=== PATIENT | male | born 1935 | race Caucasian/White ===

== ENCOUNTER 2019-06-14 09:41 | Inpatient (IN) | payer OTHER, SELFPAY ==
[2019-06-14] VITALS (19 sets, daily range): BP systolic 105–130; BP diastolic 57–70; PULSE 62–106; RESP 16–21; TEMP 36.6–37.6; O2SAT 93–99; BMI 29.5
--- NOTE | 2019-06-14 09:44 | ED_ITS ---
Entered by Clotilde Lnage, acting as scribe for Cm Izquierdo DO HPI - General Adult General: Chief complaint: General Medical Stated complaint: LOW HEMOGLOBIN Time Seen by Provider: 06/14/19 09:44 History of Present Illness: HPI narrative: 83 yo male presents with low hemoglobin. Pt has a history of anemia, has had 1 transfusion before. Pt was diagnosed with pneumonia last week and has been taking antibiotics. Pt states that he has had a non productive cough. Pt states that he tries to cough stuff up but nothing comes up, he as wheezing. Pt states that he received lasix yesterday and his cough is a little better. Pt state that he was taken off of his blood thinners 1 month ago. Pt states that he had to have a blood transfusion in April. MD complaint: low hemoglobin Associated symptoms: Reports cough and dyspnea; Deny chest pain, malaise, nausea, rash or vomiting Review of Systems Const: Denies: fever, chills, body aches, change in appetite, fatigue or malaise ENMT: Denies: throat pain, ear pain, nasal discharge or nasal congestion Card: Reports: shortness of breath on exertion; Denies: chest pain, edema or shortness of breath when lying down Resp: Reports: shortness of breath and non-productive cough; Denies: productive cough GI: Denies: abdominal pain, nausea, vomiting, vomiting blood, coffee grounds in vomit, diarrhea, constipation, bloating, blood in stool or black tarry stool : Denies: flank pain, painful urination, urinary frequency or urinary urgency Skin/Breast: Denies: rash or itching PFSH ED PFSH: Medical History (Updated 06/14/19 @ 14:36 by Cm Izquierdo DO) Acute respiratory failure Anemia Benign prostatic hyperplasia Chronic kidney disease, stage III (moderate) Congestive heart failure COPD (chronic obstructive pulmonary disease) Diastolic CHF GI bleed Hyperlipidemia Hypertension Monoclonal gammopathy Paroxysmal atrial fibrillation Pneumonia Rosacea TIA (transient ischemic attack) Surgical History H/O knee surgery History of back surgery History of neck surgery Family History (Updated 06/14/19 @ 13:42 by Melvin Kaufman MD) Other CAD (coronary artery disease) Social History Smoking and tobacco status: former smoker Physical Exam Const: COMMON NORMALS: no apparent distress GENERAL APPEARANCE: cooperative and comfortable ORIENTATION/CONSCIOUSNESS: Yes awake, Yes oriented to person, Yes oriented to place and Yes oriented to time HENMT: COMMON NORMALS: normocephalic, head/scalp atraumatic, hearing grossly normal bilaterally, external ears normal, EAC's normal, TM's normal bilaterally, nasal mucous membranes and turbinates normal, moist oral mucous membranes and oropharynx normal HEAD & SCALP: normocephalic and atraumatic NOSE: nasal mucous membranes and turbinates normal EXTERNAL EAR: Yes external ears normal EXTERNAL AUDITORY CANAL: EAC's normal TYMPANIC MEMBRANE: TM's normal bilaterally Eye: COMMON NORMALS: PERRL, EOMs intact bilaterally, conjunctivae normal and no scleral icterus CONJUNCTIVA: Yes conjunctivae normal PUPIL: Yes PERRL Neck/C-Spine: COMMON NORMALS: full ROM, no lymphadenopathy, supple and no JVD Lymph: LYMPHATIC: no lymphadenopathy noted and no lymphedema noted Resp: AUSCULTATION: rhonchi right lower and wheezes throughout Cardio: COMMON NORMALS: no JVD and no murmurs RHYTHM: abnormal rhythm irregularly irregular GI: COMMON NORMALS: soft to palpation and no hepatosplenomegaly AUSCULTATION: Yes normoactive bowel sounds PALPATION: Yes soft, No tender, No guarding and Yes no hepatosplenomegaly : OTHER: pt has a marrero catheter in. Extremity: COMMON NORMALS: normal to inspection, normal capillary refill, no clubbing, cyanosis or edema, no calf tenderness and no pedal edema Neuro: SENSORIUM/ORIENTATION: Yes oriented to person, Yes oriented to place and Yes oriented to time Skin: COMMON NORMALS: no rashes or lesions noted GENERAL SKIN EXAM: no rashes or lesions noted Course ED course: Patient has been 2 courses of outpatient antibiotics doxycycline and Levaquin suspect he needs further more aggressive treatment will start on healthcare associated pneumonia antibiotic regimen. Additionally he will likely need transfusion discussed with Dr. Mora will admit the patient to his services. Vital Signs: Vital signs: Vital Signs Temperature 98.8 F 06/14/19 14:06 Pulse Rate 69 06/14/19 14:06 Respiratory Rate 21 H 06/14/19 14:06 Blood Pressure 106/66 06/14/19 14:06 Pulse Oximetry 97 06/14/19 14:06 [facility] - General Adult Lab Data: Labs: Lab Results 06/14/19 06/14/19 06/14/19 Range/Units 10:02 10:02 10:02 WBC 10.8 H (4.0-10.0) 10^3/ uL RBC 2.41 L (4.1-5.3) 10^6/u L Hgb 7.0 L (11.7-16.6) g/dL Hct 24.2 L (42.0-52.0) % MCV 100.4 H (80-94) fL MCH 29.0 (28.0-34.0) pg MCHC 28.9 L (30.0-36.0) g/dL RDW 18.7 H (12.1-15.1) % Plt Count 159 (130-400) 10^3/c mm MPV 10.0 (7.4-10.4) fL Neut % (Auto) 76.5 % Lymph % (Auto) 13.9 % Jerome % (Auto) 7.6 % Eos % (Auto) 1.0 % Baso % (Auto) 0.1 % Reticulocyte % (Au to) % Neut # (Auto) 8.3 H (1.8-7.7) 10^3/u L Lymph # (Auto) 1.5 (0.8-4.8) 10^3/u L Jerome # (Auto) 0.8 (0.2-0.9) 10^3/u L Eos # (Auto) 0.1 (0.0-0.8) 10^3/u L Baso # (Auto) 0.0 (0.0-0.1) 10^3/u L Nucleated RBC % (a uto) 0 % Nucleated RBCs # 0.0 /100WBC ESR (0-10) mm/hr PT 16.70 H (10.5-13.3) SECO NDS INR 1.31 H (0.8-1.2) APTT 27.3 (23.9-36.7) SECO NDS Sodium 139 (136-145) mmol/L Potassium 3.6 (3.5-5.1) mmol/L Chloride 102 (98-107) mmol/L Carbon Dioxide 29 (22-29) mmol/L Anion Gap 11.6 (5-19) BUN 32 H (8-23) mg/dL Creatinine 1.5 H (0.7-1.2) mg/dL Glucose 113 (65-115) mg/dL Calcium 9.5 (8.5-10.5) mg/dL Iron (59-158) ug/dL TIBC mcg/dl % Saturation (20-50) % Unsat Iron Binding (112-347) ug/dL Ferritin (30-400) ng/mL Total Bilirubin 0.2 (0.15-1.2) mg/dL AST 9 (0-40) U/L ALT 17 (0-41) U/L Alkaline Phosphata se 98 (40-130) IU/L C-Reactive Protein (0.0-4.9) mg/L NT-Pro-B Natriuret Pep 2760 H (0-450) pg/mL Total Protein 6.3 L (6.6-8.7) g/dL Albumin 2.6 L (3.5-5.2) g/dL Globulin 3.7 (1.3-4.6) g/dL Vitamin B12 (232-1245) pg/mL Folate (4.5-32.2) ng/mL Procalcitonin (0-0.5) ng/mL 06/14/19 06/14/19 06/14/19 Range/Units 10:02 10:02 10:02 WBC (4.0-10.0) 10^3/ uL RBC (4.1-5.3) 10^6/u L Hgb (11.7-16.6) g/dL Hct (42.0-52.0) % MCV (80-94) fL MCH (28.0-34.0) pg MCHC (30.0-36.0) g/dL RDW (12.1-15.1) % Plt Count (130-400) 10^3/c mm MPV (7.4-10.4) fL Neut % (Auto) % Lymph % (Auto) % Jerome % (Auto) % Eos % (Auto) % Baso % (Auto) % Reticulocyte % (Au to) 2.5500 % Neut # (Auto) (1.8-7.7) 10^3/u L Lymph # (Auto) (0.8-4.8) 10^3/u L Jerome # (Auto) (0.2-0.9) 10^3/u L Eos # (Auto) (0.0-0.8) 10^3/u L Baso # (Auto) (0.0-0.1) 10^3/u L Nucleated RBC % (a uto) % Nucleated RBCs # /100WBC ESR 101 H (0-10) mm/hr PT (10.5-13.3) SECO NDS INR (0.8-1.2) APTT (23.9-36.7) SECO NDS Sodium (136-145) mmol/L Potassium (3.5-5.1) mmol/L Chloride (98-107) mmol/L Carbon Dioxide (22-29) mmol/L Anion Gap (5-19) BUN (8-23) mg/dL Creatinine (0.7-1.2) mg/dL Glucose (65-115) mg/dL Calcium (8.5-10.5) mg/dL Iron 28 L (59-158) ug/dL TIBC 117 mcg/dl % Saturation 23.9 (20-50) % Unsat Iron Binding 89 L (112-347) ug/dL Ferritin 578 H (30-400) ng/mL Total Bilirubin (0.15-1.2) mg/dL AST (0-40) U/L ALT (0-41) U/L Alkaline Phosphata se (40-130) IU/L C-Reactive Protein 90.2 H (0.0-4.9) mg/L NT-Pro-B Natriuret Pep (0-450) pg/mL Total Protein (6.6-8.7) g/dL Albumin (3.5-5.2) g/dL Globulin (1.3-4.6) g/dL Vitamin B12 > 2000 H (232-1245) pg/mL Folate (4.5-32.2) ng/mL Procalcitonin 0.16 (0-0.5) ng/mL 06/14/19 Range/Units 10:02 WBC (4.0-10.0) 10^3/ uL RBC (4.1-5.3) 10^6/u L Hgb (11.7-16.6) g/dL Hct (42.0-52.0) % MCV (80-94) fL MCH (28.0-34.0) pg MCHC (30.0-36.0) g/dL RDW (12.1-15.1) % Plt Count (130-400) 10^3/c mm MPV (7.4-10.4) fL Neut % (Auto) % Lymph % (Auto) % Jerome % (Auto) % Eos % (Auto) % Baso % (Auto) % Reticulocyte % (Au to) % Neut # (Auto) (1.8-7.7) 10^3/u L Lymph # (Auto) (0.8-4.8) 10^3/u L Jerome # (Auto) (0.2-0.9) 10^3/u L Eos # (Auto) (0.0-0.8) 10^3/u L Baso # (Auto) (0.0-0.1) 10^3/u L Nucleated RBC % (a uto) % Nucleated RBCs # /100WBC ESR (0-10) mm/hr PT (10.5-13.3) SECO NDS INR (0.8-1.2) APTT (23.9-36.7) SECO NDS Sodium (136-145) mmol/L Potassium (3.5-5.1) mmol/L Chloride (98-107) mmol/L Carbon Dioxide (22-29) mmol/L Anion Gap (5-19) BUN (8-23) mg/dL Creatinine (0.7-1.2) mg/dL Glucose (65-115) mg/dL Calcium (8.5-10.5) mg/dL Iron (59-158) ug/dL TIBC mcg/dl % Saturation (20-50) % Unsat Iron Binding (112-347) ug/dL Ferritin (30-400) ng/mL Total Bilirubin (0.15-1.2) mg/dL AST (0-40) U/L ALT (0-41) U/L Alkaline Phosphata se (40-130) IU/L C-Reactive Protein (0.0-4.9) mg/L NT-Pro-B Natriuret Pep (0-450) pg/mL Total Protein (6.6-8.7) g/dL Albumin (3.5-5.2) g/dL Globulin (1.3-4.6) g/dL Vitamin B12 (232-1245) pg/mL Folate 16.0 (4.5-32.2) ng/mL Procalcitonin (0-0.5) ng/mL Discharge Plan Discharge Patient Disposition: Admitted As Inpatient Admit Provider: Melvin Kaufman Clinical Impression: Pneumonia, Paroxysmal atrial fibrillation, Hypertension, GI bleed, Anemia Condition: Stable Interventions: ED Discharge Assessment Last Done: 06/14/19 14:06 Discharge Date/Time: 06/14/19 14:23 Coding Level of Care Code ED Tape Transferrer for Chg Fwd Exam Comprehensive The documentation recorded by the Nazario jaquez Kialy, accurately reflects the service I personally performed and the decisions made by Felecia haider Curtis L, DO Jun 14, 2019 09:41
--- NOTE | 2019-06-14 09:54 | XRR_ITS ---
PROCEDURE INFORMATION: Exam: XR Chest, 1 View Exam date and time: 06/14/2019 10:31 AM Age: 83 years old Clinical indication: Dyspnea/cough TECHNIQUE: Imaging protocol: XR of the chest Views: 1 view. COMPARISON: CR Chest 1 [place] [id number] 03/17/2019 12:07 PM FINDINGS: Lungs: There is bilateral interstitial lung disease, asymmetrically worse in the right lung base. This could be due to interstitial pulmonary edema or pneumonitis. Pleural space: Small pleural effusions. No pneumothorax. Heart/Mediastinum: The cardiac silhouette is enlarged. The mediastinal contours are normal. Bones/joints: Left glenohumeral joint degeneration. XR/XR chest 1V portable [id number] IMPRESSION: Asymmetric interstitial pulmonary edema versus pneumonitis. Small pleural effusions.
[2019-06-14 10:13] LABS: Basophils % 0.1 %; Eosinophils # 0.1 10^3/uL (0.0-0.8); Hematocrit 24.2 % (42.0-52.0); Lymphocytes # 1.5 10^3/uL (0.8-4.8); Lymphocytes % 13.9 %; Mean Corpuscular HGB Conc 28.9 g/dL (30.0-36.0); Mean Corpuscular Volume 100.4 fL (80-94); Monocytes # 0.8 10^3/uL (0.2-0.9); Monocytes % 7.6 %; Neutrophils # 8.3 10^3/uL (1.8-7.7); Neutrophils % 76.5 %; Nucleated Red Blood Cells % 0 %; Platelet Count 159 10^3/cmm (130-400); Red Blood Count 2.41 10^6/uL (4.1-5.3); Red Cell Distribution Width 18.7 % (12.1-15.1); White Blood Count 10.8 10^3/uL (4.0-10.0)
[2019-06-14 10:22] LABS: INR 1.31 (0.8-1.2)
[2019-06-14 10:24] LABS: Partial Thromboplastin Time 27.3 SECONDS (23.9-36.7)
[2019-06-14 10:40] LABS: Alanine Aminotransferase 17 U/L (0-41); Albumin Level 2.6 g/dL (3.5-5.2); Alkaline Phosphatase 98 IU/L (40-130); Anion Gap 11.6 (5-19); Aspartate Amino Transferase 9 U/L (0-40); Blood Urea Nitrogen 32 mg/dL (8-23); Calcium 9.5 mg/dL (8.5-10.5); Carbon Dioxide 29 mmol/L (22-29); Chloride 102 mmol/L (98-107); Creatinine Clr Calc Pharmacy 44.3461; Globulin 3.7 g/dL (1.3-4.6); Glucose 113 mg/dL (65-115); NT Pro B Type Natriuretic Pept 2760 pg/mL (0-450); Potassium 3.6 mmol/L (3.5-5.1); Sodium 139 mmol/L (136-145); Total Bilirubin 0.2 mg/dL (0.15-1.2); Total Protein 6.3 g/dL (6.6-8.7)
[2019-06-14] MEDS: levofloxacin-dextrose 5 % 750 MG/150 ML PREMIX 100 MG IV (13:05)
[2019-06-14 13:06] LABS: C Reactive Protein 90.2 mg/L (0.0-4.9)
--- NOTE | 2019-06-14 13:08 | PC.NURSE ---
PATIENT SLEEPING HOSPITALIST IN ROOM AFTER FOR EVALUATION
--- NOTE | 2019-06-14 13:19 | CT_ITS ---
WS: [id number] CT CHEST ANGIOGRAPHY WITH REFORMATS HISTORY: sob, recent back surgery TECHNIQUE: Contiguous axial images are obtained through the chest during arterial injection of intrav enous contrast. Images are reconstructed to evaluate the pulmonary arteries. MIP imaging also reviewe d. All CT scans at [facility] use at least one of these dose optimization techniques: aut omated exposure control; mA and/or kV adjustment per patient size (includes targeted exams where dose is matched to clinical indication); or iterative reconstruction. CONTRAST: Omnipaque 300; 95 mL IV. DLP: 623.35 mGy.cm COMPARISON: 03/14/2018 Good opacification of the pulmonary arteries. Centrally no filling defects or pulmonary emboli are id entified. Limited opacification of the LEFT lower lobe subsegmental branches due to atelectasis. Norm al pulmonary artery size. Atherosclerosis aorta with no aneurysm or dissection. Mild enlargement of t he heart chambers no pericardial effusion. Moderate coronary artery atherosclerosis. There are jelly us small lymph nodes within the mediastinum and hilar regions. These lymph nodes were present on prio r study but slightly increased in size. Largest of the RIGHT hilum measures 14 mm. Small layering bilateral pleural effusions and atelectasis. There is mild haziness and groundglass at tenuation bilaterally within the lungs. Pleural thickening and fluid along the fissures. Atherosclerosis continues into the suprarenal abdominal aorta. Lumbar fusion hardware is noted. T12 vertebral planar compression fracture. Mild anterior wedging of T11, T10 and T8. CT/CT angio chest PE protcl [id number] IMPRESSION: 1. No pulmonary embolism. 2. Small bilateral pleural effusions with compressive atelectasis and mild CHF . 3. Numerous but minimally enlarged mediastinal and hilar lymph nodes. Probably reactive. 4. Coronary artery calcifications.
--- NOTE | 2019-06-14 13:21 | PM.HP ---
Providers/Chief Complaint Primary Care Provider: Bob Tobar MD Chief Complaint: LOW HEMOGLOBIN History of Present Illness Teddy Cortes is a 83 year old male with a past medical history of chronic diastolic CHF, 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, obesity, NAYANA on CPAP, hypertension, BPH, chronic back pain, with recent history of decompressive laminectomy at L1-2 L3, L3-L4 with history of wound dehiscence at surgical site, CKD stage III-IV, history of IgM monoclonal gammopathy, chronic normocytic anemia, chronic folate and B12 deficiency peripheral vascular disease with known AAA, recent history of staph epidermidis bacteremia status post antibiotic therapy, recent hospitalization for a GI bleed at [facility] who presents to the emergency due to complaints of fatigue, weakness, malaise, shortness of breath, cough and low hemoglobin. According to patient roughly 2 to 3 weeks ago he fell at the [place] [facility], and he was sent to [facility], there he spent a few weeks according to him, he said that that he had fluid on his lungs, and his hemoglobin was low, that he got 2 pints of blood, they are keeping an eye on his hemoglobin, denies history of EGD at that hospitalization, denies history of colonoscopy at that hospitalization, has had a colonoscopy 2 years ago which was unremarkable, stated that they discharged him with a close monitoring of his hemoglobin, the [place] [facility] has been checking his hemoglobin, and his hemoglobin is 7 so he was sent to the emergency room for further evaluation. Patient states that at the [place] [facility] he is felt more weak, fatigued, tired, lightheaded, his dizziness, shortness of breath with exertion. Denies bloody stools. Denies black stools. Denies hematuria. No fevers. No chills. I did speak to the [place] [facility], there were concerns of fluid overload and pneumonia, patient was on doxycycline at one point, Levaquin, he was also given 80 mg of Lasix to help with his fluid overload. Review of Systems Const: Denies: fever, chills, fatigue or malaise Eyes: Denies: change in vision or blurry vision ENMT: Denies: nasal congestion Card: Denies: chest pain or palpitations Resp: Reports: shortness of breath and non-productive cough; Denies: productive cough or wheezing GI: Denies: abdominal pain, nausea, vomiting, vomiting blood, diarrhea, constipation, blood in stool or black tarry stool : Denies: flank pain, difficulty urinating, painful urination or urinary frequency Musc: Denies: neck pain or back pain Skin/Breast: Denies: rash Neuro: Denies: headache, dizziness or vertigo Psych: Denies: anxiety or depression Endo: Denies: excessive urination or excessive thirst Medications/Allergies Home Medications Medication Instructions Recorded Confirmed Last Taken Type Lactobacillus acidophilus 1 cap PO DAILY 06/14/19 06/14/19 06/14/19 09:00 History [Acidophilus] acetaminophen [Tylenol 8 Hour] 650 mg PO Q4H PRN 06/14/19 06/14/19 Unknown History albuterol sulfate 2.5 mg INHALATION QID 06/14/19 06/14/19 06/14/19 08:00 History albuterol sulfate [ProAir HFA] 2 puff INHALATION Q6H 06/14/19 06/14/19 06/14/19 06:00 History ascorbic acid (vitamin C) [Vitamin 250 mg PO DAILY 06/14/19 06/14/19 06/14/19 History C] bisacodyl 10 mg DE DAILY PRN 06/14/19 06/14/19 Unknown History budesonide-formoterol [Symbicort] 2 puff INHALATION BID 06/14/19 06/14/19 06/14/19 09:00 History bumetanide 1 mg PO BID 06/14/19 06/14/19 06/14/19 09:00 History carvedilol 3.125 mg PO BID 06/14/19 06/14/19 06/14/19 08:00 History cyanocobalamin (vitamin B-12) 5,000 mcg SUBLINGUAL DAILY 06/14/19 06/14/19 06/14/19 09:00 History [Vitamin B-12] diltiazem HCl [Cardizem CD] 240 mg PO DAILY 06/14/19 06/14/19 06/14/19 08:00 History docusate sodium [Colace] 100 mg PO BID 06/14/19 06/14/19 06/14/19 09:00 History doxycycline hyclate 100 mg PO DAILY 06/14/19 06/14/19 06/14/19 09:00 History ferrous sulfate 325 mg PO DAILY 06/14/19 06/14/19 06/14/19 09:00 History finasteride 5 mg PO DAILY 06/14/19 06/14/19 06/14/19 09:00 History folic acid 1 mg PO BEDTIME 06/14/19 06/14/19 06/13/19 21:00 History furosemide [Lasix] 80 mg PO DAILY 06/14/19 06/14/19 06/13/19 08:00 History gabapentin 300 mg PO BID 06/14/19 06/14/19 06/14/19 09:00 History guaifenesin [Mucinex] 600 mg PO Q12H 06/14/19 06/14/19 06/14/19 09:00 History hydralazine 50 mg PO TID 06/14/19 06/14/19 06/14/19 09:00 History hydrocodone-acetaminophen [[place]] 1 tab PO Q6H PRN 06/14/19 06/14/19 Unknown History ipratropium bromide [Atrovent HFA] 2 puff INHALATION DAILY PRN 06/14/19 06/14/19 Unknown History levofloxacin [Levaquin] 750 mg PO DAILY 06/14/19 06/14/19 06/13/19 History magnesium hydroxide [Milk of 30 ml PO DAILY PRN 06/14/19 06/14/19 Unknown History Magnesia] multivitamin [Multiple Vitamins] 1 tab PO DAILY 06/14/19 06/14/19 06/14/19 09:00 History senna 17.2 mg PO DAILY 06/14/19 06/14/19 06/14/19 09:00 History sodium phosphates [Enema 118 ml DE DAILY PRN 06/14/19 06/14/19 Unknown History Disposable] tamsulosin 0.4 mg PO BEDTIME 06/14/19 06/14/19 06/13/19 21:00 History tiotropium bromide [Spiriva with 1 cap INHALATION DAILY 06/14/19 06/14/19 06/14/19 09:00 History HandiHaler] Allergies Allergy/AdvReac Type Severity Reaction Status Date / Time No Known Allergies Allergy Verified 06/14/19 09:55 PFSH Acute PFSH: Medical History (Updated 06/14/19 @ 13:41 by Melvin Kaufman MD) Acute respiratory failure Anemia Benign prostatic hyperplasia Chronic kidney disease, stage III (moderate) Congestive heart failure COPD (chronic obstructive pulmonary disease) Diastolic CHF GI bleed Hyperlipidemia Hypertension Monoclonal gammopathy Paroxysmal atrial fibrillation Pneumonia Rosacea TIA (transient ischemic attack) Surgical History H/O knee surgery History of back surgery History of neck surgery Family History (Updated 06/14/19 @ 13:42 by Melvin Kaufman MD) Other CAD (coronary artery disease) Social History Smoking and tobacco status: former smoker Vitals/I&O/Wt Last Vital Signs Temp 98.1 F 06/14/19 09:45 Pulse 90 06/14/19 09:45 Resp 20 H 06/14/19 09:45 BP 114/70 06/14/19 09:45 Pulse Ox 94 06/14/19 09:45 Weight last 48 hrs Weight 93.44 kg Physical Exam Const: COMMON NORMALS: no apparent distress and oriented x3 GENERAL APPEARANCE: cooperative and comfortable HENMT: COMMON NORMALS: normocephalic HEAD & SCALP: normocephalic Eye: COMMON NORMALS: PERRL, EOMs intact bilaterally and no papilledema GENERAL EYE: normal appearance of both eyes PUPIL: Yes PERRL DIRECT OPHTHALMOSCOPY: Yes no papilledema Neck/C-Spine: COMMON NORMALS: full ROM, no lymphadenopathy, no JVD and thyroid normal THYROID: thyroid normal Lymph: LYMPHATIC: no lymphadenopathy noted Resp: COMMON NORMALS: normal respiratory effort, no retractions, no use of accessory muscles and clear to auscultation bilaterally AUSCULTATION: wheezes Cardio: COMMON NORMALS: no JVD, regular rate, regular rhythm, S1 normal heart sound, S2 normal heart sound, no gallops, no clicks and no murmurs RATE: regular rate RHYTHM: regular rhythm HEART SOUNDS: S1 normal and S2 normal GI: COMMON NORMALS: normal to inspection, nondistended, normoactive bowel sounds, soft to palpation, non-tender and no hepatosplenomegaly PALPATION: Yes soft and Yes no hepatosplenomegaly Extremity: COMMON NORMALS: normal to inspection, full ROM and no pedal edema Neuro: COMMON NORMALS: oriented x3, CN's II-XII intact bilaterally, moves all extremities and no focal motor deficits Psych: COMMON NORMALS: mental status grossly normal, thought process normal and cooperative THOUGHT PROCESS: normal thought process Data : 06/14/19 10:02 06/14/19 10:02 A&P Assessment and plan (1) GI bleed: -Upper versus lower GI bleed -Had a colonoscopy 2 years ago which was unremarkable -Had a hospitalization a few weeks ago at [facility], required 2 units of blood, no source found, no history of EGD or colonoscopy at that point Plan: -Monitor hemoglobins -Transfuse 1 unit PRBC -IV Protonix -Telemetry monitoring -Iron studies, Hemoccult -Await records from [facility] Status: Acute Code(s): K92.2 - Gastrointestinal hemorrhage, unspecified (2) Paroxysmal atrial fibrillation: -Patient denies a history of paroxysmal A. fib, but is on Cardizem and Coreg -Not on anticoagulation which I presume is secondary to concerns for bleed -Continue telemetry monitoring Status: Acute Code(s): I48.0 - Paroxysmal atrial fibrillation (3) Acute respiratory failure: -Secondary to CHF and COPD -Has elevated BNP Plan: -We will obtain CT Angio of the chest given recent history of laminectomy to rule out pulmonary embolism -Lasix 40 mg IV 3 times daily -He was given broad-spectrum notes emergency room due to concerns of right lower lobe pneumonia, no significant white count, procalcitonin 0.16, will hold off on antibiotics until further imaging -Hold off steroids, monitor Lasix response -Nebulizer treatments Status: Acute Code(s): J96.00 - Acute respiratory failure, unspecified whether with hypoxia or hypercapnia (4) Monoclonal gammopathy: Status: Acute Code(s): D47.2 - Monoclonal gammopathy (5) Chronic kidney disease, stage III (moderate): Status: Acute Code(s): N18.3 - Chronic kidney disease, stage 3 (moderate) (6) Diastolic CHF: Status: Acute Code(s): I50.30 - Unspecified diastolic (congestive) heart failure (7) Rosacea: Status: Acute Code(s): L71.9 - Rosacea, unspecified (8) Hypertension: Status: Acute Code(s): I10 - Essential (primary) hypertension (9) Hyperlipidemia: Status: Acute Code(s): E78.5 - Hyperlipidemia, unspecified Attestations Medical Necessity Statement*: Requires inpatient mission, greater than 2 minutes, for GI bleed and respiratory failure Coding Level of Care Code Acute [place] [employer] [place] for Chg Fwd Diagnoses GI bleed K92.2 Paroxysmal atrial fibrillation I48.0 Acute respiratory failure J96.00 Monoclonal gammopathy D47.2 Chronic kidney disease, stage III (moderate) N18.3 Diastolic CHF I50.30 Rosacea L71.9 Hypertension I10 Hyperlipidemia E78.5
[2019-06-14 13:24] LABS: Procalcitonin 0.16 ng/mL (0-0.5)
[2019-06-14 13:29] LABS: Erythrocyte Sedimentation Rate 101 mm/hr (0-10)
[2019-06-14 13:34] LABS: Ferritin 578 ng/mL (30-400); Iron 28 ug/dL (59-158); Percent Saturation 23.9 % (20-50); Total Iron Binding Capacity 117 mcg/dl; Unsaturated Iron Binding 89 ug/dL (112-347)
[2019-06-14] MEDS: iodixanol 320 mg/mL 100mL Btl IV (13:34)
[2019-06-14 13:45] LABS: Vitamin B12 > 2000 pg/mL (232-1245)
--- NOTE | 2019-06-14 13:52 | PC.NURSE ---
PATIENT RETURNED FROM CT
[2019-06-14] MEDS: D5-NS 0.45% + KCL 20 mEq 20 MEQ/1,000 ML BAG 100 MEQ IV (15:12)
[2019-06-14] MEDS: FUROsemide 10 mg/mL SDV 4mL 40 MG IVP ×2 (15:13→21:13)
[2019-06-14] MEDS: hyDRALAzine 50 mg Tablet PO ×2 (15:13→21:13)
[2019-06-14] MEDS: pantoprazole 40 mg SDV IVP (15:13)
[2019-06-14] MEDS: ipratropium-albuterol 3 mL Neb INHALATION ×3 (16:47→23:54)
[2019-06-14] MEDS: ferrous sulfate EC 325 mg Tablet PO (17:00)
[2019-06-14] MEDS: sodium chloride 0.9% 100 ML 50 ML (17:01)
[2019-06-14] MEDS: carvedilol 3.125 mg Tablet PO (17:57)
[2019-06-14] MEDS: gabapentin 300 mg Capsule PO (17:57)
[2019-06-14 19:03] LABS: Influenza A by IFA Negative (Negative); Influenza B by IFA Negative (Negative)
[2019-06-14] MEDS: folic acid 1 mg Tablet PO (21:13)
[2019-06-14] MEDS: tamsulosin 0.4 mg Capsule PO (21:13)
[2019-06-14 21:28] LABS: Hematocrit 26.3 % (42.0-52.0); Hemoglobin 7.7 g/dL (11.7-16.6)
--- NOTE | 2019-06-14 22:06 | PC.NURSE ---
patients first bag of blood finished around 8ish, started a new iv to continue the vanc previously on pause. next bag of blood to begin soon. an a bit slower d/t course lung sounds. lung sounds very cranky, not coughing anything up.
[2019-06-15] VITALS (22 sets, daily range): BP systolic 106–146; BP diastolic 46–67; PULSE 74–93; RESP 17–24; TEMP 36.7–37.9; O2SAT 91–98
[2019-06-15] MEDS: pantoprazole 40 mg SDV IVP ×2 (02:39→13:10)
[2019-06-15] MEDS: ipratropium-albuterol 3 mL Neb INHALATION ×6 (03:27→23:26)
[2019-06-15 05:20] LABS: Basophils % 0.2 %; Eosinophils # 0.1 10^3/uL (0.0-0.8); Eosinophils % 1.4 %; Hematocrit 25.4 % (42.0-52.0); Hemoglobin 7.6 g/dL (11.7-16.6); Lymphocytes # 1.5 10^3/uL (0.8-4.8); Lymphocytes % 14.9 %; Mean Corpuscular HGB Conc 29.9 g/dL (30.0-36.0); Mean Corpuscular Hemoglobin 28.6 pg (28.0-34.0); Mean Corpuscular Volume 95.5 fL (80-94); Mean Platelet Volume 10.7 fL (7.4-10.4); Monocytes # 0.8 10^3/uL (0.2-0.9); Monocytes % 8.6 %; Neutrophils # 7.2 10^3/uL (1.8-7.7); Neutrophils % 74.3 %; Nucleated Red Blood Cells % 0 %; Platelet Count 138 10^3/cmm (130-400); Red Blood Count 2.66 10^6/uL (4.1-5.3); Red Cell Distribution Width 19.3 % (12.1-15.1); White Blood Count 9.8 10^3/uL (4.0-10.0)
[2019-06-15 05:39] LABS: Blood Urea Nitrogen 29 mg/dL (8-23); Calcium 9.1 mg/dL (8.5-10.5); Carbon Dioxide 25 mmol/L (22-29); Chloride 102 mmol/L (98-107); Creatinine Clr Calc Pharmacy 44.3461; Glucose 127 mg/dL (65-115); Osmolality Calculated 283 mOsm/kg (285-295); Sodium 137 mmol/L (136-145)
--- NOTE | 2019-06-15 05:50 | PC.NURSE ---
Noted that the patient has approximate 6 inch scar on this lower posterior back going down to his tailbone from a surgical procedure.
[2019-06-15] MEDS: FUROsemide 10 mg/mL SDV 4mL 40 MG IVP (06:53)
[2019-06-15 07:27] LABS: Hematocrit 26.8 % (42.0-52.0); Hemoglobin 8.1 g/dL (11.7-16.6)
[2019-06-15] MEDS: bumetanide 0.25 mg/mL SDV 10 mL 1 MG IV ×3 (08:24→22:59)
[2019-06-15] MEDS: metOLazone 5 MG Tablet PO (08:25)
--- NOTE | 2019-06-15 08:30 | PC.NURSE ---
Chronic marrero placed in february of 2019 per patient
[2019-06-15] MEDS: hyDRALAzine 50 mg Tablet PO ×2 (09:14→20:09)
[2019-06-15] MEDS: carvedilol 3.125 mg Tablet PO ×2 (09:14→18:08)
[2019-06-15] MEDS: ascorbic acid 500 mg Tablet 250 MG PO (09:14)
[2019-06-15] MEDS: finasteride 5 mg Tablet PO (09:14)
[2019-06-15] MEDS: gabapentin 300 mg Capsule PO ×2 (09:14→18:08)
[2019-06-15] MEDS: guaiFENesin 600 mg Tablet PO ×2 (09:14→18:08)
[2019-06-15] MEDS: ferrous sulfate EC 325 mg Tablet PO (09:15)
[2019-06-15] MEDS: dilTIAZem ER (24HR) 240 mg Capsule PO (09:15)
--- NOTE | 2019-06-15 12:35 | PC.CHAP ---
Pastoral Care Encounter/Spiritual Assessment Type of Contact [] Declined master [place] visit [] Patient/Family/Request visit [] Outpatient visit [] Follow-up visit [] Physician referral [] Code/Alert [x] Routine visit [] Staff referral [] Actively dying [] Patient sleeping [] Family support [] [] Out of room [] Palliative care [] [] Receiving care in room [] Pre-surgical visit [] Trauma [] Long length of stay [] ICU visit [] Other: Relational/Emotional Strength [x] Patient feels connected with others/family/visitors/staff [] Distress [] Loneliness/isolation [] Abandonment Spirituality of Patient [x] Person of Bianca [] Attends Mosque of their Bianca [x] Believes in Prayer [] Reads Bible or Gnosticism materials [] There are Spiritual issues to be addressed Desk Pen Set Assembler Interventions [x] Prayer [x] Active listening [x] Non-anxious presence [x] Spiritual/emotional support [] Crisis/trauma care [x] Spiritual counseling [] Bereavement support [] Provided bereavement packet [] Provided Bible/devotional materials [] Provided toy/stuffed animal, coloring book to patient or family member [] Provided Communion [] Anointing/[place] [] Salvation [] Completed spiritual assessment [] Other: Impact on Illness or Injury [] Angry [] Fearful [] Anxious [] Often cries [] Exhaustion [] Unable to work [] Unable to attend islam [] Unable to walk/stand [] Unable to read [] Unable to drive [] Unable to eat/drink [] Unable to sleep [] Unable to be with family [] Patient intubated [x] Other: n/a Summary Time spent with patient 8 minutes
--- NOTE | 2019-06-15 13:33 | P.PN_ITS ---
Subjective Subjective: Interval history: She states that he still short of breath this morning, has a cough, but seems not to bring anything up, has not gotten out of bed, denies bloody stools, denies black stools, denies dizziness, denies chest pain Vitals/I&O/Wt Last Vital Signs Temp 98.1 F 06/15/19 10:50 Pulse 90 06/15/19 11:26 Resp 17 06/15/19 11:22 BP 111/56 06/15/19 10:50 Pulse Ox 98 06/15/19 11:22 06/14/19 06/15/19 06/15/19 22:59 06:59 14:59 Intake Total 830 / 830 1380 / 2210 840 / 840 Output Total 1500 / 1500 1700 / 3200 2200 / 2200 Balance -670 / -670 -320 / -990 -1360 / -1360 Weight last 48 hrs Weight 93.44 kg Physical Exam Const: COMMON NORMALS: no apparent distress and oriented x3 GENERAL APPEARANCE: cooperative and comfortable HENMT: COMMON NORMALS: normocephalic HEAD & SCALP: normocephalic Neck/C-Spine: COMMON NORMALS: no JVD Lymph: LYMPHATIC: no lymphadenopathy noted Resp: COMMON NORMALS: normal respiratory effort, no retractions, no use of accessory muscles and clear to auscultation bilaterally AUSCULTATION: clear to auscultation bilaterally and wheezes Cardio: COMMON NORMALS: no JVD, regular rate, regular rhythm, S1 normal heart sound, S2 normal heart sound, no gallops, no clicks and no murmurs RATE: regular rate RHYTHM: regular rhythm HEART SOUNDS: S1 normal and S2 normal GI: COMMON NORMALS: normal to inspection, nondistended, normoactive bowel sounds, soft to palpation, non-tender and no hepatosplenomegaly PALPATION: Yes soft and Yes no hepatosplenomegaly Extremity: COMMON NORMALS: normal to inspection, full ROM and no pedal edema Neuro: COMMON NORMALS: oriented x3 Urinary Catheter Management^: Shoemaker: Cath Placed During This Visit: yes Urethral Indwelling: Yes Reason for Continuing Indwelling Catheter: Not indwelling catheter Urinary Catheter Date of Insertion: 03/02/19 Data : 06/15/19 07:20 06/15/19 04:40 A&P Assessment and plan (1) GI bleed: -Upper versus lower GI bleed -Had a colonoscopy 2 years ago which was unremarkable -Had a hospitalization a few weeks ago at [facility], required 2 units of blood, no source found, no history of EGD or colonoscopy at that point, at that point patient was on Eliquis for A. fib which was stopped, still awaiting paula rds to confirm -Patient received 2 units PRBC here, hemoglobin 8.1 Plan: -Monitor hemoglobins -IV Protonix -Telemetry monitoring - Hemoccult -Await records from [facility] Status: Acute Code(s): K92.2 - Gastrointestinal hemorrhage, unspecified (2) Paroxysmal atrial fibrillation: -Patient denies a history of paroxysmal A. fib, but is on Cardizem and Coreg -Not on anticoagulation which I presume is secondary to concerns for bleed -Continue telemetry monitoring Status: Acute Code(s): I48.0 - Paroxysmal atrial fibrillation (3) Acute respiratory failure: -Secondary to CHF and COPD -Has elevated BNP Plan: -Start Bumex 1 mg every 8 hours in addition with metolazone, in addition with potassium, monitor kidney function, monitor potassium -He was given broad-spectrum notes emergency room due to concerns of right lower lobe pneumonia, no significant white count, procalcitonin 0.16, CT angios was unremarkable for pneumonia, will hold off on antibiotics until further imaging -Hold off steroids, monitor Lasix response -Nebulizer treatments Status: Acute Code(s): J96.00 - Acute respiratory failure, unspecified whether with hypoxia or hypercapnia (4) Monoclonal gammopathy: Status: Acute Code(s): D47.2 - Monoclonal gammopathy (5) Chronic kidney disease, stage III (moderate): Status: Acute Code(s): N18.3 - Chronic kidney disease, stage 3 (moderate) (6) Diastolic CHF: Status: Acute Code(s): I50.30 - Unspecified diastolic (congestive) heart failure (7) Rosacea: Status: Acute Code(s): L71.9 - Rosacea, unspecified (8) Hypertension: Status: Acute Code(s): I10 - Essential (primary) hypertension (9) Hyperlipidemia: Status: Acute Code(s): E78.5 - Hyperlipidemia, unspecified Attestations Medical Necessity Statement*: Patient requires continued hospitalization for GI bleed, acute respiratory failure Coding Level of Care Code Acute Slip Laster for Chg Fwd Diagnoses GI bleed K92.2 Paroxysmal atrial fibrillation I48.0 Acute respiratory failure J96.00 Monoclonal gammopathy D47.2 Chronic kidney disease, stage III (moderate) N18.3 Diastolic CHF I50.30 Rosacea L71.9 Hypertension I10 Hyperlipidemia E78.5
[2019-06-15 13:39] LABS: Basophils % 0.2 %; Eosinophils # 0.1 10^3/uL (0.0-0.8); Eosinophils % 1.2 %; Hematocrit 27.3 % (42.0-52.0); Hemoglobin 8.2 g/dL (11.7-16.6); Lymphocytes # 1.4 10^3/uL (0.8-4.8); Lymphocytes % 15.9 %; Mean Corpuscular Hemoglobin 28.8 pg (28.0-34.0); Mean Corpuscular Volume 95.8 fL (80-94); Mean Platelet Volume 9.7 fL (7.4-10.4); Monocytes # 0.7 10^3/uL (0.2-0.9); Monocytes % 7.9 %; Neutrophils # 6.4 10^3/uL (1.8-7.7); Nucleated Red Blood Cells % 0 %; Platelet Count 140 10^3/cmm (130-400); Red Blood Count 2.85 10^6/uL (4.1-5.3); Red Cell Distribution Width 19.6 % (12.1-15.1); White Blood Count 8.6 10^3/uL (4.0-10.0)
[2019-06-15 13:56] LABS: Alanine Aminotransferase 13 U/L (0-41); Albumin Level 2.3 g/dL (3.5-5.2); Alkaline Phosphatase 82 IU/L (40-130); Anion Gap 15.1 (5-19); Aspartate Amino Transferase 10 U/L (0-40); Blood Urea Nitrogen 27 mg/dL (8-23); Calcium 9.5 mg/dL (8.5-10.5); Carbon Dioxide 26 mmol/L (22-29); Chloride 101 mmol/L (98-107); Creatinine Clr Calc Pharmacy 44.3461; Globulin 3.8 g/dL (1.3-4.6); Glucose 140 mg/dL (65-115); Potassium 4.1 mmol/L (3.5-5.1); Sodium 138 mmol/L (136-145); Total Bilirubin 0.7 mg/dL (0.15-1.2); Total Protein 6.1 g/dL (6.6-8.7)
[2019-06-15] MEDS: folic acid 1 mg Tablet PO (20:09)
[2019-06-15] MEDS: tamsulosin 0.4 mg Capsule PO (20:09)
[2019-06-15 21:02] LABS: Basophils % 0.4 %; Eosinophils # 0.1 10^3/uL (0.0-0.8); Eosinophils % 1.6 %; Hematocrit 27.6 % (42.0-52.0); Hemoglobin 7.9 g/dL (11.7-16.6); Lymphocytes # 1.6 10^3/uL (0.8-4.8); Lymphocytes % 18.8 %; Mean Corpuscular HGB Conc 28.6 g/dL (30.0-36.0); Mean Corpuscular Hemoglobin 28.8 pg (28.0-34.0); Mean Corpuscular Volume 100.7 fL (80-94); Mean Platelet Volume 10.1 fL (7.4-10.4); Monocytes # 0.8 10^3/uL (0.2-0.9); Monocytes % 9.3 %; Neutrophils # 5.8 10^3/uL (1.8-7.7); Neutrophils % 69.4 %; Nucleated Red Blood Cells % 0 %; Platelet Count 123 10^3/cmm (130-400); Red Blood Count 2.74 10^6/uL (4.1-5.3); Red Cell Distribution Width 19.7 % (12.1-15.1); White Blood Count 8.3 10^3/uL (4.0-10.0)
[2019-06-16] VITALS (15 sets, daily range): BP systolic 110–154; BP diastolic 56–69; PULSE 65–102; RESP 17–24; TEMP 36.4–36.9; O2SAT 84–96
[2019-06-16] MEDS: pantoprazole 40 mg SDV IVP ×2 (02:09→14:54)
[2019-06-16] MEDS: ipratropium-albuterol 3 mL Neb INHALATION ×5 (03:44→20:59)
[2019-06-16] MEDS: bumetanide 0.25 mg/mL SDV 10 mL 1 MG IV ×2 (06:51→15:01)
[2019-06-16] MEDS: hyDRALAzine 50 mg Tablet PO ×3 (08:26→21:55)
[2019-06-16] MEDS: ferrous sulfate EC 325 mg Tablet PO (08:26)
[2019-06-16] MEDS: dilTIAZem ER (24HR) 240 mg Capsule PO (08:26)
[2019-06-16] MEDS: gabapentin 300 mg Capsule PO ×2 (08:26→17:59)
[2019-06-16] MEDS: guaiFENesin 600 mg Tablet PO ×2 (08:27→17:59)
[2019-06-16] MEDS: ascorbic acid 500 mg Tablet 250 MG PO (08:27)
[2019-06-16] MEDS: finasteride 5 mg Tablet PO (08:27)
[2019-06-16] MEDS: metOLazone 5 MG Tablet PO (08:27)
[2019-06-16] MEDS: carvedilol 3.125 mg Tablet PO ×2 (08:28→17:59)
[2019-06-16] MEDS: HYDROcodone-acetaminophen 5-325 mg Tablet 1 TAB PO (11:48)
--- NOTE | 2019-06-16 16:12 | P.PN_ITS ---
Subjective Subjective: Interval history: Patient feels that he has not gotten any better, still has shortness of breath, has this nagging cough, no fevers, no chills was able to get up to the side of the bed, states that he can sit in a chair as it is too low, no lightheadedness, no dizziness, no chest pain, no palpitations, his hemoglobin stable at 7.9, no bloody or black stools Vitals/I&O/Wt Last Vital Signs Temp 98.5 F 06/16/19 15:16 Pulse 69 06/16/19 16:05 Resp 18 06/16/19 16:00 BP 110/61 06/16/19 15:16 Pulse Ox 96 06/16/19 16:00 06/16/19 06/16/19 06/16/19 06:59 14:59 22:59 Intake Total 460 / 1760 240 / 240 Output Total 2700 / 6500 800 / 800 Balance -2240 / -4740 -560 / -560 Physical Exam Const: COMMON NORMALS: no apparent distress and oriented x3 HENMT: COMMON NORMALS: normocephalic HEAD & SCALP: normocephalic Neck/C-Spine: COMMON NORMALS: no JVD Resp: COMMON NORMALS: normal respiratory effort, no retractions and no use of accessory muscles AUSCULTATION: crackles Cardio: COMMON NORMALS: no JVD, regular rate, regular rhythm, S1 normal heart sound and S2 normal heart sound RATE: regular rate RHYTHM: regular rhythm HEART SOUNDS: S1 normal and S2 normal GI: COMMON NORMALS: normal to inspection, nondistended, normoactive bowel sounds, soft to palpation, non-tender, no hepatosplenomegaly, no masses and no bruits PALPATION: Yes soft and Yes no hepatosplenomegaly Extremity: COMMON NORMALS: normal capillary refill, no clubbing, cyanosis or edema, no calf tenderness and no pedal edema Neuro: COMMON NORMALS: oriented x3 Psych: COMMON NORMALS: mental status grossly normal Urinary Catheter Management^: Shoemaker: Cath Placed During This Visit: yes Urethral Indwelling: Yes Reason for Continuing Indwelling Catheter: Chronic Indwelling Urinary Catheter on Admission Urinary Catheter Date of Insertion: 03/02/19 Data : 06/15/19 20:50 06/15/19 13:08 A&P Assessment and plan (1) GI bleed: -Upper versus lower GI bleed -Had a colonoscopy 2 years ago which was unremarkable -Had a hospitalization a few weeks ago at [facility], required 2 units of blood, no source found, no history of EGD or colonoscopy at that point, at that point patient was on Eliquis for A. fib which was stopped, still awaiting records to confirm -Patient received 2 units PRBC here, hemoglobin 7.9 Plan: -Monitor hemoglobins -IV Protonix -Telemetry monitoring - Hemoccult -Await records from [facility] Status: Acute Code(s): K92.2 - Gastrointestinal hemorrhage, unspecified (2) Paroxysmal atrial fibrillation: -Patient denies a history of paroxysmal A. fib, but is on Cardizem and Coreg -Not on anticoagulation which I presume is secondary to concerns for bleed -Continue telemetry monitoring Status: Acute Code(s): I48.0 - Paroxysmal atrial fibrillation (3) Acute respiratory failure: -Secondary to CHF and COPD -Has elevated BNP Plan: -Start Bumex 1 mg every 8 hours in addition with metolazone, in addition with potassium, monitor kidney function, monitor potassium -He was given broad-spectrum notes emergency room due to concerns of right lower lobe pneumonia, no significant white count, procalcitonin 0.16, CT angios was unremarkable for pneumonia, will hold off on antibiotics until further imaging -Hold off steroids, monitor Lasix response will add metolazone -Nebulizer treatments Status: Acute Code(s): J96.00 - Acute respiratory failure, unspecified whether with hypoxia or hypercapnia (4) Monoclonal gammopathy: Status: Acute Code(s): D47.2 - Monoclonal gammopathy (5) Chronic kidney disease, stage III (moderate): Status: Acute Code(s): N18.3 - Chronic kidney disease, stage 3 (moderate) (6) Diastolic CHF: Status: Acute Code(s): I50.30 - Unspecified diastolic (congestive) heart failure (7) Rosacea: Status: Acute Code(s): L71.9 - Rosacea, unspecified (8) Hypertension: Status: Acute Code(s): I10 - Essential (primary) hypertension (9) Hyperlipidemia: Status: Acute Code(s): E78.5 - Hyperlipidemia, unspecified Attestations Medical Necessity Statement*: Patient requires continued hospitalization due to acute respiratory failure Coding Level of Care Code Acute Boat Canvas Maker And Installer for Chg Fwd Diagnoses GI bleed K92.2 Paroxysmal atrial fibrillation I48.0 Acute respiratory failure J96.00 Monoclonal gammopathy D47.2 Chronic kidney disease, stage III (moderate) N18.3 Diastolic CHF I50.30 Rosacea L71.9 Hypertension I10 Hyperlipidemia E78.5
[2019-06-16] MEDS: tamsulosin 0.4 mg Capsule PO (21:55)
[2019-06-16] MEDS: folic acid 1 mg Tablet PO (21:55)
[2019-06-17] VITALS (20 sets, daily range): BP systolic 95–122; BP diastolic 51–70; PULSE 65–101; RESP 16–20; TEMP 36.6–37.2; O2SAT 90–93
[2019-06-17] MEDS: ipratropium-albuterol 3 mL Neb INHALATION ×7 (00:09→23:46)
[2019-06-17] MEDS: pantoprazole 40 mg SDV IVP ×2 (01:58→15:08)
[2019-06-17] MEDS: bumetanide 0.25 mg/mL SDV 10 mL 1 MG IV ×3 (01:58→17:11)
[2019-06-17 05:28] LABS: Basophils % 0.3 %; Eosinophils # 0.2 10^3/uL (0.0-0.8); Eosinophils % 2.2 %; Hematocrit 26.1 % (42.0-52.0); Lymphocytes # 1.2 10^3/uL (0.8-4.8); Lymphocytes % 18.5 %; Mean Corpuscular HGB Conc 30.7 g/dL (30.0-36.0); Mean Corpuscular Volume 94.6 fL (80-94); Mean Platelet Volume 10.1 fL (7.4-10.4); Monocytes # 0.7 10^3/uL (0.2-0.9); Monocytes % 9.7 %; Neutrophils # 4.6 10^3/uL (1.8-7.7); Neutrophils % 68.7 %; Nucleated Red Blood Cells % 0 %; Platelet Count 137 10^3/cmm (130-400); Red Blood Count 2.76 10^6/uL (4.1-5.3); Red Cell Distribution Width 17.8 % (12.1-15.1); White Blood Count 6.7 10^3/uL (4.0-10.0)
[2019-06-17 05:49] LABS: Alanine Aminotransferase 10 U/L (0-41); Albumin Level 2.5 g/dL (3.5-5.2); Alkaline Phosphatase 76 IU/L (40-130); Anion Gap 13.3 (5-19); Aspartate Amino Transferase 11 U/L (0-40); Blood Urea Nitrogen 21 mg/dL (8-23); Calcium 10.1 mg/dL (8.5-10.5); Carbon Dioxide 31 mmol/L (22-29); Chloride 94 mmol/L (98-107); Globulin 3.6 g/dL (1.3-4.6); Glucose 110 mg/dL (65-115); Magnesium 1.7 mg/dL (1.7-2.3); Phosphorus 3.7 mg/dL (2.5-4.5); Potassium 3.3 mmol/L (3.5-5.1); Sodium 135 mmol/L (136-145); Total Bilirubin 0.5 mg/dL (0.15-1.2); Total Protein 6.1 g/dL (6.6-8.7)
[2019-06-17] MEDS: guaiFENesin 600 mg Tablet PO ×2 (08:54→17:52)
[2019-06-17] MEDS: hyDRALAzine 50 mg Tablet PO ×3 (08:54→20:46)
[2019-06-17] MEDS: gabapentin 300 mg Capsule PO ×2 (08:54→17:52)
[2019-06-17] MEDS: carvedilol 3.125 mg Tablet PO ×2 (08:54→17:52)
[2019-06-17] MEDS: metOLazone 5 MG Tablet PO (08:54)
[2019-06-17] MEDS: ferrous sulfate EC 325 mg Tablet PO (08:55)
[2019-06-17] MEDS: dilTIAZem ER (24HR) 240 mg Capsule PO (08:55)
[2019-06-17] MEDS: finasteride 5 mg Tablet PO (08:55)
[2019-06-17] MEDS: ascorbic acid 500 mg Tablet 250 MG PO (08:55)
--- NOTE | 2019-06-17 10:16 | PC.SOCIAL ---
Pg 2 IMM Explained to pt Pg 2 IMM. Pt verbally understands & signed. Provided pt a copy & left on pt's bedside table. Signed, dated, & timed, then place in chart.
--- NOTE | 2019-06-17 13:04 | XRR_ITS ---
PROCEDURE INFORMATION: Exam: XR Chest, 1 View Exam date and time: 06/17/2019 1:05 PM Age: 83 years old Clinical indication: Shortness of breath; Additional info: SOB TECHNIQUE: Imaging protocol: XR of the chest Views: 1 view. COMPARISON: CR XR chest 1V portable [id number] 06/14/2019 10:29 AM FINDINGS: Lungs: Prominent reticular/interstitial markings throughout portions of left lung and right lung base which appear relatively unchanged. While some of this may be chronic, more acute interstitial pneumonitis or edema not excluded. Pleural space: Small left pleural effusion, unchanged. Heart/Mediastinum: Mild cardiomegaly, unchanged. Bones/joints: Unremarkable. XR/XR chest 1V portable [id number] IMPRESSION: Prominent reticular/interstitial markings appear unchanged. While some of this may be chronic, more acute interstitial pulmonary edema or pneumonitis not excluded. Mild cardiomegaly and small left pleural effusion.
--- NOTE | 2019-06-17 19:35 | P.PN_ITS ---
Subjective Subjective: Interval history: Patient states he is doing much better this morning, still feels short of breath, still has a cough, percussion therapy is helping, and Lasix is helping, but he would like to see some more improvement before he goes [facility] to [facility] Vitals/I&O/Wt Last Vital Signs Temp 98.9 F 06/17/19 19:07 Pulse 81 06/17/19 19:07 Resp 20 H 06/17/19 19:07 BP 118/70 06/17/19 19:07 Pulse Ox 92 06/17/19 19:07 06/17/19 06/17/19 06/17/19 06:59 14:59 22:59 Intake Total 1200 / 1200 240 / 1440 Output Total 1700 / 4700 1350 / 1350 1650 / 3000 Balance -1700 / -4460 -150 / -150 -1410 / -1560 Physical Exam Const: COMMON NORMALS: no apparent distress and oriented x3 HENMT: COMMON NORMALS: normocephalic HEAD & SCALP: normocephalic Neck/C-Spine: COMMON NORMALS: no JVD Resp: COMMON NORMALS: normal respiratory effort, no retractions, no use of accessory muscles and clear to auscultation bilaterally AUSCULTATION: clear to auscultation bilaterally Cardio: COMMON NORMALS: no JVD, regular rate, regular rhythm, S1 normal heart sound and S2 normal heart sound RATE: regular rate RHYTHM: regular rhythm HEART SOUNDS: S1 normal and S2 normal GI: COMMON NORMALS: normal to inspection, nondistended, normoactive bowel sounds, soft to palpation, non-tender, no hepatosplenomegaly, no masses and no bruits PALPATION: Yes soft and Yes no hepatosplenomegaly Extremity: COMMON NORMALS: normal capillary refill, no clubbing, cyanosis or edema, no calf tenderness and no pedal edema Neuro: COMMON NORMALS: oriented x3 Psych: COMMON NORMALS: mental status grossly normal Urinary Catheter Management^: Shoemaker: Cath Placed During This Visit: yes Urethral Indwelling: Yes Reason for Continuing Indwelling Catheter: Chronic Indwelling Urinary Catheter on Admission Urinary Catheter Date of Insertion: 03/02/19 Data : 06/17/19 04:35 06/17/19 04:35 A&P Assessment and plan (1) GI bleed: -Upper versus lower GI bleed -Had a colonoscopy 2 years ago which was unremarkable -Had a hospitalization a few weeks ago at [facility], required 2 units of blood, no source found, no history of EGD or colonoscopy at that point, at that point patient was on Eliquis for A. fib which was stopped, still awaiting records to confirm -Patient received 2 units PRBC here, hemoglobin 8.0 Plan: -Monitor hemoglobins -IV Protonix -Telemetry monitoring - Hemoccult -Await records from [facility] Status: Acute Code(s): K92.2 - Gastrointestinal hemorrhage, unspecified (2) Paroxysmal atrial fibrillation: -Patient denies a history of paroxysmal A. fib, but is on Cardizem and Coreg -Not on anticoagulation which I presume is secondary to concerns for bleed -Continue telemetry monitoring Status: Acute Code(s): I48.0 - Paroxysmal atrial fibrillation (3) Acute respiratory failure: -Secondary to CHF and COPD -Has elevated BNP Plan: -Start Bumex 1 mg every 8 hours in addition with metolazone, in addition with potassium, monitor kidney function, monitor potassium -He was given broad-spectrum notes emergency room due to concerns of right lower lobe pneumonia, no significant white count, procalcitonin 0.16, CT angios was unremarkable for pneumonia, will hold off on antibiotics until further imaging -Hold off steroids, monitor Lasix response will add metolazone -Nebulizer treatments -Patient's chest x-ray shows evidence of possible aspiration pneumonitis, will do a barium swallow tomorrow -Continue chest vest therapy Status: Acute Code(s): J96.00 - Acute respiratory failure, unspecified whether with hypoxia or hypercapnia (4) Monoclonal gammopathy: Status: Acute Code(s): D47.2 - Monoclonal gammopathy (5) Chronic kidney disease, stage III (moderate): Status: Acute Code(s): N18.3 - Chronic kidney disease, stage 3 (moderate) (6) Diastolic CHF: Status: Acute Code(s): I50.30 - Unspecified diastolic (congestive) heart failure (7) Rosacea: Status: Acute Code(s): L71.9 - Rosacea, unspecified (8) Hypertension: Status: Acute Code(s): I10 - Essential (primary) hypertension (9) Hyperlipidemia: Status: Acute Code(s): E78.5 - Hyperlipidemia, unspecified Attestations Medical Necessity Statement*: Patient requires continued hospitalization due to acute respiratory failure, GI bleed Coding Level of Care Code Acute Legal Administrative Assistant for Chg Fwd Diagnoses GI bleed K92.2 Paroxysmal atrial fibrillation I48.0 Acute respiratory failure J96.00 Monoclonal gammopathy D47.2 Chronic kidney disease, stage III (moderate) N18.3 Diastolic CHF I50.30 Rosacea L71.9 Hypertension I10 Hyperlipidemia E78.5
[2019-06-17] MEDS: folic acid 1 mg Tablet PO (20:46)
[2019-06-17] MEDS: tamsulosin 0.4 mg Capsule PO (20:46)
[2019-06-18] VITALS (18 sets, daily range): BP systolic 114–138; BP diastolic 70–86; PULSE 68–761; RESP 17–24; TEMP -13.1–36.9; O2SAT 87–97
[2019-06-18] MEDS: pantoprazole 40 mg SDV IVP ×2 (03:22→14:37)
[2019-06-18] MEDS: ipratropium-albuterol 3 mL Neb INHALATION ×6 (04:22→23:50)
[2019-06-18 05:45] LABS: Basophils % 0.3 %; Eosinophils # 0.1 10^3/uL (0.0-0.8); Eosinophils % 1.7 %; Hematocrit 26.9 % (42.0-52.0); Hemoglobin 8.2 g/dL (11.7-16.6); Lymphocytes # 1.4 10^3/uL (0.8-4.8); Lymphocytes % 19.1 %; Mean Corpuscular HGB Conc 30.5 g/dL (30.0-36.0); Mean Corpuscular Hemoglobin 28.7 pg (28.0-34.0); Mean Corpuscular Volume 94.1 fL (80-94); Mean Platelet Volume 10.6 fL (7.4-10.4); Monocytes # 0.7 10^3/uL (0.2-0.9); Monocytes % 9.3 %; Neutrophils # 4.9 10^3/uL (1.8-7.7); Neutrophils % 69.2 %; Nucleated Red Blood Cells % 0 %; Platelet Count 129 10^3/cmm (130-400); Red Blood Count 2.86 10^6/uL (4.1-5.3); Red Cell Distribution Width 16.9 % (12.1-15.1); White Blood Count 7.1 10^3/uL (4.0-10.0)
[2019-06-18] MEDS: bumetanide 0.25 mg/mL SDV 10 mL 1 MG IV ×2 (06:00→18:32)
[2019-06-18 06:16] LABS: Alanine Aminotransferase 9 U/L (0-41); Albumin Level 2.6 g/dL (3.5-5.2); Alkaline Phosphatase 81 IU/L (40-130); Anion Gap 13.4 (5-19); Aspartate Amino Transferase 9 U/L (0-40); Blood Urea Nitrogen 24 mg/dL (8-23); Calcium 10.3 mg/dL (8.5-10.5); Carbon Dioxide 34 mmol/L (22-29); Chloride 92 mmol/L (98-107); Globulin 3.3 g/dL (1.3-4.6); Glucose 108 mg/dL (65-115); Magnesium 1.8 mg/dL (1.7-2.3); Phosphorus 3.4 mg/dL (2.5-4.5); Potassium 3.4 mmol/L (3.5-5.1); Sodium 136 mmol/L (136-145); Total Bilirubin 0.3 mg/dL (0.15-1.2); Total Protein 5.9 g/dL (6.6-8.7)
[2019-06-18] MEDS: ascorbic acid 500 mg Tablet 250 MG PO (08:27)
[2019-06-18] MEDS: guaiFENesin 600 mg Tablet PO ×2 (08:27→17:59)
[2019-06-18] MEDS: metOLazone 5 MG Tablet PO (08:27)
[2019-06-18] MEDS: finasteride 5 mg Tablet PO (08:27)
[2019-06-18] MEDS: gabapentin 300 mg Capsule PO ×2 (08:28→17:59)
[2019-06-18] MEDS: carvedilol 3.125 mg Tablet PO ×2 (08:28→17:59)
[2019-06-18] MEDS: dilTIAZem ER (24HR) 240 mg Capsule PO (08:28)
[2019-06-18] MEDS: hyDRALAzine 50 mg Tablet PO ×3 (08:28→20:44)
--- NOTE | 2019-06-18 10:35 | P.PN_ITS ---
Subjective Subjective: Interval history: Patient states that he continues to have a cough, upper respiratory congestion, is doing better, no bloody or black stools, patient has diuresed almost 20 L since admission, will repeat chest x-ray today, patient has a modified swallow study to evaluate for aspiration pneumonitis Vitals/I&O/Wt Last Vital Signs Temp 8.4 F L 06/18/19 07:25 Pulse 88 06/18/19 09:09 Resp 20 H 06/18/19 09:09 BP 114/70 06/18/19 07:25 Pulse Ox 91 06/18/19 09:09 06/17/19 06/18/19 06/18/19 22:59 06:59 14:59 Intake Total 360 / 1560 120 / 1680 360 / 360 Output Total 1650 / 3000 850 / 3850 1600 / 1600 Balance -1290 / -1440 -730 / -2170 -1240 / -1240 Physical Exam Const: COMMON NORMALS: no apparent distress and oriented x3 HENMT: COMMON NORMALS: normocephalic HEAD & SCALP: normocephalic Neck/C-Spine: COMMON NORMALS: no JVD Resp: COMMON NORMALS: normal respiratory effort, no retractions, no use of accessory muscles and clear to auscultation bilaterally AUSCULTATION: clear to auscultation bilaterally Cardio: COMMON NORMALS: no JVD, regular rate, regular rhythm, S1 normal heart sound and S2 normal heart sound RATE: regular rate RHYTHM: regular rhythm HEART SOUNDS: S1 normal and S2 normal GI: COMMON NORMALS: normal to inspection, nondistended, normoactive bowel sounds, soft to palpation, non-tender, no hepatosplenomegaly, no masses and no bruits PALPATION: Yes soft and Yes no hepatosplenomegaly Extremity: COMMON NORMALS: normal capillary refill, no clubbing, cyanosis or edema, no calf tenderness and no pedal edema Neuro: COMMON NORMALS: oriented x3 Psych: COMMON NORMALS: mental status grossly normal Urinary Catheter Management^: Shoemaker: Cath Placed During This Visit: yes Urethral Indwelling: Yes Reason for Continuing Indwelling Catheter: Chronic Indwelling Urinary Catheter on Admission Urinary Catheter Date of Insertion: 03/02/19 Data : 06/18/19 04:49 06/18/19 04:49 A&P Assessment and plan (1) GI bleed: -Upper versus lower GI bleed -Had a colonoscopy 2 years ago which was unremarkable -Had a hospitalization a few weeks ago at [facility], required 2 units of blood, no source found, no history of EGD or colonoscopy at that point, at that point patient was on Eliquis for A. fib which was stopped -Patient received 2 units PRBC here, hemoglobin 8.0 Plan: -Monitor hemoglobins, last hemoglobin 8.2 -IV Protonix -Telemetry monitoring - Hemoccult -Await records from [facility] Status: Acute Code(s): K92.2 - Gastrointestinal hemorrhage, unspecified (2) Paroxysmal atrial fibrillation: -Patient denies a history of paroxysmal A. fib, but is on Cardizem and Coreg -Not on anticoagulation which I presume is secondary to concerns for bleed -Continue telemetry monitoring Status: Acute Code(s): I48.0 - Paroxysmal atrial fibrillation (3) Acute respiratory failure: -Secondary to CHF and COPD -Has elevated BNP Plan: -Start Bumex 1 mg every 8 hours in addition with metolazone, in addition with potassium, monitor kidney function, monitor potassium -He was given broad-spectrum notes emergency room due to concerns of right lower lobe pneumonia, no significant white count, procalcitonin 0.16, CT angios was unremarkable for pneumonia, will hold off on antibiotics until further imaging -Hold off steroids, monitor Lasix response will add metolazone -Nebulizer treatments -Patient's chest x-ray shows evidence of possible aspiration pneumonitis, will do a barium swallow today -Continue chest vest therapy Status: Acute Code(s): J96.00 - Acute respiratory failure, unspecified whether with hypoxia or hypercapnia (4) Monoclonal gammopathy: Status: Acute Code(s): D47.2 - Monoclonal gammopathy (5) Chronic kidney disease, stage III (moderate): Creatinine today is 1.7 Status: Acute Code(s): N18.3 - Chronic kidney disease, stage 3 (moderate) (6) Diastolic CHF: Status: Acute Code(s): I50.30 - Unspecified diastolic (congestive) heart failure (7) Rosacea: Status: Acute Code(s): L71.9 - Rosacea, unspecified (8) Hypertension: Status: Acute Code(s): I10 - Essential (primary) hypertension (9) Hyperlipidemia: Status: Acute Code(s): E78.5 - Hyperlipidemia, unspecified Attestations Medical Necessity Statement*: Patient requires continued hospitalization due to GI bleed, acute respiratory failure Coding Level of Care Code Acute Superintendent Service for Chg Fwd Diagnoses GI bleed K92.2 Paroxysmal atrial fibrillation I48.0 Acute respiratory failure J96.00 Monoclonal gammopathy D47.2 Chronic kidney disease, stage III (moderate) N18.3 Diastolic CHF I50.30 Rosacea L71.9 Hypertension I10 Hyperlipidemia E78.5
[2019-06-18] MEDS: tamsulosin 0.4 mg Capsule PO (20:44)
[2019-06-18] MEDS: folic acid 1 mg Tablet PO (20:44)
[2019-06-19] VITALS (15 sets, daily range): BP systolic 112–123; BP diastolic 61–71; PULSE 68–96; RESP 16–20; TEMP 36.7–37.1; O2SAT 85–94
[2019-06-19] MEDS: pantoprazole 40 mg SDV IVP (03:48)
[2019-06-19] MEDS: ipratropium-albuterol 3 mL Neb INHALATION ×4 (03:49→15:35)
[2019-06-19] MEDS: bumetanide 0.25 mg/mL SDV 10 mL 1 MG IV (06:17)
[2019-06-19 06:29] LABS: Basophils % 0.3 %; Eosinophils # 0.2 10^3/uL (0.0-0.8); Eosinophils % 2.1 %; Hematocrit 27.4 % (42.0-52.0); Hemoglobin 8.4 g/dL (11.7-16.6); Lymphocytes # 1.2 10^3/uL (0.8-4.8); Lymphocytes % 16.2 %; Mean Corpuscular HGB Conc 30.7 g/dL (30.0-36.0); Mean Corpuscular Hemoglobin 28.8 pg (28.0-34.0); Mean Corpuscular Volume 93.8 fL (80-94); Mean Platelet Volume 10.1 fL (7.4-10.4); Monocytes # 0.7 10^3/uL (0.2-0.9); Monocytes % 9.2 %; Neutrophils # 5.5 10^3/uL (1.8-7.7); Neutrophils % 71.7 %; Nucleated Red Blood Cells % 0 %; Platelet Count 137 10^3/cmm (130-400); Red Blood Count 2.92 10^6/uL (4.1-5.3); Red Cell Distribution Width 16.9 % (12.1-15.1); White Blood Count 7.6 10^3/uL (4.0-10.0)
[2019-06-19 06:42] LABS: Alanine Aminotransferase 8 U/L (0-41); Albumin Level 2.6 g/dL (3.5-5.2); Alkaline Phosphatase 85 IU/L (40-130); Anion Gap 13.4 (5-19); Aspartate Amino Transferase 9 U/L (0-40); Blood Urea Nitrogen 25 mg/dL (8-23); Calcium 10.3 mg/dL (8.5-10.5); Carbon Dioxide 35 mmol/L (22-29); Chloride 91 mmol/L (98-107); Globulin 3.9 g/dL (1.3-4.6); Glucose 121 mg/dL (65-115); Magnesium 1.9 mg/dL (1.7-2.3); Phosphorus 4.4 mg/dL (2.5-4.5); Potassium 3.4 mmol/L (3.5-5.1); Sodium 136 mmol/L (136-145); Total Bilirubin 0.3 mg/dL (0.15-1.2); Total Protein 6.5 g/dL (6.6-8.7)
[2019-06-19] MEDS: guaiFENesin 600 mg Tablet PO (09:57)
[2019-06-19] MEDS: finasteride 5 mg Tablet PO (09:57)
[2019-06-19] MEDS: carvedilol 3.125 mg Tablet PO (09:57)
[2019-06-19] MEDS: ascorbic acid 500 mg Tablet 250 MG PO (09:57)
[2019-06-19] MEDS: ferrous sulfate EC 325 mg Tablet PO (09:58)
[2019-06-19] MEDS: dilTIAZem ER (24HR) 240 mg Capsule PO (09:58)
[2019-06-19] MEDS: hyDRALAzine 50 mg Tablet PO (09:58)
[2019-06-19] MEDS: gabapentin 300 mg Capsule PO (09:58)
[2019-06-19] MEDS: metOLazone 5 MG Tablet PO (10:41)
--- NOTE | 2019-06-19 11:56 | PC.SOCIAL ---
IMM Update Pg 2 of IMM given and explained to patient who verbalized understanding. Signed, dated, and timed, and placed in chart. Copy provided to patient.
--- NOTE | 2019-06-19 16:03 | PM.DCS ---
Discharge Providers Date of Admission: 06/14/19 12:36 Date of Discharge: June 19, 2019 Attending Provider at Admission: Melvin Kaufman MD Attending Provider at Discharge: Melvin Kaufman MD Primary Care Provider: Bob Tobar MD Diagnoses at Discharge Discharge Diagnosis (1) GI bleed: Status: Acute (2) Paroxysmal atrial fibrillation: Status: Acute (3) Acute respiratory failure: Status: Acute (4) Monoclonal gammopathy: Status: Acute (5) Chronic kidney disease, stage III (moderate): Status: Acute (6) Diastolic CHF: Status: Acute (7) Rosacea: Status: Acute (8) Hypertension: Status: Acute (9) Hyperlipidemia: Status: Acute Reason for Visit Reason for Visit: Reason For Visit: LOW HEMOGLOBIN Hospital Course Discharge Summary: This is a 83-year-old male with a past medical history of paroxysmal atrial fibrillation not on anticoagulation due to concerns of GI bleed, diastolic CHF, 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 Patient was sent to [facility] from the detention due to concerns for low hemoglobin, hemoglobin was 7, apparently patient was admitted at [facility] a few weeks ago, required 2 units of blood, no source of bleeding was found, according to patient no EGD or colonoscopy was completed point, however [facility] was advised to monitor his hemoglobin, his hemoglobin was found to be at 7, thus he was sent to the [facility] for evaluation. Patient denied any bloody or black stools, he was hemodynamically stable, he required 2 units of PRBC, he received Protonix for GI bleed, throughout his admission his hemoglobin remained stable, patient was discharged on Protonix 40 twice daily, patient was discharged with an outpatient follow-up with Dr. Steve for an EGD and colonoscopy, and detention was instructed to keep a close eye on his hemoglobin. I have extensively reviewed the records from [facility], from what I can gather patient was put on Eliquis for atrial fibrillation, but at some point it was stopped due to concerns for GI bleed, but I cannot find records specifying this, nor does patient remember what exact timeframe this had happened. Patient was advised to follow-up with cardiology in a few weeks. Atrial fibrillation, on Cardizem and Coreg. Patient is not on anticoagulation due to concerns of GI bleed. Patient is to follow-up with Dr. Steve for consideration of EGD and colonoscopy. Till then any anticoagulation will be held, as patient is required about 4 units of blood in the last month. After discussion of the risks and benefits of anticoagulation, risk of bleeding, worsening GI bleed and benefit of decreasing the risk of stroke risk, patient advised the risks and benefits, patient voiced understanding, all questions answered and agreed to hold anticoagulation and accepted the risks. In addition patient has shortness of breath on presentation likely second to diastolic CHF exacerbation, patient required extensive diuresis during this admission requiring Bumex and metolazone, he had roughly 14 L removed during this admission, his shortness of breath significantly improved. Patient was discharged on Bumex and metolazone, with outpatient structures to monitor creatinine closely. In addition patient has had a Shoemaker in place for the past 2 weeks, secondary to enlarged prostate, patient is supposed to follow-up with urologist in a few weeks in [place], patient was advised to keep up with his appointment. In addition patient had a chronic cough during his admission, cough was difficult to control, swallow study was unremarkable for silent aspiration, patient will require outpatient follow-up with Dr. Batista for a nasal endoscopy. Physical Exam Const: COMMON NORMALS: no apparent distress and oriented x3 HENMT: COMMON NORMALS: normocephalic HEAD & SCALP: normocephalic Neck/C-Spine: COMMON NORMALS: no JVD Resp: COMMON NORMALS: normal respiratory effort, no retractions, no use of accessory muscles and clear to auscultation bilaterally AUSCULTATION: clear to auscultation bilaterally Cardio: COMMON NORMALS: no JVD, regular rate, regular rhythm, S1 normal heart sound and S2 normal heart sound RATE: regular rate RHYTHM: regular rhythm HEART SOUNDS: S1 normal and S2 normal GI: COMMON NORMALS: normal to inspection, nondistended, normoactive bowel sounds, soft to palpation, non-tender, no hepatosplenomegaly, no masses and no bruits PALPATION: Yes soft and Yes no hepatosplenomegaly Extremity: COMMON NORMALS: normal capillary refill, no clubbing, cyanosis or edema, no calf tenderness and no pedal edema Neuro: COMMON NORMALS: oriented x3 Psych: COMMON NORMALS: mental status grossly normal Urinary Catheter Management^: Shoemaker: Cath Placed During This Visit: yes Urethral Indwelling: Yes Reason for Continuing Indwelling Catheter: Chronic Indwelling Urinary Catheter on Admission Urinary Catheter Date of Insertion: 03/02/19 Discharge Data Data Completed and Pending: Completed Studies During Hospitalization Category Date Time Status CT angio chest PE protcl [id number] Urge nt Cat Scan 06/14/19 13:19 Completed FL barium swallow modifd [id number] Rout ine Exams 06/19/19 16:37 Completed XR chest 1V pato ble [id number] Routine Exams 06/17/19 13:04 Completed XR chest 1V pato ble [id number] Stat Exams 06/14/19 09:54 Completed Pending at discharge Category Date Time Status Complete Blood Co unt w/Auto AM LABS Lab 06/20/19 04:00 Ordered Complete Blood Co unt w/Auto AM LABS Lab 06/21/19 04:00 Ordered Comprehensive Met abolic Panel AM LA BS Lab 06/20/19 04:00 Ordered Comprehensive Met abolic Panel AM LA BS Lab 06/21/19 04:00 Ordered Immunochemical Fe juanito OCB Stat Lab 06/14/19 14:37 Uncollected Magnesium AM LABS Lab 06/20/19 04:00 Ordered Magnesium AM LABS Lab 06/21/19 04:00 Ordered Phosphorus AM LAB S Lab 06/20/19 04:00 Ordered Phosphorus AM LAB S Lab 06/21/19 04:00 Ordered Labs from last 24 hours 06/19/19 06/19/19 06:11 06:11 WBC 7.6 RBC 2.92 L Hgb 8.4 L Hct 27.4 L MCV 93.8 MCH 28.8 MCHC 30.7 RDW 16.9 H Plt Count 137 MPV 10.1 Neut % (Auto) 71.7 Lymph % (Auto) 16.2 [place] % (Auto) 9.2 Eos % (Auto) 2.1 Baso % (Auto) 0.3 Neut # (Auto) 5.5 Lymph # (Auto) 1.2 [place] # (Auto) 0.7 Eos # (Auto) 0.2 Baso # (Auto) 0.0 Nucleated RBC % (a uto) 0 Nucleated RBCs # 0.0 Sodium 136 Potassium 3.4 L Chloride 91 L Carbon Dioxide 35 H Anion Gap 13.4 BUN 25 H Creatinine 1.7 H Glucose 121 H Calcium 10.3 Phosphorus 4.4 Magnesium 1.9 Total Bilirubin 0.3 AST 9 ALT 8 Alkaline Phosphata se 85 Total Protein 6.5 L Albumin 2.6 L Globulin 3.9 Vitals: Last Vital Signs Temp 98.3 F 06/19/19 13:40 Pulse 91 06/19/19 15:47 Resp 20 H 06/19/19 15:38 BP 115/61 06/19/19 13:40 Pulse Ox 90 06/19/19 15:38 Discharge Plan Discharge Patient Disposition: Xfer SNF Condition: Stable Prescriptions: New metolazone 5 mg Tablet 5 mg PO QAM 30 Days Qty: 30 RF: 0 Mucinex 600 mg Tablet Extended Release 12hr 600 mg PO BID 30 Days Qty: 60 RF: 0 potassium chloride 10 mEq Tablet Extended Release 40 meq PO BID 30 Days Qty: 240 RF: 0 pantoprazole 40 mg Tablet,Delayed Release (Dr/Ec) 40 mg PO BID 30 Days Qty: 60 RF: 0 Continued Multiple Vitamins Tablet 1 tab PO DAILY RF: 0 senna 8.6 mg Tablet 17.2 mg PO DAILY RF: 0 albuterol sulfate 2.5 mg /3 mL (0.083 %) Solution For Nebulization 2.5 mg INHALATION QID RF: 0 [place] 5-325 mg Tablet 1 tab PO Q6H PRN (Reason: Pain) RF: 0 Cardizem CD 240 mg Capsule,Extended Release 24hr 240 mg PO DAILY RF: 0 carvedilol 3.125 mg Tablet 3.125 mg PO BID RF: 0 Tylenol 8 Hour 650 mg Tablet Extended Release 650 mg PO Q4H PRN (Reason: Pain) RF: 0 Milk of Magnesia 400 mg/5 mL Suspension 30 ml PO DAILY PRN (Reason: Constipation) RF: 0 tamsulosin 0.4 mg Capsule 0.4 mg PO BEDTIME RF: 0 Vitamin C 250 mg Tablet 250 mg PO DAILY RF: 0 bisacodyl 10 mg Suppository 10 mg CA DAILY PRN (Reason: Constipation) RF: 0 ferrous sulfate 325 mg (65 mg iron) Tablet 325 mg PO DAILY RF: 0 Enema Disposable 19-7 gram/118 mL Enema 118 ml CA DAILY PRN (Reason: Constipation) RF: 0 Colace 100 mg Capsule 100 mg PO BID RF: 0 gabapentin 300 mg Capsule 300 mg PO BID RF: 0 bumetanide 1 mg Tablet 1 mg PO BID RF: 0 folic acid 1 mg Tablet 1 mg PO BEDTIME RF: 0 hydralazine 50 mg Tablet 50 mg PO TID RF: 0 Acidophilus Capsule 1 cap PO DAILY RF: 0 ProAir HFA 90 mcg/actuation Hfa Aerosol Inhaler 2 puff INHALATION Q6H RF: 0 finasteride 5 mg Tablet 5 mg PO DAILY RF: 0 Spiriva with HandiHaler 18 mcg Capsule, W/Inhalation Device 1 cap INHALATION DAILY RF: 0 Atrovent HFA 17 mcg/actuation Hfa Aerosol Inhaler 2 puff INHALATION DAILY PRN (Reason: unknown) RF: 0 Symbicort 160-4.5 mcg/actuation Hfa Aerosol Inhaler 2 puff INHALATION BID RF: 0 Vitamin B-12 5,000 mcg Tablet, Sublingual 5,000 mcg SUBLINGUAL DAILY RF: 0 Mucinex 600 mg Tablet Extended Release 12hr 600 mg PO Q12H RF: 0 Discontinued doxycycline hyclate 100 mg Capsule 100 mg PO DAILY RF: 0 furosemide [Lasix] 80 mg Tablet 80 mg PO DAILY RF: 0 levofloxacin [Levaquin] 750 mg Tablet 750 mg PO DAILY RF: 0 Discharge Orders: Discharge Order (Routine); Ordered 06/19/19 Ordered By: Melvin Kaufman Other Ambulatory Orders: Complete Blood Count w/Auto (Routine) Timeframe: 1 Week Location: Determined by Patient Ordered By: Melvin Kaufman Complete Blood Count w/Auto (EVERY OTHER DAY) Timeframe: 20190620 Location: Determined by Patient Ordered By: Melvin Hudsonmood Complete Blood Count w/Auto (EVERY OTHER DAY) Timeframe: 20190622 Location: Determined by Patient Ordered By: Melvinray HudsonMandeep Complete Blood Count w/Auto (EVERY OTHER DAY) Timeframe: 20190624 Location: Determined by Patient Ordered By: Melvin Hudsonmood Complete Blood Count w/Auto (EVERY OTHER DAY) Timeframe: 20190626 Location: Determined by Patient Ordered By: Melvin Mandeep Complete Blood Count w/Auto (EVERY OTHER DAY) Timeframe: 20190628 Location: Determined by Patient Ordered By: Melvinray HudsonMandeep Complete Blood Count w/Auto (EVERY OTHER DAY) Timeframe: 20190630 Location: Determined by Patient Ordered By: Melvin Hudsonmood Complete Blood Count w/Auto (EVERY OTHER DAY) Timeframe: 20190702 Location: Determined by Patient Ordered By: Melvin Kaufman Complete Blood Count w/Auto (EVERY OTHER DAY) Timeframe: 20190704 Location: Determined by Patient Ordered By: Melvin Hudsonmood Complete Blood Count w/Auto (EVERY OTHER DAY) Timeframe: 20190706 Location: Determined by Patient Ordered By: Melvin Hudsonmood Complete Blood Count w/Auto (EVERY OTHER DAY) Timeframe: 20190708 Location: Determined by Patient Ordered By: Melvin Kaufman Comprehensive Metabolic Panel (Routine) Timeframe: 1 Week Facility: [facility] - Location: Lab - Main Lab Ordered By: Melvin Kaufman Referrals: Harshad Batista MD [Physician] - 2 months (chronic cough, need nasal endoscopy) Marvin Steve MD [Physician] - 07/04/19 1:45 pm Bob Tobar MD [Primary Care Provider] - 1 week (DR [facility]BAR OFFICE WILL CALL WITH APPOINTMENT ) Suzette Figueroa MD [Physician] - 7-10 days (atrial fibrillation) Discharge Diet: Advance as tolerated Discharge Activity: Resume usual activity Patient Instructions: Anemia, Metolazone (By mouth), Potassium Chloride (By mouth), Guaifenesin (By mouth), Pantoprazole (By mouth), GI Bleeding, Heart Failure (DC), Pneumonia (DC), CHF Stoplight, Rosacea Activity Restrictions/Additional Instructions: -For atrial fibrillation, no anticoagulation due to concerns for GI bleed, follow-up with Dr. Steve from surgery for decision on EGD and colonoscopy -For anemia, monitor hemoglobin closely every other day for the next week -Keep an eye on creatinine, as is on diuretics for CHF Discharge Attestations Time Spent in Discharge Care*: less than 30 min Quality Metrics Clinical Quality Measures During this hospital stay, did patient experience: None Coding Level of Care Code Acute Volleyball Coach for Chg Fwd Diagnoses GI bleed K92.2 Paroxysmal atrial fibrillation I48.0 Acute respiratory failure J96.00 Monoclonal gammopathy D47.2 Chronic kidney disease, stage III (moderate) N18.3 Diastolic CHF I50.30 Rosacea L71.9 Hypertension I10 Hyperlipidemia E78.5
--- NOTE | 2019-06-19 16:37 | FL_ITS ---
WS: [id number] FL barium swallow modifd 62820 REASON FOR EXAM: Oral dysphagia FLUOROSCOPY TIME: 4.2 minutes FINDINGS: Fluoroscopy was performed for speech pathology please see their workup for details. Mild pr emature spilling is identified but no aspiration. FL/FL barium swallow modifd 06092 IMPRESSION: Mild premature spillage but no aspiration.
== END 2019-06-19 16:30 | disposition skilled nursing facility (03) | DRG 377 ==
LOC: ER 10:48 → MEDSURG 13:25
PROVIDERS: Admitting Provider Family Medicine; Emergency Provider Family Medicine; Family Provider Family Medicine; PCP Family Medicine; Visit Provider Family Medicine
DX: K92.2 Gastrointestinal hemorrhage, unspecified (principal); J96.00 Acute respiratory failure, unspecified whether with hypoxia or hypercapnia; I50.31 Acute diastolic (congestive) heart failure; I13.0 Hypertensive heart and chronic kidney disease with heart failure and stage 1 through stage 4 chronic kidney disease, or unspecified chronic kidney disease; I48.0 Paroxysmal atrial fibrillation; D47.2 Monoclonal gammopathy; N18.3 Chronic kidney disease, stage 3 (moderate); L71.9 Rosacea, unspecified; E78.5 Hyperlipidemia, unspecified; D63.1 Anemia in chronic kidney disease; E66.9 Obesity, unspecified; J44.9 Chronic obstructive pulmonary disease, unspecified; Z87.891 Personal history of nicotine dependence; Z68.29 Body mass index [BMI] 29.0-29.9, adult; Z99.81 Dependence on supplemental oxygen
CPT/HCPCS: 12345; 36415; 36430; 71045; 71275; 74230; 80048; 80053; 82607; 82728; 82746; 83540; 83550; 83735; 83880; 84100; 84145; 85014; 85018; 85025; 85045; 85610; 85651; 85730; 86140; 86850; 86900; 86920; 87804; 92611; 94640; 94664; 94669; 96375; 97110; 97161; 97167; 97530; 97535; 99281; C9113; J1940; J1956; J3370; J3490; J7050; P9016; Q9967

== ENCOUNTER 2019-06-20 15:37 | Inpatient (IN) | payer OTHER, MEDICARE, SELFPAY ==
[2019-06-20] VITALS (13 sets, daily range): BP systolic 102–132; BP diastolic 55–84; PULSE 68–102; RESP 14–28; O2SAT 93–100; BMI 29.5
--- NOTE | 2019-06-20 15:48 | ED_ITS ---
Entered by Tamra Collins, acting as scribe for Lori Perry DO HPI - SOB/Dyspnea General: Chief Complaint: Shortness of Breath/Dyspnea Stated Complaint: DIFF BREATHING/PNEUMONIA Time Seen by Provider: 06/20/19 15:47 Source: patient Mode of arrival: EMS Limitations: altered mental status History of Present Illness: HPI Narrative: 83 yo Male presents to ED with complaint of shortness of breath. Pt just went home to the care home yesterday from the hospital. Per care home, patient has had chest congestion and on 5 liters of oxygen, the patient wasn't saturating over 90%. MD elicited complaint: shortness of breath and cough Pertinent past history: COPD and congestive heart failure Onset (ago): hour(s) Context: recent illness Timing: progressively worsening Exacerbating factors: exertion, movement and coughing Relieving factors: oxygen Known history of: COPD and congestive heart failure Associated symptoms: Reports chest congestion and cough; Deny abdominal pain, chest pain, fever(s), nausea or vomiting Review of Systems General: Reports: 10 or more systems reviewed and unremarkable except in HPI and below Const: Denies: fever, chills or fatigue ENMT: Denies: throat pain Card: Denies: chest pain or swelling of feet/ankles Resp: Reports: shortness of breath, productive cough, wheezing and chest congestion GI: Denies: abdominal pain, nausea, vomiting, diarrhea, constipation or blood in stool Musc: Denies: back pain or extremity swelling Skin/Breast: Denies: rash Neuro: Denies: headache, numbness in extremities or weakness in extremities [facility] ED PFSH: Medical History Acute respiratory failure Anemia Benign prostatic hyperplasia Chronic kidney disease, stage III (moderate) Congestive heart failure COPD (chronic obstructive pulmonary disease) Diastolic CHF GI bleed Hyperlipidemia Hypertension Monoclonal gammopathy Paroxysmal atrial fibrillation Pneumonia Rosacea TIA (transient ischemic attack) Surgical History H/O knee surgery History of back surgery History of neck surgery Family History Other CAD (coronary artery disease) Social History Smoking and tobacco status: former smoker Physical Exam Const: COMMON NORMALS: no apparent distress and oriented x3 GENERAL APPEARANCE: cooperative; not in distress HENMT: COMMON NORMALS: normocephalic; oral mucous membranes not moist HEAD & SCALP: normal to inspection and normocephalic MOUTH: oral and palatal mucosa normal, lip normal and moist mucous membranes abnormal Details: parched THROAT: posterior oropharynx normal and tonsils normal Neck/C-Spine: COMMON NORMALS: full ROM, no lymphadenopathy, supple and no meningeal signs GENERAL: Yes normal visual inspection and Yes trachea midline Chest: COMMONS NORMALS: inspection of chest normal Resp: COMMON NORMALS: negative for clear to auscultation bilaterally EFFORT & INSPECTION: Yes respiratory distress (moderate) and Yes prolonged expiratory phase AUSCULTATION: not clear to auscultation bilaterally, crackles and wh eezes Cardio: COMMON NORMALS: regular rate, regular rhythm, S1 normal heart sound, S2 normal heart sound and no murmurs RATE: regular rate RHYTHM: regular rhythm HEART SOUNDS: S1 normal and S2 normal PERIPHERAL PULSES: radial pulses present and dorsalis pedis pulses present GI: COMMON NORMALS: normal to inspection, nondistended, normoactive bowel sounds, soft to palpation and non-tender INSPECTION: Yes normal to inspection AUSCULTATION: Yes normoactive bowel sounds PALPATION: Yes soft, No tender, No guarding and No rigid RECTAL EXAM: Yes deferred : COMMON NORMALS: Yes no CVA tenderness BLADDER/KIDNEY EXAM: Yes no CVA tenderness Back/Pelvis: COMMON NORMALS: no CVA tenderness Extremity: COMMON NORMALS: normal to inspection, full ROM, normal capillary refill, no calf tenderness and no pedal edema Neuro: COMMON NORMALS: oriented x3, CN's II-XII intact bilaterally, moves all extremities and no focal motor deficits MENINGEAL SIGNS: Yes no meningeal signs Skin: COMMON NORMALS: no rashes or lesions noted GENERAL SKIN EXAM: no rashes or lesions noted Course Consultations: Consultation #1: Dr. Kaufman, Hospitalist Time: 17:15 Vital Signs: Vital signs: Vital Signs Pulse Rate 68 06/20/19 16:34 Respiratory Rate 20 H 06/20/19 16:33 Blood Pressure 102/64 06/20/19 15:41 Pulse Oximetry 94 06/20/19 16:33 MDM - SOB/Dyspnea MDM Narrative: Medical decision making narrative: Pt was just discharged from the hospital yesterday. He had 14 Liters diuresed while he was admitted, however he is still in resp failure, with severe altered mental status. Son states when he got to [place] yesterday he was talking and eating and not short of breath. Today he has been lethargic and short of breath. His BUN and Cr are worsening from 25/1.7 yesterday to 37/2.0 today. I will start him on abx here in er and let Dr Kaufman decide if he wants to continue them upon admission Lab Data: Attestation: I reviewed the patient's lab results. Labs: Lab Results 06/20/19 06/20/19 06/20/19 Range/Units 15:52 15:52 16:15 WBC 8.3 (4.0-10.0) 10^3/ uL RBC 2.98 L (4.1-5.3) 10^6/u L Hgb 8.6 L (11.7-16.6) g/dL Hct 27.8 L (42.0-52.0) % MCV 93.3 (80-94) fL MCH 28.9 (28.0-34.0) pg MCHC 30.9 (30.0-36.0) g/dL RDW 16.5 H (12.1-15.1) % Plt Count 142 (130-400) 10^3/c mm MPV 10.4 (7.4-10.4) fL Neut % (Auto) 74.5 % Lymph % (Auto) 14.7 % [place] % (Auto) 8.4 % Eos % (Auto) 1.6 % Baso % (Auto) 0.1 % Neut # (Auto) 6.2 (1.8-7.7) 10^3/u L Lymph # (Auto) 1.2 (0.8-4.8) 10^3/u L [place] # (Auto) 0.7 (0.2-0.9) 10^3/u L Eos # (Auto) 0.1 (0.0-0.8) 10^3/u L Baso # (Auto) 0.0 (0.0-0.1) 10^3/u L Nucleated RBC % (a uto) 0 % Nucleated RBCs # 0.0 /100WBC Specimen Type Sample Site ABG pH (7.35-7.45) ABG pCO2 (35-45) mmHg ABG pO2 (80.0-100.0) mmH g ABG HCO3 (22-26) mmol/L ABG Base Excess (-2.0-2.0) mmol/ L Williams Test Hematocrit (42-52) % Hgb O2 Saturation (95-100) % Carboxyhemoglobin (0.4-20.1) %THgb Methemoglobin (0.4-1.5) % Total Hemoglobin (14-18) g/dL O2 Delivery Device O2 Liters/Min % Turbine Subassembler ID Sodium 135 L (136-145) mmol/L Potassium 3.2 L (3.5-5.1) mmol/L Chloride 88 L (98-107) mmol/L Carbon Dioxide 35 H (22-29) mmol/L Anion Gap 15.2 (5-19) BUN 37 H (8-23) mg/dL Creatinine 2.0 H (0.7-1.2) mg/dL Glucose 108 (65-115) mg/dL Calcium 10.4 (8.5-10.5) mg/dL Total Bilirubin 0.3 (0.15-1.2) mg/dL AST 11 (0-40) U/L ALT 8 (0-41) U/L Alkaline Phosphata se 92 (40-130) IU/L NT-Pro-B Natriuret Pep 3424 H (0-450) pg/mL Total Protein 6.5 L (6.6-8.7) g/dL Albumin 2.8 L (3.5-5.2) g/dL Globulin 3.7 (1.3-4.6) g/dL Influenza Type A A g Negative (Negative) POC Influenza B Ag Negative (Negative) 06/20/19 Range/Units 16:20 WBC (4.0-10.0) 10^3/ uL RBC (4.1-5.3) 10^6/u L Hgb (11.7-16.6) g/dL Hct (42.0-52.0) % MCV (80-94) fL MCH (28.0-34.0) pg MCHC (30.0-36.0) g/dL RDW (12.1-15.1) % Plt Count (130-400) 10^3/c mm MPV (7.4-10.4) fL Neut % (Auto) % Lymph % (Auto) % [place] % (Auto) % Eos % (Auto) % Baso % (Auto) % Neut # (Auto) (1.8-7.7) 10^3/u L Lymph # (Auto) (0.8-4.8) 10^3/u L [place] # (Auto) (0.2-0.9) 10^3/u L Eos # (Auto) (0.0-0.8) 10^3/u L Baso # (Auto) (0.0-0.1) 10^3/u L Nucleated RBC % (a uto) % Nucleated RBCs # /100WBC Specimen Type Arterial Sample Site Radial, right ABG pH 7.41 (7.35-7.45) ABG pCO2 59.2 H (35-45) mmHg ABG pO2 61.5 L (80.0-100.0) mmH g ABG HCO3 37.8 H (22-26) mmol/L ABG Base Excess 11.7 H (-2.0-2.0) mmol/ L Williams Test Pos Hematocrit 26.6 L (42-52) % Hgb O2 Saturation 89.7 L (95-100) % Carboxyhemoglobin 1.8 (0.4-20.1) %THgb Methemoglobin 0.5 (0.4-1.5) % Total Hemoglobin 8.7 L (14-18) g/dL O2 Delivery Device Oxy mask O2 Liters/Min 5.0 % Turbine Subassembler ID broma Sodium (136-145) mmol/L Potassium (3.5-5.1) mmol/L Chloride (98-107) mmol/L Carbon Dioxide (22-29) mmol/L Anion Gap (5-19) BUN (8-23) mg/dL Creatinine (0.7-1.2) mg/dL Glucose (65-115) mg/dL Calcium (8.5-10.5) mg/dL Total Bilirubin (0.15-1.2) mg/dL AST (0-40) U/L ALT (0-41) U/L Alkaline Phosphata se (40-130) IU/L NT-Pro-B Natriuret Pep (0-450) pg/mL Total Protein (6.6-8.7) g/dL Albumin (3.5-5.2) g/dL Globulin (1.3-4.6) g/dL Influenza Type A A g (Negative) POC Influenza B Ag (Negative) Imaging Data^: CXR: Attestation: I personally reviewed and interpreted this imaging study as follows: My impression: chf and increased rml/rll infiltrate EKG Data^: EKG 1: Attestation: I personally reviewed and interpreted this EKG as follows: EKG interpretation time: 16:10 Interpretation: atrial flutter with inferior q waves, nonspecific st changes, rate 76 Discharge Plan Discharge Patient Disposition: Admitted As Inpatient Clinical Impression: Acute kidney injury, Hypoxic Congestive heart failure Qualifiers: Heart failure type: combined systolic and diastolic Heart failure chronicity: acute on chronic Qualified Code(s): I50.43 - Acute on chronic combined systolic (congestive) and diastolic (congestive) heart failure Pneumonia Qualifiers: Aspiration pneumonia type: unspecified Laterality: right Lung location: lower lobe of lung Change in mental status Qualifiers: Altered mental status type: somnolence Qualified Code(s): R40.0 - Somnolence Condition: Stable Referrals: Bob Tobar MD [Primary Care Provider] - Coding Level of Care Code ED Medical Record Administrator for Chg Fwd Exam Comprehensive The documentation recorded by the Dennis jaquez Carmen, accurately reflects the service I personally performed and the decisions made by , Lori Perry DO Jun 20, 2019 15:37
--- NOTE | 2019-06-20 15:54 | ECG_ITS ---
Measurements Intervals [place] Rate: 84 P: SD: 0 QRS: 56 QRSD: 123 T: 1 QT: 414 QTc: 492 ATRIAL FIBRILLATION RIGHT BUNDLE BRANCH BLOCK [120+ ms QRS DURATION, UPRIGHT V1, 40+ ms S IN I/a I/aVL/V4/V5/V6] SEPTAL MYOCARDIAL INFARCTION [40+ ms Q WAVE IN V1/V2], PROBABLY OLD Compared to ECG 03/11/2019 04:32:02 Right bundle-branch block now present Myocardial infarct finding now present Sinus rhythm no longer present Left anterior fascicular block no longer present T-wave abnormality no longer present Electronically Signed On 06-20-2019 19:56:43 TOP SPOTTER by Suzette Figueroa M.D. [email or web address]
--- NOTE | 2019-06-20 15:54 | XR_ITS ---
WS: [id number] XR chest 1V portable [id number] REASON FOR EXAM: pneumoniua FINDINGS: This study was compared to June 17, 2019. There is improvement in the diffuse interstit ial reticular pattern in the right lung base suggesting resolution of pneumonia overriding fibrosis. The remaining lung garcia showed evidence of reticular patterns. Particularly the left side. There is cardiomegaly noted. The hilum and apices appear to be normal. XR/XR chest 1V portable [id number] IMPRESSION: Resolving pneumonia right lower lung Reticular pattern consistent with fibrosis. And interstitial disease. Cardiomegaly. Arteriosclerotic changes are present.
[2019-06-20] MEDS: sodium chloride 0.9% 500 ML 999 ML IV (16:08)
[2019-06-20 16:12] LABS: Basophils % 0.1 %; Eosinophils # 0.1 10^3/uL (0.0-0.8); Eosinophils % 1.6 %; Hematocrit 27.8 % (42.0-52.0); Hemoglobin 8.6 g/dL (11.7-16.6); Lymphocytes # 1.2 10^3/uL (0.8-4.8); Lymphocytes % 14.7 %; Mean Corpuscular HGB Conc 30.9 g/dL (30.0-36.0); Mean Corpuscular Hemoglobin 28.9 pg (28.0-34.0); Mean Corpuscular Volume 93.3 fL (80-94); Mean Platelet Volume 10.4 fL (7.4-10.4); Monocytes # 0.7 10^3/uL (0.2-0.9); Monocytes % 8.4 %; Neutrophils # 6.2 10^3/uL (1.8-7.7); Neutrophils % 74.5 %; Nucleated Red Blood Cells % 0 %; Platelet Count 142 10^3/cmm (130-400); Red Blood Count 2.98 10^6/uL (4.1-5.3); Red Cell Distribution Width 16.5 % (12.1-15.1); White Blood Count 8.3 10^3/uL (4.0-10.0)
[2019-06-20 16:26] LABS: Alanine Aminotransferase 8 U/L (0-41); Albumin Level 2.8 g/dL (3.5-5.2); Alkaline Phosphatase 92 IU/L (40-130); Anion Gap 15.2 (5-19); Aspartate Amino Transferase 11 U/L (0-40); Blood Urea Nitrogen 37 mg/dL (8-23); Calcium 10.4 mg/dL (8.5-10.5); Carbon Dioxide 35 mmol/L (22-29); Chloride 88 mmol/L (98-107); Globulin 3.7 g/dL (1.3-4.6); Glucose 108 mg/dL (65-115); NT Pro B Type Natriuretic Pept 3424 pg/mL (0-450); Potassium 3.2 mmol/L (3.5-5.1); Sodium 135 mmol/L (136-145); Total Bilirubin 0.3 mg/dL (0.15-1.2); Total Protein 6.5 g/dL (6.6-8.7)
[2019-06-20] MEDS: ipratropium 0.5 mg/2.5 mL Neb INHALATION (16:29)
[2019-06-20 16:36] LABS: ABG PCO2 59.2 mmHg (35-45); ABG PH Result 7.41 (7.35-7.45); Arterial Blood Gas Hematocrit 26.6 % (42-52); Base Excess ABG 11.7 mmol/L (-2.0-2.0); Blood Gas Allen Test Pos; Blood Gas Sample Site Radial, right; Blood Gas Sample Type Arterial; Carboxyhemoglobin 1.8 %THgb (0.4-20.1); HCO3 ABG 37.8 mmol/L (22-26); HGB O2 Sat 89.7 % (95-100); Methemoglobin 0.5 % (0.4-1.5); Oxygen Device OXY MASK; PO2 ABG 61.5 mmHg (80.0-100.0); Total Hemoglobin 8.7 g/dL (14-18)
[2019-06-20 16:52] LABS: Influenza A by IFA Negative (Negative); Influenza B by IFA Negative (Negative)
[2019-06-20] MEDS: FUROsemide 10 mg/mL SDV 10mL 80 MG IVP (17:23)
--- NOTE | 2019-06-20 18:09 | PM.HP ---
Providers/Chief Complaint Primary Care Provider: Bob Tobar MD Chief Complaint: DIFF BREATHING/PNEUMONIA History of Present Illness Teddy Cortes is a 83 year old male with a past medical history of chronic diastolic CHF, 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, obesity, NAYANA on CPAP, hypertension, BPH, chronic back pain, with recent history of decompressive laminectomy at L1-2 L3, L3-L4 with history of wound dehiscence at surgical site, CKD stage III-IV, history of IgM monoclonal gammopathy, chronic normocytic anemia, chronic folate and B12 deficiency peripheral vascular disease with known AAA, recent history of staph epidermidis bacteremia status post antibiotic therapy, recent hospitalization for a GI bleed at [facility] who presents to the emergency due to complaints of fatigue, weakness, malaise, shortness of breath, cough and low hemoglobin. Patient was just recently discharged from [facility] for a CHF exacerbation, he was diuresed roughly 14 L, clinically improved, but had a chronic upper cough and sinus congestion the etiology of it remains unclear as his barium swallow remains unremarkable, but I suspect he has some degree of aspiration pneumonitis. Patient also has a chronic Shoemaker catheter for chronic urinary retention in place Patient also had a upper GI bleed, medically managed with Protonix, his hemoglobin was stable at about 8-8.6, he was set up to see Dr. Steve as outpatient, he is recently on Eliquis for atrial fibrillation which was stopped, he required total 4 units of blood in the last month, all anticoagulation has been held I spoke to the fdc today patient was sent over to [facility] from the fdc due to complaints of weakness, fatigue, inability to get out of bed, shortness of breath, cough, congestion and sleepiness. Patient according to brother at bedside was ambulating well yesterday, speaking appropriately yesterday, breathing appropriately, had no significant complaints. But this morning patient woke up having shortness of breath, somnolence, congestion, cough, not feeling well, not able to get out of bed, requiring up to 5 L high flow. No fevers, no chills, no lightheadedness, dizziness, no falls. According to fdc before he came into the hospital he was able to ambulate on his home freely, this is not the case as he requires Carey lift yesterday at this morning. In addition I spoke to patient's brother at bedside who states that this is that the patient has had a slow decline for the last 3 years, and especially in the last 3 months as patient has essentially been in hospitalized care for the last 3 months with his multiple back surgery and complications, he is been in [place] [facility]. Currently patient is somnolent, sleeping, actively snoring, he awakens with a sternal rub, states that he does not know why he is back here, he followed commands such as squeezing my fingers, wiggling his toes, biting down, alert to person, place, not time. His ABG shows hypoxic respiratory failure likely secondary to CHF and COPD exacerbation. His chest x-ray does not show any acute pneumonia, no significant leukocytosis, no fevers. His BNP is up supporting heart failure. But patient has chronic cough, congestion and crackles in bilateral lung garcia. Given patient's episodes of somnolence, a CAT scan was obtained to rule out a intracranial bleed versus stroke, CT scan results are pending. Medications/Allergies Home Medications Medication Instructions Recorded Confirmed Last Taken Type cyanocobalamin (vitamin B-12) 500 mcg PO DAILY 06/20/19 06/20/19 06/20/19 History [Vitamin B-12] oseltamivir [Tamiflu] 30 mg PO DAILY 06/20/19 06/20/19 06/20/19 09:00 History Allergies Allergy/AdvReac Type Severity Reaction Status Date / Time No Known Allergies Allergy Verified 06/14/19 09:55 Additional Medication Information Additional Medication Information: Unable to obtain as patient is somnolent, most of the medical history was obtained from [facility]: Medical History Acute respiratory failure Anemia Benign prostatic hyperplasia Chronic kidney disease, stage III (moderate) Congestive heart failure COPD (chronic obstructive pulmonary disease) Diastolic CHF GI bleed Hyperlipidemia Hypertension Monoclonal gammopathy Paroxysmal atrial fibrillation Pneumonia Rosacea TIA (transient ischemic attack) Surgical History H/O knee surgery History of back surgery History of neck surgery Family History Other CAD (coronary artery disease) Social History Smoking and tobacco status: former smoker Vitals/I&O/Wt Last Vital Signs Pulse 68 06/20/19 16:34 Resp 20 H 06/20/19 16:33 BP 102/64 06/20/19 15:41 Pulse Ox 94 06/20/19 16:33 Weight last 48 hrs Weight 93.44 kg Physical Exam Const: COMMON NORMALS: no apparent distress and alert NUTRITIONAL APPEARANCE: obese ORIENTATION/CONSCIOUSNESS: Yes awake, Yes oriented to person and Yes lethargic HENMT: COMMON NORMALS: normocephalic Eye: COMMON NORMALS: PERRL Neck/C-Spine: COMMON NORMALS: no lymphadenopathy Lymph: LYMPHATIC: no lymphadenopathy noted Chest: COMMONS NORMALS: inspection of chest normal Resp: COMMON NORMALS: normal respiratory effort, no retractions and no use of accessory muscles EFFORT & INSPECTION: No tachypneic, No respiratory distress, No pursed lip breathing and Yes actively coughing AUSCULTATION: wheezes Cardio: COMMON NORMALS: no JVD, regular rate, regular rhythm, S1 normal heart sound, S2 normal heart sound and no murmurs GI: COMMON NORMALS: normal to inspection, nondistended, normoactive bowel sounds and soft to palpation INSPECTION: Yes central obesity : COMMON NORMALS: Yes no CVA tenderness Back/Pelvis: COMMON NORMALS: no CVA tenderness Extremity: COMMON NORMALS: normal capillary refill, no clubbing, cyanosis or edema and no pedal edema Neuro: SENSORIUM/ORIENTATION: Yes alert, Yes oriented to person, No oriented to place and No oriented to time OTHER: Was able to follow command such as squeezing my fingers, wiggling his toes, smiling, biting down, does not follow other neurologic exam, very somnolent, sleeping, snoring Data : 06/20/19 15:52 06/20/19 15:52 Micro: Microbiology 06/20/19 16:08 Blood Culture - Preliminary Blood SPECIMEN COLLECTED 06/20/19 15:52 Blood Culture - Preliminary Blood SPECIMEN COLLECTED A&P Assessment and plan (1) Somnolence: -Light likely secondary to hypoxemia -Responded to sternal rub, PERRLA, followed instructions of such as squeezing my fingers bilaterally, wiggling his toes, biting down, opening up his eyes, but falls asleep -I spoke to fdc, no indications of a stroke, no strokelike symptoms, no facial droop, no paralysis, no slurring of his speech, no focal neurologic deficits, no seizure-like episodes -CT head pending Status: Acute Code(s): R40.0 - Somnolence (2) Acute and chronic respiratory failure with hypoxia: -secondary to DCHF, COPD, and aspiration pneumonitis Plan: -Admit to general medical floors - BiPAP 18/10 and 40% FiO2 - Bumex 1 mg every 12 hours, with metolazone, creatinine is 2, but likely cardiorenal - Solu-Medrol 40 every 6 hours for COPD, and aspiration pneumonitis Status: Acute Code(s): J96.21 - Acute and chronic respiratory failure with hypoxia (3) GI bleed: -Hemoglobin 8.6 -Hemodynamically stable Plan: -Monitor hemoglobin -Continue Protonix 40 twice daily, has an appoint with Dr. Steve as outpatient Status: Acute Code(s): K92.2 - Gastrointestinal hemorrhage, unspecified (4) Chronic kidney disease, stage III (moderate): Status: Acute Code(s): N18.3 - Chronic kidney disease, stage 3 (moderate) (5) Diastolic CHF: Status: Acute Code(s): I50.30 - Unspecified diastolic (congestive) heart failure (6) Paroxysmal atrial fibrillation: Continue metoprolol, Cardizem, not on anticoagulation due to GI bleed Status: Acute Code(s): I48.0 - Paroxysmal atrial fibrillation (7) Hypertension: Status: Acute Code(s): I10 - Essential (primary) hypertension (8) Hyperlipidemia: Status: Acute Code(s): E78.5 - Hyperlipidemia, unspecified Attestations Medical Necessity Statement*: Current hospitalization due to acute respiratory failure, inpatient, greater than 2 midnights Coding Level of Care Code 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
[2019-06-20 18:42] LABS: ABG PCO2 62.2 mmHg (35-45); ABG PH Result 7.39 (7.35-7.45); Arterial Blood Gas Hematocrit 27.2 % (42-52); Base Excess ABG 11.4 mmol/L (-2.0-2.0); Blood Gas Allen Test Pos; Blood Gas Sample Site Radial, left; Blood Gas Sample Type Arterial; HCO3 ABG 37.9 mmol/L (22-26); PO2 ABG 59.1 mmHg (80.0-100.0)
[2019-06-20] MEDS: piperacillin-tazobactam 3.375 GM in sodium chloride 0.9% (plus) 50 ML IV (19:08)
--- NOTE | 2019-06-20 19:37 | CTR_ITS ---
PROCEDURE INFORMATION: Exam: CT Head Without Contrast Exam date and time: 06/20/2019 7:54 PM Age: 83 years old Clinical indication: Altered mental status/memory loss; Additional info: Acute mental status change TECHNIQUE: Imaging protocol: Computed tomography of the head without contrast. Total DLP: 1985.7 mGy-cm Radiation optimization: All CT scans at this facility use at least one of these dose optimization techniques: automated exposure control; mA and/or kV adjustment per patient size (includes targeted exams where dose is matched to clinical indication); or iterative reconstruction. COMPARISON: CT head wo con* [id number] 06/13/2014 5:06 PM FINDINGS: Brain: No visible evidence of active or acute intracranial pathologic process. Moderate small vessel ischemic disease with senile periventricular leukomalacia. Ventricles: Unremarkable for age. No ventriculomegaly. Bones/joints: Unremarkable. No acute fracture. Sinuses: Mild mucosal thickening right maxillary sinus. Mastoid air cells: Visualized mastoid air cells are well aerated. Soft tissues: Unremarkable. Vasculature: Arterial sclerosis. CT/CT head wo con* [id number] IMPRESSION: 1. No visible evidence of active or acute intracranial pathologic process. 2. Age-related findings. 3. Aspects score 10 Radiation Dose CTDIVOL = (mGy): DLP = 1985.7 (mGy-cm)
[2019-06-20] MEDS: vancomycin 1,000 MG in sodium chloride 0.9% 250 ML 250 MG IV (20:03)
[2019-06-20 20:06] LABS: Lactic Sepsis W/Reflex 0.6 mmol/L (0.5-2.2)
[2019-06-20 20:15] LABS: Thyroid Stimulating Hormone 1.22 uIU/mL (0.27-4.20)
[2019-06-20] MEDS: bumetanide 0.25 mg/mL SDV 10 mL 1 MG IV (21:49)
[2019-06-20] MEDS: potassium chloride premix 40 MEQ/100 ML PREMIX 25 MEQ IV (21:49)
[2019-06-20] MEDS: morphine 4 mg/mL SDV 1 mL IVP (22:17)
[2019-06-20] MEDS: levofloxacin-dextrose 5 % 750 MG/150 ML PREMIX 150 MG IV (22:20)
--- NOTE | 2019-06-20 22:23 | PC.NURSE ---
Pt received from ED. Pt had not been given levoquin in ED, but IV tubing and medicine was sent with pt. Pt only had 1 IV so another was laced in order to run levoquin. levoquin started past time due at 2019.
[2019-06-21] VITALS (32 sets, daily range): BP systolic 102–136; BP diastolic 61–98; PULSE 68–84; RESP 14–27; TEMP 36.4–36.8; O2SAT 84–99
[2019-06-21] MEDS: ipratropium-albuterol 3 mL Neb INHALATION ×4 (03:05→21:07)
[2019-06-21 05:10] LABS: Alveolar-Arterial Oxygen Gradi 382.9 mmHg (5-10); Arterial Blood Gas Hematocrit 29.8 % (42-52); Blood Gas Allen Test Pos; Blood Gas Sample Site Radial, right; Blood Gas Sample Type Arterial; Carboxyhemoglobin 0.8 %THgb (0.4-20.1); HGB O2 Sat 91.4 % (95-100); Methemoglobin 0.8 % (0.4-1.5); Oxygen Device BIPAP; Total Hemoglobin 9.7 g/dL (14-18)
[2019-06-21 05:14] LABS: Hematocrit 28.2 % (42.0-52.0); Hemoglobin 8.7 g/dL (11.7-16.6); Lymphocytes # 0.5 10^3/uL (0.8-4.8); Lymphocytes % 9.8 %; Mean Corpuscular HGB Conc 30.9 g/dL (30.0-36.0); Mean Corpuscular Hemoglobin 28.8 pg (28.0-34.0); Mean Corpuscular Volume 93.4 fL (80-94); Mean Platelet Volume 10.9 fL (7.4-10.4); Monocytes # 0.1 10^3/uL (0.2-0.9); Monocytes % 1.5 %; Neutrophils # 4.1 10^3/uL (1.8-7.7); Neutrophils % 88.3 %; Nucleated Red Blood Cells % 0 %; Platelet Count 135 10^3/cmm (130-400); Red Blood Count 3.02 10^6/uL (4.1-5.3); Red Cell Distribution Width 16.3 % (12.1-15.1); White Blood Count 4.6 10^3/uL (4.0-10.0)
[2019-06-21 05:35] LABS: ABG PCO2 63.1 mmHg (35-45); Base Excess ABG 12.4 mmol/L (-2.0-2.0); Blood Gas Allen Test pos; HCO3 ABG 39.1 mmol/L (22-26); PO2 ABG 66.3 mmHg (80.0-100.0)
[2019-06-21 05:35] LABS: Alanine Aminotransferase 8 U/L (0-41); Alkaline Phosphatase 85 IU/L (40-130); Anion Gap 15.3 (5-19); Aspartate Amino Transferase 9 U/L (0-40); Blood Urea Nitrogen 35 mg/dL (8-23); Calcium 10.1 mg/dL (8.5-10.5); Carbon Dioxide 36 mmol/L (22-29); Chloride 90 mmol/L (98-107); Globulin 3.3 g/dL (1.3-4.6); Glucose 158 mg/dL (65-115); Phosphorus 5.9 mg/dL (2.5-4.5); Potassium 3.3 mmol/L (3.5-5.1); Sodium 138 mmol/L (136-145); Total Bilirubin 0.3 mg/dL (0.15-1.2); Total Protein 6.3 g/dL (6.6-8.7)
[2019-06-21 05:36] LABS: Oxygen Device bipap
--- NOTE | 2019-06-21 06:12 | PC.NURSE ---
Upon arrival to unit, pt was not able to be aroused. Pt was breathing on his own with bi-pap assistance, but would not open his eyes or follow commands to squeeze my hands. within the first hour of arrival, pt began yelling of pain and moving his arms around. Once morphine was given, pt became sedated again. Most of the night, pt would follow commands to squeeze my hands, but he was unable to open his eyes. At about 0500, pt would only squeeze with his left hand. By 0600, pt was alert and talking. Pt appears to be fully conscious and oriented.
--- NOTE | 2019-06-21 07:00 | USCV_ITS ---
Teddy Cortes Age: 83 Gender: M : 1935 Exam Date: 06/21/2019 06:22 Ordering Phys: Melvin Kaufman MD Technologist: Rory Jeff [place] [facility] [place] SOB BP: 130 / 68 HR: 81 Rhythm: Sinus Technical Quality: Poor MEASUREMENTS (Male / Female) Normal Values 2D ECHO LV Diastolic Diameter PLAX 2.8 cm 4.2 - 5.9 / 3.9 - 5.3 cm LV Systolic Diameter PLAX 2.2 cm IVS Diastolic Thickness 1.0 cm 0.6 - 1.0 / 0.6 - 0.9 cm IVS Systolic Thickness 1.5 cm LVPW Diastolic Thickness 1.4 cm 0.6 - 1.0 / 0.6 - 0.9 cm LVPW Systolic Thickness 1.2 cm LVOT Diameter 2.1 cm LV Ejection Fraction 2D Teich 42.0 % LV Ejection Fraction MOD 2C 62.3 % LV Ejection Fraction 2C AL 63.4 % LA Diameter 4.2 cm LA Width 4.8 cm LA Height 5.6 cm RA Width 3.5 cm RA Height 5.7 cm Aorta at Sinotubular Diameter 3.5 cm M-MODE LV Diastolic Diameter MM 6.3 cm 4.2 - 5.9 / 3.9 - 5.3 cm LV Systolic Diameter MM 4.0 cm LV Ejection Fraction MM Teich 65.8 % IVS Diastolic Thickness MM 0.7 cm 0.6 - 1.0 / 0.6 - 0.9 cm IVS Systolic Thickness MM 1.9 cm LVPW Diastolic Thickness MM 1.5 cm 0.6 - 1.0 / 0.6 - 0.9 cm LVPW Systolic Thickness MM 1.8 cm RV Diastolic Diameter MM 1.6 cm Aortic Annulus Diameter 4.0 cm LA Ao Ratio MM 1.0 MV E Point Septal Separation 0.9 cm FINDINGS Left Ventricle The ventricle is poorly seen. It is probably normal in size and function. No obvious regional wall motion disturbances. Estimated ejection fraction 60%. Grade 1 diastolic dysfunction. Right Ventricle Normal right ventricular size and systolic function. Right Atrium The right atrium is normal in size. Left Atrium Mildly increased left atrial size. Mitral Valve Structurally normal mitral valve. Mitral valve not well visualized. Trace mitral valve regurgitation. Aortic Valve Aortic valve not well visualized. Structurally normal trileaflet aortic valve. Trace aortic valve regurgitation. Tricuspid Valve Tricuspid valve not well visualized. Pulmonic Valve Pulmonic valve not well visualized. Pericardium Normal pericardium without effusion. Aorta Normal ascending aorta dimension. CONCLUSIONS The ventricle is poorly seen. It is probably normal in size and function. No obvious regional wall motion disturbances. Estimated ejection fraction 60%. Grade 1 diastolic dysfunction. Mildly increased left atrial size. Structurally normal mitral valve. Mitral valve not well visualized. Trace mitral valve regurgitation. Aortic valve not well visualized. Structurally normal trileaflet aortic valve. Trace aortic valve regurgitation. The study is unchanged from the previous echocardiogram done only [address] Ramos Newman MD (Electronically Signed) Final Date: 21 June 2019 09:25 S
[2019-06-21] MEDS: guaiFENesin 600 mg Tablet PO ×2 (08:46→17:57)
[2019-06-21] MEDS: bumetanide 0.25 mg/mL SDV 10 mL 1 MG IV ×2 (08:46→20:26)
[2019-06-21] MEDS: gabapentin 300 mg Capsule PO ×2 (08:46→17:57)
[2019-06-21] MEDS: lactobacillus 1 Tablet 1 TAB PO (08:46)
[2019-06-21] MEDS: finasteride 5 mg Tablet PO (08:47)
[2019-06-21] MEDS: dilTIAZem ER (24HR) 240 mg Capsule PO (08:47)
[2019-06-21] MEDS: docusate sodium 100 mg Capsule PO ×2 (08:47→17:57)
[2019-06-21] MEDS: carvedilol 3.125 mg Tablet PO ×2 (08:47→17:57)
[2019-06-21] MEDS: multivitamin therapeutic Tablet 1 TAB PO (08:47)
[2019-06-21] MEDS: ferrous sulfate EC 325 mg Tablet PO (08:47)
[2019-06-21] MEDS: pantoprazole DR 40 mg Tablet PO ×2 (08:48→17:57)
[2019-06-21] MEDS: ascorbic acid 500 mg Tablet 250 MG PO (08:48)
[2019-06-21 10:33] LABS: Oxygen Device BIPAP
--- NOTE | 2019-06-21 11:52 | PM.PN ---
Subjective Subjective: Interval history: This morning patient is quite upset about not getting any better, upset about coming back to the hospital, upset that he did not have adequate treatment the first time he was here in the hospital, upset about being sent home too soon Patient states that when he got to the custodial from the hospital, was able to ambulate, was not short of breath. However overnight had episodes of shortness of breath, felt weak, fatigued, tired and was unable to get out of bed. Patient is very frustrated for the last 3 months he has had a slow decline since his back surgery, has felt weak fatigued tired, he is concerned about us not figure out where he is bleeding from, he is upset about how weak he is, he wants us to strengthen him up, and is upset about how he still short of breath Vitals/I&O/Wt Last Vital Signs Temp 97.5 F L 06/21/19 05:03 Pulse 78 06/21/19 10:00 Resp 21 H 06/21/19 10:00 BP 117/67 06/21/19 10:00 Pulse Ox 96 06/21/19 10:00 06/20/19 06/21/19 06/21/19 22:59 06:59 14:59 Intake Total 550 / 550 500 / 1050 240 / 240 Output Total 1100 / 1100 900 / 2000 Balance -550 / -550 -400 / -950 240 / 240 Weight last 48 hrs Weight 93.44 kg Physical Exam Const: COMMON NORMALS: no apparent distress and oriented x3 HENMT: COMMON NORMALS: normocephalic HEAD & SCALP: normocephalic Neck/C-Spine: COMMON NORMALS: no JVD Resp: COMMON NORMALS: normal respiratory effort, no retractions, no use of accessory muscles and clear to auscultation bilaterally AUSCULTATION: clear to auscultation bilaterally Cardio: COMMON NORMALS: no JVD, regular rate, regular rhythm, S1 normal heart sound and S2 normal heart sound RATE: regular rate RHYTHM: regular rhythm HEART SOUNDS: S1 normal and S2 normal GI: COMMON NORMALS: normal to inspection, nondistended, normoactive bowel sounds, soft to palpation, non-tender, no hepatosplenomegaly, no masses and no bruits PALPATION: Yes soft and Yes no hepatosplenomegaly Extremity: COMMON NORMALS: normal capillary refill, no clubbing, cyanosis or edema, no calf tenderness and no pedal edema Neuro: COMMON NORMALS: oriented x3 Psych: COMMON NORMALS: mental status grossly normal Data : 06/21/19 04:25 06/21/19 04:25 Micro: Microbiology 06/20/19 16:08 Blood Culture - Preliminary Blood SPECIMEN COLLECTED 06/20/19 15:52 Blood Culture - Preliminary Blood SPECIMEN COLLECTED A&P Assessment and plan (1) Muscular deconditioning: -Patient has had multiple admissions in the last few months, has spent the last 3 months in hospitalized care since his back surgery, complications of his back surgery, anemia, GI bleed, pneumonia -I feel that patient has never fully recovered from this hospitalizations, his overall symptomatology is likely secondary to severe physical deconditioning -The treatment for this will not be acute, it will be chronic, require extensive physical therapy, extensive encouragement to have patient get out of bed and ambulate -Nursing staff and physical therapy department were instructed to get patient up out of bed at least 3 times daily, ambulate patient, and physical therapy interventions as inpatient as I try to diurese him even more Status: Acute Code(s): R29.898 - Other symptoms and signs involving the musculoskeletal system (2) Somnolence: -Light likely secondary to hypoxemia and hypercarbia -Responded to sternal rub, PERRLA, followed instructions of such as squeezing my fingers bilaterally, wiggling his toes, biting down, opening up his eyes, but falls asleep -I spoke to custodial, no indications of a stroke, no strokelike symptoms, no facial droop, no paralysis, no slurring of his speech, no focal neurologic deficits, no seizure-like episodes -This morning patient is arousable, answers all questions appropriately, neurologically intact, no focal neurologic deficits -CT head negative for intracranial bleed Status: Acute Code(s): R40.0 - Somnolence (3) Acute and chronic respiratory failure with hypoxia: -secondary to DCHF, COPD, and aspiration pneumonitis Plan: -Admit to general medical floors - BiPAP 18/10 and 40% FiO2 - Bumex 1 mg every 12 hours, with metolazone, creatinine is 2, but likely cardiorenal - Solu-Medrol 40 every 6 hours for COPD, and aspiration pneumonitis Status: Acute Code(s): J96.21 - Acute and chronic respiratory failure with hypoxia (4) GI bleed: -Hemoglobin 8.6 -Hemodynamically stable Plan: -Monitor hemoglobin -Continue Protonix 40 twice daily, has an appoint with Dr. Steve as outpatient Status: Acute Code(s): K92.2 - Gastrointestinal hemorrhage, unspecified (5) Chronic kidney disease, stage III (moderate): Status: Acute Code(s): N18.3 - Chronic kidney disease, stage 3 (moderate) (6) Diastolic CHF: Status: Acute Code(s): I50.30 - Unspecified diastolic (congestive) heart failure (7) Paroxysmal atrial fibrillation: Continue metoprolol, Cardizem, not on anticoagulation due to GI bleed Status: Acute Code(s): I48.0 - Paroxysmal atrial fibrillation (8) Hypertension: Status: Acute Code(s): I10 - Essential (primary) hypertension (9) Hyperlipidemia: Status: Acute Code(s): E78.5 - Hyperlipidemia, unspecified Attestations Medical Necessity Statement*: Requires hospitalization due to severe muscular continued deconditioning, acute respiratory failure Coding Level of Care Code 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
--- NOTE | 2019-06-21 16:50 | PC.NURSE ---
Transfer to floor Patient transferred to [facility]. Report called to EDE Fulton. Patient oriented to room and call light within reach.
--- NOTE | 2019-06-21 18:09 | PC.NURSE ---
Report critical pos for 1/4 bottles gram pos cocci and clusters.
[2019-06-21] MEDS: HYDROcodone-acetaminophen 5-325 mg Tablet 1 TAB PO (19:24)
[2019-06-21] MEDS: tamsulosin 0.4 mg Capsule PO (20:33)
[2019-06-21] MEDS: hyDRALAzine 50 mg Tablet PO (20:33)
[2019-06-21] MEDS: folic acid 1 mg Tablet PO (20:33)
[2019-06-21] MEDS: budesonide 0.5 mg/2 mL Neb INHALATION (21:07)
[2019-06-22] VITALS (22 sets, daily range): BP systolic 110–132; BP diastolic 55–72; PULSE 69–90; RESP 15–23; TEMP 36.3–36.9; O2SAT 86–94
[2019-06-22] MEDS: ipratropium-albuterol 3 mL Neb INHALATION ×6 (00:47→20:11)
[2019-06-22 05:13] LABS: Basophils % 0.1 %; Hematocrit 26.4 % (42.0-52.0); Hemoglobin 8.2 g/dL (11.7-16.6); Lymphocytes # 0.6 10^3/uL (0.8-4.8); Lymphocytes % 5.2 %; Mean Corpuscular HGB Conc 31.1 g/dL (30.0-36.0); Mean Corpuscular Hemoglobin 28.7 pg (28.0-34.0); Mean Corpuscular Volume 92.3 fL (80-94); Mean Platelet Volume 11.2 fL (7.4-10.4); Monocytes # 0.4 10^3/uL (0.2-0.9); Neutrophils # 11.1 10^3/uL (1.8-7.7); Neutrophils % 91.1 %; Nucleated Red Blood Cells % 0 %; Platelet Count 145 10^3/cmm (130-400); Red Blood Count 2.86 10^6/uL (4.1-5.3); Red Cell Distribution Width 16.1 % (12.1-15.1); White Blood Count 12.2 10^3/uL (4.0-10.0)
[2019-06-22] MEDS: metOLazone 5 MG Tablet PO (05:26)
[2019-06-22 05:31] LABS: C Reactive Protein 59.7 mg/L (0.0-4.9)
[2019-06-22 05:39] LABS: Alanine Aminotransferase 8 U/L (0-41); Albumin Level 2.7 g/dL (3.5-5.2); Alkaline Phosphatase 83 IU/L (40-130); Anion Gap 16.4 (5-19); Aspartate Amino Transferase 10 U/L (0-40); Blood Urea Nitrogen 49 mg/dL (8-23); Calcium 9.7 mg/dL (8.5-10.5); Carbon Dioxide 33 mmol/L (22-29); Chloride 87 mmol/L (98-107); Globulin 3.4 g/dL (1.3-4.6); Glucose 204 mg/dL (65-115); Magnesium 2.2 mg/dL (1.7-2.3); Phosphorus 4.5 mg/dL (2.5-4.5); Potassium 3.4 mmol/L (3.5-5.1); Sodium 133 mmol/L (136-145); Total Bilirubin 0.2 mg/dL (0.15-1.2); Total Protein 6.1 g/dL (6.6-8.7)
[2019-06-22 05:49] LABS: Procalcitonin 0.17 ng/mL (0-0.5)
[2019-06-22] MEDS: budesonide 0.5 mg/2 mL Neb INHALATION ×2 (07:48→20:11)
[2019-06-22] MEDS: bumetanide 0.25 mg/mL SDV 10 mL 1 MG IV (07:56)
[2019-06-22] MEDS: lactobacillus 1 Tablet 1 TAB PO (08:01)
[2019-06-22] MEDS: cyanocobalamin 1,000 mcg Tablet 500 MCG PO (08:01)
[2019-06-22] MEDS: multivitamin therapeutic Tablet 1 TAB PO (08:02)
[2019-06-22] MEDS: sennosides 8.6 mg Tablet 17.2 MG PO (08:02)
[2019-06-22] MEDS: gabapentin 300 mg Capsule PO ×2 (08:02→17:43)
[2019-06-22] MEDS: finasteride 5 mg Tablet PO (08:02)
[2019-06-22] MEDS: dilTIAZem ER (24HR) 240 mg Capsule PO (08:02)
[2019-06-22] MEDS: pantoprazole DR 40 mg Tablet PO ×2 (08:02→17:43)
[2019-06-22] MEDS: guaiFENesin 600 mg Tablet PO ×2 (08:02→17:42)
[2019-06-22] MEDS: ferrous sulfate EC 325 mg Tablet PO (08:03)
[2019-06-22] MEDS: ascorbic acid 500 mg Tablet 250 MG PO (08:03)
[2019-06-22] MEDS: hyDRALAzine 50 mg Tablet PO ×3 (08:03→21:45)
[2019-06-22] MEDS: carvedilol 3.125 mg Tablet PO ×2 (08:03→17:43)
[2019-06-22] MEDS: docusate sodium 100 mg Capsule PO ×2 (08:03→17:42)
--- NOTE | 2019-06-22 12:21 | PC.CHAP ---
Pastoral Care Encounter/Spiritual Assessment Type of Contact [] Declined blasting cap assembler visit [] Patient/Family/Request visit [] Outpatient visit [] Follow-up visit [] Physician referral [] Code/Alert [x] Routine visit [] Staff referral [] Actively dying [] Patient sleeping [] Family support [] [] Out of room [] Palliative care [] [] Receiving care in room [] Pre-surgical visit [] Trauma [] Long length of stay [] ICU visit [] Other: Relational/Emotional Strength [x] Patient feels connected with others/family/visitors/staff [] Distress [] Loneliness/isolation [] Abandonment Spirituality of Patient [x] Person of Bianca [] Attends Restorationist of their Bianca [x] Believes in Prayer [] Reads Bible or Zoroastrian materials [] There are Spiritual issues to be addressed Manager Pe Interventions [x] Prayer [x] Active listening [x] Non-anxious presence [x] Spiritual/emotional support [] Crisis/trauma care [x] Spiritual counseling [] Bereavement support [] Provided bereavement packet [] Provided Bible/devotional materials [] Provided toy/stuffed animal, coloring book to patient or family member [] Provided Communion [] Anointing/[place] [] Salvation [] Completed spiritual assessment [] Other: Impact on Illness or Injury [] Angry [] Fearful [] Anxious [] Often cries [] Exhaustion [] Unable to work [] Unable to attend mosque [] Unable to walk/stand [] Unable to read [] Unable to drive [] Unable to eat/drink [] Unable to sleep [] Unable to be with family [] Patient intubated [x] Other:n/a Summary Time spent with patient 3 minutes
--- NOTE | 2019-06-22 17:11 | P.PN_ITS ---
Subjective Subjective: Interval history: Patient states that he is doing well this morning, still on high flow, no fevers, no chills, no nausea, vomiting, was able to get out of bed into a chair, has no significant complaints Vitals/I&O/Wt Last Vital Signs Temp 97.4 F L 06/22/19 16:00 Pulse 74 06/22/19 16:00 Resp 16 06/22/19 16:00 BP 123/70 06/22/19 16:00 Pulse Ox 93 06/22/19 16:00 06/22/19 06/22/19 06/22/19 06:59 14:59 22:59 Intake Total 500 / 1280 960 / 960 Output Total 700 / 1700 1400 / 1400 Balance -200 / -420 -440 / -440 Physical Exam Const: COMMON NORMALS: no apparent distress and oriented x3 HENMT: COMMON NORMALS: normocephalic HEAD & SCALP: normocephalic Neck/C-Spine: COMMON NORMALS: no JVD Resp: COMMON NORMALS: normal respiratory effort, no retractions, no use of accessory muscles and clear to auscultation bilaterally AUSCULTATION: clear to auscultation bilaterally Cardio: COMMON NORMALS: no JVD, regular rate, regular rhythm, S1 normal heart sound and S2 normal heart sound RATE: regular rate RHYTHM: regular rhythm HEART SOUNDS: S1 normal and S2 normal GI: COMMON NORMALS: normal to inspection, nondistended, normoactive bowel sounds, soft to palpation, non-tender, no hepatosplenomegaly, no masses and no bruits PALPATION: Yes soft and Yes no hepatosplenomegaly Extremity: COMMON NORMALS: normal capillary refill, no clubbing, cyanosis or edema, no calf tenderness and no pedal edema Neuro: COMMON NORMALS: oriented x3 Psych: COMMON NORMALS: mental status grossly normal Data : 06/22/19 04:48 06/22/19 04:48 Micro: Microbiology 06/20/19 15:52 Blood Culture - Preliminary Blood Gram positive cocci 06/20/19 16:08 Blood Culture - Preliminary Blood NEGATIVE TO DATE A&P Assessment and plan (1) Muscular deconditioning: -Patient has had multiple admissions in the last few months, has spent the last 3 months in hospitalized care since his back surgery, complications of his back surgery, anemia, GI bleed, pneumonia -I feel that patient has never fully recovered from this hospitalizations, his overall symptomatology is likely secondary to severe physical deconditioning -The treatment for this will not be acute, it will be chronic, require extensive physical therapy, extensive encouragement to have patient get out of bed and ambulate -Nursing staff and physical therapy department were instructed to get patient up out of bed at least 3 times daily, ambulate patient, and physical therapy interventions as inpatient as I try to diurese him even more Status: Acute Code(s): R29.898 - Other symptoms and signs involving the musculoskeletal system (2) Somnolence: -Light likely secondary to hypoxemia and hypercarbia -Responded to sternal rub, PERRLA, followed instructions of such as squeezing my fingers bilaterally, wiggling his toes, biting down, opening up his eyes, but falls asleep -I spoke to senior living, no indications of a stroke, no strokelike symptoms, no facial droop, no paralysis, no slurring of his speech, no focal neurologic deficits, no seizure-like episodes -This morning patient is arousable, answers all questions appropriately, neurologically intact, no focal neurologic deficits -CT head negative for intracranial bleed -No repeat somnolent episodes Status: Acute Code(s): R40.0 - Somnolence (3) Acute and chronic respiratory failure with hypoxia: -secondary to DCHF, COPD, and aspiration pneumonitis Plan: -Admit to general medical floors - BiPAP 18/10 and 40% FiO2, high flow during the day -Held diuresis as patient's creatinine is up to 2.2 ( Bumex 1 mg every 12 hours, with metolazone) -Switch to oral prednisone -2 blood cultures from the same set have been positive for gram-positive cocci, possible contamination, vancomycin has been started yesterday, no significant ESR, CRP elevations, no fevers, echocardiogram had no significant evidence of vegetation, continue to follow blood cultures for identification Status: Acute Code(s): J96.21 - Acute and chronic respiratory failure with hypoxia (4) GI bleed: -Hemoglobin 8.6 -Hemodynamically stable Plan: -Monitor hemoglobin -Continue Protonix 40 twice daily, has an appoint with Dr. Steve as outpatient Status: Acute Code(s): K92.2 - Gastrointestinal hemorrhage, unspecified (5) Chronic kidney disease, stage III (moderate): Status: Acute Code(s): N18.3 - Chronic kidney disease, stage 3 (moderate) (6) Diastolic CHF: Status: Acute Code(s): I50.30 - Unspecified diastolic (congestive) heart failure (7) Paroxysmal atrial fibrillation: Continue metoprolol, Cardizem, not on anticoagulation due to GI bleed Status: Acute Code(s): I48.0 - Paroxysmal atrial fibrillation (8) Hypertension: Status: Acute Code(s): I10 - Essential (primary) hypertension (9) Hyperlipidemia: Status: Acute Code(s): E78.5 - Hyperlipidemia, unspecified Attestations Medical Necessity Statement*: She requires hospitalization due to acute respiratory failure, GI bleed Coding Level of Care Code Acute Photo Finisher for g Fwd Diagnoses Muscular deconditioning R29.898 Somnolence R40.0 Acute and chronic respiratory failure with hypoxia J96.21 GI bleed K92.2 Chronic kidney disease, stage III (moderate) N18.3 Diastolic CHF I50.30 Paroxysmal atrial fibrillation I48.0 Hypertension I10 Hyperlipidemia E78.5
[2019-06-22] MEDS: tamsulosin 0.4 mg Capsule PO (21:45)
[2019-06-22] MEDS: folic acid 1 mg Tablet PO (21:45)
[2019-06-22] MEDS: HYDROcodone-acetaminophen 5-325 mg Tablet 1 TAB PO (21:48)
[2019-06-23] VITALS (12 sets, daily range): BP systolic 100–130; BP diastolic 60–70; PULSE 70–90; RESP 16–19; TEMP 36.4–36.6; O2SAT 93–96
[2019-06-23] MEDS: ipratropium-albuterol 3 mL Neb INHALATION ×5 (00:11→20:50)
[2019-06-23 06:13] LABS: Basophils % 0.1 %; Hematocrit 28.9 % (42.0-52.0); Hemoglobin 8.8 g/dL (11.7-16.6); Lymphocytes # 0.9 10^3/uL (0.8-4.8); Lymphocytes % 7.3 %; Mean Corpuscular HGB Conc 30.4 g/dL (30.0-36.0); Mean Corpuscular Hemoglobin 28.6 pg (28.0-34.0); Mean Corpuscular Volume 93.8 fL (80-94); Mean Platelet Volume 11.1 fL (7.4-10.4); Monocytes # 0.6 10^3/uL (0.2-0.9); Monocytes % 4.9 %; Neutrophils # 10.9 10^3/uL (1.8-7.7); Neutrophils % 86.7 %; Nucleated Red Blood Cells % 0 %; Platelet Count 152 10^3/cmm (130-400); Red Blood Count 3.08 10^6/uL (4.1-5.3); Red Cell Distribution Width 16.7 % (12.1-15.1); White Blood Count 12.5 10^3/uL (4.0-10.0)
[2019-06-23 06:35] LABS: Alanine Aminotransferase 9 U/L (0-41); Albumin Level 2.7 g/dL (3.5-5.2); Alkaline Phosphatase 83 IU/L (40-130); Anion Gap 13.7 (5-19); Aspartate Amino Transferase 10 U/L (0-40); Blood Urea Nitrogen 51 mg/dL (8-23); Calcium 10.2 mg/dL (8.5-10.5); Carbon Dioxide 35 mmol/L (22-29); Chloride 90 mmol/L (98-107); Globulin 4.1 g/dL (1.3-4.6); Glucose 157 mg/dL (65-115); Magnesium 2.3 mg/dL (1.7-2.3); Phosphorus 3.2 mg/dL (2.5-4.5); Potassium 3.7 mmol/L (3.5-5.1); Sodium 135 mmol/L (136-145); Total Bilirubin 0.2 mg/dL (0.15-1.2); Total Protein 6.8 g/dL (6.6-8.7)
[2019-06-23 06:38] LABS: Procalcitonin 0.13 ng/mL (0-0.5)
[2019-06-23] MEDS: budesonide 0.5 mg/2 mL Neb INHALATION ×2 (09:05→20:50)
[2019-06-23] MEDS: dilTIAZem ER (24HR) 240 mg Capsule PO (09:11)
[2019-06-23] MEDS: ferrous sulfate EC 325 mg Tablet PO (09:16)
[2019-06-23] MEDS: finasteride 5 mg Tablet PO (09:17)
[2019-06-23] MEDS: carvedilol 3.125 mg Tablet PO ×2 (09:17→18:21)
[2019-06-23] MEDS: lactobacillus 1 Tablet 1 TAB PO (09:17)
[2019-06-23] MEDS: sennosides 8.6 mg Tablet 17.2 MG PO (09:18)
[2019-06-23] MEDS: pantoprazole DR 40 mg Tablet PO ×2 (09:18→18:20)
[2019-06-23] MEDS: guaiFENesin 600 mg Tablet PO ×2 (09:18→18:21)
[2019-06-23] MEDS: ascorbic acid 500 mg Tablet 250 MG PO (09:19)
[2019-06-23] MEDS: multivitamin therapeutic Tablet 1 TAB PO (09:19)
[2019-06-23] MEDS: hyDRALAzine 50 mg Tablet PO ×3 (09:19→21:19)
[2019-06-23] MEDS: docusate sodium 100 mg Capsule PO ×2 (09:19→18:21)
[2019-06-23] MEDS: cyanocobalamin 1,000 mcg Tablet 500 MCG PO (09:20)
[2019-06-23] MEDS: gabapentin 300 mg Capsule PO ×2 (09:20→18:21)
--- NOTE | 2019-06-23 12:43 | PC.SOCIAL ---
Pg 2 IMM Explained to pt Pg 2 IMM. Provided pt a signed copy & left on pt's bedside table. No questions voiced. Signed, dated, & timed then placed in chart.
--- NOTE | 2019-06-23 18:29 | PC.NURSE ---
PT HAD A LARGE BM THAT WAS FORMED AND HAD BRIGHT RED BLOOD IN THE BSC. DR BROOKLYN DUMONT.
--- NOTE | 2019-06-23 18:37 | P.PN_ITS ---
Subjective Subjective: Interval history: This morning patient is sitting up in a chair, no fevers, no chills, no nausea, no vomiting, lightheadedness, no dizziness, still is on 6 L nasal cannula, tolerated BiPAP well overnight Had roughly 4 PM, patient had one episode of bloody bowel movement, no lightheadedness, no dizziness, will recheck hemoglobins Vitals/I&O/Wt Last Vital Signs Temp 97.8 F 06/23/19 16:00 Pulse 74 06/23/19 16:00 Resp 18 06/23/19 16:00 BP 120/66 06/23/19 16:00 Pulse Ox 95 06/23/19 16:00 06/23/19 06/23/19 06/23/19 06:59 14:59 22:59 Intake Total 1320 / 1320 200 / 1520 Output Total 550 / 2800 850 / 850 Balance -550 / -1190 1320 / 1320 -650 / 670 Physical Exam Const: COMMON NORMALS: no apparent distress and oriented x3 HENMT: COMMON NORMALS: normocephalic HEAD & SCALP: normocephalic Neck/C-Spine: COMMON NORMALS: no JVD Resp: COMMON NORMALS: normal respiratory effort, no retractions, no use of accessory muscles and clear to auscultation bilaterally AUSCULTATION: clear to auscultation bilaterally Cardio: COMMON NORMALS: no JVD, regular rate, regular rhythm, S1 normal heart sound and S2 normal heart sound RATE: regular rate RHYTHM: regular rhythm HEART SOUNDS: S1 normal and S2 normal GI: COMMON NORMALS: normal to inspection, nondistended, normoactive bowel sounds, soft to palpation, non-tender, no hepatosplenomegaly, no masses and no bruits PALPATION: Yes soft and Yes no hepatosplenomegaly Extremity: COMMON NORMALS: normal capillary refill, no clubbing, cyanosis or edema, no calf tenderness and no pedal edema Neuro: COMMON NORMALS: oriented x3 Psych: COMMON NORMALS: mental status grossly normal Data : 06/23/19 05:50 06/23/19 05:50 Micro: Microbiology 06/20/19 15:52 Blood Culture - Preliminary Blood Coagulase negativ staphylococc 06/22/19 21:47 Gram Stain - Final Sputum - Expectorated Sputum A&P Assessment and plan (1) Muscular deconditioning: -Patient has had multiple admissions in the last few months, has spent the last 3 months in hospitalized care since his back surgery, complications of his back surgery, anemia, GI bleed, pneumonia -I feel that patient has never fully recovered from this hospitalizations, his overall symptomatology is likely secondary to severe physical deconditioning -The treatment for this will not be acute, it will be chronic, require extensive physical therapy, extensive encouragement to have patient get out of bed and ambulate -Nursing staff and physical therapy department were instructed to get patient up out of bed at least 3 times daily, ambulate patient, and physical therapy interventions as inpatient as I try to diurese him even more Status: Acute Code(s): R29.898 - Other symptoms and signs involving the musculoskeletal system (2) Somnolence: -Light likely secondary to hypoxemia and hypercarbia -Responded to sternal rub, PERRLA, followed instructions of such as squeezing my fingers bilaterally, wiggling his toes, biting down, opening up his eyes, but falls asleep -I spoke to [facility], no indications of a stroke, no strokelike symptoms, no facial droop, no paralysis, no slurring of his speech, no focal neurologic deficits, no seizure-like episodes -This morning patient is arousable, answers all questions appropriately, neurologically intact, no focal neurologic deficits -CT head negative for intracranial bleed -No repeat somnolent episodes Status: Acute Code(s): R40.0 - Somnolence (3) Acute and chronic respiratory failure with hypoxia: -secondary to DCHF, COPD, and aspiration pneumonitis Plan: -Admit to general medical floors - BiPAP 18/10 and 40% FiO2, high flow during the day -Held diuresis as patient's creatinine is up to 2.2 ( Bumex 1 mg every 12 hours, with metolazone) -Switch to oral prednisone -2 blood cultures from the same set have been positive for gram-positive cocci, possible contamination, vancomycin has been started yesterday, no significant ESR, CRP elevations, no fevers, echocardiogram had no significant evidence of vegetation, continue to follow blood cultures for identification Status: Acute Code(s): J96.21 - Acute and chronic respiratory failure with hypoxia (4) GI bleed: -Hemoglobin 8.8 -Hemodynamically stable -One episode of bloody bowel movement today Plan: -Monitor hemoglobin -Continue Protonix 40 twice daily, has an appoint with Dr. Steve as outpatient Status: Acute Code(s): K92.2 - Gastrointestinal hemorrhage, unspecified (5) Chronic kidney disease, stage III (moderate): Status: Acute Code(s): N18.3 - Chronic kidney disease, stage 3 (moderate) (6) Diastolic CHF: Status: Acute Code(s): I50.30 - Unspecified diastolic (congestive) heart failure (7) Paroxysmal atrial fibrillation: Continue metoprolol, Cardizem, not on anticoagulation due to GI bleed Status: Acute Code(s): I48.0 - Paroxysmal atrial fibrillation (8) Hypertension: Status: Acute Code(s): I10 - Essential (primary) hypertension (9) Hyperlipidemia: Status: Acute Code(s): E78.5 - Hyperlipidemia, unspecified Attestations Medical Necessity Statement*: Patient requires hospitalization due to acute respiratory failure, GI bleed Coding Level of Care Code Acute Curer Acid Drum for [facility] Fwd Diagnoses Muscular deconditioning R29.898 Somnolence R40.0 Acute and chronic respiratory failure with hypoxia J96.21 GI bleed K92.2 Chronic kidney disease, stage III (moderate) N18.3 Diastolic CHF I50.30 Paroxysmal atrial fibrillation I48.0 Hypertension I10 Hyperlipidemia E78.5
[2019-06-23 19:31] LABS: Hematocrit 30.1 % (42.0-52.0); Hemoglobin 9.1 g/dL (11.7-16.6)
[2019-06-23] MEDS: bumetanide 0.25 mg/mL SDV 10 mL 1 MG IV (19:34)
[2019-06-23 19:51] LABS: Vancomycin Trough 20.3 ug/mL (10-15)
[2019-06-23] MEDS: tamsulosin 0.4 mg Capsule PO (21:19)
[2019-06-23] MEDS: folic acid 1 mg Tablet PO (21:19)
--- NOTE | 2019-06-23 21:54 | PC.NURSE ---
Porfirio in Pharmacy contacted about Vanc trough of 20.3. Pharmacy orders to continue current vanc orders, do not hold at this time.
[2019-06-24] VITALS (18 sets, daily range): BP systolic 116–147; BP diastolic 65–84; PULSE 74–107; RESP 12–24; TEMP 36.4–36.8; O2SAT 90–99
[2019-06-24 01:29] LABS: Hematocrit 28.9 % (42.0-52.0); Hemoglobin 8.7 g/dL (11.7-16.6)
[2019-06-24] MEDS: ipratropium-albuterol 3 mL Neb INHALATION ×6 (04:42→23:31)
[2019-06-24 06:50] LABS: Basophils % 0.1 %; Eosinophils # 0.1 10^3/uL (0.0-0.8); Eosinophils % 0.7 %; Hematocrit 28.7 % (42.0-52.0); Hemoglobin 8.6 g/dL (11.7-16.6); Lymphocytes # 1.5 10^3/uL (0.8-4.8); Lymphocytes % 17.5 %; Mean Corpuscular Hemoglobin 28.7 pg (28.0-34.0); Mean Corpuscular Volume 95.7 fL (80-94); Mean Platelet Volume 11.3 fL (7.4-10.4); Monocytes # 0.8 10^3/uL (0.2-0.9); Monocytes % 9.3 %; Neutrophils # 6.1 10^3/uL (1.8-7.7); Neutrophils % 71.5 %; Nucleated Red Blood Cells % 0 %; Platelet Count 152 10^3/cmm (130-400); Red Cell Distribution Width 16.7 % (12.1-15.1); White Blood Count 8.6 10^3/uL (4.0-10.0)
[2019-06-24 07:07] LABS: Alanine Aminotransferase 10 U/L (0-41); Albumin Level 2.7 g/dL (3.5-5.2); Alkaline Phosphatase 84 IU/L (40-130); Anion Gap 12.9 (5-19); Aspartate Amino Transferase 10 U/L (0-40); Blood Urea Nitrogen 54 mg/dL (8-23); Calcium 10.4 mg/dL (8.5-10.5); Carbon Dioxide 35 mmol/L (22-29); Chloride 93 mmol/L (98-107); Globulin 3.6 g/dL (1.3-4.6); Glucose 94 mg/dL (65-115); Magnesium 2.2 mg/dL (1.7-2.3); Phosphorus 2.2 mg/dL (2.5-4.5); Potassium 3.9 mmol/L (3.5-5.1); Sodium 137 mmol/L (136-145); Total Bilirubin 0.2 mg/dL (0.15-1.2); Total Protein 6.3 g/dL (6.6-8.7)
[2019-06-24 07:18] LABS: Procalcitonin 0.13 ng/mL (0-0.5)
[2019-06-24] MEDS: budesonide 0.5 mg/2 mL Neb INHALATION (08:00)
[2019-06-24] MEDS: finasteride 5 mg Tablet PO (08:28)
[2019-06-24] MEDS: dilTIAZem ER (24HR) 240 mg Capsule PO (08:28)
[2019-06-24] MEDS: multivitamin therapeutic Tablet 1 TAB PO (08:29)
[2019-06-24] MEDS: lactobacillus 1 Tablet 1 TAB PO (08:29)
[2019-06-24] MEDS: sennosides 8.6 mg Tablet 17.2 MG PO (08:29)
[2019-06-24] MEDS: cyanocobalamin 1,000 mcg Tablet 500 MCG PO (08:29)
[2019-06-24] MEDS: metOLazone 5 MG Tablet PO (08:29)
[2019-06-24] MEDS: guaiFENesin 600 mg Tablet PO ×2 (08:30→18:11)
[2019-06-24] MEDS: ascorbic acid 500 mg Tablet 250 MG PO (08:30)
[2019-06-24] MEDS: pantoprazole DR 40 mg Tablet PO ×2 (08:30→18:11)
[2019-06-24] MEDS: docusate sodium 100 mg Capsule PO ×2 (08:30→18:11)
[2019-06-24] MEDS: gabapentin 300 mg Capsule PO ×2 (08:30→18:12)
[2019-06-24] MEDS: hyDRALAzine 50 mg Tablet PO ×3 (08:31→21:19)
[2019-06-24] MEDS: carvedilol 3.125 mg Tablet PO ×2 (08:31→18:11)
[2019-06-24] MEDS: bumetanide 0.25 mg/mL SDV 10 mL 1 MG IV ×2 (09:55→21:19)
--- NOTE | 2019-06-24 11:23 | PC.RESP ---
Pt reports tremors in upper and lower extremities post treatment{Dubessiebs Q4}.
[2019-06-24 12:08] LABS: Hematocrit 30.2 % (42.0-52.0)
--- NOTE | 2019-06-24 16:21 | PM.PN ---
Subjective Subjective: Interval history: Patient has no complaints this morning, no fevers, no chills, no nausea, vomiting, was able to get up out of bed today with the help of physical therapy, is ambulating well,, states that BiPAP helps well overnight Vitals/I&O/Wt Last Vital Signs Temp 97.6 F 06/24/19 11:28 Pulse 97 06/24/19 15:54 Resp 18 06/24/19 15:54 BP 116/65 06/24/19 11:28 Pulse Ox 92 06/24/19 15:54 06/24/19 06/24/19 06/24/19 06:59 14:59 22:59 Intake Total / 2019 1313 / 1313 Output Total 590 / 1790 1999 Balance -340 / 230 -687 / -687 Physical Exam Const: COMMON NORMALS: no apparent distress and oriented x3 HENMT: COMMON NORMALS: normocephalic HEAD & SCALP: normocephalic Neck/C-Spine: COMMON NORMALS: no JVD Resp: COMMON NORMALS: normal respiratory effort, no retractions, no use of accessory muscles and clear to auscultation bilaterally AUSCULTATION: clear to auscultation bilaterally Cardio: COMMON NORMALS: no JVD, regular rate, regular rhythm, S1 normal heart sound and S2 normal heart sound RATE: regular rate RHYTHM: regular rhythm HEART SOUNDS: S1 normal and S2 normal GI: COMMON NORMALS: normal to inspection, nondistended, normoactive bowel sounds, soft to palpation, non-tender, no hepatosplenomegaly, no masses and no bruits PALPATION: Yes soft and Yes no hepatosplenomegaly Extremity: COMMON NORMALS: normal capillary refill, no clubbing, cyanosis or edema, no calf tenderness and no pedal edema Neuro: COMMON NORMALS: oriented x3 Psych: COMMON NORMALS: mental status grossly normal Data : 06/24/19 11:33 06/24/19 05:45 Micro: Microbiology 06/22/19 21:47 Gram Stain - Final Sputum - Expectorated Sputum Sputum Culture - Preliminary 06/24/19 06:18 Blood Culture - Preliminary Blood SPECIMEN COLLECTED 06/24/19 06:07 Blood Culture - Preliminary Blood SPECIMEN COLLECTED 06/20/19 15:52 Blood Culture - Preliminary Blood Coagulase negativ staphylococc A&P Assessment and plan (1) Muscular deconditioning: -Patient has had multiple admissions in the last few months, has spent the last 3 months in hospitalized care since his back surgery, complications of his back surgery, anemia, GI bleed, pneumonia -I feel that patient has never fully recovered from this hospitalizations, his overall symptomatology is likely secondary to severe physical deconditioning -The treatment for this will not be acute, it will be chronic, require extensive physical therapy, extensive encouragement to have patient get out of bed and ambulate -Nursing staff and physical therapy department were instructed to get patient up out of bed at least 3 times daily, ambulate patient, and physical therapy interventions as inpatient as I try to diurese him even more Status: Acute Code(s): R29.898 - Other symptoms and signs involving the musculoskeletal system (2) Somnolence: -Light likely secondary to hypoxemia and hypercarbia -Responded to sternal rub, PERRLA, followed instructions of such as squeezing my fingers bilaterally, wiggling his toes, biting down, opening up his eyes, but falls asleep -I spoke to shelter, no indications of a stroke, no strokelike symptoms, no facial droop, no paralysis, no slurring of his speech, no focal neurologic deficits, no seizure-like episodes -This morning patient is arousable, answers all questions appropriately, neurologically intact, no focal neurologic deficits -CT head negative for intracranial bleed -No repeat somnolent episodes Status: Acute Code(s): R40.0 - Somnolence (3) Acute and chronic respiratory failure with hypoxia: -secondary to DCHF, COPD, and aspiration pneumonitis Plan: -Admit to general medical floors - BiPAP 18/10 and 40% FiO2, high flow during, patient has significantly clinically improved with BiPAP, has tolerated well as inpatient, I believe patient will benefit with BiPAP at his shelter -Held diuresis as patient's creatinine is 1.8 Bumex 1 mg every 12 hours, with metolazone -Switch to oral prednisone Status: Acute Code(s): J96.21 - Acute and chronic respiratory failure with hypoxia (4) GI bleed: -Hemoglobin 8.8 -Hemodynamically stable -One episode of bloody bowel movement today Plan: -Monitor hemoglobin -Continue Protonix 40 twice daily, has an appoint with Dr. Steve as outpatient Status: Acute Code(s): K92.2 - Gastrointestinal hemorrhage, unspecified (5) Chronic kidney disease, stage III (moderate): Status: Acute Code(s): N18.3 - Chronic kidney disease, stage 3 (moderate) (6) Diastolic CHF: Status: Acute Code(s): I50.30 - Unspecified diastolic (congestive) heart failure (7) Paroxysmal atrial fibrillation: Continue metoprolol, Cardizem, not on anticoagulation due to GI bleed Status: Acute Code(s): I48.0 - Paroxysmal atrial fibrillation (8) Hypertension: Status: Acute Code(s): I10 - Essential (primary) hypertension (9) Hyperlipidemia: Status: Acute Code(s): E78.5 - Hyperlipidemia, unspecified (10) Bacteremia: -2 blood cultures from the same set have been positive for gram-positive cocci, possible contamination, show coagulase-negative staphylococci, on vancomycin, no significant ESR, CRP elevations, no fevers, echocardiogram had no significant evidence of vegetation, repeat blood cultures unremarkable, continue to follow blood cultures for identification which I am told by microbiology will be available tomorrow -Plan is to continue vancomycin, once identification is back tomorrow, and will decide to pursue infectious source. Patient has a history of spinal fusion, with metal in his back, will need imaging of the back if infectious sources likely and real. If this is not deemed an infectious source, then he will require a transesophageal echocardiogram. -Of note patient did have a laminectomy L1-L4, with history of wound dehiscence at the surgical site, had staph epidermidis bacteremia, was on chronic IV antibiotics, was transferred to [facility] where he had surgery, required multiple revision surgeries, healed well, and has been doing well with follow-ups, is off antibiotics -Thus if patient has recurrent staph epidermidis bacteremia and it is believed to be clinically significant, will need repeat imaging to rule out osteomyelitis and/or epidural abscess, or transesophageal echocardiogram to rule out endocarditis Status: Acute Code(s): R78.81 - Bacteremia Attestations Medical Necessity Statement*: Patient requires hospitalization due to acute respiratory failure, gram-positive bacteremia Coding Level of Care Code Acute Emergency Room Nurse for [facility] Fwd Diagnoses Muscular deconditioning R29.898 Somnolence R40.0 Acute and chronic respiratory failure with hypoxia J96.21 GI bleed K92.2 Chronic kidney disease, stage III (moderate) N18.3 Diastolic CHF I50.30 Paroxysmal atrial fibrillation I48.0 Hypertension I10 Hyperlipidemia E78.5 Bacteremia R78.81
[2019-06-24 19:58] LABS: Vancomycin Trough 24.8 ug/mL (10-15)
--- NOTE | 2019-06-24 20:31 | PC.PHAR ---
Vancomycin trough level is 24.8. We will hold this dose and resume in 24 hours at a reduced dose of 1gm IVPB every 24 hours. A trough level is to be obtained before the fourth 1gm dose to determine if further adjustment is needed.
[2019-06-24] MEDS: folic acid 1 mg Tablet PO (21:19)
[2019-06-24] MEDS: tamsulosin 0.4 mg Capsule PO (21:19)
[2019-06-25] VITALS (20 sets, daily range): BP systolic 107–146; BP diastolic 62–79; PULSE 78–106; RESP 12–23; TEMP 36.6–37.7; O2SAT 90–96
[2019-06-25] MEDS: ipratropium-albuterol 3 mL Neb INHALATION ×2 (04:13→08:54)
[2019-06-25 05:50] LABS: Basophils % 0.2 %; Eosinophils # 0.3 10^3/uL (0.0-0.8); Eosinophils % 2.9 %; Hematocrit 28.3 % (42.0-52.0); Hemoglobin 8.5 g/dL (11.7-16.6); Lymphocytes # 1.5 10^3/uL (0.8-4.8); Mean Corpuscular Hemoglobin 28.4 pg (28.0-34.0); Mean Corpuscular Volume 94.6 fL (80-94); Mean Platelet Volume 11.2 fL (7.4-10.4); Monocytes # 0.8 10^3/uL (0.2-0.9); Monocytes % 8.7 %; Neutrophils # 6.1 10^3/uL (1.8-7.7); Neutrophils % 68.9 %; Nucleated Red Blood Cells % 0 %; Platelet Count 160 10^3/cmm (130-400); Red Blood Count 2.99 10^6/uL (4.1-5.3); Red Cell Distribution Width 16.8 % (12.1-15.1); White Blood Count 8.8 10^3/uL (4.0-10.0)
[2019-06-25 06:17] LABS: Alanine Aminotransferase 10 U/L (0-41); Albumin Level 2.7 g/dL (3.5-5.2); Alkaline Phosphatase 78 IU/L (40-130); Anion Gap 12.7 (5-19); Aspartate Amino Transferase 10 U/L (0-40); Blood Urea Nitrogen 54 mg/dL (8-23); Calcium 10.2 mg/dL (8.5-10.5); Carbon Dioxide 36 mmol/L (22-29); Chloride 92 mmol/L (98-107); Globulin 3.2 g/dL (1.3-4.6); Glucose 110 mg/dL (65-115); Magnesium 2.1 mg/dL (1.7-2.3); Phosphorus 2.3 mg/dL (2.5-4.5); Potassium 3.7 mmol/L (3.5-5.1); Sodium 137 mmol/L (136-145); Total Bilirubin 0.3 mg/dL (0.15-1.2); Total Protein 5.9 g/dL (6.6-8.7)
[2019-06-25] MEDS: budesonide 0.5 mg/2 mL Neb INHALATION ×2 (08:54→21:14)
[2019-06-25] MEDS: bumetanide 0.25 mg/mL SDV 10 mL 1 MG IV ×2 (09:11→20:07)
[2019-06-25] MEDS: cyanocobalamin 1,000 mcg Tablet 500 MCG PO (09:21)
[2019-06-25] MEDS: metOLazone 5 MG Tablet PO (09:21)
[2019-06-25] MEDS: lactobacillus 1 Tablet 1 TAB PO (09:21)
[2019-06-25] MEDS: sennosides 8.6 mg Tablet 17.2 MG PO (09:21)
[2019-06-25] MEDS: guaiFENesin 600 mg Tablet PO ×2 (09:21→18:45)
[2019-06-25] MEDS: gabapentin 300 mg Capsule PO ×2 (09:22→18:45)
[2019-06-25] MEDS: finasteride 5 mg Tablet PO (09:22)
[2019-06-25] MEDS: ascorbic acid 500 mg Tablet 250 MG PO (09:22)
[2019-06-25] MEDS: pantoprazole DR 40 mg Tablet PO ×2 (09:22→18:45)
[2019-06-25] MEDS: docusate sodium 100 mg Capsule PO ×2 (09:22→18:45)
[2019-06-25] MEDS: carvedilol 3.125 mg Tablet PO ×2 (09:22→18:45)
[2019-06-25] MEDS: dilTIAZem ER (24HR) 240 mg Capsule PO (09:22)
[2019-06-25] MEDS: ferrous sulfate EC 325 mg Tablet PO (09:23)
[2019-06-25] MEDS: hyDRALAzine 50 mg Tablet PO ×3 (09:23→20:10)
[2019-06-25] MEDS: multivitamin therapeutic Tablet 1 TAB PO (09:23)
--- NOTE | 2019-06-25 10:53 | DCPLANNER ---
Pg 2 of IM updated and reviewed with pt. No questions, copy provided.
--- NOTE | 2019-06-25 17:12 | P.PN_ITS ---
Subjective Subjective: Interval history: Teddy reports he is doing a little bit better each day. Reports the BiPAP helps quite a bit. Still has some shortness of breath. Medications: Reviewed: Yes Vitals/I&O/Wt Last Vital Signs Temp 98.3 F 06/25/19 16:00 Pulse 95 06/25/19 16:00 Resp 20 H 06/25/19 16:00 BP 120/66 06/25/19 16:00 Pulse Ox 91 06/25/19 15:41 06/25/19 06/25/19 06/25/19 06:59 14:59 22:59 Intake Total 480 / 480 Output Total 1000 / 1000 Balance -520 / -520 Physical Exam Narrative: EXAM NARRATIVE: General exam is no apparent distress Cardiovascular regular rate and rhythm without murmur Lungs a few wheezes and coarse breath sounds on the right Abdomen is soft, positive bowel sounds Extremities no cyanosis or clubbing Data : 06/25/19 05:21 06/25/19 05:21 Micro: Microbiology 06/20/19 16:08 Blood Culture - Final Blood NO GROWTH AFTER 5 DAYS 06/20/19 15:52 Blood Culture - Final Blood Staphylococcus epidermidis 06/22/19 21:47 Gram Stain - Final Sputum - Expectorated Sputum Sputum Culture - Final 06/24/19 06:07 Blood Culture - Preliminary Blood NEGATIVE TO DATE 06/24/19 06:18 Blood Culture - Preliminary Blood NEGATIVE TO DATE A&P Assessment and plan (1) Muscular deconditioning: Continue physical therapy Status: Acute Code(s): R29.898 - Other symptoms and signs involving the musculoskeletal system (2) Somnolence: No recurrence. Concerned this may be related to hypercarbia. BiPAP recommended while sleeping. Status: Acute Code(s): R40.0 - Somnolence (3) Acute and chronic respiratory failure with hypoxia: Multifactorial. Secondary to CHF, COPD, aspiration. Currently benefiting with BiPAP while sleeping Currently being diuresed with Bumex. Status: Acute Code(s): J96.21 - Acute and chronic respiratory failure with hypoxia (4) GI bleed: Evaluation by general surgery as an outpatient for possible endoscopy. Hemoglobin 8.5. Status: Acute Code(s): K92.2 - Gastrointestinal hemorrhage, unspecified (5) Chronic kidney disease, stage III (moderate): Creatinine stable at 1.7. Status: Acute Code(s): N18.3 - Chronic kidney disease, stage 3 (moderate) (6) Diastolic CHF: Diuresing with Bumex, Zaroxolyn Status: Acute Code(s): I50.30 - Unspecified diastolic (congestive) heart failure (7) Paroxysmal atrial fibrillation: On carvedilol, Cardizem Status: Acute Code(s): I48.0 - Paroxysmal atrial fibrillation (8) Hypertension: Controlled Status: Acute Code(s): I10 - Essential (primary) hypertension (9) Hyperlipidemia: Status: Acute Code(s): E78.5 - Hyperlipidemia, unspecified (10) Bacteremia: Positive blood culture. This appears to be contaminant with staph epidermidis. He had no fever. Transthoracic echocardiogram was negative. Repeat cultures were negative. Procalcitonin level was negative. Vancomycin will be discontinued. Close monitoring. Status: Acute Code(s): R78.81 - Bacteremia Attestations Medical Necessity Statement*: Needs continued close monitoring after de- escalation of antibiotics as well as further diuresis. Coding Level of Care Code Acute Reproduction Technician for [facility] Fwd Diagnoses Muscular deconditioning R29.898 Somnolence R40.0 Acute and chronic respiratory failure with hypoxia J96.21 GI bleed K92.2 Chronic kidney disease, stage III (moderate) N18.3 Diastolic CHF I50.30 Paroxysmal atrial fibrillation I48.0 Hypertension I10 Hyperlipidemia E78.5 Bacteremia R78.81
[2019-06-25] MEDS: doxycycline 100 mg Tablet PO (18:45)
[2019-06-25] MEDS: folic acid 1 mg Tablet PO (20:10)
[2019-06-25] MEDS: tamsulosin 0.4 mg Capsule PO (20:10)
[2019-06-25] MEDS: levalbuterol 0.63 mg/3 mL Neb INHALATION (21:14)
[2019-06-26] VITALS (11 sets, daily range): BP systolic 104–116; BP diastolic 63–66; PULSE 88–120; RESP 14–20; TEMP 36.9–37.9; O2SAT 90–95
[2019-06-26] MEDS: levalbuterol 0.63 mg/3 mL Neb INHALATION ×2 (02:25→08:34)
[2019-06-26 06:12] LABS: Basophils % 0.3 %; Eosinophils # 0.6 10^3/uL (0.0-0.8); Eosinophils % 5.3 %; Hematocrit 29.4 % (42.0-52.0); Hemoglobin 8.9 g/dL (11.7-16.6); Lymphocytes # 1.9 10^3/uL (0.8-4.8); Lymphocytes % 17.8 %; Mean Corpuscular HGB Conc 30.3 g/dL (30.0-36.0); Mean Corpuscular Hemoglobin 29.9 pg (28.0-34.0); Mean Corpuscular Volume 98.7 fL (80-94); Monocytes # 0.9 10^3/uL (0.2-0.9); Monocytes % 7.8 %; Neutrophils # 6.9 10^3/uL (1.8-7.7); Neutrophils % 62.8 %; Nucleated Red Blood Cells % 0 %; Platelet Count 163 10^3/cmm (130-400); Red Blood Count 2.98 10^6/uL (4.1-5.3); Red Cell Distribution Width 16.9 % (12.1-15.1); White Blood Count 10.9 10^3/uL (4.0-10.0)
[2019-06-26 06:35] LABS: Alanine Aminotransferase 10 U/L (0-41); Albumin Level 2.5 g/dL (3.5-5.2); Alkaline Phosphatase 90 IU/L (40-130); Anion Gap 13.5 (5-19); Aspartate Amino Transferase 11 U/L (0-40); Blood Urea Nitrogen 47 mg/dL (8-23); Carbon Dioxide 35 mmol/L (22-29); Chloride 94 mmol/L (98-107); Globulin 3.7 g/dL (1.3-4.6); Glucose 128 mg/dL (65-115); Osmolality Calculated 288 mOsm/kg (285-295); Potassium 3.5 mmol/L (3.5-5.1); Sodium 139 mmol/L (136-145); Total Bilirubin 0.2 mg/dL (0.15-1.2); Total Protein 6.2 g/dL (6.6-8.7)
[2019-06-26 06:53] LABS: Slide Review Slide Review Perform
[2019-06-26 06:56] LABS: Absolute Eosinophils 0.5 10^3/cmm (0.0-0.7); Absolute Segmented Neutrophil 6.5 10/cmm (1.6-7.1); Band Neutrophils Absolute 0.7 10^3/cmm (0.0-1.2); Eosinophils 5 %; Lymphocytes 15 %; Monocytes Absolute 0.9 10^3/cmm (0.1-0.6); Platelet Estimate Normal (Normal); Segmented Neutrophils 60 %; Total Cells Counted 100 (0-100)
[2019-06-26] MEDS: bumetanide 0.25 mg/mL SDV 10 mL 1 MG IV (09:55)
[2019-06-26] MEDS: metOLazone 5 MG Tablet PO (10:00)
[2019-06-26] MEDS: docusate sodium 100 mg Capsule PO (10:02)
[2019-06-26] MEDS: dilTIAZem ER (24HR) 240 mg Capsule PO (10:03)
[2019-06-26] MEDS: carvedilol 3.125 mg Tablet PO (10:03)
[2019-06-26] MEDS: pantoprazole DR 40 mg Tablet PO (10:04)
[2019-06-26] MEDS: gabapentin 300 mg Capsule PO (10:04)
[2019-06-26] MEDS: hyDRALAzine 50 mg Tablet PO ×2 (10:04→14:35)
[2019-06-26] MEDS: lactobacillus 1 Tablet 1 TAB PO (10:05)
[2019-06-26] MEDS: ascorbic acid 500 mg Tablet 250 MG PO (10:05)
[2019-06-26] MEDS: finasteride 5 mg Tablet PO (10:05)
[2019-06-26] MEDS: multivitamin therapeutic Tablet 1 TAB PO (10:06)
[2019-06-26] MEDS: guaiFENesin 600 mg Tablet PO (10:07)
[2019-06-26] MEDS: ferrous sulfate EC 325 mg Tablet PO (10:07)
[2019-06-26] MEDS: doxycycline 100 mg Tablet PO (10:07)
[2019-06-26] MEDS: sennosides 8.6 mg Tablet 17.2 MG PO (10:07)
[2019-06-26] MEDS: cyanocobalamin 1,000 mcg Tablet 500 MCG PO (10:08)
--- NOTE | 2019-06-26 11:13 | PC.CHAP ---
Pastoral Care Encounter/Spiritual Assessment Type of Contact [] Declined machine maintenance technician visit [] Patient/Family/Request visit [] Outpatient visit [x] Follow-up visit [] Physician referral [] Code/Alert [] Routine visit [] Staff referral [] Actively dying [] Patient sleeping [] Family support [] [] Out of room [] Palliative care [] [x] Receiving care in room [] Pre-surgical visit [] Trauma [x] Long length of stay [] ICU visit [x] Other: Pt receiving Dr & staff care in room Relational/Emotional Strength [] Patient feels connected with others/family/visitors/staff [] Distress [] Loneliness/isolation [] Abandonment Spirituality of Patient [] Person of Bianca [] Attends Church of their Bianca [] Believes in Prayer [] Reads Bible or Adventist materials [] There are Spiritual issues to be addressed Housing Inspector Interventions [] Prayer [] Active listening [] Non-anxious presence [] Spiritual/emotional support [] Crisis/trauma care [] Spiritual counseling [] Bereavement support [] Provided bereavement packet [] Provided Bible/devotional materials [] Provided toy/stuffed animal, coloring book to patient or family member [] Provided Communion [] Anointing/[place] [] Salvation [] Completed spiritual assessment [] Other: Impact on Illness or Injury [] Angry [] Fearful [] Anxious [] Often cries [] Exhaustion [] Unable to work [] Unable to attend islam [] Unable to walk/stand [] Unable to read [] Unable to drive [] Unable to eat/drink [] Unable to sleep [] Unable to be with family [] Patient intubated [] Other: Summary Additional follow-up needed as medical staff & Dr with patient & would be for period of time. Housing Inspector Zita Lyons Time spent with patient 2 minutes
--- NOTE | 2019-06-26 12:14 | P.DS_ITS ---
Discharge Providers Date of Admission: 06/20/19 18:43 Date of Discharge: June 26, 2019 Attending Provider at Admission: Melvin Kaufman MD Attending Provider at Discharge: Omi Silva MD Primary Care Provider: Bob Tobar MD Diagnoses at Discharge Discharge Diagnosis (1) Muscular deconditioning: Status: Acute Problem details: Needs skilled care (2) Somnolence: Status: Acute Problem details: Resolved (3) Acute and chronic respiratory failure with hypoxia: Status: Acute Problem details: Improved but will benefit from BiPAP. This is been arranged. Concern of acute bronchitis as well and will take doxycycline for 9 days (4) GI bleed: Status: Acute Problem details: Follow-up with general surgery regarding endoscopy (5) Chronic kidney disease, stage III (moderate): Status: Acute Problem details: Stable (6) Diastolic CHF: Status: Acute Problem details: Continue current diuretics (7) Paroxysmal atrial fibrillation: Status: Acute Problem details: Controlled (8) Hypertension: Status: Acute (9) Hyperlipidemia: Status: Acute (10) Bacteremia: Status: Acute Problem details: Probable contaminant with only 2/4 bottles growing staph epidermidis. For any significant sustained fever consider redrawing blood cultures. Repeat blood cultures here have all been negative supporting the likelihood that this is contamination. Reason for Visit Reason for Visit: Reason For Visit: DIFF BREATHING/PNEUMONIA Hospital Course Hospital Course: Michael is an 83-year-old deconditioned white male who presented to the hospital with shortness of breath and lethargy. He was placed on BiPAP, Solu-Medrol, and there was some concern for aspiration. Chest x-ray demonstrated resolving pneumonia. While in the hospital his procalcitonin level was negative. He did not have any fever. He received some IV steroids, and supportive care such as strengthening. During his hospital stay he had gradual improvement, but was still markedly weak. When I assumed his care, he was coughing up some yellowish sputum and doxycycline was initiated. Blood cultures from admission ultimately grew 2/4 bottles with staph epidermidis thought to be contaminant. Repeat cultures showed no growth. By the end of his hospital stay he was still significantly weak, but stable from a respiratory standpoint. It was thought he could transition back to skilled care for continued rehabilitation. This was arranged. Hemoglobin on discharge was 8.9, creatinine 1.8. Discharge Data Data Completed and Pending: Completed Studies During Hospitalization Category Date Time Status CT head wo con* 7 0450 Stat Cat Scan 06/20/19 19:37 Completed XR chest 1V pato ble [id number] Stat Exams 06/20/19 15:54 Completed CV echo limited 9 3308 Routine Ultrasound 06/21/19 07:00 Completed Pending at discharge Category Date Time Status Blood Culture AM LABS Lab 06/24/19 06:18 Results Labs from last 24 hours 06/26/19 06/26/19 05:34 03:53 WBC 10.9 H RBC 2.98 L Hgb 8.9 L Hct 29.4 L MCV 98.7 H MCH 29.9 MCHC 30.3 RDW 16.9 H Plt Count 163 MPV 11.0 H Neut % (Auto) 62.8 Lymph % (Auto) 17.8 Lake % (Auto) 7.8 Eos % (Auto) 5.3 Baso % (Auto) 0.3 Neut # (Auto) 6.9 Lymph # (Auto) 1.9 Lake # (Auto) 0.9 Eos # (Auto) 0.6 Baso # (Auto) 0.0 Nucleated RBC % (a uto) 0 Total Counted 100 Segmented Neutroph ils 60 Band Neutrophils 6.0 Lymphocytes (Manua l) 15 Monocytes (Manual) 8.0 Absolute Monocytes 0.9 H Eosinophils (Manua l) 5 Absolute Eosinophi ls 0.5 Metamyelocytes 1.0 Myelocytes 5.0 Nucleated RBCs # 0.0 Platelet Estimate Normal Sodium 139 Potassium 3.5 Chloride 94 L Carbon Dioxide 35 H Anion Gap 13.5 BUN 47 H Creatinine 1.8 H Glucose 128 H Calculated Osmolal ity 288 Calcium 10.0 Total Bilirubin 0.2 AST 11 ALT 10 Alkaline Phosphata se 90 Total Protein 6.2 L Albumin 2.5 L Globulin 3.7 Vitals: Last Vital Signs Temp 98.9 F 06/26/19 11:21 Pulse 96 06/26/19 11:21 Resp 18 06/26/19 11:21 BP 116/64 06/26/19 11:21 Pulse Ox 93 06/26/19 11:21 Discharge Plan Discharge Patient Disposition: Xfer SNF Condition: Stable Prescriptions: New doxycycline monohydrate 100 mg Tablet 100 mg PO BID Qty: 18 RF: 0 Continued multivitamin [Multiple Vitamins] Tablet 1 tab PO DAILY RF: 0 sennosides [senna] 8.6 mg Tablet 17.2 mg PO DAILY RF: 0 albuterol sulfate 2.5 mg /3 mL (0.083 %) Solution For Nebulization 2.5 mg INHALATION QID RF: 0 hydrocodone-acetaminophen [Dryden] 5-325 mg Tablet 1 tab PO Q6H PRN (Reason: Pain) RF: 0 diltiazem HCl [Cardizem CD] 240 mg Capsule,Extended Release 24hr 240 mg PO DAILY RF: 0 carvedilol 3.125 mg Tablet 3.125 mg PO BID RF: 0 acetaminophen [Tylenol 8 Hour] 650 mg Tablet Extended Release 650 mg PO Q4H PRN (Reason: Pain) RF: 0 magnesium hydroxide [Milk of Magnesia] 400 mg/5 mL Suspension 30 ml PO DAILY PRN (Reason: Constipation) RF: 0 tamsulosin 0.4 mg Capsule 0.4 mg PO BEDTIME RF: 0 ascorbic acid (vitamin C) [Vitamin C] 250 mg Tablet 250 mg PO DAILY RF: 0 bisacodyl 10 mg Suppository 10 mg TN DAILY PRN (Reason: Constipation) RF: 0 ferrous sulfate 325 mg (65 mg iron) Tablet 325 mg PO DAILY RF: 0 Enema Disposable 19-7 gram/118 mL Enema 118 ml TN DAILY PRN (Reason: Constipation) RF: 0 docusate sodium [Colace] 100 mg Capsule 100 mg PO BID RF: 0 gabapentin 300 mg Capsule 300 mg PO BID RF: 0 bumetanide 1 mg Tablet 1 mg PO BID RF: 0 folic acid 1 mg Tablet 1 mg PO BEDTIME RF: 0 hydralazine 50 mg Tablet 50 mg PO TID RF: 0 Lactobacillus acidophilus [Acidophilus] Capsule 1 cap PO DAILY RF: 0 albuterol sulfate [ProAir HFA] 90 mcg/actuation Hfa Aerosol Inhaler 2 puff INHALATION Q6H PRN (Reason: Shortness Of Breath) RF: 0 finasteride 5 mg Tablet 5 mg PO DAILY RF: 0 Spiriva with HandiHaler 18 mcg Capsule, W/Inhalation Device 1 cap INHALATION DAILY RF: 0 Atrovent HFA 17 mcg/actuation Hfa Aerosol Inhaler 2 puff INHALATION DAILY PRN (Reason: unknown) RF: 0 Symbicort 160-4.5 mcg/actuation Hfa Aerosol Inhaler 2 puff INHALATION BID RF: 0 metolazone 5 mg Tablet 5 mg PO QAM 30 Days Qty: 30 RF: 0 guaifenesin [Mucinex] 600 mg Tablet Extended Release 12hr 600 mg PO BID 30 Days Qty: 60 RF: 0 potassium chloride 10 mEq Tablet Extended Release 40 meq PO BID 30 Days Qty: 240 RF: 0 pantoprazole 40 mg Tablet,Delayed Release (Dr/Ec) 40 mg PO BID 30 Days Qty: 60 RF: 0 Vitamin B-12 500 mcg Tablet 500 mcg PO DAILY RF: 0 Tamiflu 30 mg Capsule 30 mg PO DAILY RF: 0 Discharge Orders: Discharge Order (Routine); Ordered 06/26/19 Ordered By: Omi Silva Referrals: Bob Tobar MD [Primary Care Provider] - 4-7 days Discharge Diet: GI Soft Discharge Activity: Increase activity as tolerated Activity Restrictions/Additional Instructions: Oxygen 4 L per nasal cannula, titrate for saturation greater than or equal to 90% BiPAP 16/8, FiO2 32% when sleeping and as needed CBC, BMP Keep follow-up with Dr. Steve, regarding anemia, need for endoscopy Follow-up with primary care provider at nursing facility Speech therapy evaluation Discharge Attestations Time Spent in Discharge Care*: greater than 30 min Quality Metrics Clinical Quality Measures During this hospital stay, did patient experience: None Coding Level of Care Code Acute Dock Operations Supervisor for Chg Fwd Diagnoses Muscular deconditioning R29.898 Somnolence R40.0 Acute and chronic respiratory failure with hypoxia J96.21 GI bleed K92.2 Chronic kidney disease, stage III (moderate) N18.3 Diastolic CHF I50.30 Paroxysmal atrial fibrillation I48.0 Hypertension I10 Hyperlipidemia E78.5 Bacteremia R78.81
== END 2019-06-26 14:47 | disposition skilled nursing facility (03) | DRG 291 ==
LOC: ER 17:32 → ICU 19:28 → MEDSURG 06-21 16:39
PROVIDERS: Family Medicine; Internal Medicine; Admitting Provider Family Medicine; Emergency Provider Emergency Medicine; Family Provider Family Medicine; PCP Family Medicine; Visit Provider Internal Medicine
DX: I13.0 Hypertensive heart and chronic kidney disease with heart failure and stage 1 through stage 4 chronic kidney disease, or unspecified chronic kidney disease (principal); J96.21 Acute and chronic respiratory failure with hypoxia; J69.0 Pneumonitis due to inhalation of food and vomit; I50.30 Unspecified diastolic (congestive) heart failure; K92.2 Gastrointestinal hemorrhage, unspecified; N17.9 Acute kidney failure, unspecified; J44.1 Chronic obstructive pulmonary disease with (acute) exacerbation; B95.8 Unspecified staphylococcus as the cause of diseases classified elsewhere; N18.3 Chronic kidney disease, stage 3 (moderate); I48.0 Paroxysmal atrial fibrillation; E78.5 Hyperlipidemia, unspecified; R40.0 Somnolence; R29.898 Other symptoms and signs involving the musculoskeletal system; E66.9 Obesity, unspecified; Z68.29 Body mass index [BMI] 29.0-29.9, adult; Z87.891 Personal history of nicotine dependence; Z79.82 Long term (current) use of aspirin; Z79.51 Long term (current) use of inhaled steroids
CPT/HCPCS: 12345; 36415; 36600; 70450; 71045; 80053; 80202; 82803; 82805; 82810; 83605; 83735; 83880; 84100; 84145; 84443; 85007; 85014; 85018; 85025; 86140; 87040; 87070; 87077; 87186; 87205; 87804; 92610; 93005; 93308; 94640; 94660; 94762; 96374; 96375; 97110; 97116; 97162; 97530; 99283; J1940; J1956; J2270; J2543; J2920; J2930; J3370; J3480; J3490; J7040; J7050; J7611; J7614; J7626; J7644

== ENCOUNTER 2019-07-02 09:28 | Inpatient (IN) | payer OTHER, MEDICARE, SELFPAY ==
[2019-07-02] VITALS (20 sets, daily range): BP systolic 118–139; BP diastolic 57–76; PULSE 65–87; RESP 12–22; TEMP 36.2–37.1; O2SAT 85–100; BMI 27.1
--- NOTE | 2019-07-02 09:32 | ED_ITS ---
Entered by Tamra Collins, acting as scribe for Ezekiel Cisse DO HPI - SOB/Dyspnea General: Chief Complaint: Shortness of Breath/Dyspnea Stated Complaint: RESP FAILURE Time Seen by Provider: 07/02/19 09:29 Source: patient and EMS Mode of arrival: EMS Limitations: no limitations History of Present Illness: HPI Narrative: 83 yo Male presents to ED with complaint of respiratory distress. Pt states that he started having trouble breathing last yesterday afternoon. Pt states that his pain and shortness of breath is worse when he is laying flat. Pt states that if he lays on his left side he can cough stuff up. MD elicited complaint: shortness of breath Pertinent past history: COPD Onset (ago): day(s) Timing: progressively worsening Exacerbating factors: lying flat Known history of: COPD Associated symptoms: Reports chest congestion and cough Treatment prior to arrival: oxygen and bronchodilator Review of Systems General: Reports: 10 or more systems reviewed and unremarkable except in HPI and below Resp: Reports: shortness of breath, productive cough and chest congestion [facility] ED PFSH: Medical History Acute respiratory failure Anemia Benign prostatic hyperplasia Chronic kidney disease, stage III (moderate) Stable Congestive heart failure COPD (chronic obstructive pulmonary disease) Diastolic CHF Continue current diuretics GI bleed Follow-up with general surgery regarding endoscopy Hyperlipidemia Hypertension Monoclonal gammopathy Paroxysmal atrial fibrillation Controlled Pneumonia Rosacea TIA (transient ischemic attack) Surgical History H/O knee surgery History of back surgery History of neck surgery Family History Other CAD (coronary artery disease) Social History Smoking and tobacco status: former smoker Physical Exam Const: COMMON NORMALS: no apparent distress, average body habitus, oriented x3, no limitations, healthy appearing, alert and well nourished HENMT: COMMON NORMALS: normocephalic, head/scalp atraumatic, hearing grossly normal bilaterally, external ears normal, EAC's normal, TM's normal bilaterally, external nose normal, nasal mucous membranes and turbinates normal, oropharynx normal, dentition normal and gingiva normal; oral mucous membranes not moist HEAD & SCALP: normocephalic and atraumatic NOSE: external nose normal and nasal mucous membranes and turbinates normal EXTERNAL EAR: Yes external ears normal EXTERNAL AUDITORY CANAL: EAC's normal TYMPANIC MEMBRANE: TM's normal bilaterally MOUTH: moist mucous membranes abnormal Details: parched Eye: COMMON NORMALS: PERRL, EOMs intact bilaterally, conjunctivae normal, no scleral icterus, no papilledema, normal visual garcia by confrontation and fundi normal bilaterally CONJUNCTIVA: Yes conjunctivae normal PUPIL: Yes PERRL DIRECT OPHTHALMOSCOPY: Yes no papilledema and Yes fundi normal bilaterally Neck/C-Spine: COMMON NORMALS: full ROM, no lymphadenopathy, supple, no meningeal signs, no JVD, thyroid normal and no carotid bruits THYROID: thyroid normal Chest: COMMONS NORMALS: inspection of chest normal and palpation of chest normal Resp: COMMON NORMALS: no retractions and percussion normal; negative for normal respiratory effort, negative for no use of accessory muscles and negative for clear to auscultation bilaterally EFFORT & INSPECTION: Yes respiratory distress and Yes uses accessory muscles (severe) AUSCULTATION: not clear to auscultation bilaterally, wheezes expiratory wheezes, inspiratory wheezes and throughout and diminished lung sounds PERCUSSION: percussion normal Cardio: COMMON NORMALS: no JVD, regular rate, regular rhythm, S1 normal heart sound, S2 normal heart sound, no gallops, no clicks, no murmurs, no rub and peripheral pulses 2+ throughout RATE: regular rate RHYTHM: regular rhythm HEART SOUNDS: S1 normal and S2 normal PERIPHERAL PULSES: pulses 2+ throughout GI: COMMON NORMALS: normal to inspection, nondistended, normoactive bowel sounds, soft to palpation, non-tender, no hepatosplenomegaly, no masses and no bruits PALPATION: Yes soft and Yes no hepatosplenomegaly : COMMON NORMALS: Yes no CVA tenderness BLADDER/KIDNEY EXAM: Yes no CVA tenderness Back/Pelvis: COMMON NORMALS: no CVA tenderness, thoracic and lumbar spine normal to inspection, no thoracic nor lumbar tenderness, thoraco-lumbar ROM normal and straight leg raise negative bilaterally Extremity: COMMON NORMALS: normal to inspection, full ROM, normal capillary refill, no joint enlargement, no clubbing, cyanosis or edema, no calf tenderness and no pedal edema GENERAL: No edema Neuro: COMMON NORMALS: oriented x3 SENSORIUM/ORIENTATION: Yes alert MENINGEAL SIGNS: Yes no meningeal signs Skin: COMMON NORMALS: no rashes or lesions noted, no wounds, skin turgor normal, no jaundice, no petechiae and no mottling GENERAL SKIN EXAM: no rashes or lesions noted and turgor normal Course Vital Signs: Vital signs: Vital Signs Temperature 98.7 F 07/02/19 09:30 Pulse Rate 82 07/02/19 11:04 Respiratory Rate 20 H 07/02/19 09:50 Blood Pressure 125/64 07/02/19 11:04 Pulse Oximetry 100 07/02/19 11:04 MDM - SOB/Dyspnea Lab Data: Labs: Lab Results 07/02/19 07/02/19 07/02/19 Range/Units 09:50 09:50 09:50 WBC 15.5 H (4.0-10.0) 10^3/ uL RBC 3.12 L (4.1-5.3) 10^6/u L Hgb 9.2 L (11.7-16.6) g/dL Hct 31.9 L (42.0-52.0) % MCV 102.2 H (80-94) fL MCH 29.5 (28.0-34.0) pg MCHC 28.8 L (30.0-36.0) g/dL RDW 16.6 H (12.1-15.1) % Plt Count 177 (130-400) 10^3/c mm MPV 11.9 H (7.4-10.4) fL Neut % (Auto) 74.4 % Lymph % (Auto) 14.7 % [place] % (Auto) 7.4 % Eos % (Auto) 1.1 % Baso % (Auto) 0.3 % Neut # (Auto) 11.5 H (1.8-7.7) 10^3/u L Lymph # (Auto) 2.3 (0.8-4.8) 10^3/u L [place] # (Auto) 1.1 H (0.2-0.9) 10^3/u L Eos # (Auto) 0.2 (0.0-0.8) 10^3/u L Baso # (Auto) 0.1 (0.0-0.1) 10^3/u L Nucleated RBC % (a uto) 0 % Nucleated RBCs # 0.0 /100WBC Sodium 135 L (136-145) mmol/L Potassium 4.9 (3.5-5.1) mmol/L Chloride 95 L (98-107) mmol/L Carbon Dioxide 29 (22-29) mmol/L Anion Gap 15.9 (5-19) BUN 34 H (8-23) mg/dL Creatinine 1.8 H (0.7-1.2) mg/dL Glucose 118 H (65-115) mg/dL Calculated Osmolal ity 278 L (285-295) mOsm/k g Calcium 11.1 H (8.5-10.5) mg/dL Total Bilirubin 0.3 (0.15-1.2) mg/dL AST 20 (0-40) U/L ALT 20 (0-41) U/L Alkaline Phosphata se 84 (40-130) IU/L Troponin T Baselin e 87 H (0-15) ng/mL NT-Pro-B Natriuret Pep 5697 H (0-450) pg/mL Total Protein 7.0 (6.6-8.7) g/dL Albumin 2.6 L (3.5-5.2) g/dL Globulin 4.4 (1.3-4.6) g/dL Urine Color (Yellow) Urine Appearance (CLEAR) Urine pH (5-7) Ur Specific Gravit y (1.005-1.030) Urine Protein (Negative) Urine Glucose (UA) (Normal) Urine Ketones (Negative) Urine Blood (Negative) Urine Nitrate (Negative) Urine Bilirubin (NEGATIVE) Urine Urobilinogen (Negative) mg/dL Ur Leukocyte Viola ase (Negative) Urine RBC (0-2) /hpf Urine WBC (0-5) /hpf Ur Squamous Epith Cells (0-5) Urine Bacteria (NONE) Urine Yeast Influenza Type A A g (Negative) POC Influenza B Ag (Negative) 07/02/19 07/02/19 Range/Units 10:11 10:11 WBC (4.0-10.0) 10^3/ uL RBC (4.1-5.3) 10^6/u L Hgb (11.7-16.6) g/dL Hct (42.0-52.0) % MCV (80-94) fL MCH (28.0-34.0) pg MCHC (30.0-36.0) g/dL RDW (12.1-15.1) % Plt Count (130-400) 10^3/c mm MPV (7.4-10.4) fL Neut % (Auto) % Lymph % (Auto) % [place] % (Auto) % Eos % (Auto) % Baso % (Auto) % Neut # (Auto) (1.8-7.7) 10^3/u L Lymph # (Auto) (0.8-4.8) 10^3/u L [place] # (Auto) (0.2-0.9) 10^3/u L Eos # (Auto) (0.0-0.8) 10^3/u L Baso # (Auto) (0.0-0.1) 10^3/u L Nucleated RBC % (a uto) % Nucleated RBCs # /100WBC Sodium (136-145) mmol/L Potassium (3.5-5.1) mmol/L Chloride (98-107) mmol/L Carbon Dioxide (22-29) mmol/L Anion Gap (5-19) BUN (8-23) mg/dL Creatinine (0.7-1.2) mg/dL Glucose (65-115) mg/dL Calculated Osmolal ity (285-295) mOsm/k g Calcium (8.5-10.5) mg/dL Total Bilirubin (0.15-1.2) mg/dL AST (0-40) U/L ALT (0-41) U/L Alkaline Phosphata se (40-130) IU/L Troponin T Baselin e (0-15) ng/mL NT-Pro-B Natriuret Pep (0-450) pg/mL Total Protein (6.6-8.7) g/dL Albumin (3.5-5.2) g/dL Globulin (1.3-4.6) g/dL Urine Color Yellow (Yellow) Urine Appearance Hazy A (CLEAR) Urine pH 5 (5-7) Ur Specific Gravit y 1.020 (1.005-1.030) Urine Protein 1+ H (Negative) Urine Glucose (UA) Norm (Normal) Urine Ketones Negative (Negative) Urine Blood Neg (Negative) Urine Nitrate Negative (Negative) Urine Bilirubin Neg (NEGATIVE) Urine Urobilinogen Norm (Negative) mg/dL Ur Leukocyte Viola ase 2+ H (Negative) Urine RBC None (0-2) /hpf Urine WBC >100 H (0-5) /hpf Ur Squamous Epith Cells None (0-5) Urine Bacteria 1+ H (NONE) Urine Yeast 2+ H Influenza Type A A g Negative (Negative) POC Influenza B Ag Negative (Negative) Imaging Data^: CXR: Radiologist's impression: [address] [address] XRay Report Signed Patient: Teddy Cortes #: [id number] : 1936Acct#:[id number] Age/Sex: 83 / MADM Date: 07/02/19 Loc: [facility]/Bed: Attending Dr: Ordering Provider/Ordering MD: Ezekiel Cisse DO Date of Service: 07/02/19 Procedure(s): XR chest 1V portable [id number] Accession Number(s): [id number] Report Number: [id number] PROCEDURE INFORMATION: Exam: XR Chest, 1 View Exam date and time: 07/02/2019 9:38 AM Age: 83 years old Clinical indication: Shortness of breath; Additional info: Dyspnea and wheezing TECHNIQUE: Imaging protocol: XR of the chest Views: 1 view. COMPARISON: Multiple priors, most recent CR XR chest 1V portable [id number] 06/20/2019 4:45 PM FINDINGS: Lungs: Diffusely coarsened interstitial markings with suggestion of subpleural fibrosis. Interval improved aeration of the left lower lobe base. No evidence of pulmonary edema. Pleural space: Unremarkable. No evidence of pleural effusion or pneumothorax. Heart/Mediastinum: Unremarkable. No cardiomegaly. Bones/joints: Unremarkable. XR/XR chest 1V portable [id number] IMPRESSION: 1. Interval improved aeration of the left lower lobe base. No new abnormality. 2. Diffusely coarsened interstitial markings with suggestion of fibrosis. Dictated By:Juan Alberto Person MD Signed By:Juan Alberto Person MDSigned Date/Time:07/02/19 1024 DD/ 1023 Discharge Plan Discharge Patient Disposition: Admitted As Inpatient Clinical Impression: Acute and chronic respiratory failure with hypoxia, Acute exacerbation of chronic obstructive airways disease Congestive heart failure Qualifiers: Heart failure type: unspecified Heart failure chronicity: unspecified Qualified Code(s): I50.9 - Heart failure, unspecified Condition: Fair Referrals: Bob Tobar MD [Primary Care Provider] - Coding Level of Care Code ED Software Quality Manager for Chg Fwd Exam Comprehensive The documentation recorded by the Dennis jaquez Carmen, accurately reflects the service I personally performed and the decisions made by Tanna haider Donald P, Jul 02, 2019 09:28
--- NOTE | 2019-07-02 09:35 | XRR_ITS ---
PROCEDURE INFORMATION: Exam: XR Chest, 1 View Exam date and time: 07/02/2019 9:38 AM Age: 83 years old Clinical indication: Shortness of breath; Additional info: Dyspnea and wheezing TECHNIQUE: Imaging protocol: XR of the chest Views: 1 view. COMPARISON: Multiple priors, most recent CR XR chest 1V portable [id number] 06/20/2019 4:45 PM FINDINGS: Lungs: Diffusely coarsened interstitial markings with suggestion of subpleural fibrosis. Interval improved aeration of the left lower lobe base. No evidence of pulmonary edema. Pleural space: Unremarkable. No evidence of pleural effusion or pneumothorax. Heart/Mediastinum: Unremarkable. No cardiomegaly. Bones/joints: Unremarkable. XR/XR chest 1V portable [id number] IMPRESSION: 1. Interval improved aeration of the left lower lobe base. No new abnormality. 2. Diffusely coarsened interstitial markings with suggestion of fibrosis.
--- NOTE | 2019-07-02 09:43 | PC.NURSE ---
bipap placed on patient
[2019-07-02] MEDS: ipratropium-albuterol 3 mL Neb INHALATION ×5 (09:49→23:37)
--- NOTE | 2019-07-02 09:54 | PC.NURSE ---
portable xray at bedside
[2019-07-02 10:02] LABS: Basophils # 0.1 10^3/uL (0.0-0.1); Basophils % 0.3 %; Eosinophils # 0.2 10^3/uL (0.0-0.8); Eosinophils % 1.1 %; Hematocrit 31.9 % (42.0-52.0); Hemoglobin 9.2 g/dL (11.7-16.6); Lymphocytes # 2.3 10^3/uL (0.8-4.8); Lymphocytes % 14.7 %; Mean Corpuscular HGB Conc 28.8 g/dL (30.0-36.0); Mean Corpuscular Hemoglobin 29.5 pg (28.0-34.0); Mean Corpuscular Volume 102.2 fL (80-94); Mean Platelet Volume 11.9 fL (7.4-10.4); Monocytes # 1.1 10^3/uL (0.2-0.9); Monocytes % 7.4 %; Neutrophils # 11.5 10^3/uL (1.8-7.7); Neutrophils % 74.4 %; Nucleated Red Blood Cells % 0 %; Platelet Count 177 10^3/cmm (130-400); Red Blood Count 3.12 10^6/uL (4.1-5.3); Red Cell Distribution Width 16.6 % (12.1-15.1); White Blood Count 15.5 10^3/uL (4.0-10.0)
[2019-07-02] MEDS: sodium chloride 0.9% 500 ML 999 ML IV (10:05)
[2019-07-02 10:22] LABS: Troponin(5th) Baseline 87 ng/mL (0-15)
[2019-07-02 10:27] LABS: Alanine Aminotransferase 20 U/L (0-41); Albumin Level 2.6 g/dL (3.5-5.2); Alkaline Phosphatase 84 IU/L (40-130); Anion Gap 15.9 (5-19); Blood Urea Nitrogen 34 mg/dL (8-23); Calcium 11.1 mg/dL (8.5-10.5); Carbon Dioxide 29 mmol/L (22-29); Chloride 95 mmol/L (98-107); Globulin 4.4 g/dL (1.3-4.6); Glucose 118 mg/dL (65-115); NT Pro B Type Natriuretic Pept 5697 pg/mL (0-450); Osmolality Calculated 278 mOsm/kg (285-295); Potassium 4.9 mmol/L (3.5-5.1); Sodium 135 mmol/L (136-145); Total Bilirubin 0.3 mg/dL (0.15-1.2)
[2019-07-02 10:36] LABS: Influenza A by IFA Negative (Negative); Influenza B by IFA Negative (Negative)
[2019-07-02 10:57] LABS: Add Urine Microscopic? YES; Bilirubin Urine Neg (NEGATIVE); Blood Urine Neg (Negative); Glucose Urine UA Norm (Normal); Ketones Urine Negative (Negative); Leukocyte Esterase Urine 2+ (Negative); Nitrate Urine Negative (Negative); Protein Urine 1+ (Negative); Urine Appearance Hazy (CLEAR); Urine Color Yellow (Yellow); Urobilinogen Urine Norm (Negative); pH Urine 5 (5-7)
[2019-07-02 10:57] LABS: Aspartate Amino Transferase 20 U/L (0-40)
[2019-07-02 11:01] LABS: Add Urine Culture? Yes; Bacteria Urine 1+; WBC Urine >100 /hpf (0-5)
[2019-07-02] MEDS: piperacillin-tazobactam 4.5 GM in sodium chloride 0.9% (plus) 50 ML IV (11:19)
--- NOTE | 2019-07-02 11:37 | ECG_ITS ---
Measurements Intervals [place] Rate: 76 P: 70 [place]: 202 QRS: -56 QRSD: 124 T: 65 QT: 426 QTc: 481 SINUS RHYTHM LEFT ANTERIOR FASCICULAR BLOCK [QRS AXIS <= -45, QR IN I, RS IN II] Compared to ECG 06/20/2019 13:43:07 Left anterior fascicular block now present Atrial fibrillation no longer present Right bundle-branch block no longer present Myocardial infarct finding no longer present Electronically Signed On 07-03-2019 17:23:53 CDT by Ramos Newman M.D. [email or web address]
[2019-07-02 12:09] LABS: Troponin 5 2HR 79.58 ng/mL (0-15)
[2019-07-02] MEDS: bumetanide 0.25 mg/mL SDV 10 mL 2 MG IV (12:12)
[2019-07-02 12:16] LABS: Troponin 5 2HR Delta -7.42 ABS# (0-10)
--- NOTE | 2019-07-02 13:38 | P.HP_ITS ---
Providers/Chief Complaint Admitting Physician: Melvin Kaufman MD Primary Care Provider: Bob Tobar MD Chief Complaint: RESP FAILURE History of Present Illness Teddy Cortes is a 83 year old male with a past medical history of chronic diastolic CHF, 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, obesity, NAYANA on CPAP, hypertension, BPH, chronic back pain, with recent history of decompressive laminectomy at L1-2 L3, L3-L4 with history of wound dehiscence at surgical site, CKD stage III-IV, history of IgM monoclonal gammopathy, chronic normocytic anemia, chronic folate and B12 deficiency peripheral vascular disease with known AAA, recent history of staph epidermidis bacteremia status post antibiotic therapy, recent hospitalization for a GI bleed at [facility] who presents to an [facility] emergency room due to complaints of shortness of breath and acute respiratory distress. This is patient's second admission to [facility] in the last month for acute r espiratory failure, muscular deconditioning, CHF exacerbation COPD exacerbation. He was recently discharged from [facility] for COPD and CHF exacerbation on June 26, 2019. Patient has a chronic Shoemaker catheter in place. Patient has a history of upper GI bleed, medically managed by Protonix, his Eliquis for atrial fibrillation has been held, he is status post 4 units in the past 2 months, all anticoagulation has been held. For his CHF exacerbations, patient roughly has had 30 L diuresed in the last month. On his last discharge, it was felt the patient was hypercarbic, CO2 retainer, and the BiPAP would help with his heart failure COPD, decrease his risk of readmissions. According to the residential patient has not been compliant with his BiPAP at the residential, refuses to wear it at times because he says the mask does not fit. I spoke to [facility], they stated that patient has relatively been doing okay since his discharge, still weak and fatigued, usually is on 5 L oxygen throughout the day, this morning he had episodes of acute respiratory distress, was gasping for air, nurse said that she could hear crackles on examination, the he got a nebulizer treatment, did not get any better, patient had shortness of breath complaints, so he was sent to the ER for evaluation. I was told by the ER physician, patient was having a COPD exacerbation, he was tolerating BiPAP well, he was sent to the medical floors. When I saw patient on 277 bed 2, patient was barely arousable, on BiPAP, weak, fatigued, barely answered questioning, no retractions, no nasal flaring, his oxygen saturations were in the high 90s. Work-up in the ER what I was told showed COPD exacerbation and CHF exacerbation. Medications/Allergies Home Medications Medication Instructions Recorded Confirmed Last Taken Type budesonide-formoterol 2 puff INHALATION BID 07/02/19 07/02/19 07/01/19 History cyclobenzaprine 5 mg PO DAILY PRN 07/02/19 07/02/19 Unknown History metolazone 2.5 mg PO QAM 07/02/19 07/02/19 Unknown History ondansetron HCl [Zofran] 4 mg PO TID PRN 07/02/19 07/02/19 Unknown History Allergies Allergy/AdvReac Type Severity Reaction Status Date / Time No Known Allergies Allergy Verified 06/14/19 09:55 PFSH Acute PFSH: Medical History Acute respiratory failure Anemia Benign prostatic hyperplasia Chronic kidney disease, stage III (moderate) Stable Congestive heart failure COPD (chronic obstructive pulmonary disease) Diastolic CHF Continue current diuretics GI bleed Follow-up with general surgery regarding endoscopy Hyperlipidemia Hypertension Monoclonal gammopathy Paroxysmal atrial fibrillation Controlled Pneumonia Rosacea TIA (transient ischemic attack) Surgical History H/O knee surgery History of back surgery History of neck surgery Family History Other CAD (coronary artery disease) Social History Smoking and tobacco status: former smoker Vitals/I&O/Wt Last Vital Signs Temp 98.5 F 07/02/19 12:41 Pulse 78 07/02/19 12:41 Resp 12 07/02/19 12:41 BP 139/76 07/02/19 12:41 Pulse Ox 94 07/02/19 12:41 07/01/19 07/02/19 07/02/19 22:59 06:59 14:59 Intake Total 550 / 550 Balance 550 / 550 Weight last 48 hrs Weight 90.718 kg Physical Exam Const: COMMON NORMALS: no apparent distress and alert NUTRITIONAL APPEARANCE: obese ORIENTATION/CONSCIOUSNESS: Yes awake and Yes confused; not oriented to person, not oriented to place and not oriented to time HENMT: COMMON NORMALS: normocephalic HEAD & SCALP: normocephalic Eye: COMMON NORMALS: PERRL GENERAL EYE: normal appearance of both eyes PUPIL: Yes PERRL DIRECT OPHTHALMOSCOPY: Yes no papilledema Neck/C-Spine: COMMON NORMALS: full ROM, no lymphadenopathy, no JVD and thyroid normal THYROID: thyroid normal Lymph: LYMPHATIC: no lymphadenopathy noted Resp: COMMON NORMALS: normal respiratory effort, no retractions, no use of accessory muscles and clear to auscultation bilaterally AUSCULTATION: crackles and wheezes Cardio: COMMON NORMALS: no JVD, regular rate, regular rhythm, S1 normal heart sound, S2 normal heart sound, no gallops, no clicks and no murmurs RATE: regular rate RHYTHM: regular rhythm HEART SOUNDS: S1 normal and S2 normal GI: COMMON NORMALS: normal to inspection, nondistended, normoactive bowel sounds, soft to palpation, non-tender and no hepatosplenomegaly Extremity: COMMON NORMALS: normal to inspection, full ROM and no pedal edema Neuro: SENSORIUM/ORIENTATION: Yes alert, No oriented to person, No oriented to place, No oriented to time, Yes somnolent and Yes stuporous Data : 07/02/19 09:50 07/02/19 09:50 Micro: Microbiology 07/02/19 09:50 Blood Culture - Preliminary Blood SPECIMEN COLLECTED 07/02/19 09:45 Blood Culture - Preliminary Blood SPECIMEN COLLECTED A&P Assessment and plan (1) Acute and chronic respiratory failure with hypoxia: -Secondary to COPD exacerbation, diastolic CHF exacerbation, noncompliance with BiPAP, obesity hypoventilation syndrome -Currently patient is in 277 bed 2, is quite stuporous, on BiPAP a VATS, will obtain an ABG Plan: -Continue metolazone 5 mg once in the morning, Bumex 1 mg twice daily, fluid restrictions -Solu-Medrol 40 every 8 hours, DuoNeb treatments, doxycycline -PT OT interventions, up out of bed daily, early ambulation -Continue BiPAP, during the night. Nasal cannula during the day Status: Acute Code(s): J96.21 - Acute and chronic respiratory failure with hypoxia (2) Muscular deconditioning: Secondary to prolonged hospitalization, early physical therapy interventions, early up out of bed interventions, Status: Acute Code(s): R29.898 - Other symptoms and signs involving the musculoskeletal system (3) Somnolence: Likely second to hypercarbia, seen also on last admission, ABG pending Status: Acute Code(s): R40.0 - Somnolence (4) Anemia: Hemoglobin stable Status: Acute Code(s): D64.9 - Anemia, unspecified (5) Congestive heart failure: Status: Acute Qualifiers: Heart failure chronicity: unspecified Heart failure type: unspecified Qualified Code(s): I50.9 - Heart failure, unspecified Code(s): I50.9 - Heart failure, unspecified (6) Diastolic CHF: Status: Acute Code(s): I50.30 - Unspecified diastolic (congestive) heart failure (7) Hypertension: Continue home medications Status: Acute Code(s): I10 - Essential (primary) hypertension (8) Hyperlipidemia: Status: Acute Code(s): E78.5 - Hyperlipidemia, unspecified (9) Monoclonal gammopathy: Status: Acute Code(s): D47.2 - Monoclonal gammopathy (10) GI bleed: Holding anticoagulation, continue Protonix Status: Acute Code(s): K92.2 - Gastrointestinal hemorrhage, unspecified (11) Paroxysmal atrial fibrillation: Continue Cardizem and Coreg, holding anticoagulation Status: Acute Code(s): I48.0 - Paroxysmal atrial fibrillation Attestations Medical Necessity Statement*: Patient requires hospitalization, greater than 2 midnights, acute respiratory failure Coding Level of Care Code Acute Tool Programmer for [facility] Diagnoses Acute and chronic respiratory failure with hypoxia J96.21 Muscular deconditioning R29.898 Somnolence R40.0 Anemia D64.9 Congestive heart failure I50.9 Heart failure chronicity: unspecified Heart failure type: unspecified Diastolic CHF I50.30 Hypertension I10 Hyperlipidemia E78.5 Monoclonal gammopathy D47.2 GI bleed K92.2 Paroxysmal atrial fibrillation I48.0
[2019-07-02 14:08] LABS: ABG PCO2 59.8 mmHg (35-45); ABG PH Result 7.37 (7.35-7.45); Arterial Blood Gas Hematocrit 40.1 % (42-52); Base Excess ABG 7.5 mmol/L (-2.0-2.0); Blood Gas Allen Test Pos; Blood Gas Sample Site Radial, right; Blood Gas Sample Type Arterial; HCO3 ABG 34.7 mmol/L (22-26); Oxygen Device BIPAP; PO2 ABG 66.9 mmHg (80.0-100.0)
[2019-07-02 14:15] LABS: Procalcitonin 0.33 ng/mL (0-0.5)
--- NOTE | 2019-07-02 15:37 | ECG_ITS ---
Measurements Intervals [place] Rate: 77 P: 61 PA: 210 QRS: -50 QRSD: 134 T: 62 QT: 429 QTc: 486 SINUS RHYTHM WITH FIRST DEGREE AV BLOCK INTRAVENTRICULAR CONDUCTION DELAY [130+ ms QRS DURATION] Compared to ECG 06/20/2019 13:43:07 First degree AV block now present Intraventricular conduction delay now present Atrial fibrillation no longer present Right bundle-branch block no longer present Myocardial infarct finding no longer present Electronically Signed On 07-03-2019 17:24:01 CDT by Ramos Newman M.D. [email or web address]
[2019-07-02] MEDS: hyDRALAzine 50 mg Tablet PO (15:46)
[2019-07-02 16:39] LABS: Troponin 5 6HR 70.97 ng/mL (0-15)
[2019-07-02 16:47] LABS: Troponin 5 6HR Delta -16.03 ng/L (0-12)
[2019-07-02] MEDS: doxycycline 100 mg Tablet PO (17:25)
[2019-07-02] MEDS: carvedilol 3.125 mg Tablet PO (17:25)
[2019-07-02] MEDS: docusate sodium 100 mg Capsule PO (17:26)
[2019-07-02] MEDS: gabapentin 300 mg Capsule PO (17:26)
[2019-07-02] MEDS: pantoprazole DR 40 mg Tablet PO (17:26)
[2019-07-02] MEDS: guaiFENesin 600 mg Tablet PO (17:26)
[2019-07-02] MEDS: enoxaparin 40 mg/0.4 mL Syringe SUBCUT (17:27)
[2019-07-02] MEDS: metOLazone 5 MG Tablet PO (18:49)
--- NOTE | 2019-07-02 20:32 | PC.NURSE ---
Call to [facility] for patient history; Ney GONZALEZ answered to the best of his abilities.
--- NOTE | 2019-07-02 22:20 | PC.NURSE ---
Patient is more alert at this time; able to tell me name; and where he is. Wanted a drink of water and he swallowed fine.
[2019-07-03] VITALS (19 sets, daily range): BP systolic 117–132; BP diastolic 68–80; PULSE 63–99; RESP 16–22; TEMP 35.9–36.9; O2SAT 91–95
[2019-07-03] MEDS: ipratropium-albuterol 3 mL Neb INHALATION ×6 (03:32→23:35)
[2019-07-03] MEDS: cyanocobalamin 1,000 mcg Tablet 500 MCG PO (08:52)
[2019-07-03] MEDS: finasteride 5 mg Tablet PO (08:53)
[2019-07-03] MEDS: gabapentin 300 mg Capsule PO ×2 (08:54→17:22)
[2019-07-03] MEDS: lactobacillus 1 Tablet 1 TAB PO (08:54)
[2019-07-03] MEDS: dilTIAZem ER (24HR) 240 mg Capsule PO (08:54)
[2019-07-03] MEDS: folic acid 1 mg Tablet PO (08:54)
[2019-07-03] MEDS: doxycycline 100 mg Tablet PO ×2 (08:54→17:22)
[2019-07-03] MEDS: guaiFENesin 600 mg Tablet PO ×2 (08:54→17:23)
[2019-07-03] MEDS: docusate sodium 100 mg Capsule PO ×2 (08:54→17:23)
[2019-07-03] MEDS: multivitamin therapeutic Tablet 1 TAB PO (08:54)
[2019-07-03] MEDS: hyDRALAzine 50 mg Tablet PO ×3 (08:54→21:05)
[2019-07-03] MEDS: pantoprazole DR 40 mg Tablet PO ×2 (08:54→17:23)
[2019-07-03] MEDS: ascorbic acid 500 mg Tablet 250 MG PO (08:55)
[2019-07-03] MEDS: carvedilol 3.125 mg Tablet PO ×2 (10:15→17:23)
[2019-07-03] MEDS: ferrous sulfate EC 325 mg Tablet PO (10:16)
[2019-07-03] MEDS: bumetanide 0.25 mg/mL SDV 10 mL 1 MG IV ×2 (11:03→21:05)
[2019-07-03] MEDS: cefTRIAXone 1,000 MG in sodium chloride 0.9% (plus) 50 ML 100 MG IV (11:41)
--- NOTE | 2019-07-03 12:35 | PC.CHAP ---
Pastoral Care Encounter/Spiritual Assessment Type of Contact [x] Declined baseboard heating installer visit [] Patient/Family/Request visit [] Outpatient visit [] Follow-up visit [] Physician referral [] Code/Alert [] Routine visit [] Staff referral [] Actively dying [] Patient sleeping [] Family support [] [] Out of room [] Palliative care [] [] Receiving care in room [] Pre-surgical visit [] Trauma [] Long length of stay [] ICU visit [] Other: Relational/Emotional Strength [] Patient feels connected with others/family/visitors/staff [] Distress [] Loneliness/isolation [] Abandonment Spirituality of Patient [] Person of Bianca [] Attends Moravian of their Bianca [] Believes in Prayer [] Reads Bible or Mu-Ism materials [] There are Spiritual issues to be addressed Supervisor Operations Interventions [] Prayer [] Active listening [] Non-anxious presence [] Spiritual/emotional support [] Crisis/trauma care [] Spiritual counseling [] Bereavement support [] Provided bereavement packet [] Provided Bible/devotional materials [] Provided toy/stuffed animal, coloring book to patient or family member [] Provided Communion [] Anointing/[place] [] Salvation [] Completed spiritual assessment [] Other: Impact on Illness or Injury [] Angry [] Fearful [] Anxious [] Often cries [] Exhaustion [] Unable to work [] Unable to attend pentecostal [] Unable to walk/stand [] Unable to read [] Unable to drive [] Unable to eat/drink [] Unable to sleep [] Unable to be with family [] Patient intubated [] Other: Summary Declined baseboard heating installer visit at this time. Time spent with patient 5 min
[2019-07-03 14:52] LABS: Basophils % 0.1 %; Hematocrit 28.9 % (42.0-52.0); Hemoglobin 8.8 g/dL (11.7-16.6); Lymphocytes % 5.5 %; Mean Corpuscular HGB Conc 30.4 g/dL (30.0-36.0); Mean Corpuscular Hemoglobin 30.7 pg (28.0-34.0); Mean Corpuscular Volume 100.7 fL (80-94); Mean Platelet Volume 11.3 fL (7.4-10.4); Monocytes # 0.6 10^3/uL (0.2-0.9); Monocytes % 3.6 %; Neutrophils # 15.6 10^3/uL (1.8-7.7); Neutrophils % 89.6 %; Nucleated Red Blood Cells % 0 %; Platelet Count 220 10^3/cmm (130-400); Red Blood Count 2.87 10^6/uL (4.1-5.3); Red Cell Distribution Width 16.5 % (12.1-15.1); White Blood Count 17.4 10^3/uL (4.0-10.0)
[2019-07-03 15:07] LABS: Alanine Aminotransferase 15 U/L (0-41); Albumin Level 2.6 g/dL (3.5-5.2); Alkaline Phosphatase 80 IU/L (40-130); Anion Gap 12.3 (5-19); Aspartate Amino Transferase 12 U/L (0-40); Blood Urea Nitrogen 43 mg/dL (8-23); Calcium 10.6 mg/dL (8.5-10.5); Carbon Dioxide 34 mmol/L (22-29); Chloride 98 mmol/L (98-107); Globulin 4.1 g/dL (1.3-4.6); Glucose 173 mg/dL (65-115); Osmolality Calculated 292 mOsm/kg (285-295); Potassium 4.3 mmol/L (3.5-5.1); Sodium 140 mmol/L (136-145); Total Bilirubin 0.2 mg/dL (0.15-1.2); Total Protein 6.7 g/dL (6.6-8.7)
[2019-07-03] MEDS: enoxaparin 40 mg/0.4 mL Syringe SUBCUT (17:23)
--- NOTE | 2019-07-03 17:43 | PM.PN ---
Subjective Subjective: Interval history: This morning patient states that he is doing a bit better, no fevers, no chills, no nausea, no vomiting, no chest pain, states that is really difficult to use the BiPAP machine at the retirement Vitals/I&O/Wt Last Vital Signs Temp 97.9 F 07/03/19 15:07 Pulse 79 07/03/19 15:42 Resp 18 07/03/19 15:35 BP 117/68 07/03/19 15:07 Pulse Ox 91 07/03/19 15:35 07/03/19 07/03/19 07/03/19 06:59 14:59 22:59 Intake Total 300 / 300 Output Total 250 / 1730 450 / 450 Balance -250 / -980 300 / 300 -450 / -150 Weight last 48 hrs Weight 90.718 kg Physical Exam Const: COMMON NORMALS: no apparent distress and oriented x3 HENMT: COMMON NORMALS: normocephalic HEAD & SCALP: normocephalic Neck/C-Spine: COMMON NORMALS: no JVD Resp: COMMON NORMALS: normal respiratory effort, no retractions, no use of accessory muscles and clear to auscultation bilaterally AUSCULTATION: clear to auscultation bilaterally Cardio: COMMON NORMALS: no JVD, regular rate, regular rhythm, S1 normal heart sound and S2 normal heart sound RATE: regular rate RHYTHM: regular rhythm HEART SOUNDS: S1 normal and S2 normal GI: COMMON NORMALS: normal to inspection, nondistended, normoactive bowel sounds, soft to palpation, non-tender, no hepatosplenomegaly, no masses and no bruits PALPATION: Yes soft and Yes no hepatosplenomegaly Extremity: COMMON NORMALS: normal capillary refill, no clubbing, cyanosis or edema, no calf tenderness and no pedal edema Neuro: COMMON NORMALS: oriented x3 Psych: COMMON NORMALS: mental status grossly normal Data : 07/03/19 14:30 07/03/19 14:30 Micro: Microbiology 07/02/19 09:45 Blood Culture - Preliminary Blood NEGATIVE TO DATE 07/02/19 09:50 Blood Culture - Preliminary Blood NEGATIVE TO DATE 07/02/19 10:11 Urine Culture - Preliminary Urine,Clean Catch Yeast species A&P Assessment and plan (1) Acute and chronic respiratory failure with hypoxia: -Secondary to COPD exacerbation, diastolic CHF exacerbation, noncompliance with BiPAP, obesity hypoventilation syndrome -Continue metolazone 5 mg once in the morning, Bumex 1 mg twice daily, fluid restrictions -Solu-Medrol 40 mg every 24 hours, DuoNeb treatments, doxycycline -PT OT interventions, up out of bed daily, early ambulation -Continue BiPAP, during the night. Nasal cannula during the day Status: Acute Code(s): J96.21 - Acute and chronic respiratory failure with hypoxia (2) Muscular deconditioning: Secondary to prolonged hospitalization, early physical therapy interventions, early up out of bed interventions, Status: Acute Code(s): R29.898 - Other symptoms and signs involving the musculoskeletal system (3) Somnolence: Likely second to hypercarbia, seen also on last admission, ABG pending Status: Acute Code(s): R40.0 - Somnolence (4) Anemia: Hemoglobin stable Status: Acute Code(s): D64.9 - Anemia, unspecified (5) Congestive heart failure: Status: Acute Qualifiers: Heart failure chronicity: unspecified Heart failure type: unspecified Qualified Code(s): I50.9 - Heart failure, unspecified Code(s): I50.9 - Heart failure, unspecified (6) Diastolic CHF: Status: Acute Code(s): I50.30 - Unspecified diastolic (congestive) heart failure (7) Hypertension: Continue home medications Status: Acute Code(s): I10 - Essential (primary) hypertension (8) Hyperlipidemia: Status: Acute Code(s): E78.5 - Hyperlipidemia, unspecified (9) Monoclonal gammopathy: Status: Acute Code(s): D47.2 - Monoclonal gammopathy (10) GI bleed: Holding anticoagulation, continue Protonix Status: Acute Code(s): K92.2 - Gastrointestinal hemorrhage, unspecified (11) Paroxysmal atrial fibrillation: Continue Cardizem and Coreg, holding anticoagulation Status: Acute Code(s): I48.0 - Paroxysmal atrial fibrillation Attestations Medical Necessity Statement*: Patient requires continued hospitalization for acute respiratory failure Coding Level of Care Code Acute Contact Center Representative for [facility] Diagnoses Acute and chronic respiratory failure with hypoxia J96.21 Muscular deconditioning R29.898 Somnolence R40.0 Anemia D64.9 Congestive heart failure I50.9 Heart failure chronicity: unspecified Heart failure type: unspecified Diastolic CHF I50.30 Hypertension I10 Hyperlipidemia E78.5 Monoclonal gammopathy D47.2 GI bleed K92.2 Paroxysmal atrial fibrillation I48.0
[2019-07-03] MEDS: tamsulosin 0.4 mg Capsule PO (21:05)
[2019-07-04] VITALS (13 sets, daily range): BP systolic 101–134; BP diastolic 62–79; PULSE 63–99; RESP 17–21; TEMP 36–36.6; O2SAT 93–96
[2019-07-04] MEDS: HYDROcodone-acetaminophen 5-325 mg Tablet 1 TAB PO
[2019-07-04] MEDS: ipratropium-albuterol 3 mL Neb INHALATION ×4 (03:02→15:18)
[2019-07-04 05:57] LABS: Basophils % 0.1 %; Hematocrit 26.5 % (42.0-52.0); Hemoglobin 8.1 g/dL (11.7-16.6); Lymphocytes % 5.2 %; Mean Corpuscular HGB Conc 30.6 g/dL (30.0-36.0); Mean Corpuscular Hemoglobin 30.5 pg (28.0-34.0); Mean Corpuscular Volume 99.6 fL (80-94); Mean Platelet Volume 11.7 fL (7.4-10.4); Monocytes # 0.4 10^3/uL (0.2-0.9); Neutrophils # 17.9 10^3/uL (1.8-7.7); Neutrophils % 91.4 %; Nucleated Red Blood Cells % 0 %; Platelet Count 226 10^3/cmm (130-400); Red Blood Count 2.66 10^6/uL (4.1-5.3); Red Cell Distribution Width 16.6 % (12.1-15.1); White Blood Count 19.6 10^3/uL (4.0-10.0)
[2019-07-04 06:05] LABS: Alanine Aminotransferase 16 U/L (0-41); Albumin Level 2.8 g/dL (3.5-5.2); Alkaline Phosphatase 73 IU/L (40-130); Anion Gap 16.7 (5-19); Aspartate Amino Transferase 17 U/L (0-40); Blood Urea Nitrogen 57 mg/dL (8-23); Calcium 10.8 mg/dL (8.5-10.5); Carbon Dioxide 31 mmol/L (22-29); Chloride 94 mmol/L (98-107); Globulin 3.6 g/dL (1.3-4.6); Glucose 159 mg/dL (65-115); Magnesium 2.1 mg/dL (1.7-2.3); Osmolality Calculated 286 mOsm/kg (285-295); Phosphorus 4.5 mg/dL (2.5-4.5); Potassium 4.7 mmol/L (3.5-5.1); Sodium 137 mmol/L (136-145); Total Bilirubin 0.2 mg/dL (0.15-1.2); Total Protein 6.4 g/dL (6.6-8.7)
[2019-07-04] MEDS: ascorbic acid 500 mg Tablet 250 MG PO (07:54)
[2019-07-04] MEDS: finasteride 5 mg Tablet PO (07:55)
[2019-07-04] MEDS: hyDRALAzine 50 mg Tablet PO ×2 (07:55→14:56)
[2019-07-04] MEDS: carvedilol 3.125 mg Tablet PO (07:55)
[2019-07-04] MEDS: multivitamin therapeutic Tablet 1 TAB PO (07:55)
[2019-07-04] MEDS: doxycycline 100 mg Tablet PO (07:55)
[2019-07-04] MEDS: ferrous sulfate EC 325 mg Tablet PO (07:55)
[2019-07-04] MEDS: lactobacillus 1 Tablet 1 TAB PO (07:55)
[2019-07-04] MEDS: pantoprazole DR 40 mg Tablet PO (07:56)
[2019-07-04] MEDS: dilTIAZem ER (24HR) 240 mg Capsule PO (07:56)
[2019-07-04] MEDS: guaiFENesin 600 mg Tablet PO (07:56)
[2019-07-04] MEDS: docusate sodium 100 mg Capsule PO (07:56)
[2019-07-04] MEDS: gabapentin 300 mg Capsule PO (07:56)
[2019-07-04] MEDS: bumetanide 0.25 mg/mL SDV 10 mL 1 MG IV (07:57)
[2019-07-04] MEDS: folic acid 1 mg Tablet PO (07:57)
[2019-07-04] MEDS: metOLazone 5 MG Tablet PO (07:58)
[2019-07-04] MEDS: cyanocobalamin 1,000 mcg Tablet 500 MCG PO (07:58)
[2019-07-04] MEDS: cefTRIAXone 1,000 MG in sodium chloride 0.9% (plus) 50 ML 100 MG IV (11:04)
--- NOTE | 2019-07-04 11:32 | PC.NURSE ---
0930: This RN assumed care of this patient at this time. A complete physical assessment was performed and it was noted that patient had excoriation to his sacrum and bilateral upper buttocks that is blanching, but is dark red/purple in some areas. I assisted the patient to the left-side lying position and propped him with a pillow. I reviewed with him the appearance of his skin and the interventions we would be taking to alleviate that, including: turning frequently (every 2 hours), allowing the patient to sit up in the chair for lunch, and calling the physician to request an order for a skin protectant. I called and spoke with Dr. Kaufman and informed him of this. Verbal order was received for Zinc Oxide PRN for skin protection. I spoke with TAMMIE Webber and discussed getting the patient into the chair today and informed her of the concerns with skin. I also spoke with FARRAH Caballero and discussed the above with her. She is in agreement to the current plan.
--- NOTE | 2019-07-04 14:00 | P.DS_ITS ---
Discharge Providers Date of Admission: 07/02/19 11:22 Date of Discharge: July 04, 2019 Attending Provider at Admission: Melvin Kaufman MD Attending Provider at Discharge: Melvin Kaufman MD Primary Care Provider: Bob Tobar MD Diagnoses at Discharge Discharge Diagnosis (1) Acute and chronic respiratory failure with hypoxia: Status: Acute Problem details: Improved but will benefit from BiPAP. This is been arranged. Concern of acute bronchitis as well and will take doxycycline for 9 days (2) Muscular deconditioning: Status: Acute Problem details: Needs skilled care (3) Somnolence: Status: Acute Problem details: Resolved (4) Anemia: Status: Acute (5) Congestive heart failure: Status: Acute Qualifiers: Heart failure chronicity: unspecified Heart failure type: unspecified Qualified Code(s): I50.9 - Heart failure, unspecified (6) Diastolic CHF: Status: Acute Problem details: Continue current diuretics (7) Hypertension: Status: Acute (8) Hyperlipidemia: Status: Acute (9) Monoclonal gammopathy: Status: Acute (10) GI bleed: Status: Acute Problem details: Follow-up with general surgery regarding endoscopy (11) Paroxysmal atrial fibrillation: Status: Acute Problem details: Controlled Reason for Visit Reason for Visit: Reason For Visit: RESP FAILURE Hospital Course Discharge Summary: Teddy Cortes is a 83 year old male with a past medical history of chronic diastolic CHF, 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, obesity, NAYANA on CPAP, hypertension, BPH, chronic back pain, with recent history of decompressive laminectomy at L1-2 L3, L3-L4 with history of wound dehiscence at surgical site, CKD stage III-IV, history of IgM monoclonal gammopathy, chronic normocytic anemia, chronic folate and B12 deficiency peripheral vascular disease with known AAA, recent history of staph epidermidis bacteremia status post antibiotic therapy, recent hospitalization for a GI bleed at [facility] who presents to an [facility] emergency room due to complaints of shortness of breath and acute respiratory distress. This is patient's second admission to [facility] in the last month for acute respiratory failure, muscular deconditioning, CHF exacerbation COPD exacerbation. He was recently discharged from [facility] for COPD and CHF exacerbation on June 26, 2019. Patient has a chronic Shoemaker catheter in place. Patient has a history of upper GI bleed, medically managed by Protonix, his Eliquis for atrial fibrillation has been held, he is status post 4 units in the past 2 months, all anticoagulation has been held. For his CHF exacerbations, patient roughly has had 30 L diuresed in the last month. On his last discharge, it was felt the patient was hypercarbic, CO2 retainer, and the BiPAP would help with his heart failure COPD, decrease his risk of readmissions. According to the long term patient has not been compliant with his BiPAP at the long term, refuses to wear it at times because he says the mask does not fit. I spoke to [facility], they stated that patient has relatively been doing okay since his discharge, still weak and fatigued, usually is on 5 L oxygen throughout the day, this morning he had episodes of acute respiratory distress, was gasping for air, nurse said that she could hear crackles on examination, the he got a nebulizer treatment, did not get any marty r, patient had shortness of breath complaints, so he was sent to the ER for evaluation. Patient was admitted for acute hypercarbic respiratory failure secondary to BiPAP noncompliance and COPD, and CHF. All I really did during this hospitalization is put the patient on a BiPAP machine, within 12 hours he got significantly better, up to a chair, eating breakfast, fully alert awake oriented x3, his breathing had improved, on 3 to 4 L. I have spoke to the long term about BiPAP compliance, switching out his mask, aggressive PT OT interventions, compliance with all his medications, with repeat of blood work in 1 week. Patient has leukocytosis secondary to steroid therapy, discharged on a steroid taper. Patient has anemia, hemoglobin on discharge was 8.0, secondary to upper and/or lower GI bleed, discharged on Protonix 40 twice daily, instructed long term to reschedule his appointment with Dr. Steve. Monitor hemoglobin. Physical Exam Const: COMMON NORMALS: no apparent distress and oriented x3 HENMT: COMMON NORMALS: normocephalic HEAD & SCALP: normocephalic Neck/C-Spine: COMMON NORMALS: no JVD Resp: COMMON NORMALS: normal respiratory effort, no retractions, no use of accessory muscles and clear to auscultation bilaterally AUSCULTATION: clear to auscultation bilaterally Cardio: COMMON NORMALS: no JVD, regular rate, regular rhythm, S1 normal heart sound and S2 normal heart sound RATE: regular rate RHYTHM: regular rhythm HEART SOUNDS: S1 normal and S2 normal GI: COMMON NORMALS: normal to inspection, nondistended, normoactive bowel sounds, soft to palpation, non-tender, no hepatosplenomegaly, no masses and no bruits PALPATION: Yes soft and Yes no hepatosplenomegaly Extremity: COMMON NORMALS: normal capillary refill, no clubbing, cyanosis or edema, no calf tenderness and no pedal edema Neuro: COMMON NORMALS: oriented x3 Psych: COMMON NORMALS: mental status grossly normal Discharge Data Data Completed and Pending: Completed Studies During Hospitalization Category Date Time Status XR chest 1V pato ble [id number] Urgent Exams 07/02/19 09:35 Completed Pending at discharge Category Date Time Status Bacterial Antigen Stat Lab 07/02/19 13:28 Uncollected Blood Culture Sta t Lab 07/02/19 09:50 Results Complete Blood Co unt w/Auto AM LABS Lab 07/05/19 04:00 Ordered Complete Blood Co unt w/Auto AM LABS Lab 07/06/19 04:00 Ordered Comprehensive Met abolic Panel AM LA BS Lab 07/05/19 04:00 Ordered Comprehensive Met abolic Panel AM LA BS Lab 07/06/19 04:00 Ordered Magnesium AM LABS Lab 07/05/19 04:00 Ordered Magnesium AM LABS Lab 07/06/19 04:00 Ordered Phosphorus AM LAB S Lab 07/05/19 04:00 Ordered Phosphorus AM LAB S Lab 07/06/19 04:00 Ordered Sputum Culture an d Gram Stain Stat Lab 07/02/19 13:28 Uncollected Urine Culture Sta t Lab 07/02/19 10:11 Results Labs from last 24 hours 07/04/19 07/04/19 07/03/19 05:04 05:04 14:30 WBC 19.6 H RBC 2.66 L Hgb 8.1 L Hct 26.5 L MCV 99.6 H MCH 30.5 MCHC 30.6 RDW 16.6 H Plt Count 226 MPV 11.7 H Neut % (Auto) 91.4 Lymph % (Auto) 5.2 Kaufman % (Auto) 2.0 Eos % (Auto) 0.0 Baso % (Auto) 0.1 Neut # (Auto) 17.9 H Lymph # (Auto) 1.0 Kaufman # (Auto) 0.4 Eos # (Auto) 0.0 Baso # (Auto) 0.0 Nucleated RBC % (a uto) 0 Nucleated RBCs # 0.0 Sodium 137 140 Potassium 4.7 4.3 Chloride 94 L 98 Carbon Dioxide 31 H 34 H Anion Gap 16.7 12.3 BUN 57 H 43 H Creatinine 1.9 H 1.8 H Glucose 159 H 173 H Calculated Osmolal ity 286 292 Calcium 10.8 H 10.6 H Phosphorus 4.5 Magnesium 2.1 Total Bilirubin 0.2 0.2 AST 17 12 ALT 16 15 Alkaline Phosphata se 73 80 Total Protein 6.4 L 6.7 Albumin 2.8 L 2.6 L Globulin 3.6 4.1 07/03/19 14:30 WBC 17.4 H RBC 2.87 L Hgb 8.8 L Hct 28.9 L MCV 100.7 H MCH 30.7 MCHC 30.4 RDW 16.5 H Plt Count 220 MPV 11.3 H Neut % (Auto) 89.6 Lymph % (Auto) 5.5 Kaufman % (Auto) 3.6 Eos % (Auto) 0.0 Baso % (Auto) 0.1 Neut # (Auto) 15.6 H Lymph # (Auto) 1.0 Kaufman # (Auto) 0.6 Eos # (Auto) 0.0 Baso # (Auto) 0.0 Nucleated RBC % (a uto) 0 Nucleated RBCs # 0.0 Sodium Potassium Chloride Carbon Dioxide Anion Gap BUN Creatinine Glucose Calculated Osmolal ity Calcium Phosphorus Magnesium Total Bilirubin AST ALT Alkaline Phosphata se Total Protein Albumin Globulin Vitals: Last Vital Signs Temp 97.9 F 07/04/19 11:45 Pulse 81 07/04/19 11:45 Resp 18 07/04/19 11:45 BP 125/79 07/04/19 11:45 Pulse Ox 95 07/04/19 11:45 Discharge Plan Discharge Patient Disposition: Home, Self-Care Condition: Fair Prescriptions: New prednisone 20 mg tablet 20 mg PO BID 5 Days Qty: 10 RF: 0 Bactrim DS 800-160 mg tablet 1 tab PO BIDWM 5 Days Qty: 10 RF: 0 Continued Zofran 4 mg Tablet 4 mg PO TID PRN (Reason: Nausea) RF: 0 cyclobenzaprine 5 mg Tablet 5 mg PO DAILY PRN (Reason: Muscle Spasm) RF: 0 budesonide-formoterol 160-4.5 mcg/actuation Hfa Aerosol Inhaler 2 puff INHALATION BID RF: 0 multivitamin [Multiple Vitamins] Tablet 1 tab PO DAILY RF: 0 sennosides [senna] 8.6 mg Tablet 17.2 mg PO DAILY RF: 0 albuterol sulfate 2.5 mg /3 mL (0.083 %) Solution For Nebulization 2.5 mg INHALATION QID RF: 0 hydrocodone-acetaminophen [Megargel] 5-325 mg Tablet 1 tab PO Q6H PRN (Reason: Pain) RF: 0 diltiazem HCl [Cardizem CD] 240 mg Capsule,Extended Release 24hr 240 mg PO DAILY RF: 0 carvedilol 3.125 mg Tablet 3.125 mg PO BID RF: 0 acetaminophen [Tylenol 8 Hour] 650 mg Tablet Extended Release 650 mg PO Q4H PRN (Reason: Pain) RF: 0 magnesium hydroxide [Milk of Magnesia] 400 mg/5 mL Suspension 30 ml PO DAILY PRN (Reason: Constipation) RF: 0 tamsulosin 0.4 mg Capsule 0.4 mg PO BEDTIME RF: 0 ascorbic acid (vitamin C) [Vitamin C] 250 mg Tablet 250 mg PO DAILY RF: 0 bisacodyl 10 mg Suppository 10 mg [place] DAILY PRN (Reason: Constipation) RF: 0 ferrous sulfate 325 mg (65 mg iron) Tablet 325 mg PO DAILY RF: 0 Enema Disposable 19-7 gram/118 mL Enema 118 ml IL DAILY PRN (Reason: Constipation) RF: 0 docusate sodium [Colace] 100 mg Capsule 100 mg PO BID RF: 0 gabapentin 300 mg Capsule 300 mg PO BID RF: 0 folic acid 1 mg Tablet 1 mg PO DAILY RF: 0 hydralazine 50 mg Tablet 50 mg PO TID RF: 0 Lactobacillus acidophilus [Acidophilus] Capsule 1 cap PO DAILY RF: 0 finasteride 5 mg Tablet 5 mg PO DAILY RF: 0 Spiriva with HandiHaler 18 mcg Capsule, W/Inhalation Device 1 cap INHALATION DAILY RF: 0 Atrovent HFA 17 mcg/actuation Hfa Aerosol Inhaler 2 puff INHALATION DAILY PRN (Reason: unknown) RF: 0 Symbicort 160-4.5 mcg/actuation Hfa Aerosol Inhaler 2 puff INHALATION BID RF: 0 guaifenesin [Mucinex] 600 mg Tablet Extended Release 12hr 600 mg PO BID 30 Days Qty: 60 RF: 0 potassium chloride 10 mEq Tablet Extended Release 40 meq PO BID 30 Days Qty: 240 RF: 0 pantoprazole 40 mg Tablet,Delayed Release (Dr/Ec) 40 mg PO BID 30 Days Qty: 60 RF: 0 cyanocobalamin (vitamin B-12) [Vitamin B-12] 500 mcg Tablet 500 mcg PO DAILY RF: 0 oseltamivir [Tamiflu] 30 mg Capsule 30 mg PO DAILY RF: 0 Changed metolazone 5 mg tablet 2.5 mg PO EVERY OTHER DAY Qty: 0 RF: 0 bumetanide 1 mg Tablet 1 mg PO BIDWM Qty: 0 RF: 0 Discontinued doxycycline monohydrate 100 mg Tablet 100 mg PO BID Qty: 18 RF: 0 Discharge Orders: Discharge Order (Routine); Ordered 07/04/19 Ordered By: Melvin Kaufman Other Ambulatory Orders: Complete Blood Count w/Auto (Routine) Timeframe: 1 Week Location: Determined by Patient Ordered By: Melvin Kaufman Comprehensive Metabolic Panel (Routine) Timeframe: 1 Week Facility: [facility] - Location: Lab - Main Lab Ordered By: Melvin Kaufman Referrals: [facility] [Outside] Bob Tobar MD [Primary Care Provider] - 4-7 days ( ) Discharge Diet: Regular Discharge Activity: Resume usual activity Patient Instructions: COPD, Sulfamethoxazole/Trimethoprim (By mouth), Prednisone (By mouth), COPD Stoplight Activity Restrictions/Additional Instructions: -Please be compliant with BiPAP machine, long term will work on getting you a new mask -group home needs to reschedule appointment with Dr. 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
--- NOTE | 2019-07-04 15:34 | PC.NURSE ---
Report called to Jaime, nurse with [facility]. He verbalizes understanding, no further questions or concerns at this time.
--- NOTE | 2019-07-04 16:20 | PC.NURSE ---
Patient d/c'd to [facility] via w/c with [facility] at approximately 1615. IV d/c'd. Patient tolerated well, line intact. This RN reviewed d/c instructions and patient verbalizes understanding. All belongings sent with patient, including BiPap mask per facility request.
== END 2019-07-04 22:56 | disposition home or self-care (01) | DRG 291 ==
LOC: ER 11:19 → MEDSURG 11:59
PROVIDERS: Admitting Provider Family Medicine; Emergency Provider Family Medicine; Family Provider Family Medicine; PCP Family Medicine; Visit Provider Family Medicine
DX: I13.0 Hypertensive heart and chronic kidney disease with heart failure and stage 1 through stage 4 chronic kidney disease, or unspecified chronic kidney disease (principal); J96.21 Acute and chronic respiratory failure with hypoxia; I50.33 Acute on chronic diastolic (congestive) heart failure; K92.2 Gastrointestinal hemorrhage, unspecified; E66.2 Morbid (severe) obesity with alveolar hypoventilation; J44.1 Chronic obstructive pulmonary disease with (acute) exacerbation; D64.9 Anemia, unspecified; E78.5 Hyperlipidemia, unspecified; D47.2 Monoclonal gammopathy; I48.0 Paroxysmal atrial fibrillation; Z99.81 Dependence on supplemental oxygen; Z68.27 Body mass index [BMI] 27.0-27.9, adult; Z91.19 Patient's noncompliance with other medical treatment and regimen; N40.0 Benign prostatic hyperplasia without lower urinary tract symptoms; G89.29 Other chronic pain; M54.9 Dorsalgia, unspecified; N18.3 Chronic kidney disease, stage 3 (moderate); Z86.73 Personal history of transient ischemic attack (TIA), and cerebral infarction without residual deficits; Z87.891 Personal history of nicotine dependence
CPT/HCPCS: 12345; 36415; 36600; 71045; 80053; 81001; 82803; 83735; 83880; 84100; 84145; 84484; 85025; 87040; 87086; 87107; 87804; 93005; 94640; 94660; 94664; 96372; 96375; 97116; 97140; 97161; 97166; 97530; 99283; A9270; J0696; J1650; J2543; J2920; J3490; J7040

== ENCOUNTER 2019-07-14 10:50 | Outpatient (CLI) | payer OTHER, MEDICARE, SELFPAY ==
--- NOTE | 2019-07-14 11:03 | CT_ITS ---
WS: [id number] CT scan of the left hip. Additional two-dimensional coronal and sagittal reconstruction was performed . MIP images were also performed. 07/14/2019 Clinical Data: NON DISPLACE FX OF LEFT PROXIMAL FEMUR Comparison: None. DLP: 838.06 mGy-cm All CT scans at [facility] use at least one of these dose optimization techniques: automat ed exposure control; mA and/or kV adjustment per patient size (includes targeted exams where dose is matched to clinical indication); or iterative reconstruction. Findings: There is a vertical fracture through the left femoral neck extending from the junction of the left f emoral head and neck inferiorly to the junction of the lesser trochanter and the femoral neck. There is no significant displacement. The femoral head remains within the acetabulum. CT/CT hip LT wo con* [id number] Impression: Left femoral neck fracture.
== END 2019-07-14 10:51 | disposition home or self-care (01) ==
LOC: RAD 11:01
PROVIDERS: Family Provider Family Medicine; PCP Family Medicine; Visit Provider Family Medicine
DX: S72.092A Other fracture of head and neck of left femur, initial encounter for closed fracture (principal); X58.XXXA Exposure to other specified factors, initial encounter
CPT/HCPCS: 73700

== ENCOUNTER 2019-07-19 13:51 | Emergency (ER) | payer MEDICARE, OTHER, SELFPAY ==
--- NOTE | 2019-07-19 13:56 | XR_ITS ---
WS: [id number] PORTABLE CHEST HISTORY: CHF. COMPARISON: 07/02/2019 Diffuse interstitial thickening with scattered subtle opacifications. Progressed since the prior stud y. Increasing consolidation inferior to the RIGHT hilum. There is also evidence for fibrosis. No pleu ral effusion or pneumothorax. Cardiac size: Normal. Mediastinum/Aorta: Mild atherosclerosis aorta. No osseous abnormality seen. XR/XR chest 1V portable [id number] IMPRESSION: 1. Chronic emphysema and pulmonary fibrosis. 2. Superimposed scattered opacifications are probably edema and pulmonary leland estion. Developing pneumonia in the RIGHT infrahilar region suspected.
--- NOTE | 2019-07-19 13:56 | ECG_ITS ---
Measurements Intervals [place] Rate: 74 P: 16 OH: 221 QRS: -62 QRSD: 106 T: 78 QT: 374 QTc: 416 SINUS RHYTHM WITH FIRST DEGREE AV BLOCK POSSIBLE ANTERIOR MYOCARDIAL INFARCTION , PROBABLY OLD [30 ms Q WAVE IN V3/V4, OR R < 0.2 mV IN V4] INFERIOR MYOCARDIAL INFARCTION , PROBABLY OLD [40+ ms Q WAVE AND/OR ST/T ABNORMALITY IN II/aVF] Compared to ECG 07/02/2019 16:13:46 Myocardial infarct finding now present Intraventricular conduction delay no longer present Electronically Signed On 07-19-2019 22:00:35 CDT by Suzette Figueroa M.D. [email or web address]
--- NOTE | 2019-07-19 14:02 | W.ED.SOB ---
HPI - SOB/Dyspnea General: Chief Complaint: Shortness of Breath/Dyspnea Stated Complaint: LOW O2 Time Seen by Provider: 07/19/19 13:56 Source: patient and EMS Mode of arrival: EMS Limitations: no limitations History of Present Illness: HPI Narrative: 84-year-old male with a long history of congestive heart failure along with COPD is here from care home. Patient is on BiPAP chronically per care home was hypoxic. Patient has had no fever. Patient was recently discharged here last week and has been on steroids and antibiotics. Patient currently is on a nonrebreather and is satting 100%. He has no complaints at this time besides some mild dyspnea. He denies any chest pain. MD elicited complaint: shortness of breath Pertinent past history: congestive heart failure Onset (ago): day(s) Context: recent illness Timing: constant Severity: moderate Exacerbating factors: nothing Relieving factors: nothing Known history of: congestive heart failure Associated symptoms: Deny abdominal pain, chest pain, fever(s), nausea or vomiting Review of Systems Const: Denies: fever, chills, body aches or change in appetite Eyes: Denies: blurry vision or eye discomfort ENMT: Denies: throat pain or dental pain Card: Denies: chest pain Resp: Reports: shortness of breath GI: Denies: abdominal pain, nausea, vomiting or diarrhea : Denies: painful urination Musc: Denies: neck pain or back pain Skin/Breast: Denies: rash Neuro: Denies: headache Psych: Denies: depression Carlos Manuel/Lymph: Denies: easy bruising All/Imm: Denies: hives PFSH ED PFSH: Medical History Acute respiratory failure Anemia Benign prostatic hyperplasia Chronic kidney disease, stage III (moderate) Stable Congestive heart failure COPD (chronic obstructive pulmonary disease) Diastolic CHF Continue current diuretics GI bleed Follow-up with general surgery regarding endoscopy History of colon polyps Hyperlipidemia Hypertension Monoclonal gammopathy Paroxysmal atrial fibrillation Controlled Pneumonia Rosacea TIA (transient ischemic attack) Surgical History H/O knee surgery History of back surgery History of colonoscopy with polypectomy History of neck surgery Family History Other CAD (coronary artery disease) Social History Smoking and tobacco status: former smoker Physical Exam Const: COMMON NORMALS: no apparent distress (mild), oriented x3 and healthy appearing HENMT: COMMON NORMALS: normocephalic and head/scalp atraumatic HEAD & SCALP: normocephalic and atraumatic Eye: COMMON NORMALS: PERRL and EOMs intact bilaterally PUPIL: Yes PERRL Neck/C-Spine: COMMON NORMALS: full ROM and supple Chest: COMMONS NORMALS: inspection of chest normal and palpation of chest normal Resp: COMMON NORMALS: no retractions, no use of accessory muscles and clear to auscultation bilaterally EFFORT & INSPECTION: Yes respiratory distress (mild) AUSCULTATION: clear to auscultation bilaterally Cardio: COMMON NORMALS: regular rate, regular rhythm and no murmurs RATE: regular rate RHYTHM: regular rhythm GI: COMMON NORMALS: normal to inspection, nondistended, normoactive bowel sounds, soft to palpation, non-tender and no masses PALPATION: Yes soft Extremity: COMMON NORMALS: normal to inspection and full ROM Neuro: COMMON NORMALS: oriented x3, moves all extremities and no focal motor deficits Psych: COMMON NORMALS: mental status grossly normal, thought process normal and cooperative THOUGHT PROCESS: normal thought process Skin: COMMON NORMALS: no rashes or lesions noted and no wounds GENERAL SKIN EXAM: no rashes or lesions noted Course Vital Signs: Vital signs: Vital Signs Temperature 98.9 F 07/19/19 14:05 Pulse Rate 73 07/19/19 18:37 Respiratory Rate 20 H 07/19/19 18:37 Blood Pressure 125/66 07/19/19 18:37 Pulse Oximetry 99 07/19/19 18:37 MDM - SOB/Dyspnea MDM Narrative: Medical decision making narrative: Patient presents with pneumonia from care home. Patient is in no increased distress here from baseline. Patient's lab work is normal as well. Patient seen by Dr. Tucker in the ER recommended discharge back to care home. Will start on antibiotics discharge back to care home at this time. Patient is to return if worsening. Lab Data: Labs: Lab Results 07/19/19 07/19/19 07/19/19 Range/Units 14:10 14:17 14:17 WBC 11.6 H (4.0-10.0) 10^3/ uL RBC 2.67 L (4.1-5.3) 10^6/u L Hgb 7.9 L (11.7-16.6) g/dL Hct 26.5 L (42.0-52.0) % MCV 99.3 H (80-94) fL MCH 29.6 (28.0-34.0) pg MCHC 29.8 L (30.0-36.0) g/dL RDW 16.7 H (12.1-15.1) % Plt Count 144 (130-400) 10^3/c mm MPV 11.3 H (7.4-10.4) fL Neut % (Auto) 80.9 % Lymph % (Auto) 10.9 % [place]berry % (Auto) 5.6 % Eos % (Auto) 1.8 % Baso % (Auto) 0.3 % Neut # (Auto) 9.4 H (1.8-7.7) 10^3/u L Lymph # (Auto) 1.3 (0.8-4.8) 10^3/u L [place]berry # (Auto) 0.7 (0.2-0.9) 10^3/u L Eos # (Auto) 0.2 (0.0-0.8) 10^3/u L Baso # (Auto) 0.0 (0.0-0.1) 10^3/u L Nucleated RBC % (a uto) 0 % Nucleated RBCs # 0.0 /100WBC Specimen Type Arterial Sample Site Radial, right ABG pH 7.47 H (7.35-7.45) ABG pCO2 48.3 H (35-45) mmHg ABG pO2 124.0 H (80.0-100.0) mmH g ABG HCO3 35.2 H (22-26) mmol/L ABG Base Excess 10.3 H (-2.0-2.0) mmol/ L Williams Test Pos Hematocrit 29.0 L (42-52) % Hgb O2 Saturation 96.8 (95-100) % Carboxyhemoglobin 1.3 (0.4-20.1) %THgb Methemoglobin 1.0 (0.4-1.5) % Total Hemoglobin 9.5 L (14-18) g/dL O2 Delivery Device Nrb O2 Liters/Min 11.0 % Analytics Associate ID [email or web address] Sodium 133 L (136-145) mmol/L Potassium 3.6 (3.5-5.1) mmol/L Chloride 91 L (98-107) mmol/L Carbon Dioxide 31 H (22-29) mmol/L Anion Gap 14.6 (5-19) BUN 40 H (8-23) mg/dL Creatinine 1.8 H (0.7-1.2) mg/dL Glucose 164 H (65-115) mg/dL Calculated Osmolal ity 277 L (285-295) mOsm/k g Calcium 10.3 (8.5-10.5) mg/dL Total Bilirubin 0.3 (0.15-1.2) mg/dL AST 14 (0-40) U/L ALT 11 (0-41) U/L Alkaline Phosphata se 93 (40-130) IU/L NT-Pro-B Natriuret Pep 3847 H (0-450) pg/mL Total Protein 6.4 L (6.6-8.7) g/dL Albumin 2.6 L (3.5-5.2) g/dL Globulin 3.8 (1.3-4.6) g/dL Imaging Data^: CXR: Radiologist's impression: [place] [address] XRay Report Signed Patient: Teddy Cortes Unit #: [id number] : 1935 Age/Sex: 84 / M ADM Date: 07/19/19 Loc: ER Room/Bed: Attending Dr: Ordering Provider/Ordering MD: Danyel Becker MD Date of Service: 07/19/19 Procedure(s): XR chest 1V portable [id number] Accession Number(s): [id number] Report Number: [id number] WS: [id number] PORTABLE CHEST HISTORY: CHF. COMPARISON: 07/02/2019 Diffuse interstitial thickening with scattered subtle opacifications. Progressed since the prior study. Increasing consolidation inferior to the RIGHT hilum. There is also evidence for fibrosis. No pleural effusion or pneumothorax. Cardiac size: Normal. Mediastinum/Aorta: Mild atherosclerosis aorta. No osseous abnormality seen. XR/XR chest 1V portable [id number] IMPRESSION: 1. Chronic emphysema and pulmonary fibrosis. 2. Superimposed scattered opacifications are probably edema and pulmonary congestion. Developing pneumonia in the RIGHT infrahilar region suspected. EKG Data^: EKG 1: Attestation: I personally reviewed and interpreted this EKG as follows: EKG Interpretation Date: 07/19/19 EKG interpretation time: 15:11 Interpretation: nsr hr [address] or t wave abnormalities Discharge Plan Discharge Patient Disposition: Home, Self-Care Clinical Impression: Community acquired pneumonia Qualifiers: Laterality: unspecified laterality Qualified Code(s): J18.9 - Pneumonia, unspecified organism Condition: Stable Prescriptions: New ceftriaxone 1 gram recon soln 1 gm IV Q24H 4 Days Qty: 4 RF: 0 doxycycline hyclate 100 mg capsule 100 mg PO BID 4 Days Qty: 8 RF: 0 Continued ondansetron HCl [Zofran] 4 mg Tablet 4 mg PO TID PRN (Reason: Nausea) RF: 0 cyclobenzaprine 5 mg Tablet 5 mg PO DAILY PRN (Reason: Muscle Spasm) RF: 0 budesonide-formoterol 160-4.5 mcg/actuation Hfa Aerosol Inhaler 2 puff INHALATION BID RF: 0 bumetanide 1 mg Tablet 1 mg PO BIDWM Qty: 0 RF: 0 Milk of Magnesia 400 mg/5 mL Suspension 400 mg PO DAILY PRN (Reason: Constipation) RF: 0 pantoprazole 40 mg Tablet,Delayed Release (Dr/Ec) 40 mg PO BID RF: 0 guaifenesin 600 mg Tablet Extended Release 12hr 600 mg PO BID RF: 0 potassium chloride 20 mEq Tablet Extended Release 20 meq PO BID RF: 0 multivitamin [Multiple Vitamins] Tablet 1 tab PO DAILY RF: 0 sennosides [senna] 8.6 mg Tablet 8.6 mg PO DAILY RF: 0 hydrocodone-acetaminophen [[place]] 5-325 mg Tablet 1 tab PO Q6H PRN (Reason: Pain) RF: 0 diltiazem HCl [Cardizem CD] 240 mg Capsule,Extended Release 24hr 240 mg PO DAILY RF: 0 carvedilol 3.125 mg Tablet 3.125 mg PO BID RF: 0 acetaminophen [Tylenol 8 Hour] 650 mg Tablet Extended Release 650 mg PO Q4H PRN (Reason: Pain) RF: 0 magnesium hydroxide [Milk of Magnesia] 400 mg/5 mL Suspension 30 ml PO DAILY PRN (Reason: Constipation) RF: 0 tamsulosin 0.4 mg Capsule 0.4 mg PO BEDTIME RF: 0 ascorbic acid (vitamin C) [Vitamin C] 250 mg Tablet 250 mg PO DAILY RF: 0 bisacodyl 10 mg Suppository 10 mg DC DAILY PRN (Reason: Constipation) RF: 0 ferrous sulfate 325 mg (65 mg iron) Tablet 325 mg PO DAILY RF: 0 Enema Disposable 19-7 gram/118 mL Enema 118 ml DC DAILY PRN (Reason: Constipation) RF: 0 docusate sodium [Colace] 100 mg Capsule 100 mg PO BID RF: 0 gabapentin 300 mg Capsule 300 mg PO BID RF: 0 folic acid 1 mg Tablet 1 mg PO DAILY RF: 0 Lactobacillus acidophilus [Acidophilus] Capsule 1 cap PO DAILY RF: 0 finasteride 5 mg Tablet 5 mg PO DAILY RF: 0 Spiriva with HandiHaler 18 mcg Capsule, W/Inhalation Device 1 cap INHALATION DAILY RF: 0 Atrovent HFA 17 mcg/actuation Hfa Aerosol Inhaler 2 puff INHALATION DAILY PRN (Reason: unknown) RF: 0 Symbicort 160-4.5 mcg/actuation Hfa Aerosol Inhaler 2 puff INHALATION BID RF: 0 Discharge Orders: Discharge Order (Routine); Ordered 07/19/19 Ordered By: Danyel Becker Referrals: Bob Tobar MD [Primary Care Provider] - 1-3 days Discharge Diet: Usual diet Discharge Activity: Resume usual activity Activity Restrictions/Additional Instructions: supplemental 02 at all times, titrate to keep 02 sat 88-92%. Encourage nightly Bipap use. F/up on pending COVID testing sent from [place]. Discharge Date/Time: 07/19/19 19:04 Coding Level of Care Code ED Dental Service Technician for Chg Fwd Exam Comprehensive
[2019-07-19 14:05] VITALS: BP 112/58; PULSE 76; RESP 20; TEMP 37.2; O2SAT 100; BMI 24.6
[2019-07-19 14:21] VITALS: O2SAT 99
[2019-07-19 14:23] LABS: ABG PCO2 48.3 mmHg (35-45); ABG PH Result 7.47 (7.35-7.45); Base Excess ABG 10.3 mmol/L (-2.0-2.0); Blood Gas Allen Test Pos; Blood Gas Sample Site Radial, right; Blood Gas Sample Type Arterial; Carboxyhemoglobin 1.3 %THgb (0.4-20.1); HCO3 ABG 35.2 mmol/L (22-26); HGB O2 Sat 96.8 % (95-100); Oxygen Device NRB; Total Hemoglobin 9.5 g/dL (14-18)
[2019-07-19 14:24] LABS: Basophils % 0.3 %; Eosinophils # 0.2 10^3/uL (0.0-0.8); Eosinophils % 1.8 %; Hematocrit 26.5 % (42.0-52.0); Hemoglobin 7.9 g/dL (11.7-16.6); Lymphocytes # 1.3 10^3/uL (0.8-4.8); Lymphocytes % 10.9 %; Mean Corpuscular HGB Conc 29.8 g/dL (30.0-36.0); Mean Corpuscular Hemoglobin 29.6 pg (28.0-34.0); Mean Corpuscular Volume 99.3 fL (80-94); Mean Platelet Volume 11.3 fL (7.4-10.4); Monocytes # 0.7 10^3/uL (0.2-0.9); Monocytes % 5.6 %; Neutrophils # 9.4 10^3/uL (1.8-7.7); Neutrophils % 80.9 %; Nucleated Red Blood Cells % 0 %; Platelet Count 144 10^3/cmm (130-400); Red Blood Count 2.67 10^6/uL (4.1-5.3); Red Cell Distribution Width 16.7 % (12.1-15.1); White Blood Count 11.6 10^3/uL (4.0-10.0)
--- NOTE | 2019-07-19 14:32 | PC.NURSE ---
x ray to room
[2019-07-19 14:49] LABS: Alanine Aminotransferase 11 U/L (0-41); Albumin Level 2.6 g/dL (3.5-5.2); Alkaline Phosphatase 93 IU/L (40-130); Anion Gap 14.6 (5-19); Aspartate Amino Transferase 14 U/L (0-40); Blood Urea Nitrogen 40 mg/dL (8-23); Calcium 10.3 mg/dL (8.5-10.5); Carbon Dioxide 31 mmol/L (22-29); Chloride 91 mmol/L (98-107); Globulin 3.8 g/dL (1.3-4.6); Glucose 164 mg/dL (65-115); NT Pro B Type Natriuretic Pept 3847 pg/mL (0-450); Osmolality Calculated 277 mOsm/kg (285-295); Potassium 3.6 mmol/L (3.5-5.1); Sodium 133 mmol/L (136-145); Total Bilirubin 0.3 mg/dL (0.15-1.2); Total Protein 6.4 g/dL (6.6-8.7)
[2019-07-19] MEDS: FUROsemide 10 mg/mL SDV 4mL 40 MG IVP (15:01)
[2019-07-19] MEDS: piperacillin-tazobactam 4.5 GM in sodium chloride 0.9% (plus) 50 ML IV (15:16)
[2019-07-19 15:28] VITALS: BP 122/71; PULSE 71; RESP 22; O2SAT 100
[2019-07-19] MEDS: levofloxacin-dextrose 5 % 750 MG/150 ML PREMIX 150 MG IV (15:44)
[2019-07-19 15:46] VITALS: BP 107/63; PULSE 73; RESP 22
--- NOTE | 2019-07-19 16:08 | P.CONIM_ITS ---
Providers/Reason For Consult Consulting Physican/Specialty*: Linda Tucker MD / Patrick Haas Reason for Consult*: respiratory distress Attending Physician: Linda Tucker MD Primary Care Provider: Bob Tobar MD History of Present Illness History of Present Illness Teddy Cortes is a 84 year old male with a past medical history of chronic diastolic CHF, 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, obesity, NAYANA on CPAP, hypertension, BPH, chronic back pain, with recent history of decompressive laminectomy at L1-2 L3, L3-L4 with history of wound dehiscence at surgical site, CKD stage III-IV, history of IgM monoclonal gammopathy, chronic normocytic anemia, chronic folate and B12 deficiency peripheral vascular disease with known AAA, recent history of staph epidermidis bacteremia status post antibiotic therapy, recent hospitalization for a GI bleed at [facility] who presents to an [facility] emergency room due to complaints of shortness of breath. He has had previous admissions here this year for acute respiratory failure, muscular deconditioning, CHF exacerbation COPD exacerbation. Patient has a history of upper GI bleed, medically managed by Protonix, his Eliquis for atrial fibrillation has been held, he is status post 4 units in the past 2 months, all anticoagulation has been held. He was referred for outpatient EGD and this was planned in the upcoming weeks once he is consistently improved. Earlier this year, patient was advised to use BIPAP at the [facility] but it has been complicated by his non compliance with this owing to clautrophobia. He presented today from [facility] with c/o respiratory distress. Upon presentation at the ER he was on a NRB at 8-10lpm satrtaing 100%. This has now been weaned down to 4-5lpm on a nasal canula and patient is saturating well at 98%. He is in no overt respiratory distress. He is able to converse in full sentences. He is alert and awake to person and time, however he still thinks he is back at the intermediate. Looking at his notes from previous admission this does not seem to further away from his baseline. He does not complain of any dyspnea at this time. He denies any chest pain. He complains of a chronic cough which she does not say is any worsened over baseline. White blood cell count is 11.6, of note this is trending down from a count of 19.6 on July 03 which was his most recent admission. Hemoglobin is at 7.9, last discharge was 8.1. He denies any current melena. His ABG today is pH 7.47/CO2 48.3/PO2 124/bicarb of 35, overall quite stable. Sodium is 133, potassium is 3.6, creatinine is at baseline of 1.8. His BNP is at 3847, improved over his previous number of 5697 on July 01. His current blood pressure is 107/63 mmHg. Heart rate is 73/min. Respiratory rate is 20/min. He is afebrile since presentation. Chest x-ray with radiological impression of chronic emphysema and pulmonary fibrosis. Superimposed scattered opacifications probably edema and pulmonary congestion. Developing pneumonia in the right infrahilar region is suspected. He has thus far received a dose of Zosyn and vancomycin since presentation Review of Systems General: Reports: 10 or more systems reviewed and unremarkable except in HPI and below Const: Denies: fever, chills or body aches Eyes: Denies: change in vision, blurry vision or photophobia ENMT: Reports: hoarseness; Denies: throat pain, enlarged tonsils, painful swallowing or nasal congestion Card: Denies: chest pain, palpitations, irregular heart rhythm, edema, swelling of feet/ankles, lightheadedness, pre-syncope, shortness of breath on exertion or shortness of breath when lying down Resp: Denies: shortness of breath, productive cough, non-productive cough, wheezing, stridor, pain on inspiration, change in phlegm color, coughing up blood or chest congestion GI: Denies: abdominal pain, nausea, vomiting, vomiting blood, coffee grounds in vomit, difficulty swallowing, heartburn/indigestion, diarrhea, constipation, cramping, change in stool character, blood in stool or black tarry stool : Denies: flank pain, painful urination, urinary frequency, urinary urgency, urinary hesitancy or blood in urine Musc: Denies: neck pain, back pain, extremity pain, joint swelling, joint warmth or deformity Neuro: Denies: headache, numbness in extremities, weakness in extremities, changes in sensation, difficulty walking, frequent falls, dizziness, vertigo, behavioral changes, slurred speech or seizure-like activity Psych: Denies: anxiety, depression, suicidal ideation or homicidal ideation Endo: Denies: excessive urination, excessive thirst, tired all the time, cold intolerance or hot flashes Carlos Manuel/Lymph: Denies: easy bruising or easy bleeding Meds/Allergies Home Medications and Allergies Home Medications Medication Instructions Recorded Confirmed Type Atrovent HFA 2 puff INHALATION DAILY PRN 06/14/19 07/19/19 History Enema Disposable 118 ml MT DAILY PRN 06/14/19 07/19/19 History Lactobacillus acidophilus 1 cap PO DAILY 06/14/19 07/19/19 History [Acidophilus] Spiriva with HandiHaler 1 cap INHALATION DAILY 06/14/19 07/19/19 History Symbicort 2 puff INHALATION BID 06/14/19 07/19/19 History acetaminophen [Tylenol 8 Hour] 650 mg PO Q4H PRN 06/14/19 07/19/19 History ascorbic acid (vitamin C) [Vitamin 250 mg PO DAILY 06/14/19 07/19/19 History C] bisacodyl 10 mg MT DAILY PRN 06/14/19 07/19/19 History carvedilol 3.125 mg PO BID 06/14/19 07/19/19 History diltiazem HCl [Cardizem CD] 240 mg PO DAILY 06/14/19 07/19/19 History docusate sodium [Colace] 100 mg PO BID 06/14/19 07/19/19 History ferrous sulfate 325 mg PO DAILY 06/14/19 07/19/19 History finasteride 5 mg PO DAILY 06/14/19 07/19/19 History folic acid 1 mg PO DAILY 06/14/19 07/19/19 History gabapentin 300 mg PO BID 06/14/19 07/19/19 History hydrocodone-acetaminophen [[place]] 1 tab PO Q6H PRN 06/14/19 07/19/19 History magnesium hydroxide [Milk of 30 ml PO DAILY PRN 06/14/19 07/19/19 History Magnesia] multivitamin [Multiple Vitamins] 1 tab PO DAILY 06/14/19 07/19/19 History sennosides [senna] 8.6 mg PO DAILY 06/14/19 07/19/19 History tamsulosin 0.4 mg PO BEDTIME 06/14/19 07/19/19 History budesonide-formoterol 2 puff INHALATION BID 07/02/19 07/19/19 History cyclobenzaprine 5 mg PO DAILY PRN 07/02/19 07/19/19 History ondansetron HCl [Zofran] 4 mg PO TID PRN 07/02/19 07/19/19 History bumetanide 1 mg PO BIDWM #0 tab 07/04/19 07/19/19 Rx guaifenesin 600 mg PO BID 07/19/19 07/19/19 History magnesium hydroxide [Milk of 400 mg PO DAILY PRN 07/19/19 07/19/19 History Magnesia] pantoprazole 40 mg PO BID 07/19/19 07/19/19 History potassium chloride 20 meq PO BID 07/19/19 07/19/19 History Allergies Allergy/AdvReac Type Severity Reaction Status Date / Time No Known Allergies Allergy Verified 07/10/19 14:07 PFSH Acute PFSH: Medical History Acute respiratory failure Anemia Benign prostatic hyperplasia Chronic kidney disease, stage III (moderate) Stable Congestive heart failure COPD (chronic obstructive pulmonary disease) Diastolic CHF Continue current diuretics GI bleed Follow-up with general surgery regarding endoscopy History of colon polyps Hyperlipidemia Hypertension Monoclonal gammopathy Paroxysmal atrial fibrillation Controlled Pneumonia Rosacea TIA (transient ischemic attack) Surgical History H/O knee surgery History of back surgery History of colonoscopy with polypectomy History of neck surgery Family History Other CAD (coronary artery disease) Social History Smoking and tobacco status: former smoker Vitals/I&O/Wt Last Vital Signs Temp 98.9 F 07/19/19 14:05 Pulse 73 07/19/19 15:46 Resp 22 H 07/19/19 15:46 BP 107/63 07/19/19 15:46 Pulse Ox 100 07/19/19 15:28 07/19/19 07/19/19 07/19/19 06:59 14:59 22:59 Intake Total 50 / 50 Balance 50 / 50 Weight last 48 hrs Weight 75.75 kg Physical Exam Narrative: EXAM NARRATIVE: GEN: Awake, alert and oriented, no acute distress CVS: S1S2 N RS: CTA B/L Abd: Soft, nt/nd , bs+ A&P Assessment and plan (1) Community acquired pneumonia: Status: Acute Qualifiers: Laterality: unspecified laterality Qualified Code(s): J18.9 - Pneumonia, unspecified organism (2) Acute exacerbation of chronic obstructive airways disease: Status: Acute (3) Muscular deconditioning: Status: Acute (4) Anemia: Status: Acute (5) Diastolic CHF: Status: Acute (6) Hypertension: Status: Acute (7) Monoclonal gammopathy: Status: Acute (8) Chronic kidney disease, stage III (moderate): Status: Acute Additional A&P Information Patient was evaluated by me as a medicine consult in the ED. At this present time, patient appears to be much more comfortable. Requiring nasal cannula at 4 to 5 L/min which appears to be his baseline. He was initially on a nonrebreather However This Has since Been Tapered down and Patient Is Doing Quite Well. His ABG Does Not Show Any Current Evidence of Hypercapnia or hypoxia on any uncompensated respiratory acidosis. His chest x- ray is showing possible bilateral pulmonary vascular congestion and likely developing right infrahilar infiltrate for which she has received 40 mg of IV Lasix and also been initiated on appropriate antibiotics. His BNP is lower than his previous admission. He is afebrile at this present time and his leukocytosis is at 11, which is of note trending down from 19 on July 03. Overall I do not believe this patient currently has any evidence of sepsis. He is quite hemodynamically stable at this point. I would recommend completing a 5-day course for possibly developing pneumonia with ceftriaxone and doxycycline. Alternatively if IV ceftriaxone is not feasible to be done at the intermediate, a 5-day course of Levaquin monotherapy would be an alternative. I would be comfortable discharging the patient at this time back to intermediate. Per report patient has had COVID 19 testing sent from the intermediate yesterday and it remains pending at this time. Above was discussed with Dr. Tobar, who is his PCP at [facility] It is recommended that he continue supplemental 02 and BIpap at night time and during the day as needed. In keeping with his wishes of DNR/DNI, should he develop worsening respiratory status ,a trial of BIPAP for an extended time would be most appropriate. Dispo: Stable for transfer back to intermediate. Coding Level of Care Code Acute Tool Grinder Set Up Operator Gear for Chg Fwd Diagnoses Community acquired pneumonia J18.9 Laterality: unspecified laterality Acute exacerbation of chronic obstructive airways disease J44.1 Muscular deconditioning R29.898 Anemia D64.9 Diastolic CHF I50.30 Hypertension I10 Monoclonal gammopathy D47.2 Chronic kidney disease, stage III (moderate) N18.3
[2019-07-19 18:37] VITALS: BP 125/66; PULSE 73; RESP 20; O2SAT 99
== END 2019-07-19 19:04 | disposition home or self-care (01) ==
LOC: ER 14:56 → MEDSURG 15:48
PROVIDERS: Emergency Provider Emergency Medicine; Family Provider Family Medicine; PCP Family Medicine
DX: J18.9 Pneumonia, unspecified organism (principal); J44.1 Chronic obstructive pulmonary disease with (acute) exacerbation; I12.9 Hypertensive chronic kidney disease with stage 1 through stage 4 chronic kidney disease, or unspecified chronic kidney disease; N18.3 Chronic kidney disease, stage 3 (moderate); I48.91 Unspecified atrial fibrillation; D47.2 Monoclonal gammopathy; E78.5 Hyperlipidemia, unspecified; I50.30 Unspecified diastolic (congestive) heart failure
CPT/HCPCS: 12345; 36415; 36600; 71045; 80053; 82805; 83880; 85025; 93005; 96365; 96367; 96368; 96375; 99283; 99284; J1940; J1956; J2543

== ENCOUNTER 2019-11-02 10:37 | Inpatient (IN) | payer OTHER, MEDICARE, SELFPAY ==
[2019-11-02] VITALS (54 sets, daily range): BP systolic 76–137; BP diastolic 43–71; PULSE 60–93; RESP 12–28; TEMP 36.5–36.7; O2SAT 90–100; BMI 29.5
--- NOTE | 2019-11-02 11:08 | W.ED.AMS ---
HPI - Altered Mental Status General: Chief Complaint: Altered Mental Status Stated Complaint: Unresponsive, hypotension Time Seen by Provider: 11/02/19 11:00 History of Present Illness: HPI narrative: jail reports that the patient has been becoming more lethargic throughout the day today. Upon arrival to the emergency department the patient is somnolent but easily awakened and at his mental baseline. MD complaint: altered mental status, confusion, decreased responsiveness and weakness Onset (ago): unknown Timing confirmed by: caregiver Severity: moderate Consistency of symptoms: Constant Context: history of similar presentation Associated symptoms: Reports no associated symptoms Review of Systems General: Reports: 10 or more systems reviewed and unremarkable except in HPI and below PFSH ED PFSH: Medical History Acute respiratory failure Anemia Benign prostatic hyperplasia Chronic kidney disease, stage III (moderate) Stable Congestive heart failure COPD (chronic obstructive pulmonary disease) Diastolic CHF Continue current diuretics GI bleed Follow-up with general surgery regarding endoscopy History of colon polyps Hyperlipidemia Hypertension Monoclonal gammopathy Paroxysmal atrial fibrillation Controlled Pneumonia Rosacea TIA (transient ischemic attack) Surgical History H/O knee surgery History of back surgery History of colonoscopy with polypectomy History of neck surgery Family History Other CAD (coronary artery disease) Social History Smoking and tobacco status: former smoker Physical Exam Const: EXAM LIMITATIONS: altered mental status GENERAL APPEARANCE: lethargic and ill appearing ORIENTATION/CONSCIOUSNESS: Yes lethargic HENMT: COMMON NORMALS: normocephalic, atraumatic, external ears normal and Normal external nose present HEAD & SCALP: normocephalic and atraumatic FACE & SINUS: normal facial exam NOSE: Normal external nose present EXTERNAL EAR: Yes external ears normal MOUTH: Normal oral and palatal mucosa present Neck/C-Spine: COMMON NORMALS: full ROM, no lymphadenopathy, supple, no meningeal signs and no JVD GENERAL: Yes normal visual inspection Resp: COMMON NORMALS: normal respiratory effort, No retractions, No use of accessory muscles and clear to auscultation bilaterally AUSCULTATION: clear to auscultation bilaterally Cardio: COMMON NORMALS: no JVD, regular rate and regular rhythm RATE: regular rate RHYTHM: regular rhythm GI: COMMON NORMALS: Normal to inspection, nondistended, normoactive bowel sounds present, Soft to palpation, non-tender, No hepatosplenomegaly present and no masses INSPECTION: Yes normal to inspection AUSCULTATION: Yes normoactive bowel sounds PALPATION: Yes Soft to palpation and Yes No hepatosplenomegaly present PERCUSSION: normal to percussion : COMMON NORMALS: Yes no CVA tenderness BLADDER/KIDNEY EXAM: Yes no CVA tenderness Back/Pelvis: COMMON NORMALS: no CVA tenderness, thoracic and lumbar spine normal to inspection, no thoracic nor lumbar tenderness, thoraco-lumbar ROM normal and straight leg raise negative bilaterally Extremity: COMMON NORMALS: normal to inspection, full ROM, capillary refill normal, no joint enlargement, no clubbing, cyanosis or edema, no calf tenderness and no pedal edema Neuro: COMMON NORMALS: moves all extremities, no focal motor deficits and no sensory deficits noted SENSORIUM/ORIENTATION: Yes lethargic MENINGEAL SIGNS: Yes no meningeal signs Psych: COMMON NORMALS: mental status grossly normal, Normal thought process present, cooperative, normal affect and speech normal SPEECH: Yes normal speech THOUGHT PROCESS: Normal thought process present Skin: COMMON NORMALS: no rashes or lesions noted, no wounds, turgor normal, no jaundice, no petechiae and no mottling GENERAL SKIN EXAM: no rashes or lesions noted and turgor normal Course Vital Signs: Vital signs: Vital Signs Temperature 98.1 F 11/02/19 10:39 Pulse Rate 66 11/02/19 12:45 Respiratory Rate 13 11/02/19 12:45 Blood Pressure 93/57 11/02/19 12:45 Pulse Oximetry 100 11/02/19 12:45 MDM - Altered Mental Status Lab Data: Labs: Lab Results 11/02/19 11/02/19 11/02/19 Range/Units 11:11 11:20 11:20 WBC 18.7 H (4.0-10.0) 10^3/ uL RBC 2.93 L (4.1-5.3) 10^6/u L Hgb 8.7 L (11.7-16.6) g/dL Hct 28.7 L (42.0-52.0) % MCV 98.0 H (80-94) fL MCH 29.7 (28.0-34.0) pg MCHC 30.3 (30.0-36.0) g/dL RDW 13.5 (12.1-15.1) % Plt Count 179 (130-400) 10^3/c mm MPV 11.0 H (7.4-10.4) fL Neut % (Auto) 83.7 % Lymph % (Auto) 10.6 % [place] % (Auto) 4.2 % Eos % (Auto) 0.2 % Baso % (Auto) 0.2 % Neut # (Auto) 15.68 H (1.8-7.7) 10^3/u L Lymph # (Auto) 2.0 (0.8-4.8) 10^3/u L [place] # (Auto) 0.8 (0.2-0.9) 10^3/u L Eos # (Auto) 0.0 (0.0-0.8) 10^3/u L Baso # (Auto) 0.0 (0.0-0.1) 10^3/u L Nucleated RBC % (a uto) 0 % Nucleated RBCs # 0.0 /100WBC Sodium 130 L (136-145) mmol/L Potassium 3.3 L (3.5-5.1) mmol/L Chloride 84 L (98-107) mmol/L Carbon Dioxide 35 H (22-29) mmol/L Anion Gap 14.3 (5-19) BUN 47 H (8-23) mg/dL Creatinine 2.3 H (0.7-1.2) mg/dL Glucose 134 H (65-115) mg/dL Calculated Osmolal ity 270 L (285-295) mOsm/k g Lactate (0.5-2.2) mmol/L Calcium 10.4 (8.5-10.5) mg/dL Total Bilirubin 0.3 (0.15-1.2) mg/dL AST 17 (0-40) U/L ALT 9 (0-41) U/L Alkaline Phosphata se 82 (40-130) IU/L Troponin T Baselin e (0-15) ng/L NT-Pro-B Natriuret Pep 6718 H (0-450) pg/mL Total Protein 7.1 (6.6-8.7) g/dL Albumin 3.0 L (3.5-5.2) g/dL Globulin 4.1 (1.3-4.6) g/dL Lipase 20 (13-60) U/L Urine Color Yellow (Yellow) Urine Appearance Sl cloudy A (CLEAR) Urine pH 5 (5-7) Ur Specific Gravit y 1.020 (1.005-1.030) Urine Protein 1+ H (Negative) Urine Glucose (UA) Norm (Normal) Urine Ketones Negative (Negative) Urine Blood 3+ H (Negative) Urine Nitrate Negative (Negative) Urine Bilirubin Neg (NEGATIVE) Urine Urobilinogen Norm (Negative) mg/dL Ur Leukocyte Viola ase 2+ H (Negative) Urine RBC 10-15 H (0-2) /hpf Urine WBC Too numerous to c nt H (0-5) /hpf Ur Squamous Epith Cells 0-4 H (0-5) Amorphous Sediment Not Reportable Urine Bacteria 3+ H (NONE) Hyaline Casts 0-4 H Urine Mucus 1+ 11/02/19 11/02/19 Range/Units 11:20 11:20 WBC (4.0-10.0) 10^3/ uL RBC (4.1-5.3) 10^6/u L Hgb (11.7-16.6) g/dL Hct (42.0-52.0) % MCV (80-94) fL MCH (28.0-34.0) pg MCHC (30.0-36.0) g/dL RDW (12.1-15.1) % Plt Count (130-400) 10^3/c mm MPV (7.4-10.4) fL Neut % (Auto) % Lymph % (Auto) % [place] % (Auto) % Eos % (Auto) % Baso % (Auto) % Neut # (Auto) (1.8-7.7) 10^3/u L Lymph # (Auto) (0.8-4.8) 10^3/u L [place] # (Auto) (0.2-0.9) 10^3/u L Eos # (Auto) (0.0-0.8) 10^3/u L Baso # (Auto) (0.0-0.1) 10^3/u L Nucleated RBC % (a uto) % Nucleated RBCs # /100WBC Sodium (136-145) mmol/L Potassium (3.5-5.1) mmol/L Chloride (98-107) mmol/L Carbon Dioxide (22-29) mmol/L Anion Gap (5-19) BUN (8-23) mg/dL Creatinine (0.7-1.2) mg/dL Glucose (65-115) mg/dL Calculated Osmolal ity (285-295) mOsm/k g Lactate 1.6 (0.5-2.2) mmol/L Calcium (8.5-10.5) mg/dL Total Bilirubin (0.15-1.2) mg/dL AST (0-40) U/L ALT (0-41) U/L Alkaline Phosphata se (40-130) IU/L Troponin T Baselin e 387 H* (0-15) ng/L NT-Pro-B Natriuret Pep (0-450) pg/mL Total Protein (6.6-8.7) g/dL Albumin (3.5-5.2) g/dL Globulin (1.3-4.6) g/dL Lipase (13-60) U/L Urine Color (Yellow) Urine Appearance (CLEAR) Urine pH (5-7) Ur Specific Gravit y (1.005-1.030) Urine Protein (Negative) Urine Glucose (UA) (Normal) Urine Ketones (Negative) Urine Blood (Negative) Urine Nitrate (Negative) Urine Bilirubin (NEGATIVE) Urine Urobilinogen (Negative) mg/dL Ur Leukocyte Viola ase (Negative) Urine RBC (0-2) /hpf Urine WBC (0-5) /hpf Ur Squamous Epith Cells (0-5) Amorphous Sediment Urine Bacteria (NONE) Hyaline Casts Urine Mucus Discharge Plan Discharge Patient Disposition: Placed in Observation Clinical Impression: Acute UTI, Lethargy, Adult failure to thrive Sepsis Qualifiers: Sepsis type: sepsis due to unspecified organism Sepsis acute organ dysfunction status: with acute organ dysfunction Severe sepsis acute organ dysfunction type: unspecified Severe sepsis shock status: with septic shock Qualified Code(s): A41.9 - Sepsis, unspecified organism Condition: Stable Referrals: Bob Tobar MD [Primary Care Provider] - Coding Level of Care Code ED Executive Search Consultant for [facility] Fwd Exam Comprehensive
--- NOTE | 2019-11-02 11:35 | XRR_ITS ---
PROCEDURE INFORMATION: Exam: XR Chest, 1 View Exam date and time: 11/02/2019 11:52 AM Age: 84 years old Clinical indication: Other: Lethargic, AMS, weakness; Patient HX: Nh reports PT more lethargic today. AMS. Confusion, decreased responsiveness TECHNIQUE: Imaging protocol: XR of the chest Views: 1 view. COMPARISON: CR XR chest 1V portable [id number] 07/19/2019 2:39 PM FINDINGS: Lungs: Partial left lower lung consolidation. Pleural space: Minimal left costophrenic angle blunting. Bilateral interstitial thickening. Heart/Mediastinum: Unremarkable. No cardiomegaly. Bones/joints: No acute findings. XR/XR chest 1V portable [id number] IMPRESSION: Small left pleural effusion, minimal left lower lung atelectasis versus pneumonia. Probable chronic lung disease.
--- NOTE | 2019-11-02 11:36 | ECG_ITS ---
[facility] Test Date: 2019-11-02 Pat Name: Teddy Cortes Department: Room: Gender: Male Tanning Wheel Filler: : 1935 Requested By: Ezekiel Flynn Order Number: [id number] Henrietta MD: Saad Harden M.D. Measurements Intervals [place] Rate: 72 P: 47 MI: 243 QRS: -56 QRSD: 126 T: 62 QT: 421 QTc: 461 Interpretive Statements SINUS RHYTHM WITH FIRST DEGREE AV BLOCK LEFT ANTERIOR FASCICULAR BLOCK [QRS AXIS <= -45, QR IN I, RS IN II] POSSIBLE ANTERIOR MYOCARDIAL INFARCTION , PROBABLY OLD [30 ms Q WAVE IN V3/V4, OR R < 0.2 mV IN V4] Nonspecific ST-T changes compared to ECG 07/19/2019 14:30:25 Left anterior fascicular block now present Myocardial infarct finding still present Electronically Signed On 11-03-2019 1:17:13 CDT by Saad Harden M.D. [id number]
[2019-11-02 11:44] LABS: Basophils % 0.2 %; Eosinophils % 0.2 %; Hematocrit 28.7 % (42.0-52.0); Hemoglobin 8.7 g/dL (11.7-16.6); Lymphocytes % 10.6 %; Mean Corpuscular HGB Conc 30.3 g/dL (30.0-36.0); Mean Corpuscular Hemoglobin 29.7 pg (28.0-34.0); Monocytes # 0.8 10^3/uL (0.2-0.9); Monocytes % 4.2 %; Neutrophils # 15.68 10^3/uL (1.8-7.7); Neutrophils % 83.7 %; Nucleated Red Blood Cells % 0 %; Platelet Count 179 10^3/cmm (130-400); Red Blood Count 2.93 10^6/uL (4.1-5.3); Red Cell Distribution Width 13.5 % (12.1-15.1); White Blood Count 18.7 10^3/uL (4.0-10.0)
[2019-11-02 11:57] LABS: Lactate (Lactic Acid level) 1.6 mmol/L (0.5-2.2)
[2019-11-02 12:09] LABS: Alanine Aminotransferase 9 U/L (0-41); Alkaline Phosphatase 82 IU/L (40-130); Anion Gap 14.3 (5-19); Aspartate Amino Transferase 17 U/L (0-40); Blood Urea Nitrogen 47 mg/dL (8-23); Calcium 10.4 mg/dL (8.5-10.5); Carbon Dioxide 35 mmol/L (22-29); Chloride 84 mmol/L (98-107); Globulin 4.1 g/dL (1.3-4.6); Glucose 134 mg/dL (65-115); Lipase 20 U/L (13-60); NT Pro B Type Natriuretic Pept 6718 pg/mL (0-450); Osmolality Calculated 270 mOsm/kg (285-295); Potassium 3.3 mmol/L (3.5-5.1); Sodium 130 mmol/L (136-145); Total Bilirubin 0.3 mg/dL (0.15-1.2); Total Protein 7.1 g/dL (6.6-8.7)
[2019-11-02 12:33] LABS: Troponin(5th) Baseline 387 ng/L (0-15)
[2019-11-02 12:34] LABS: Add Urine Microscopic? YES; Bilirubin Urine Neg (NEGATIVE); Blood Urine 3+ (Negative); Glucose Urine UA Norm (Normal); Ketones Urine Negative (Negative); Leukocyte Esterase Urine 2+ (Negative); Nitrate Urine Negative (Negative); Protein Urine 1+ (Negative); Urine Color Yellow (Yellow); Urobilinogen Urine Norm (Negative); pH Urine 5 (5-7)
[2019-11-02 12:38] LABS: Bacteria Urine 3+; Hyaline Casts Urine 0-4; Mucus Urine 1+; Squamous Epithelial Cell Urine 0-4 (0-5); WBC Urine TOO NUMEROUS TO CNT /hpf (0-5)
[2019-11-02 12:39] LABS: Add Urine Culture? Yes
--- NOTE | 2019-11-02 13:23 | PC.NURSE ---
EKG done at 1320 and shown to ER doctor
--- NOTE | 2019-11-02 13:36 | ECG_ITS ---
[facility] Test Date: 2019-11-02 Pat Name: Teddy Cortes Department: Room: Gender: Male Thoracic Surgeon: : 1935 Requested By: Ezekiel Flynn Order Number: [id number] Henrietta MD: Saad Harden M.D. Measurements Intervals [place] Rate: 66 P: [place]: -1 QRS: -52 QRSD: 141 T: 63 QT: 444 QTc: 466 Interpretive Statements UNCERTAIN REGULAR RHYTHM INTRAVENTRICULAR CONDUCTION DELAY [130+ ms QRS DURATION] Compared to ECG 11/02/2019 10:57:40 Intraventricular conduction delay now present Sinus rhythm no longer present First degree AV block no longer present Left anterior fascicular block no longer present Myocardial infarct finding no longer present Electronically Signed On 11-03-2019 1:38:48 CDT by Saad Harden M.D. [id number]
[2019-11-02] MEDS: piperacillin-tazobactam 3.375 GM in sodium chloride 0.9% (plus) 50 ML IV ×2 (13:52→21:45)
--- NOTE | 2019-11-02 15:45 | PC.NURSE ---
Patient transfer Patient arrived to floor from ER. Patient exhibits decreased LOC, only arouses to sternal rub. SBP 70-80s. other VS WNL. Respirations are labored, abnormal lung sounds throughout, see assessment. Nurse attempting to reach Dr. Gonsalez, no answer at this time.
[2019-11-02] MEDS: sodium chloride 0.9% 1,000 ML 125 ML IV (15:50)
--- NOTE | 2019-11-02 16:00 | PC.NURSE ---
Physician Notification/ Update Dr. Gonsalez reached via telephone. No new orders at this time. Physician to report to bedside.
[2019-11-02 16:27] LABS: ABG PH Result 7.41 (7.35-7.45); Alveolar-Arterial Oxygen Gradi 7.7 mmHg (5-10); Arterial Blood Gas Hematocrit 26.7 % (42-52); Blood Gas Sample Site Radial, right; Blood Gas Sample Type Arterial; Carboxyhemoglobin 1.3 %THgb (0.4-20.1); HCO3 ABG 38.3 mmol/L (22-26); HGB O2 Sat 91.1 % (95-100); Ionized Calcium Level - ABG 1.4 mmol/L (1.1-1.4); Methemoglobin 1.2 % (0.4-1.5); Oxygen Device OXY MASK; Oxygen Saturation ABG 93.4; PO2 ABG 68.3 mmHg (80.0-100.0); Potassium Level - ABG 2.8 mmol/L (3.5-5.0); Total Hemoglobin 8.7 g/dL (14-18)
[2019-11-02 16:28] LABS: ABG PCO2 60.6 mmHg (35-45)
--- NOTE | 2019-11-02 16:33 | PC.NURSE ---
Dr. Gonsalez at bedside. Physician to move patient to ICU for gtt to maintain BP. Physician to put in orders.
--- NOTE | 2019-11-02 16:35 | PC.NURSE ---
Update Dr. Gonsalez requests transfer of patient to ICU for levophed gtt to maintain BP. No ICU bed available at this time, physician notified. Physician gave verbal order to initiate gtt now and titrate on CSU until ICU bed is available. Nurse notified physician yoly balley doesn't have last changed date on bag. Physician gave verbal order to place new catheter. Physician to put in orders. Physician notified of pressure ulcers to medial spine and sacrum. Physician to order wound cultures.
--- NOTE | 2019-11-02 16:40 | PC.NURSE ---
Marrero Patient came in with chronic marrero. Marrero from home was d/c'd. New 16 Fr catheter placed. See marrero documentation. Patient tolerated well.
--- NOTE | 2019-11-02 16:44 | CTR_ITS ---
PROCEDURE INFORMATION: Exam: CT Chest Without Contrast Exam date and time: 11/02/2019 5:03 PM Age: 84 years old Clinical indication: Shortness of breath; Patient HX: Best images. Patient had trouble shaking; Additional info: Copd/pna TECHNIQUE: Imaging protocol: Computed tomography of the chest without contrast. Radiation optimization: All CT scans at this facility use at least one of these dose optimization techniques: automated exposure control; mA and/or kV adjustment per patient size (includes targeted exams where dose is matched to clinical indication); or iterative reconstruction. COMPARISON: CT angio chest PE protcl [id number] 06/14/2019 1:41 PM RADIATION DOSE METRICS: Total DLP (mGy-cm): 1072.78 FINDINGS: Lungs: Left lower lobe consolidation. Bilateral lower lung consolidation, left more than right. Bilateral nodular lesions in both lower lungs. Upper lung emphysematous change. Pleural space: Minimal bilateral pleural thickening, possible trace effusion. Heart: No cardiomegaly. No pericardial effusion. Aorta: Stable minimal dilatation of the ascending thoracic aorta, approximately 4 cm. Lymph nodes: No significant adenopathy. Bones/joints: Postoperative change in the lumbar spine. Soft tissues: Unremarkable. CT/CT chest wo con [id number] IMPRESSION: Findings consistent with bilateral lower lobe pneumonia, left more than right. Radiation Dose CTDIVOL = (mGy): DLP = 1072.78 (mGy-cm)
--- NOTE | 2019-11-02 16:52 | PM.HP ---
Providers/Chief Complaint Admitting Physician: Omid Gonsalez MD Primary Care Provider: Bob Tobar MD Chief Complaint: Unresponsive, hypotension History of Present Illness Teddy Cortes is a 84 year old male with a past medical history of chronic diastolic CHF, 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, obesity, NAYANA on CPAP, hypertension, BPH, chronic back pain, with recent history of decompressive laminectomy at L1-2 L3, L3-L4 with history of wound dehiscence at surgical site, CKD stage III-IV, history of IgM monoclonal gammopathy, chronic normocytic anemia, chronic folate and B12 deficiency peripheral vascular disease with known AAA, recent history of staph epidermidis bacteremia status post antibiotic therapy, recent hospitalization for a GI bleed who was transferred to from [facility] today morning to ER. Most of the history received to the nurse from [facility]. As per the nurse patient was doing at his baseline till last night and today morning when he woke up he was more confused than his baseline. His chest sounded worse and his saturations were in 80s requiring more than 10 L. As per the nurse patient has not had any recent diarrhea, fevers or changes in medications. Patient was recently moved from [place] to [facility] because his number of days of [place] were finished. On examination patient was in CSU,altered, confused, drowsy but arousable to deep touch saturating 92% on 4 L nasal cannula, systolic blood pressure of 80 mmHg with heart rate of 60 bpm. His blood work in the ER showed a white count of 18.7, hemoglobin of 8.7 which is at baseline, neutrophil of 15.6, sodium of 130 baseline 137, creatinine of 2.3 with baseline of around 2, baseline troponin of 387 going up to 438 with delta of 51, proBNP of 6718, urinalysis showing numerous WBCs, 2+ leuk esterase. Review of Systems General: Reports: ROS unobtainable due to mental status Medications/Allergies Home Medications Medication Instructions Recorded Confirmed Last Taken Type Atrovent HFA 2 puff INHALATION DAILY PRN 06/14/19 11/02/19 Unknown History Enema Disposable 118 ml MN DAILY PRN 06/14/19 11/02/19 Unknown History Lactobacillus acidophilus 1 cap PO DAILY 06/14/19 11/02/19 11/01/19 History [Acidophilus] Spiriva with HandiHaler 1 cap INHALATION DAILY 06/14/19 11/02/19 11/02/19 History acetaminophen [Tylenol 8 Hour] 650 mg PO Q6H PRN 06/14/19 11/02/19 Unknown History bisacodyl 10 mg MN DAILY PRN 06/14/19 11/02/19 Unknown History carvedilol 3.125 mg PO BID 06/14/19 11/02/19 11/02/19 History docusate sodium [Colace] 100 mg PO DAILY 06/14/19 11/02/19 11/02/19 History ferrous sulfate 325 mg PO DAILY 06/14/19 11/02/19 11/02/19 History folic acid 1 mg PO DAILY 06/14/19 11/02/19 11/02/19 History gabapentin 300 mg PO BID 06/14/19 11/02/19 11/02/19 History hydrocodone-acetaminophen [Verona] 1 tab PO Q6H PRN 06/14/19 11/02/19 10/28/19 History magnesium hydroxide [Milk of 30 ml PO DAILY PRN 06/14/19 11/02/19 07/19/19 History Magnesia] sennosides [senna] 8.6 mg PO DAILY 06/14/19 11/02/19 11/01/19 History budesonide-formoterol 2 puff INHALATION BID 07/02/19 11/02/19 11/02/19 History ondansetron HCl [Zofran] 4 mg PO TID PRN 07/02/19 11/02/19 Unknown History pantoprazole 40 mg PO DAILY 07/19/19 11/02/19 11/02/19 History albuterol sulfate 1 inh INHALATION QID PRN 11/02/19 11/02/19 Unknown History alendronate 70 mg PO Q7D 11/02/19 11/02/19 10/29/19 History bisacodyl [Dulcolax (bisacodyl)] 5 mg PO DAILY PRN 11/02/19 11/02/19 Unknown History bumetanide 1 mg PO BID 11/02/19 11/02/19 11/02/19 History citalopram 10 mg PO DAILY 11/02/19 11/02/19 11/02/19 History honey [MediHoney (honey)] 1 applic TOPICAL DAILY 11/02/19 11/02/19 11/01/19 History metolazone 2.5 mg PO DAILY 11/02/19 11/02/19 11/02/19 History potassium chloride 20 meq PO TID 11/02/19 11/02/19 11/02/19 History povidone-iodine [Betadine 1 applic TOPICAL DAILY 11/02/19 11/02/19 11/02/19 History Swabsticks] tizanidine 2 mg PO BID PRN 11/02/19 11/02/19 10/24/19 History Allergies Allergy/AdvReac Type Severity Reaction Status Date / Time No Known Allergies Allergy Verified 07/10/19 14:07 PFSH Acute PFSH: Medical History (Updated 11/02/19 @ 17:06 by Omid Gonsalez MD) Acute respiratory failure Anemia Benign prostatic hyperplasia Chronic kidney disease, stage III (moderate) Stable Congestive heart failure COPD (chronic obstructive pulmonary disease) Diastolic CHF Continue current diuretics DNR (do not resuscitate) GI bleed Follow-up with general surgery regarding endoscopy History of colon polyps Hyperlipidemia Hypertension Monoclonal gammopathy Paroxysmal atrial fibrillation Controlled Pneumonia Rosacea TIA (transient ischemic attack) Surgical History H/O knee surgery History of back surgery History of colonoscopy with polypectomy History of neck surgery Family History Other CAD (coronary artery disease) Social History (Updated 11/02/19 @ 17:06 by Omid Gonsalez MD) Smoking and tobacco status: former smoker Alcohol intake: unknown Housing: Skilled Nursing Vitals/I&O/Wt Last Vital Signs Temp 98.1 F 11/02/19 10:39 Pulse 62 11/02/19 16:34 Resp 18 11/02/19 15:12 BP 109/57 11/02/19 15:12 Pulse Ox 99 11/02/19 16:34 11/02/19 11/02/19 11/02/19 06:59 14:59 22:59 Intake Total 50 / 50 Balance 50 / 50 Weight last 48 hrs Weight 90.718 kg Physical Exam Narrative: EXAM NARRATIVE: General: No acute distress, lethargic, drowsy, maintaining airway, arousable to deep touch HEENT: PERRLA, pupils bilaterally equal and reactive Chest: Bilateral bronchial breath sounds, rhonchi and coarse crackles present in left lower zone, occasional conducted breath sounds CVS: S1-S2 regular, no murmurs, no tachycardia, no gallops, no rubs Abdomen: Soft, nontender, no organomegaly, bowel sounds present Neuro: Moving all 4 limbs, GCS E2 M4V 4 not following simple commands Data : 11/02/19 11:20 11/02/19 11:20 Micro: Microbiology 11/02/19 11:22 Blood Culture - Preliminary Blood SPECIMEN COLLECTED 11/02/19 11:20 Blood Culture - Preliminary Blood SPECIMEN COLLECTED A&P Assessment and plan (1) Septic shock: Status: Acute (2) Adult failure to thrive: Status: Acute (3) Acute UTI: Status: Acute (4) Community acquired pneumonia: Status: Acute Qualifiers: Laterality: unspecified laterality Qualified Code(s): J18.9 - Pneumonia, unspecified organism (5) Chronic kidney disease, stage III (moderate): Status: Acute (6) Paroxysmal atrial fibrillation: Status: Acute (7) Diastolic CHF: Status: Acute (8) DNR (do not resuscitate): Status: Acute Additional A&P Information Septic shock: Criteria met through low blood pressures not responding to fluids, leukocytosis, possible site of infection. Transfer to ICU. Keep mean artery pressure was 65 mmhg Patient has history of diastolic heart failure is DNR/DNI so we will decrease the fluid to 75 cc/h. Levophed titrate keeping mean at target. Urinalysis consistent with UTI. Patient has chronic Shoemaker. Last urine culture positive for Caity. Change Shoemaker catheter. Patient with a history of MRSA bacteremia. Follow-up urine culture, blood culture. Check urine Legionella, bacterial antigen, procalcitonin, sputum culture, flu swab. Check CT chest without contrast. Lactic acid with reflex. Start patient on vancomycin, Zosyn, azithromycin renally dosed. Will de-escalate antibiotics as per the culture results. Hypertension: Hold antihypertensives. Keep mean arterial pressure over 65mmhg. COPD/history of diastolic heart failure: Last echocardiogram from February 2019 shows an EF of 61% with grade 1 diastolic dysfunction. DuoNebs every 6 hour, budesonide twice daily. Oxygen supplementation keeping saturation over 90%. Stat ABG. Patient is DNR/DNI. CKD: Baseline creatinine around 2. Creatinine 2.3 today. Medical reconciliation done for nephrotoxic drugs. Continue to monitor BMP daily. Patient does not have any electrolyte abnormality or acidosis at present. Paroxysmal A. fib: Rate controlled. Patient is on Coreg at home. Hold Coreg for now. If patient goes tachycardic will most likely require either amiodarone or digoxin load. Failure to thrive/severe protein energy malnutrition. Patient has a DNR/DNI signed in June 20, 2019 in the system. Patient's goals of care has been discussed with his brother who is the DPOAE Mr. Jaime Cortes. He confirms that patient is DNR/DNI. He is okay with patient getting pressors for now. History of GI bleed. Anemia. Hyperlipidemia IV Protonix. N.p.o. Heparin 5000 every 12 for DVT prophylaxis. Attestations Medical Necessity Statement*: More than 2 midnights for treatment of septic shock Time Spent in Patient Care: 16 - 35 minutes (>than 50% of time spent in counselling and/or direct pt care on unit). Coding Level of Care Code Acute Spinner Continuous for Chg Fwd Diagnoses Septic shock A41.9; R65.21 Adult failure to thrive R62.7 Acute UTI N39.0 Community acquired pneumonia J18.9 Laterality: unspecified laterality Chronic kidney disease, stage III (moderate) N18.3 Paroxysmal atrial fibrillation I48.0 Diastolic CHF I50.30 DNR (do not resuscitate) Z66
[2019-11-02] MEDS: famotidine 20 mg/2 mL INJ IVP (16:58)
[2019-11-02] MEDS: heparin 5,000 unit/mL INJ 1 mL 5000 UNIT SUBCUT (16:59)
[2019-11-02] MEDS: vancomycin 1,000 MG in sodium chloride 0.9% 250 ML 250 MG IV (17:16)
--- NOTE | 2019-11-02 17:36 | ECG_ITS ---
[facility] Test Date: 2019-11-02 Pat Name: Teddy Cortes Department: Room: 102 Gender: Male Director Market Intelligence: : 1935 Requested By: Ezekiel Flynn Order Number: [id number] Henrietta MD: Saad Harden M.D. Measurements Intervals [place] Rate: 63 P: 267 MA: 188 QRS: -58 QRSD: 138 T: 106 QT: 461 QTc: 473 Interpretive Statements SINUS RHYTHM INTRAVENTRICULAR CONDUCTION DELAY [130+ ms QRS DURATION] Compared to ECG 11/02/2019 13:28:30 No significant changes Electronically Signed On 11-03-2019 1:39:35 CDT by Saad Harden M.D. [id number]
[2019-11-02] MEDS: pantoprazole 40 mg SDV IVP (17:38)
[2019-11-02 17:40] LABS: Influenza A by IFA Negative (Negative); Influenza B by IFA Negative (Negative)
[2019-11-02 17:47] LABS: Potassium, Radom Urine 40 mmol/L; Urine Random Chloride 36 mmol/L; Urine Random Sodium 33 mmol/L
[2019-11-02 18:01] LABS: Free T4 Free Thyroxine 1.17 ng/dL (0.82-1.77); Thyroid Stimulating Hormone 1.94 uIU/mL (0.27-4.20)
[2019-11-02 18:02] LABS: Procalcitonin 0.92 ng/mL (0-0.5)
[2019-11-02 18:13] LABS: Iron 84 ug/dL (59-158); Percent Saturation 61.3 % (20-50); Total Iron Binding Capacity 137 mcg/dl; Unsaturated Iron Binding 53 ug/dL (112-347)
--- NOTE | 2019-11-02 18:22 | PC.NURSE ---
Report called to EDE Nails in ICU. Patient to go to CT then ICU bed 12.
[2019-11-02 18:34] LABS: Lactic Sepsis W/Reflex 2.7 mmol/L (0.5-2.2)
--- NOTE | 2019-11-02 18:45 | PC.NURSE ---
Arrived to ICU from CSU at this time. Arrived to unit with levophed drip at 2mcg/min and oxymask at 4L NC. Lungs coarse/rhonchi throughout. Pt alert and oriented to person and place. SR with PVCs. Decubitus ulcers to sacrum and medial back. See wound care assessment.
[2019-11-02 20:03] LABS: Reflex Lactate Order REFLEX LACTIC ORDERD
[2019-11-02 20:08] LABS: Troponin 5 6HR 433.6 ng/L (0-15); Troponin 5 6HR Delta 46.6 ng/L (0-12)
[2019-11-02] MEDS: budesonide 0.5 mg/2 mL Neb INHALATION (20:17)
[2019-11-02] MEDS: ipratropium-albuterol 3 mL Neb INHALATION (20:18)
[2019-11-02 20:45] LABS: Lactic Acid level (Lactate) 2.7 mmol/L (0.5-2.2)
[2019-11-03] VITALS (75 sets, daily range): BP systolic 82–141; BP diastolic 45–79; PULSE 57–80; RESP 10–34; TEMP 36.6–37.2; O2SAT 79–100
[2019-11-03] MEDS: ipratropium-albuterol 3 mL Neb INHALATION ×4 (02:50→21:01)
[2019-11-03] MEDS: piperacillin-tazobactam 3.375 GM in sodium chloride 0.9% (plus) 50 ML IV ×3 (05:28→20:51)
[2019-11-03] MEDS: sodium chloride 0.9% 1,000 ML 75 ML IV (05:29)
[2019-11-03] MEDS: pantoprazole 40 mg SDV IVP ×2 (05:31→17:32)
[2019-11-03] MEDS: heparin 5,000 unit/mL INJ 1 mL 5000 UNIT SUBCUT ×2 (05:31→17:32)
[2019-11-03 06:14] LABS: Basophils % 0.3 %; Eosinophils # 0.1 10^3/uL (0.0-0.8); Eosinophils % 0.8 %; Hematocrit 27.4 % (42.0-52.0); Hemoglobin 8.1 g/dL (11.7-16.6); Lymphocytes # 1.4 10^3/uL (0.8-4.8); Lymphocytes % 12.6 %; Mean Corpuscular HGB Conc 29.6 g/dL (30.0-36.0); Mean Corpuscular Hemoglobin 29.7 pg (28.0-34.0); Mean Corpuscular Volume 100.4 fL (80-94); Mean Platelet Volume 10.5 fL (7.4-10.4); Monocytes # 0.6 10^3/uL (0.2-0.9); Monocytes % 5.2 %; Neutrophils # 9.12 10^3/uL (1.8-7.7); Neutrophils % 80.6 %; Nucleated Red Blood Cells % 0 %; Platelet Count 172 10^3/cmm (130-400); Red Blood Count 2.73 10^6/uL (4.1-5.3); Red Cell Distribution Width 13.7 % (12.1-15.1); White Blood Count 11.3 10^3/uL (4.0-10.0)
[2019-11-03 07:12] LABS: Alanine Aminotransferase 8 U/L (0-41); Albumin Level 2.6 g/dL (3.5-5.2); Alkaline Phosphatase 69 IU/L (40-130); Anion Gap 11.5 (5-19); Aspartate Amino Transferase 18 U/L (0-40); Blood Urea Nitrogen 39 mg/dL (8-23); Calcium 10.3 mg/dL (8.5-10.5); Carbon Dioxide 34 mmol/L (22-29); Chloride 90 mmol/L (98-107); Globulin 4.4 g/dL (1.3-4.6); Glucose 96 mg/dL (65-115); Magnesium 1.9 mg/dL (1.7-2.3); Osmolality Calculated 273 mOsm/kg (285-295); Phosphorus 3.3 mg/dL (2.5-4.5); Sodium 133 mmol/L (136-145); Total Bilirubin 0.2 mg/dL (0.15-1.2)
[2019-11-03 07:37] LABS: Potassium 2.5 mmol/L (3.5-5.1)
[2019-11-03] MEDS: budesonide 0.5 mg/2 mL Neb INHALATION ×2 (07:44→21:01)
[2019-11-03] MEDS: potassium chloride premix 40 MEQ/100 ML PREMIX 25 MEQ IV ×2 (08:10→12:07)
[2019-11-03] MEDS: azithromycin 500 MG in sodium chloride 0.9% 250 ML 250 MG IV (08:11)
[2019-11-03 08:34] LABS: Estmated Average Glucose 100; Hemoglobin A1C 5.1 % (4.0-6.0)
--- NOTE | 2019-11-03 11:33 | XR_ITS ---
WS: [id number] CHEST XRAY TECHNIQUE: Portable chest. CLINICAL INFORMATION: sob COMPARISON: None. FINDINGS: Heart: Cardiomegaly. Lungs: Moderate to advanced chronic emphysematous changes . Stable bilateral interstitial thickening. Tiny left pleural effusion with left lower lobe atelectasis appears improved.. Bones: Normal visualized bony structures. XR/XR chest 1V portable [id number] IMPRESSION: 1. Stable cardiomegaly. 2. Left lower lobe pneumonia and pleural fluid appears slightly improved. 3. Stable interstitial thickening throughout both lungs.
--- NOTE | 2019-11-03 11:55 | CTR_ITS ---
PROCEDURE INFORMATION: Exam: CT Abdomen And Pelvis Without Contrast Exam date and time: 11/03/2019 9:51 PM Age: 84 years old Clinical indication: Other: Sepsis, decubitus ulcer; Additional info: Sepsis, possible decubitus ulcer TECHNIQUE: Imaging protocol: Computed tomography of the abdomen and pelvis without contrast. Radiation optimization: All CT scans at this facility use at least one of these dose optimization techniques: automated exposure control; mA and/or kV adjustment per patient size (includes targeted exams where dose is matched to clinical indication); or iterative reconstruction. COMPARISON: 1. CT abdomen pelvis w con* [id number] 08/04/2016 12:[address] chest wo con [id number] 11/02/2019 6:24:[address] hip LT wo con* [id number] 07/14/2019 11:34:35 AM RADIATION DOSE METRICS: Total DLP (mGy-cm): 1039.6 FINDINGS: Lungs: There is extensive tree-in-bud opacity in the lung bases bilaterally with dependent consolidation or atelectasis in the lower lobes. Heart: There is mild cardiac enlargement. Liver: The liver is normal. Gallbladder and bile ducts: The gallbladder is normal. There is no biliary dilation. Pancreas: The pancreas is unremarkable. Spleen: The spleen is unremarkable. Adrenals: The adrenal glands are unremarkable. Kidneys and ureters: The kidneys are unremarkable. No hydronephrosis or stones. No ureteral dilation. Stomach and bowel: The stomach is unremarkable. The small bowel is nondilated. There is moderate colonic diverticulosis without evidence of diverticulitis. Appendix: The appendix is normal. Intraperitoneal space: There is no free air or significant intraperitoneal free fluid. 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 There is severe diffuse aortic atherosclerotic disease. Lymph nodes: There is no lymphadenopathy in the retroperitoneum, mesentery, pelvis or inguinal regions. Bladder: The urinary bladder is decompressed, preventing meaningful evaluation of wall thickness. The Shoemaker catheter is appropriately positioned with the bulb and tip within the bladder lumen. Reproductive: The prostate and seminal vesicles are unremarkable. Bones/joints: There is a subacute ununited fracture of the left femoral neck with mild displacement and moderate bone resorption at the fracture margins. There is a moderate size left hip effusion. There is intact posterolateral fusion from L2 through L4. There is severe diffuse lumbar degenerative disease. There is a chronic compression fracture at T12. There is a chronic compression fracture at T8. Soft tissues: The abdominal wall is intact. CT/CT abdomen pelvis wo con [id number] IMPRESSION: 1. Bilateral lower lung opacities consistent with airways spread of infection. 2. Subacute fracture of the left femoral neck with left hip effusion. Displacement at the fracture site has increased since 07/14/2019. 3. Incidental findings above. Radiation Dose CTDIVOL = (mGy): DLP = 1039.6 (mGy-cm)
--- NOTE | 2019-11-03 12:01 | PM.PN ---
Subjective Subjective: Interval history: No acute events overnight. Levophed was stopped earlier this morning. Patient has remained hemodynamically stable and afebrile since last night. Examination patient is mildly more arousable than yesterday. He denies any nausea vomiting. On examination he is on 5 L Oxymizer saturating 94% with blood pressure 112/70 mmHg, heart rate of 64 bpm. Vitals/I&O/Wt Last Vital Signs Temp 98.5 F 11/03/19 04:00 Pulse 63 11/03/19 10:00 Resp 16 11/03/19 10:00 BP 125/64 11/03/19 10:00 Pulse Ox 97 11/03/19 10:00 11/02/19 11/03/19 11/03/19 22:59 06:59 14:59 Intake Total 460.598 / 510.598 930.890 / 1441.488 Output Total 900 / 900 550 / 1450 Balance -439.402 / -389.402 380.890 / -8.512 Weight last 48 hrs Weight 74.344 kg Weight 90.718 kg Physical Exam Narrative: EXAM NARRATIVE: General: No acute distress, lethargic, drowsy, maintaining airway, arousable to verbal stimulus HEENT: PERRLA, pupils bilaterally equal and reactive Chest: Bilateral bronchial breath sounds, rhonchi and coarse crackles present in left lower zone, occasional conducted breath sounds CVS: S1-S2 regular, no murmurs, no tachycardia, no gallops, no rubs Abdomen: Soft, nontender, no organomegaly, bowel sounds present Neuro: Moving all 4 limbs, GCS E2 M4V 4 not following simple commands Urinary Catheter Management^: Shoemaker Latex: Cath Placed During This Visit: yes Reason for Continuing Indwelling Catheter: Accurate Measurement of Urinary Output in Critically Ill Patients Urinary Catheter Date of Insertion: 11/02/19 Urinary Catheter Time of Insertion: 16:40 Data : 11/03/19 05:56 11/03/19 05:56 Micro: Microbiology 11/02/19 11:22 Blood Culture - Preliminary Blood NEGATIVE TO DATE 11/02/19 11:20 Blood Culture - Preliminary Blood NEGATIVE TO DATE 11/02/19 11:11 Urine Culture - Preliminary Urine,Clean Catch Gram Negative Rods 11/02/19 Unknown Bacterial Antigens - Final Urine Suprapubic 11/02/19 Unknown Legionella Urinary Antigen - Final Urine Catheterized A&P Assessment and plan (1) Septic shock: Status: Acute (2) Adult failure to thrive: Status: Acute (3) Acute UTI: Status: Acute (4) Community acquired pneumonia: Status: Acute Qualifiers: Laterality: unspecified laterality Qualified Code(s): J18.9 - Pneumonia, unspecified organism (5) NSTEMI (non-ST elevated myocardial infarction): Status: Acute (6) Chronic kidney disease, stage III (moderate): Status: Acute (7) Paroxysmal atrial fibrillation: Status: Acute (8) Diastolic CHF: Status: Acute (9) GI bleed: Status: Acute (10) DNR (do not resuscitate): Status: Acute (11) Anemia: Status: Acute Additional A&P Information Septic shock: Criteria met through low blood pressures not responding to fluids, leukocytosis, possible site of infection. Continue with ICU care. Keep mean artery pressure was 65 mmhg Patient has history of diastolic heart failure is DNR/DNI so we will decrease the fluid to 50 cc/h. Levophed stopped earlier today morning. Multiple reasons for possible septic shock. Most likely because of bilateral pneumonia, UTI and patient also has a decubitus ulcer. Shoemaker changed yesterday. Patient has a history of Caity in urine and MRSA bacteremia earlier this year. Continue with vancomycin, Zosyn, azithromycin ultimately dosed. We will de-escalate antibiotics as per the culture results. Follow-up with urine, blood culture. Legionella, bacterial antigen negative. Sputum cultures awaited. Repeat lactate. Decubitus ulcer: We will check CT abdomen pelvis. Add ESR and CRP to morning labs. We will consult surgery to see if patient requires debridement. Wound culture sent. NSTEMI/elevated troponins: EKG at baseline. Patient's troponin up in 400s with delta of 56. We will add on troponins on today morning's lab. Most likely due to demand ischemia from sepsis. Add lipid panel to morning labs. We will give 325 mg aspirin stat followed by 81 mg daily, statin 40 mg daily. Patient has a recent history of GI bleed for which he required 4 to 5 units of PRBC transfusion earlier this year. Hemoglobin is at its baseline of around 8. Given this we will hold off on starting full dose anticoagulation. If repeat troponin today morning still trending up we will consult cardiology to see if we need to start on anticoagulation. Hypertension: Hold antihypertensives. Keep mean arterial pressure over 65mmhg. COPD/history of diastolic heart failure: Last echocardiogram from February 2019 shows an EF of 61% with grade 1 diastolic dysfunction. DuoNebs every 6 hour, budesonide twice daily. Oxygen supplementation keeping saturation over 90%. Patient is DNR/DNI. CKD: Baseline creatinine around 2. Creatinine 1.6 today. Medical reconciliation done for nephrotoxic drugs. Continue to monitor BMP daily. Patient does not have any electrolyte abnormality or acidosis at present. Paroxysmal A. fib: Rate controlled. Patient is on Coreg at home. Hold Coreg for now given borderline blood pressures. If blood pressures improve can start him back on beta-tammy. If patient goes tachycardic will most likely require either amiodarone or digoxin load. Failure to thrive/severe protein energy malnutrition. Patient has a DNR/DNI signed in June 20, 2019 in the system. Patient's goals of care has been discussed with his brother who is the DPOAE Taylor Jaime Sebastian. He confirms that patient is DNR/DNI. He is okay with patient getting pressors for now. History of GI bleed. Anemia: Blood work consistent with severe iron deficiency anemia and anemia of chronic disease. Given ongoing sepsis we will hold off on starting IV iron for now. Hyperlipidemia IV Protonix. N.p.o. Heparin 5000 every 12 for DVT prophylaxis. Attestations Medical Necessity Statement*: Severe sepsis, NSTEMI Critical Care Time: Levo fed, NSTEMI, septic shock Critical Care Time (min): 80 Coding Level of Care Code Acute Carpenter Form for [facility] Fwd Diagnoses Septic shock A41.9; R65.21 Adult failure to thrive R62.7 Acute UTI N39.0 Community acquired pneumonia J18.9 Laterality: unspecified laterality NSTEMI (non-ST elevated myocardial infarction) I21.4 Chronic kidney disease, stage III (moderate) N18.3 Paroxysmal atrial fibrillation I48.0 Diastolic CHF I50.30 GI bleed K92.2 DNR (do not resuscitate) Z66 Anemia D64.9
[2019-11-03] MEDS: citalopram 20 mg Tablet 10 MG PO (12:25)
[2019-11-03] MEDS: aspirin 325 mg EC Tablet PO (12:25)
[2019-11-03 12:48] LABS: C Reactive Protein 122.8 mg/L (0.0-4.9)
[2019-11-03 13:27] LABS: Erythrocyte Sedimentation Rate > 120 mm/hr (0-10)
[2019-11-03 13:33] LABS: Troponin T (5th) Once 399 ng/L (0-15)
--- NOTE | 2019-11-03 14:05 | PC.NURSE ---
iv had infiltrated attempted several sticks per staff unable to obtain ,, call placed for picc line unable to obtain today verified that iv could be sited foot. placed into right foot
--- NOTE | 2019-11-03 16:40 | PM.CONSULT ---
Providers/Reason For Consult Consulting Physican/Specialty*: Dr. Epstein Reason for Consult*: Sacral decubitus ulcer Attending Physician: Omid Gonsalez MD Primary Care Provider: Bob Tobar MD History of Present Illness History of Present Illness Teddy Cortes is a 84 year old male who was transferred to the ER from a [place] [facility] with confusion from the day before. Patient has not had any abdominal pain nausea vomiting or diarrhea. He was noted to have pneumonia and UTI and was admitted to the ICU due to hypotension and diagnosis of septic shock. I was consulted for evaluation for sacral decubitus wound. Review of Systems General: Reports: ROS unobtainable due to mental status Meds/Allergies Home Medications and Allergies Home Medications Medication Instructions Recorded Confirmed Last Taken Type Atrovent HFA 2 puff INHALATION DAILY PRN 06/14/19 11/02/19 Unknown History Enema Disposable 118 ml MN DAILY PRN 06/14/19 11/02/19 Unknown History Lactobacillus acidophilus 1 cap PO DAILY 06/14/19 11/02/19 11/01/19 History [Acidophilus] Spiriva with HandiHaler 1 cap INHALATION DAILY 06/14/19 11/02/19 11/02/19 History acetaminophen [Tylenol 8 Hour] 650 mg PO Q6H PRN 06/14/19 11/02/19 Unknown History bisacodyl 10 mg MN DAILY PRN 06/14/19 11/02/19 Unknown History carvedilol 3.125 mg PO BID 06/14/19 11/02/19 11/02/19 History docusate sodium [Colace] 100 mg PO DAILY 06/14/19 11/02/19 11/02/19 History ferrous sulfate 325 mg PO DAILY 06/14/19 11/02/19 11/02/19 History folic acid 1 mg PO DAILY 06/14/19 11/02/19 11/02/19 History gabapentin 300 mg PO BID 06/14/19 11/02/19 11/02/19 History hydrocodone-acetaminophen [Mcewen] 1 tab PO Q6H PRN 06/14/19 11/02/19 10/28/19 History magnesium hydroxide [Milk of 30 ml PO DAILY PRN 06/14/19 11/02/19 07/19/19 History Magnesia] sennosides [senna] 8.6 mg PO DAILY 06/14/19 11/02/19 11/01/19 History budesonide-formoterol 2 puff INHALATION BID 07/02/19 11/02/19 11/02/19 History ondansetron HCl [Zofran] 4 mg PO TID PRN 07/02/19 11/02/19 Unknown History pantoprazole 40 mg PO DAILY 07/19/19 11/02/19 11/02/19 History albuterol sulfate 1 inh INHALATION QID PRN 11/02/19 11/02/19 Unknown History alendronate 70 mg PO Q7D 11/02/19 11/02/19 10/29/19 History bisacodyl [Dulcolax (bisacodyl)] 5 mg PO DAILY PRN 11/02/19 11/02/19 Unknown History bumetanide 1 mg PO BID 11/02/19 11/02/19 11/02/19 History citalopram 10 mg PO DAILY 11/02/19 11/02/19 11/02/19 History honey [MediHoney (honey)] 1 applic TOPICAL DAILY 11/02/19 11/02/19 11/01/19 History metolazone 2.5 mg PO DAILY 11/02/19 11/02/19 11/02/19 History potassium chloride 20 meq PO TID 11/02/19 11/02/19 11/02/19 History povidone-iodine [Betadine 1 applic TOPICAL DAILY 11/02/19 11/02/19 11/02/19 History Swabsticks] tizanidine 2 mg PO BID PRN 11/02/19 11/02/19 10/24/19 History Allergies Allergy/AdvReac Type Severity Reaction Status Date / Time No Known Allergies Allergy Verified 07/10/19 14:07 Current Medications Current Medications Generic Name Dose Route Start Last Admin Trade Name Freq PRN Reason Stop Dose Admin Albuterol/Ipratropium 3 ml 11/02/19 21:00 11/03/19 15:46 Duoneb INHALATION 3 ml Q6H.RESPIRATORY NAY Administration Budesonide 0.5 mg 11/02/19 20:00 11/03/19 07:44 Pulmicort INHALATION 0.5 mg BID.RESPIRATORY NAY Administration Citalopram Hydrobromide 10 mg 11/03/19 09:00 11/03/19 12:25 Celexa PO 10 mg DAILY NAY Administration Heparin Sodium (Beef Lung) 5,000 unit 11/02/19 17:00 11/03/19 05:31 Heparin SUBCUT 5,000 unit Q12H NAY Administration Sodium Chloride 1,000 mls @ 50 mls/hr 11/02/19 14:00 11/03/19 05:29 Sodium Chloride 0.9% IV 75 mls/hr .Q20H NAY Administration Piperacillin Sod/Tazobactam 50 mls @ 12.5 mls/hr 11/02/19 21:00 11/03/19 12:10 Sod 3.375 gm/ Sodium Chloride IV 12.5 mls/hr Q8H NAY Administration Protocol Vancomycin HCl 1,000 mg/ 250 mls @ 250 mls/hr 11/02/19 18:00 11/02/19 18:20 Sodium Chloride IV Infused Q24H NAY Infusion Protocol Azithromycin 500 mg/ Sodium 250 mls @ 250 mls/hr 11/03/19 09:00 11/03/19 15:02 Chloride IV Infused DAILY NAY Infusion Protocol Norepinephrine Bitartrate 4 mg 254 mls @ 0 mls/hr 11/02/19 16:45 11/03/19 05:30 / Dextrose IV 0 mcg/min .Q0M NAY 0 mls/hr Titration Protocol Per Protocol Pantoprazole Sodium 40 mg 11/02/19 17:30 11/03/19 05:31 Protonix IVP 40 mg Q12H NAY Administration PFSH Acute PFSH: Medical History Acute respiratory failure Anemia Benign prostatic hyperplasia Chronic kidney disease, stage III (moderate) Stable Congestive heart failure COPD (chronic obstructive pulmonary disease) Diastolic CHF Continue current diuretics DNR (do not resuscitate) GI bleed Follow-up with general surgery regarding endoscopy History of colon polyps Hyperlipidemia Hypertension Monoclonal gammopathy Paroxysmal atrial fibrillation Controlled Pneumonia Rosacea TIA (transient ischemic attack) Surgical History H/O knee surgery History of back surgery History of colonoscopy with polypectomy History of neck surgery Family History Other CAD (coronary artery disease) Social History Smoking and tobacco status: former smoker Alcohol intake: unknown [facility]: [facility] Vitals/I&O/Wt Last Vital Signs Temp 98.5 F 11/03/19 04:00 Pulse 57 L 11/03/19 16:00 Resp 16 11/03/19 16:00 BP 141/67 11/03/19 16:00 Pulse Ox 95 11/03/19 16:00 11/03/19 11/03/19 11/03/19 06:59 14:59 22:59 Intake Total 930.890 / 1441.488 148.75 / 398.75 250 / 398.75 Output Total 550 / 1450 350 / 350 Balance 380.890 / -8.512 -201.25 / 48.75 250 / 48.75 Weight last 48 hrs Weight 163 lb 14.4 oz Weight 200 lb Physical Exam Narrative: EXAM NARRATIVE: HEENT: Normocephalic Eye: Sclera /conjunctiva normal Neurological: Appears confused Skin: 8 x 10 cm area of erythema over sacrum with unstageable ulcer with eschar measuring about 2 x 5 cm long. Urinary Catheter Management^: Shoemaker Latex: Cath Placed During This Visit: yes Reason for Continuing Indwelling Catheter: Accurate Measurement of Urinary Output in Critically Ill Patients Urinary Catheter Date of Insertion: 11/02/19 Urinary Catheter Time of Insertion: 16:40 Data Micro: Micro: Microbiology 11/03/19 11:35 Gram Stain - Final Buttock 11/03/19 11:35 Gram Stain - Final Sputum - Expector ated Sputum 11/02/19 Unknown MRSA Culture - Fin al Nose 11/02/19 11:22 Blood Culture - Pr eliminary Blood NEGATIVE TO KARLI E 11/02/19 11:20 Blood Culture - Pr eliminary Blood NEGATIVE TO KARLI E 11/02/19 11:11 Urine Culture - Pr eliminary Urine,Clean Catch Gram Negative R ods 11/02/19 Unknown Bacterial Antigens - Final Urine Suprapubic 11/02/19 Unknown Legionella Urinary Antigen - Final Urine Catheterize d A&P Assessment and plan (1) Decubitus ulcer of sacral region, unstageable: 84-year-old gentleman with unstageable sacral decubitus ulcer admitted with septic shock likely secondary to UTI and pneumonia. Patient is DNR/DNI. If patient's overall status had been better he would have required debridement of the sacral decubitus ulcer but at this point I am not sure there will be significant benefit by putting him under anesthesia for debriding the sacral decubitus ulcer especially since the area of involvement does not appear to be that significant. If circumstances change and patient show significant improvement we can plan for excisional debridement under MAC. Status: Acute Coding Level of Care Code Acute [facility] Diagn[facility] Decubitus ulcer of sacral region, unstageable L89.150
--- NOTE | 2019-11-03 16:55 | PC.NURSE ---
visitor at bedside at this time rolling in bed and yelling out at this time
[2019-11-03] MEDS: vancomycin 1,000 MG in sodium chloride 0.9% 250 ML 250 MG IV (17:33)
[2019-11-03] MEDS: atorvastatin 40 mg Tablet 20 MG PO (20:51)
--- NOTE | 2019-11-03 21:39 | PC.NURSE ---
IV New IV placed, 20g, right upper arm. U/S utilized, patient tolerated well, blood return noted.
--- NOTE | 2019-11-03 22:25 | PC.NURSE ---
Patient taken to CT with two RN's, tolerated trip well, uneventful.
[2019-11-04] VITALS (74 sets, daily range): BP systolic 102–159; BP diastolic 51–78; PULSE 58–158; RESP 12–25; TEMP 36.6–37.5; O2SAT 84–100
[2019-11-04] MEDS: sodium chloride 0.9% 1,000 ML 50 ML IV (03:02)
[2019-11-04] MEDS: ipratropium-albuterol 3 mL Neb INHALATION ×4 (03:21→22:12)
[2019-11-04] MEDS: pantoprazole 40 mg SDV IVP (06:01)
[2019-11-04] MEDS: piperacillin-tazobactam 3.375 GM in sodium chloride 0.9% (plus) 50 ML IV ×2 (06:02→22:04)
[2019-11-04] MEDS: heparin 5,000 unit/mL INJ 1 mL 5000 UNIT SUBCUT ×2 (06:02→16:12)
[2019-11-04 06:12] LABS: Basophils % 0.2 %; Eosinophils # 0.1 10^3/uL (0.0-0.8); Eosinophils % 0.8 %; Hematocrit 24.9 % (42.0-52.0); Hemoglobin 7.5 g/dL (11.7-16.6); Lymphocytes # 1.5 10^3/uL (0.8-4.8); Lymphocytes % 15.3 %; Mean Corpuscular HGB Conc 30.1 g/dL (30.0-36.0); Mean Corpuscular Hemoglobin 30.6 pg (28.0-34.0); Mean Corpuscular Volume 101.6 fL (80-94); Monocytes # 0.6 10^3/uL (0.2-0.9); Monocytes % 6.1 %; Nucleated Red Blood Cells % 0 %; Platelet Count 168 10^3/cmm (130-400); Red Blood Count 2.45 10^6/uL (4.1-5.3); Red Cell Distribution Width 13.6 % (12.1-15.1)
[2019-11-04 06:33] LABS: Alanine Aminotransferase 7 U/L (0-41); Albumin Level 2.4 g/dL (3.5-5.2); Alkaline Phosphatase 73 IU/L (40-130); Anion Gap 10.9 (5-19); Aspartate Amino Transferase 12 U/L (0-40); Blood Urea Nitrogen 25 mg/dL (8-23); Carbon Dioxide 34 mmol/L (22-29); Chloride 99 mmol/L (98-107); Globulin 4.1 g/dL (1.3-4.6); Glucose 84 mg/dL (65-115); Osmolality Calculated 288 mOsm/kg (285-295); Sodium 141 mmol/L (136-145); Total Bilirubin 0.2 mg/dL (0.15-1.2); Total Protein 6.5 g/dL (6.6-8.7)
--- NOTE | 2019-11-04 06:33 | PC.NURSE ---
Dr. Fletcher notified in AM labs-re: HGB. No interventions ordered.
[2019-11-04 06:45] LABS: Potassium 2.9 mmol/L (3.5-5.1)
[2019-11-04] MEDS: potassium chloride ER 10 mEq Tablet 40 MEQ PO (07:28)
[2019-11-04 08:33] LABS: Magnesium 1.7 mg/dL (1.7-2.3)
[2019-11-04] MEDS: citalopram 20 mg Tablet 10 MG PO (08:39)
[2019-11-04] MEDS: azithromycin 500 MG in sodium chloride 0.9% 250 ML 200 MG IV (08:39)
[2019-11-04] MEDS: aspirin 81 mg EC Tablet PO (08:40)
--- NOTE | 2019-11-04 08:49 | PC.NURSE ---
am meds given less choking noted at this time up in bed off coccyx
[2019-11-04] MEDS: budesonide 0.5 mg/2 mL Neb INHALATION ×2 (09:07→22:12)
[2019-11-04] MEDS: levofloxacin-dextrose 5 % 500 MG/100 ML PREMIX 100 MG IV (10:22)
--- NOTE | 2019-11-04 10:36 | PC.NURSE ---
meds given this am with pudding at this time more alert and appropriate able to swallow better head of bed elevated and positioned off bottom
[2019-11-04] MEDS: morphine 4 mg/mL SDV 1 mL 2 MG IVP ×2 (13:00→23:58)
--- NOTE | 2019-11-04 13:28 | PC.NURSE ---
c/o pain in left hip pain med given no distress noted thickend liquids given at this time
--- NOTE | 2019-11-04 14:58 | P.PN_ITS ---
Subjective Subjective: Interval history: Patient doing a lot better. He is awake alert oriented to examination today. She is complaining of mild cough denies of any chest pain, nausea, vomiting, headache. Vitals and labs noted. Vitals/I&O/Wt Last Vital Signs Temp 98 F 11/04/19 10:00 Pulse 67 11/04/19 14:00 Resp 17 11/04/19 14:00 BP 102/62 11/04/19 14:00 Pulse Ox 95 11/04/19 14:00 11/03/19 11/04/19 11/04/19 22:59 06:59 14:59 Intake Total 1300 / 1448.75 50 / 1498.75 600 / 600 Output Total 1000 / 1350 900 / 2250 Balance 300 / 98.75 -850 / -751.25 600 / 600 Weight last 48 hrs Weight 74.332 kg Weight 74.344 kg Physical Exam Narrative: EXAM NARRATIVE: General: No acute distress, lethargic, drowsy, maintaining airway, arousable to verbal stimulus HEENT: PERRLA, pupils bilaterally equal and reactive Chest: Bilateral bronchial breath sounds, rhonchi and coarse crackles present in left lower zone, occasional conducted breath sounds CVS: S1-S2 regular, no murmurs, no tachycardia, no gallops, no rubs Abdomen: Soft, nontender, no organomegaly, bowel sounds present Neuro: Moving all 4 limbs, GCS E2 M4V 4 not following simple commands Urinary Catheter Management^: Shoemaker Latex: Cath Placed During This Visit: yes Reason for Continuing Indwelling Catheter: Accurate Measurement of Urinary Output in Critically Ill Patients Urinary Catheter Date of Insertion: 11/02/19 Urinary Catheter Time of Insertion: 16:40 Data : 11/04/19 04:50 11/04/19 04:50 Micro: Microbiology 11/03/19 11:35 Gram Stain - Final Buttock Wound Culture - Preliminary 11/03/19 11:35 Gram Stain - Final Sputum - Expectorated Sputum Sputum Culture - Preliminary Gram Negative Rods 11/02/19 11:11 Urine Culture - Final Urine,Clean Catch Citrobacter Freundii Complex 11/02/19 Unknown MRSA Culture - Final Nose 11/02/19 11:22 Blood Culture - Preliminary Blood NEGATIVE TO DATE 11/02/19 11:20 Blood Culture - Preliminary Blood NEGATIVE TO DATE A&P Assessment and plan (1) Septic shock: Status: Acute (2) Adult failure to thrive: Status: Acute (3) Acute UTI: Status: Acute (4) Community acquired pneumonia: Status: Acute Qualifiers: Laterality: unspecified laterality Qualified Code(s): J18.9 - Pneumonia, unspecified organism (5) NSTEMI (non-ST elevated myocardial infarction): Status: Acute (6) Chronic kidney disease, stage III (moderate): Status: Acute (7) Paroxysmal atrial fibrillation: Status: Acute (8) Diastolic CHF: Status: Acute (9) GI bleed: Status: Acute (10) DNR (do not resuscitate): Status: Acute (11) Anemia: Status: Acute Additional A&P Information Septic shock: Criteria met through low blood pressures not responding to fluids, leukocytosis, possible site of infection. Resolving. Keep mean artery pressures over 65 mmHg. Sepsis most likely because of pneumonia, UTI. Less likely because of decubitus ulcer. For now continue with vancomycin and Zosyn. Both renally dosed. Day 3 of treatment today. Stop azithromycin as day 3 has been done. Urine culture positive for Citrobacter will be covered appropriately with Zosyn. Shoemaker changed earlier in the admission. Sputum culture positive for gram-negative rods, further speciation awaited. Patient has a history of Caity in urine and MRSA bacteremia earlier this year. Speech and swallow evaluation given the fact that this pneumonia looks more like aspiration. Will advance diet accordingly. Decubitus ulcer: Case discussed with Dr. Steve. Recommendations appreciated. Unfortunately patient is not a good candidate gi lazaro his sepsis for debridement currently. Most likely patient requires a follow-up as an outpatient for debridement. NSTEMI/elevated troponins: EKG at baseline. No chest pains. Most likely due to demand ischemia from sepsis. Patient has a recent history of GI bleed for which he required 4 to 5 units of PRBC transfusion earlier this year. Hemoglobin is at its baseline of around 8. Given this we will hold off on starting full dose anticoagulation. Patient's hemoglobin down today. We will hold off on further aspirin. Continue with statin. Patient is agreeable that he is not in a good state for cardiac angiogram or thrombolytics given history of GI bleed. Hypertension: Hold antihypertensives. Keep mean arterial pressure over 65mmhg. COPD/history of diastolic heart failure: Last echocardiogram from February 2019 shows an EF of 61% with grade 1 diastolic dysfunction. DuoNebs every 6 hour, budesonide twice daily. Oxygen supplementation keeping saturation over 90%. Stop IV fluids today. Patient is euvolemic. Patient is DNR/DNI. CKD: Baseline creatinine around 1.2-1.5 Creatinine 1.2 today. Medical reconciliation done for nephrotoxic drugs. Continue to monitor BMP daily. Patient does not have any electrolyte abnormality or acidosis at present. Paroxysmal A. fib: Rate controlled. Patient is on Coreg at home. Hold Coreg for now given borderline blood pressures. If blood pressures improve can start him back on beta-tammy. Failure to thrive/severe protein energy malnutrition. Patient has a DNR/DNI signed in June 20, 2019 in the system. Patient's goals of care has been discussed with his brother who is the DPOAE Mr. Jaime Cortes. He confirms that patient is DNR/DNI. He is okay with patient getting pressors for now. History of GI bleed. Anemia: Blood work consistent with severe iron deficiency anemia and anemia of chronic disease. Start patient on oral iron supplementation. Repeat hemoglobin at 3 PM. If remains below 8 will transfuse 1 unit PRBC given current cardiac issues for him. Hyperlipidemia IV Protonix. Dysphagia 1 diet Heparin 5000 every 12 for DVT prophylaxis. Patient can be transferred out of the ICU to general medical floor. If patient continues to do well can most likely discharge after finishing a 5-day course. Attestations Medical Necessity Statement*: For resolving septic shock, pneumonia, UTI, NSTEMI Time Spent in Patient Care: Greater than 35 minutes (>than 50% of time spent in counselling and/or direct pt care on unit) . Coding Level of Care Code Acute Slot Service Specialist for [facility] Fwd Diagnoses Septic shock A41.9; R65.21 Adult failure to thrive R62.7 Acute UTI N39.0 Community acquired pneumonia J18.9 Laterality: unspecified laterality NSTEMI (non-ST elevated myocardial infarction) I21.4 Chronic kidney disease, stage III (moderate) N18.3 Paroxysmal atrial fibrillation I48.0 Diastolic CHF I50.30 GI bleed K92.2 DNR (do not resuscitate) Z66 Anemia D64.9
[2019-11-04] MEDS: sodium chloride 0.9% (100 ml) 100 ML 10 ML (16:15)
[2019-11-04] MEDS: ferrous gluconate 324 mg Tablet PO (17:58)
[2019-11-04] MEDS: pantoprazole DR 40 mg Tablet PO (17:58)
[2019-11-04] MEDS: atorvastatin 40 mg Tablet 20 MG PO (20:50)
[2019-11-04] MEDS: vancomycin 1,000 MG in sodium chloride 0.9% 250 ML 250 MG IV (20:50)
[2019-11-04 23:44] LABS: Hematocrit 27.7 % (42.0-52.0); Hemoglobin 8.5 g/dL (11.7-16.6)
[2019-11-05] VITALS (49 sets, daily range): BP systolic 114–156; BP diastolic 61–96; PULSE 61–205; RESP 13–24; TEMP 36.3–37.3; O2SAT 79–99
[2019-11-05] MEDS: ipratropium-albuterol 3 mL Neb INHALATION ×4 (03:15→20:01)
[2019-11-05 05:05] LABS: Basophils % 0.4 %; Eosinophils # 0.1 10^3/uL (0.0-0.8); Eosinophils % 1.8 %; Hematocrit 29.2 % (42.0-52.0); Lymphocytes # 1.6 10^3/uL (0.8-4.8); Lymphocytes % 20.9 %; Mean Corpuscular HGB Conc 30.8 g/dL (30.0-36.0); Mean Corpuscular Hemoglobin 30.5 pg (28.0-34.0); Mean Platelet Volume 10.1 fL (7.4-10.4); Monocytes # 0.6 10^3/uL (0.2-0.9); Monocytes % 7.9 %; Neutrophils # 5.23 10^3/uL (1.8-7.7); Neutrophils % 68.5 %; Nucleated Red Blood Cells % 0 %; Platelet Count 159 10^3/cmm (130-400); Red Blood Count 2.95 10^6/uL (4.1-5.3); Red Cell Distribution Width 14.9 % (12.1-15.1); White Blood Count 7.6 10^3/uL (4.0-10.0)
[2019-11-05 05:20] LABS: Alanine Aminotransferase 7 U/L (0-41); Albumin Level 2.5 g/dL (3.5-5.2); Alkaline Phosphatase 73 IU/L (40-130); Anion Gap 10.9 (5-19); Aspartate Amino Transferase 12 U/L (0-40); Blood Urea Nitrogen 16 mg/dL (8-23); Calcium 10.2 mg/dL (8.5-10.5); Carbon Dioxide 33 mmol/L (22-29); Chloride 96 mmol/L (98-107); Globulin 4.3 g/dL (1.3-4.6); Glucose 95 mg/dL (65-115); Osmolality Calculated 280 mOsm/kg (285-295); Sodium 137 mmol/L (136-145); Total Bilirubin 0.4 mg/dL (0.15-1.2); Total Protein 6.8 g/dL (6.6-8.7)
[2019-11-05 06:15] LABS: Potassium 2.9 mmol/L (3.5-5.1)
[2019-11-05] MEDS: heparin 5,000 unit/mL INJ 1 mL 5000 UNIT SUBCUT ×2 (06:32→17:13)
[2019-11-05] MEDS: potassium chloride ER 10 mEq Tablet 40 MEQ PO (06:47)
[2019-11-05] MEDS: budesonide 0.5 mg/2 mL Neb INHALATION ×2 (08:27→20:01)
--- NOTE | 2019-11-05 08:49 | USCV_ITS ---
Teddy Cortes Age: 84 Gender: M : 1935 Exam Date: 11/05/2019 13:25 Ordering Phys: Omid Gonsalez MD Technologist: Sheila Dockery Exam Location: [facility] – [place] Indication: NSTEMI BP: 132 / 62 HR: 88 Rhythm: Sinus Technical Quality: Technically difficult study MEASUREMENTS (Male / Female) Normal Values 2D ECHO LV Diastolic Diameter PLAX 3.6 cm 4.2 - 5.9 / 3.9 - 5.3 cm LV Systolic Diameter PLAX 1.9 cm LV Chamber Size 4.5 cm IVS Diastolic Thickness 0.8 cm 0.6 - 1.0 / 0.6 - 0.9 cm IVS Systolic Thickness 1.4 cm LVPW Diastolic Thickness 0.9 cm 0.6 - 1.0 / 0.6 - 0.9 cm LVPW Systolic Thickness 1.3 cm RV Chamber Size 3.0 cm LVOT Diameter 2.0 cm LV Ejection Fraction 2D Teich 78.0 % LA Diameter 3.8 cm LA Width 3.2 cm LA Height 4.9 cm RA Width 2.6 cm RA Height 4.8 cm Aorta at Sinotubular Diameter 3.3 cm M-MODE LV Diastolic Diameter MM 7.3 cm 4.2 - 5.9 / 3.9 - 5.3 cm LV Systolic Diameter MM 5.0 cm LV Ejection Fraction MM Teich 58.3 % IVS Diastolic Thickness MM 1.1 cm 0.6 - 1.0 / 0.6 - 0.9 cm IVS Systolic Thickness MM 1.7 cm LVPW Diastolic Thickness MM 1.4 cm 0.6 - 1.0 / 0.6 - 0.9 cm LVPW Systolic Thickness MM 1.8 cm Aortic Annulus Diameter 4.6 cm LA Ao Ratio MM 0.8 MV E Point Septal Separation 0.9 cm DOPPLER AV Peak Velocity 109.0 cm/s LVOT Peak Velocity 80.0 cm/s AV Area Cont Eq vti 1.8 cm squared AV Area Cont Eq pk 2.2 cm squared MV Area PHT 3.3 cm squared Mitral E to A Ratio 0.8 MV E' Velocity 9.0 cm/s Mitral E to MV E' Ratio 9.0 Mitral E to LV E' Lateral Ratio 8.7 Mitral E to LV E' Septal Ratio 9.4 TV Peak E Velocity 86.0 cm/s Right Atrial Pressure 3.0 mmHg FINDINGS Left Ventricle Normal left ventricular cavity size. Normal left ventricular systolic function. Left ventricular ejection fraction is estimated at 55 %. There appeared to be septal bounce could be secondary to interventricular conduction delay or postoperative state.Grade I/IV diastolic dysfunction (abnormal relaxation filling pattern), normal to mildly elevated filling pressures. Right Ventricle Normal right ventricular size. RVSP could not be calculated due to incomplete tricuspid regurgitation velocity profile. Right Atrium The right atrium is normal in size. Left Atrium The left atrium is normal in size. Mitral Valve Moderately thickened mitral valve. No mitral valve stenosis. Moderate mitral annular calcification. No mitral valve regurgitation. Aortic Valve Moderate aortic valve calcification. Mild aortic valve stenosis, mean gradient 2.7 mmHg, SUBHASH 1.8 cm squared.mild aortic valve regurgitation. Tricuspid Valve Structurally normal tricuspid valve without significant stenosis or regurgitation. Pulmonic Valve Structurally normal pulmonic valve without significant stenosis. There is no pulmonic regurgitation. Pericardium Normal pericardium without effusion. Aorta Normal ascending aorta dimension. CONCLUSIONS 1-Normal left ventricular cavity size. Normal left ventricular systolic function. Left ventricular ejection fraction is estimated at 55 %. There appeared to be septal bounce could be secondary to interventricular conduction delay or postoperative state.Grade I/IV diastolic dysfunction (abnormal relaxation filling pattern), normal to mildly elevated filling pressures. 2-Normal right ventricular size. RVSP could not be calculated due to incomplete tricuspid regurgitation velocity profile. 3-Moderate aortic valve calcification. Mild aortic valve stenosis, mean gradient 2.7 mmHg, SUBHASH 1.8 cm squared.mild aortic valve regurgitation. 4-Moderately thickened mitral valve. No mitral valve stenosis. Moderate mitral annular calcification. No mitral valve regurgitation. 5-There is no pericardial effusion. 6-Right atrial pressure is around 5 mm of mercury. 7-When compared to the prior echocardiogram dated 03/12/2019 there appeared to be septal bounce and mild aortic stenosis now. Cal Cardoso MD (Electronically Signed) Final Date: 05 November 2019 15:06 S
[2019-11-05] MEDS: piperacillin-tazobactam 3.375 GM in sodium chloride 0.9% (plus) 50 ML IV ×2 (09:22→19:33)
[2019-11-05] MEDS: citalopram 20 mg Tablet 10 MG PO (09:23)
[2019-11-05] MEDS: pantoprazole DR 40 mg Tablet PO ×2 (09:23→17:12)
[2019-11-05] MEDS: potassium chloride ER 10 mEq Tablet 80 MEQ PO (09:24)
[2019-11-05] MEDS: ferrous gluconate 324 mg Tablet PO ×2 (09:24→17:13)
--- NOTE | 2019-11-05 10:30 | PC.SOCIAL ---
Pg 2 IMM Explained to Pt Pg 2 IMM. No questions voiced. Provided pt a copy. Signed, dated, & timed a copy & placed in pt's chart.
--- NOTE | 2019-11-05 10:36 | PC.NURSE ---
report given for transfer to 258
[2019-11-05] MEDS: acetaminophen 325 mg Tablet 650 MG PO (12:51)
--- NOTE | 2019-11-05 16:52 | P.PN_ITS ---
Subjective Subjective: Interval history: No acute events overnight patient is a lot more awake. Asking when can go home. Denies of any nausea, vomiting, headache. On examination saturating 90% on 3 L nasal cannula. Vitals/I&O/Wt Last Vital Signs Temp 97.8 F 11/05/19 15:28 Pulse 69 11/05/19 15:28 Resp 18 11/05/19 15:28 BP 156/73 11/05/19 15:28 Pulse Ox 90 11/05/19 15:28 11/05/19 11/05/19 11/05/19 06:59 14:59 22:59 Intake Total 540 / 540 Output Total 900 / 1700 Balance -900 / -840 540 / 540 Weight last 48 hrs Weight 73.482 kg Weight 74.332 kg Physical Exam Narrative: EXAM NARRATIVE: General: No acute distress, lethargic, drowsy, maintaining airway, arousable to verbal stimulus HEENT: PERRLA, pupils bilaterally equal and reactive Chest: Bilateral bronchial breath sounds, rhonchi and coarse crackles present in left lower zone, occasional conducted breath sounds CVS: S1-S2 regular, no murmurs, no tachycardia, no gallops, no rubs Abdomen: Soft, nontender, no organomegaly, bowel sounds present Neuro: Moving all 4 limbs, GCS E2 M4V 4 not following simple commands Urinary Catheter Management^: Shoemaker Latex: Cath Placed During This Visit: yes Reason for Continuing Indwelling Catheter: Not indwelling catheter Urinary Catheter Date of Insertion: 11/02/19 Urinary Catheter Time of Insertion: 16:40 Data : 11/05/19 04:50 11/05/19 04:50 Micro: Microbiology 11/03/19 11:35 Gram Stain - Final Buttock Wound Culture - Preliminary Staphylococcus aureus 11/03/19 11:35 Gram Stain - Final Sputum - Expectorated Sputum Sputum Culture - Final Pseudomonas aeruginosa A&P Assessment and plan (1) Septic shock: Status: Acute (2) Adult failure to thrive: Status: Acute (3) Acute UTI: Status: Acute (4) Community acquired pneumonia: Status: Acute Qualifiers: Laterality: unspecified laterality Qualified Code(s): J18.9 - Pneumoni a, unspecified organism (5) NSTEMI (non-ST elevated myocardial infarction): Status: Acute (6) Chronic kidney disease, stage III (moderate): Status: Acute (7) Paroxysmal atrial fibrillation: Status: Acute (8) Diastolic CHF: Status: Acute (9) GI bleed: Status: Acute (10) DNR (do not resuscitate): Status: Acute (11) Anemia: Status: Acute Additional A&P Information Septic shock: Criteria met through low blood pressures not responding to fluids, leukocytosis, possible site of infection. Keep mean artery pressures over 65 mmHg. Sepsis most likely because of pneumonia, UTI. Less likely because of decubitus ulcer. Urine culture growing Citrobacter, sputum culture growing Pseudomonas, wound culture at the back growing staph aureus most likely MRSA. For now continue vancomycin and Zosyn both renally dosed. Day 4 of treatment today. Most likely patient requires 5-day of treatment. Patient will have to follow-up with Dr. Steve as an outpatient for decubitus ulcer debridement in next 1 week. Chest vest physical therapy. Patient has a history of Caity in urine and MRSA bacteremia earlier this year. Speech and swallow evaluation given the fact that this pneumonia looks more like aspiration. Will advance diet accordingly. Decubitus ulcer: Case discussed with Dr. Steve. Recommendations appreciated. Unfortunately patient is not a good candidate g iven his sepsis for debridement currently. Most likely patient requires a follow-up as an outpatient for debridement. NSTEMI/elevated troponins: EKG at baseline. No chest pains. Most likely due to demand ischemia from sepsis. Patient has a recent history of GI bleed for which he required 4 to 5 units of PRBC transfusion earlier this year. Hemoglobin is at its baseline of around 8. Given this we will hold off on starting full dose anticoagulation. We will hold off on further aspirin. Continue with statin. Patient is agreeable that he is not in a good state for cardiac angiogram or thrombolytics given history of GI bleed. Hypertension: Blood pressure is better today. Goal blood pressure less than 140/90 allergy. Start home dose of Coreg. Hypokalemia: Replace with 80 mg oral potassium. Most likely because of good urine output. We will recheck BMP tomorrow morning. COPD/history of diastolic heart failure: Last echocardiogram from February 2019 shows an EF of 61% with grade 1 diastolic dysfunction. DuoNebs every 6 hour, budesonide twice daily. Oxygen supplementation keeping saturation over 90%. Stop IV fluids today. Patient is euvolemic. Patient is DNR/DNI. CKD: Baseline creatinine around 1.2-1.5 Creatinine 1.2 today. Medical reconciliation done for nephrotoxic drugs. Continue to monitor BMP daily. Patient does not have any electrolyte abnormality or acidosis at present. Paroxysmal A. fib: Rate controlled. Restart home dose of Coreg blood pressures are better. No anticoagulation because of history of GI bleed. Failure to thrive/severe protein energy malnutrition. Patient has a DNR/DNI signed in June 20, 2019 in the system. Patient's goals of care has been discussed with his brother who is the DPOAE Mr. Jaime Cortes. He confirms that patient is DNR/DNI. He is okay with patient getting pressors for now. History of GI bleed. Anemia: Blood work consistent with severe iron deficiency anemia and anemia of chronic disease. Start patient on oral iron supplementation. Repeat hemoglobin at 3 PM. If remains below 8 will transfuse 1 unit PRBC given current cardiac issues for him. Hyperlipidemia IV Protonix. Dysphagia 2 diet Heparin 5000 every 12 for DVT prophylaxis. Patient can be transferred out of the ICU to general medical floor. If patient continues to do well can most likely discharge after finishing a 5-day course. Attestations Medical Necessity Statement*: Hypoxia, NSTEMI, severe sepsis, pneumonia, UTI, decubitus ulcer Time Spent in Patient Care: Greater than 35 minutes (>than 50% of time spent in counselling and/or direct pt care on unit) . Coding Level of Care Code Acute Transition Program Manager for g Fwd Diagnoses Septic shock A41.9; R65.21 Adult failure to thrive R62.7 Acute UTI N39.0 Community acquired pneumonia J18.9 Laterality: unspecified laterality NSTEMI (non-ST elevated myocardial infarction) I21.4 Chronic kidney disease, stage III (moderate) N18.3 Paroxysmal atrial fibrillation I48.0 Diastolic CHF I50.30 GI bleed K92.2 DNR (do not resuscitate) Z66 Anemia D64.9
--- NOTE | 2019-11-05 17:00 | XRR_ITS ---
PROCEDURE INFORMATION: Exam: XR Chest, 1 View Exam date and time: 11/05/2019 7:39 PM Age: 84 years old Clinical indication: Shortness of breath; Additional info: Pna TECHNIQUE: Imaging protocol: XR of the chest Views: 1 view. COMPARISON: CR XR chest 1V portable [id number] 11/03/2019 1:56 PM FINDINGS: Lungs: Changes of emphysema with chronic interstitial scarring in both lungs. Airspace opacity is unchanged in the left lung base. Pleural space: Unremarkable. No pleural effusion. No pneumothorax. Heart/Mediastinum: Unremarkable. No cardiomegaly. Bones/joints: Degenerative left shoulder. XR/XR chest 1V portable [id number] IMPRESSION: 1. Stable left lower lobe pneumonia versus aspiration. 2. No visible pleural effusions.
[2019-11-05] MEDS: carvedilol 3.125 mg Tablet PO (17:12)
[2019-11-05] MEDS: vancomycin 1,000 MG in sodium chloride 0.9% 250 ML 250 MG IV (17:15)
[2019-11-05] MEDS: atorvastatin 40 mg Tablet 20 MG PO (21:07)
[2019-11-06] VITALS (15 sets, daily range): BP systolic 102–166; BP diastolic 64–82; PULSE 66–88; RESP 16–24; TEMP 35.9–37.2; O2SAT 89–94
[2019-11-06] MEDS: acetaminophen 325 mg Tablet 650 MG PO ×2 (01:04→21:47)
[2019-11-06] MEDS: piperacillin-tazobactam 3.375 GM in sodium chloride 0.9% (plus) 50 ML IV ×3 (02:07→19:47)
[2019-11-06] MEDS: morphine 4 mg/mL SDV 1 mL 2 MG IVP ×2 (02:16→10:55)
[2019-11-06] MEDS: trazodone 50 mg Tablet PO (03:53)
[2019-11-06] MEDS: heparin 5,000 unit/mL INJ 1 mL 5000 UNIT SUBCUT ×2 (03:55→17:16)
--- NOTE | 2019-11-06 06:20 | PC.NURSE ---
Patient was restless and anxious most of the night pulling on catheter and not able to sleep. Dr. Fletcher ordered Trazadone 50mg PO ONCE. Patient was able to rest once medication was given. Patient was able to swallow pm meds whole following a drink of water with ease and no choking. Vital signs and output were WNL.
[2019-11-06] MEDS: citalopram 20 mg Tablet 10 MG PO (08:48)
[2019-11-06] MEDS: ferrous gluconate 324 mg Tablet PO ×2 (08:48→17:16)
[2019-11-06] MEDS: carvedilol 3.125 mg Tablet PO ×2 (08:48→17:16)
[2019-11-06] MEDS: ipratropium-albuterol 3 mL Neb INHALATION ×4 (08:51→20:11)
[2019-11-06] MEDS: pantoprazole DR 40 mg Tablet PO ×2 (08:51→17:16)
[2019-11-06] MEDS: budesonide 0.5 mg/2 mL Neb INHALATION ×2 (08:52→20:11)
--- NOTE | 2019-11-06 11:40 | PM.PN ---
Subjective Subjective: Interval history: Patient is afebrile and saturating 89% on 6 L/min nasal cannula and RR in 18-24 range overnight. No focal neurologic deficits were noted, but patient was disoriented and could not answer questions. Consult with Dr. Steve noted minimal benefit of decubitus ulcer debridement, Vitals/I&O/Wt Last Vital Signs Temp 98.9 F 11/06/19 07:25 Pulse 80 11/06/19 09:13 Resp 18 11/06/19 10:55 BP 118/72 11/06/19 07:25 Pulse Ox 89 L 11/06/19 09:02 11/05/19 11/06/19 11/06/19 22:59 06:59 14:59 Intake Total 120 / 710 100 / 810 Output Total 650 / 650 650 / 1300 Balance -530 / 60 -550 / -490 Weight last 48 hrs Weight 162 lb Physical Exam Narrative: EXAM NARRATIVE: Patient was tachypneic with RR 18-24H overnight and coarse breath sounds were heard in both lower lung garcia. Altered mental status as described in HPI. Urinary Catheter Management^: Shoemaker Latex: Cath Placed During This Visit: yes Reason for Continuing Indwelling Catheter: Accurate Measurement of Urinary Output in Critically Ill Patients Urinary Catheter Date of Insertion: 11/02/19 Urinary Catheter Time of Insertion: 16:40 Data : 11/05/19 04:50 11/05/19 04:50 Micro: Microbiology 11/03/19 11:35 Gram Stain - Final Buttock Wound Culture - Preliminary Staphylococcus aureus Gram Negative Rods 11/03/19 11:35 Gram Stain - Final Sputum - Expectorated Sputum Sputum Culture - Final Pseudomonas aeruginosa A&P Assessment and plan (1) Septic shock: Status: Acute (2) Adult failure to thrive: Status: Acute (3) Acute UTI: Status: Acute (4) Community acquired pneumonia: Status: Acute Qualifiers: Laterality: unspecified laterality Qualified Code(s): J18.9 - Pneumonia, unspecified organism (5) NSTEMI (non-ST elevated myocardial infarction): Status: Acute (6) Chronic kidney disease, stage III (moderate): Status: Acute (7) Paroxysmal atrial fibrillation: Status: Acute (8) Diastolic CHF: Status: Acute (9) GI bleed: Status: Acute (10) DNR (do not resuscitate): Status: Acute (11) Anemia: Status: Acute Additional A&P Information Septic shock: Criteria met through low blood pressures not responding to fluids, leukocytosis, possible site of infection. Keep mean artery pressures over 65 mmHg. Sepsis most likely because of pneumonia, UTI. Less likely because of decubitus ulcer. Urine culture growing Citrobacter, sputum culture growing Pseudomonas, wound culture at the back growing staph aureus most likely MRSA. For now continue vancomycin and Zosyn both renally dosed. Day 4 of treatment today. Most likely patient requires 5-day of treatment. Patient will have to follow-up with Dr. Steve as an outpatient for decubitus ulcer debridement in next 1 week. Chest vest physical therapy. Patient has a history of Caity in urine and MRSA bacteremia earlier this year. Speech and swallow evaluation given the fact that this pneumonia looks more like aspiration. Will advance diet accordingly. Decubitus ulcer: Case discussed with Dr. Steve. Recommendations appreciated. Unfortunately patient is not a good candidate given his sepsis for debridement currently. Most likely patient requires a follow-up as an outpatient for debridement. NSTEMI/elevated troponins: EKG at baseline. No chest pains. Most likely due to demand ischemia from sepsis. Patient has a recent history of GI bleed for which he required 4 to 5 units of PRBC transfusion earlier this year. Hemoglobin is at its baseline of around 8. Given this we will hold off on starting full dose anticoagulation. We will hold off on further aspirin. Continue with statin. Patient is agreeable that he is not in a good state for cardiac angiogram or thrombolytics given history of GI bleed. Hypertension: Blood pressure is better today. Goal blood pressure less than 140/90 allergy. Start home dose of Coreg. Hypokalemia: Replace with 80 mg oral potassium. Most likely because of good urine output. We will recheck BMP tomorrow morning. COPD/history of diastolic heart failure: Last echocardiogram from February 2019 shows an EF of 61% with grade 1 diastolic dysfunction. DuoNebs every 6 hour, budesonide twice daily. Oxygen supplementation keeping saturation over 90%. Stop IV fluids today. Patient is euvolemic. Patient is DNR/DNI. CKD: Baseline creatinine around 1.2-1.5 Creatinine 1.2 today. Medical reconciliation done for nephrotoxic drugs. Continue to monitor BMP daily. Patient does not have any electrolyte abnormality or acidosis at present. Paroxysmal A. fib: Rate controlled. Restart home dose of Coreg blood pressures are better. No anticoagulation because of history of GI bleed. Failure to thrive/severe protein energy malnutrition. Patient has a DNR/DNI signed in June 20, 2019 in the system. Patient's goals of care has been discussed with his brother who is the DPOAE Mr. Jaime Cortes. He confirms that patient is DNR/DNI. He is okay with patient getting pressors for now. History of GI bleed. Anemia: Blood work consistent with severe iron deficiency anemia and anemia of chronic disease. Start patient on oral iron supplementation. Repeat hemoglobin at 3 PM. If remains below 8 will transfuse 1 unit PRBC given current cardiac issues for him. Hyperlipidemia IV Protonix. Dysphagia 2 diet Heparin 5000 every 12 for DVT prophylaxis. Patient can be transferred out of the ICU to general medical floor. If patient continues to do well can most likely discharge after finishing a 5-day course. Coding Level of Care Code Acute Plant Director for [facility] Fwd Diagnoses Septic shock A41.9; R65.21 Adult failure to thrive R62.7 Acute UTI N39.0 Community acquired pneumonia J18.9 Laterality: unspecified laterality NSTEMI (non-ST elevated myocardial infarction) I21.4 Chronic kidney disease, stage III (moderate) N18.3 Paroxysmal atrial fibrillation I48.0 Diastolic CHF I50.30 GI bleed K92.2 DNR (do not resuscitate) Z66 Anemia D64.9
--- NOTE | 2019-11-06 12:00 | P.PN_ITS ---
Subjective Subjective: Interval history: Mr. Cortes is an 84 y/o male transferred from the ICU due to resolving sepsis. Patient complains of leg pain and was only briefly arousable. Medications: Reviewed: Yes Vitals/I&O/Wt Last Vital Signs Temp 98.9 F 11/06/19 07:25 Pulse 80 11/06/19 09:13 Resp 18 11/06/19 10:55 BP 118/72 11/06/19 07:25 Pulse Ox 89 L 11/06/19 09:02 11/05/19 11/06/19 11/06/19 22:59 06:59 14:59 Intake Total 120 / 710 100 / 810 Output Total 650 / 650 650 / 1300 Balance -530 / 60 -550 / -490 Weight last 48 hrs Weight 162 lb Physical Exam Narrative: EXAM NARRATIVE: General: Patient was arousable to touch and but could not answer questions. Lungs: Patient was tachypneic with coarse breath sounds in lower lung garcia, louder in left. MSK: Patient's left foot was externally rotated, potentially evidence of his lef t femoral neck fracture. Neuro: No focal neurologic deficits were noted, but patient seemed confused. Patient was oriented to the year. Urinary Catheter Management^: Shoemaker Latex: Cath Placed During This Visit: yes Reason for Continuing Indwelling Catheter: Accurate Measurement of Urinary Output in Critically Ill Patients Urinary Catheter Date of Insertion: 11/02/19 Urinary Catheter Time of Insertion: 16:40 Data : 11/05/19 04:50 11/05/19 04:50 Micro: Microbiology 11/03/19 11:35 Gram Stain - Final Buttock Wound Culture - Preliminary Staphylococcus aureus Gram Negative Rods 11/03/19 11:35 Gram Stain - Final Sputum - Expectorated Sputum Sputum Culture - Final Pseudomonas aeruginosa A&P Assessment and plan (1) Septic shock: Appears to be resolving. Secondary to pseudomonas cultured out of sputum consistent with pneumonia.Currently on Vancomycin and Zosyn for planned 5 day course. Urine culture growing Citrobacter, sputum culture growing Pseudomonas, wound culture at the back growing staph aureus most likely MRSA. For now continue vancomycin and Zosyn both renally dosed. Day 5 of treatment today. Finish course and monitor overnight. Status: Acute (2) Adult failure to thrive: severe protein energy malnutrition Status: Acute (3) Acute UTI: continue vancomycin and Zosyn both renally dosed. Day 5 of treatment today Status: Acute (4) Community acquired pneumonia: continue vancomycin and Zosyn both renally dosed. Day 5 of treatment today Status: Acute Qualifiers: Laterality: unspecified laterality Qualified Code(s): J18.9 - Pne umonia, unspecified organism (5) NSTEMI (non-ST elevated myocardial infarction): EKG at baseline. No chest pains. Most likely due to demand ischemia from sepsis. Status: Acute (6) Chronic kidney disease, stage III (moderate): Baseline creatinine around 1.2-1.5 Creatinine 1.0 today. Medical reconciliation done for nephrotoxic drugs. Continue to monitor BMP daily. Patient has hypokalemia today that will be supplemented. Status: Acute (7) Paroxysmal atrial fibrillation: Rate controlled. Restart home dose of Coreg blood pressures are better. No anticoagulation because of history of GI bleed. Status: Acute (8) Diastolic CHF: Status: Acute (9) GI bleed: Blood work consistent with severe iron deficiency anemia and anemia of chronic disease. Start patient on oral iron supplementation. Hemoglobin has improved to 9 overnight so will continue to monitor. If it dips b elow 8, will transfuse PRBC. Status: Acute (10) DNR (do not resuscitate): Status: Acute (11) Anemia: Status: Acute Additional A&P Information Patient has a DNR/DNI signed in June 20, 2019 in the system. Patient's goals of care will be discussed with brother and DPOA Mr. Jaime Cortes. If no overnight events, will consider discharging with hospice if agreeable with Mr. Jaime Cortes. Chest vest physical therapy. Patient has a history of Caity in urine and MRSA bacteremia earlier this year. Speech and swallow evaluation continued due to suspected aspiration pneumonia. Will advance diet accordingly. Currently tolerating nectar thick liquids. Decubitus ulcer: Per recommendation of Dr. Steve, patient is not a good candidate given his sepsis for debridement. Patient requires a follow-up as an outpatient for debridement, but previous unrepaired left femoral neck fracture may complicate course of care. Plan to discuss potential debridement with DPOA Mr. Jaime Cortes. Hypertension: Blood pressure is better today, but has dropped slightly to 102/64. Continue to evaluate BP. Goal blood pressure less than 140/90. Start home dose of Coreg. Hypokalemia: Replace with 80 mg oral potassium. Most likely because of good urine output. We will recheck BMP tomorrow morning. COPD/history of diastolic heart failure: Last echocardiogram from February 2019 shows an EF of 61% with grade 1 diastolic dysfunction. DuoNebs every 6 hour, budesonide twice daily. Oxygen supplementation keeping saturation over 90%. Patient is euvolemic. Patient is DNR/DNI. CKD: Baseline creatinine around 1.2-1.5 Creatinine 1.0 today. Medical reconciliation done for nephrotoxic drugs. Continue to monitor BMP daily. Patient has hypokalemia today that will be supplemented. History of GI bleed Patient has a recent history of GI bleed for which he required 4 to 5 units of PRBC transfusion earlier this year. Hemoglobin has improved to 9. Hold off on starting full dose anticoagulation. Hold off on further aspirin. Anemia: Blood work consistent with severe iron deficiency anemia and anemia of chronic disease. Start patient on oral iron supplementation. Hemoglobin has improved to 9 overnight so will continue to monitor. If it dips below 8, will transfuse PRBC. Hyperlipidemia, continue statin IV Protonix. Dysphagia 2 diet Heparin 5000 every 12h for DVT prophylaxis. Coding Level of Care Code Acute Director Database for Chg Fwd Diagnoses Septic shock A41.9; R65.21 Adult failure to thrive R62.7 Acute UTI N39.0 Community acquired pneumonia J18.9 Laterality: unspecified laterality NSTEMI (non-ST elevated myocardial infarction) I21.4 Chronic kidney disease, stage III (moderate) N18.3 Paroxysmal atrial fibrillation I48.0 Diastolic CHF I50.30 GI bleed K92.2 DNR (do not resuscitate) Z66 Anemia D64.9
--- NOTE | 2019-11-06 17:15 | P.PN_ITS ---
Subjective Subjective: Interval history: Michael is sleepy when I enter the room. He is able to tell me the year but otherwise he seems very distant when I try to converse with him. He has received some morphine today. Medications: Reviewed: Yes Vitals/I&O/Wt Last Vital Signs Temp 97.6 F 11/06/19 16:00 Pulse 78 11/06/19 16:00 Resp 18 11/06/19 16:00 BP 126/82 11/06/19 16:00 Pulse Ox 91 11/06/19 16:00 11/06/19 11/06/19 11/06/19 06:59 14:59 22:59 Intake Total 100 / 810 Output Total 650 / 1300 Balance -550 / -490 Weight last 48 hrs Weight 73.482 kg Physical Exam Narrative: EXAM NARRATIVE: General exam is a sleepy white male, no obvious distress Cardiovascular regular rate and rhythm Lungs a few coarse breath sounds bilaterally, heard best on expiration Abdomen is soft, positive bowel sounds Extremities no cyanosis clubbing nor edema. Left leg appears externally rotated and shortened Urinary Catheter Management^: Shoemaker Latex: Cath Placed During This Visit: yes Reason for Continuing Indwelling Catheter: Accurate Measurement of Urinary Output in Critically Ill Patients Urinary Catheter Date of Insertion: 11/02/19 Urinary Catheter Time of Insertion: 16:40 Data : 11/05/19 04:50 11/05/19 04:50 Micro: Microbiology 11/03/19 11:35 Gram Stain - Final Buttock Wound Culture - Preliminary Staphylococcus aureus Gram Negative Rods A&P Assessment and plan (1) Septic shock: Resolved. Presumably secondary to pneumonia Status: Acute (2) Adult failure to thrive: Overall worsening health condition, multifactorial secondary to recurrent pneumonias, weakness, hip fracture back in June without repair, sacral decubitus Status: Acute (3) Acute UTI: Secondary to Citrobacter, sensitive to Zosyn Status: Acute (4) Community acquired pneumonia: Pseudomonas with sputum culture. Currently on Zosyn. Status: Acute Qualifiers: Laterality: unspecified laterality Qualified Code(s): J18.9 - Pneumonia, unspecified organism (5) NSTEMI (non-ST elevated myocardial infarction): Significantly elevated troponin, however patient without chest discomfort. Likely demand ischemia from sepsis/pneumonia Status: Acute (6) Chronic kidney disease, stage III (moderate): Creatinine stable Status: Acute (7) Paroxysmal atrial fibrillation: Status: Acute (8) Diastolic CHF: Compensated currently Status: Acute (9) GI bleed: On Protonix twice daily Status: Acute (10) DNR (do not resuscitate): Status: Acute (11) Anemia: Hemoglobin has been stable Status: Acute Additional A&P Information Left hip fracture, femoral neck from June. X-ray with worsening displacement. Dysphagia. Speech therapy evaluating Sacral decubitus. Continue Zosyn. Continue vancomycin. Surgery has been consulted. Speech and swallow evaluation given the fact that this pneumonia looks more like aspiration. Will advance diet accordingly. Hypertension, blood pressure stable Hypokalemia, repeat potassium tomorrow COPD. Continue DuoNeb, budesonide Paroxysmal atrial fibrillation. Continue carvedilol Failure to thrive/severe protein energy malnutrition. Allow natural Heparin for DVT prophylaxis Overall I believe his prognosis is poor considering unrepaired hip fracture, sacral decub, multiple recurrent pneumonia episodes. Currently he is somewhat confused likely secondary to morphine. I have visited with his brother and he asked that I visit again with the patient when he is more clear to decide if comfort measures would be more appropriate. Attestations Medical Necessity Statement*: Needs continued hospitalization for IV antibiotics related to pneumonia. Coding Level of Care Code Acute Critical Care Specialist for Chg Fwd Diagnoses Septic shock A41.9; R65.21 Adult failure to thrive R62.7 Acute UTI N39.0 Community acquired pneumonia J18.9 Laterality: unspecified laterality NSTEMI (non-ST elevated myocardial infarction) I21.4 Chronic kidney disease, stage III (moderate) N18.3 Paroxysmal atrial fibrillation I48.0 Diastolic CHF I50.30 GI bleed K92.2 DNR (do not resuscitate) Z66 Anemia D64.9
[2019-11-06] MEDS: vancomycin 1,000 MG in sodium chloride 0.9% 250 ML 250 MG IV (17:16)
[2019-11-06] MEDS: atorvastatin 40 mg Tablet 20 MG PO (21:47)
[2019-11-07] VITALS (13 sets, daily range): BP systolic 110–122; BP diastolic 52–74; PULSE 69–91; RESP 18–24; TEMP 36.3–36.9; O2SAT 89–98
[2019-11-07] MEDS: ipratropium-albuterol 3 mL Neb INHALATION ×4 (02:44→21:01)
[2019-11-07] MEDS: piperacillin-tazobactam 3.375 GM in sodium chloride 0.9% (plus) 50 ML IV ×3 (04:14→21:05)
[2019-11-07] MEDS: heparin 5,000 unit/mL INJ 1 mL 5000 UNIT SUBCUT ×2 (04:14→17:44)
[2019-11-07] MEDS: acetaminophen 325 mg Tablet 650 MG PO ×2 (04:14→12:07)
[2019-11-07 06:09] LABS: Blood Urea Nitrogen 14 mg/dL (8-23); Calcium 10.2 mg/dL (8.5-10.5); Carbon Dioxide 24 mmol/L (22-29); Chloride 99 mmol/L (98-107); Glucose 90 mg/dL (65-115); Osmolality Calculated 270 mOsm/kg (285-295); Sodium 132 mmol/L (136-145)
[2019-11-07 06:57] LABS: Basophils % 0.5 %; Eosinophils # 0.3 10^3/uL (0.0-0.8); Eosinophils % 3.1 %; Hematocrit 33.3 % (42.0-52.0); Hemoglobin 9.9 g/dL (11.7-16.6); Lymphocytes # 2.2 10^3/uL (0.8-4.8); Lymphocytes % 27.1 %; Mean Corpuscular HGB Conc 29.7 g/dL (30.0-36.0); Mean Corpuscular Hemoglobin 29.9 pg (28.0-34.0); Mean Corpuscular Volume 100.6 fL (80-94); Mean Platelet Volume 10.4 fL (7.4-10.4); Monocytes # 0.7 10^3/uL (0.2-0.9); Monocytes % 8.3 %; Neutrophils # 4.78 10^3/uL (1.8-7.7); Neutrophils % 60.2 %; Nucleated Red Blood Cells % 0 %; Platelet Count 171 10^3/cmm (130-400); Red Blood Count 3.31 10^6/uL (4.1-5.3); Red Cell Distribution Width 14.5 % (12.1-15.1); White Blood Count 7.9 10^3/uL (4.0-10.0)
[2019-11-07] MEDS: ferrous gluconate 324 mg Tablet PO ×2 (08:15→17:44)
[2019-11-07] MEDS: citalopram 20 mg Tablet 10 MG PO (08:15)
[2019-11-07] MEDS: pantoprazole DR 40 mg Tablet PO ×2 (08:15→17:44)
[2019-11-07] MEDS: carvedilol 3.125 mg Tablet PO ×2 (08:15→17:44)
[2019-11-07] MEDS: budesonide 0.5 mg/2 mL Neb INHALATION ×2 (09:29→21:01)
--- NOTE | 2019-11-07 10:42 | PC.SOCIAL ---
IMM Update Pg 2 of IMM updated. Copy provided to patient. Original in chart initialed, dated, and timed.
--- NOTE | 2019-11-07 11:27 | P.PN_ITS ---
Subjective Subjective: Interval history: Teddy is much more alert today. He reports he has some leg pain, but is otherwise doing okay. Medications: Reviewed: Yes Vitals/I&O/Wt Last Vital Signs Temp 98.4 F 11/07/19 07:54 Pulse 84 11/07/19 09:45 Resp 20 H 11/07/19 09:35 BP 117/62 11/07/19 07:54 Pulse Ox 89 L 11/07/19 09:35 11/06/19 11/07/19 11/07/19 22:59 06:59 14:59 Intake Total 170 / 220 50 / 270 Balance 170 / 220 50 / 270 Weight last 48 hrs Weight 76.884 kg Physical Exam Narrative: EXAM NARRATIVE: General exam much more alert. Coughs during exam. Cardiovascular regular rate and rhythm Lungs a few coarse breath sounds bilaterally Abdomen is soft, positive bowel sounds Extremities no cyanosis clubbing nor edema. Left leg appears externally rotated and shortened Urinary Catheter Management^: Shoemaker Latex: Cath Placed During This Visit: yes Reason for Continuing Indwelling Catheter: Accurate Measurement of Urinary Output in Critically Ill Patients Urinary Catheter Date of Insertion: 11/02/19 Urinary Catheter Time of Insertion: 16:40 Data : 11/07/19 06:40 11/07/19 04:37 Micro: Microbiology 11/03/19 11:35 Gram Stain - Final Buttock Wound Culture - Final Methicillin Resis Staph Aureus Proteus mirabilis A&P Assessment and plan (1) Septic shock: Resolved. Presumably secondary to pneumonia Status: Acute (2) Adult failure to thrive: Overall worsening health condition, multifactorial secondary to recurrent pneumonias, weakness, hip fracture back in June without repair, sacral decubitus Status: Acute (3) Acute UTI: Secondary to Citrobacter, sensitive to Zosyn Status: Acute (4) Community acquired pneumonia: Pseudomonas with sputum culture. Currently on Zosyn. Status: Acute Qualifiers: Laterality: unspecified laterality Qualified Code(s): J18.9 - Pneumonia, unspecified organism (5) NSTEMI (non-ST elevated myocardial infarction): Significantly elevated troponin, however patient without chest discomfort. Likely demand ischemia from sepsis/pneumonia Echocardiogram demonstrated preserved EF. Status: Acute (6) Chronic kidney disease, stage III (moderate): Creatinine stable Status: Acute (7) Paroxysmal atrial fibrillation: Status: Acute (8) Diastolic CHF: Sodium lower today. Reinitiate Bumex 1 mg daily Status: Acute (9) GI bleed: On Protonix twice daily Status: Acute (10) DNR (do not resuscitate): Status: Acute (11) Anemia: Hemoglobin has been stable Status: Acute Additional A&P Information Left hip fracture, femoral neck from June. X-ray with worsening displacement. Dysphagia. Speech therapy evaluating Sacral decubitus. Continue Zosyn. Continue vancomycin. Surgery has been consulted. MRSA and Proteus has been isolated sensitive to current antibiotics. Speech and swallow evaluation given the fact that this pneumonia looks more like aspiration. Will advance diet accordingly. Hypertension, blood pressure stable Hypokalemia, resolved COPD. Continue DuoNeb, budesonide Paroxysmal atrial fibrillation. Continue carvedilol Failure to thrive/severe protein energy malnutrition. Allow natural Heparin for DVT prophylaxis Overall I believe his prognosis is poor considering unrepaired hip fracture, sacral decub, multiple recurrent pneumonia episodes. Yesterday he was confused but today he is more alert. I discussed with his brother the current situation and he wants the patient to make a decision. The patient, much more alert today reports he wants to continue current treatment and explore options to get him walking again. I did discuss the case with orthopedics. Certainly he would ne ed to show improvement from a pulmonary status, and healing from a decub status prior to fracture repair to have any success with this. We will keep this in mind if he is able to recover from his pneumonia and decubitus. Attestations Medical Necessity Statement*: Needs continued hospital stay for IV antibiotics related to pneumonia. Coding Level of Care Code Acute [place] Brushing Machine Operator for [facility] Fwd Diagnoses Septic shock A41.9; R65.21 Adult failure to thrive R62.7 Acute UTI N39.0 Community acquired pneumonia J18.9 Laterality: unspecified laterality NSTEMI (non-ST elevated myocardial infarction) I21.4 Chronic kidney disease, stage III (moderate) N18.3 Paroxysmal atrial fibrillation I48.0 Diastolic CHF I50.30 GI bleed K92.2 DNR (do not resuscitate) Z66 Anemia D64.9
[2019-11-07] MEDS: bumetanide 1 mg Tablet PO (12:05)
[2019-11-07] MEDS: vancomycin 1,000 MG in sodium chloride 0.9% 250 ML 250 MG IV (17:45)
[2019-11-07] MEDS: atorvastatin 40 mg Tablet 20 MG PO (21:05)
[2019-11-08] VITALS (11 sets, daily range): BP systolic 117–128; BP diastolic 65–71; PULSE 72–85; RESP 18–22; TEMP 36.8–36.9; O2SAT 88–91
[2019-11-08] MEDS: ipratropium-albuterol 3 mL Neb INHALATION ×2 (02:25→09:54)
[2019-11-08 04:30] LABS: Anion Gap 12.1 (5-19); Blood Urea Nitrogen 16 mg/dL (8-23); Calcium 10.3 mg/dL (8.5-10.5); Carbon Dioxide 26 mmol/L (22-29); Chloride 100 mmol/L (98-107); Glucose 101 mg/dL (65-115); Osmolality Calculated 276 mOsm/kg (285-295); Potassium 3.1 mmol/L (3.5-5.1); Sodium 135 mmol/L (136-145)
[2019-11-08] MEDS: piperacillin-tazobactam 3.375 GM in sodium chloride 0.9% (plus) 50 ML IV ×2 (04:36→11:36)
[2019-11-08] MEDS: heparin 5,000 unit/mL INJ 1 mL 5000 UNIT SUBCUT (04:37)
--- NOTE | 2019-11-08 09:20 | XR_ITS ---
WS: [id number] PORTABLE CHEST HISTORY: follow up pneumonia COMPARISON: 11/05/2019 Hyperinflated lungs with chronic interstitial thickening in the periphery. Mild progression of the in terstitial thickening at the RIGHT lung base. This corresponds to tree-in-bud inflammatory process no suha on a recent CT from 11/02/2019. Slightly improved aeration at the LEFT lung base. No pleural effus ion or pneumothorax. Cardiac size: Normal. Mediastinum/Aorta: Mild atherosclerosis aorta. No osseous abnormality seen. XR/XR chest 1V portable [id number] IMPRESSION: 1. Slight increase in the interstitial thickening at the RIGHT lung base sugge sting acute pneumonitis superimposed on patient's chronic interstitial fibrosis . 2. Slightly improved aeration at the LEFT lung base.
[2019-11-08] MEDS: ferrous gluconate 324 mg Tablet PO (09:44)
[2019-11-08] MEDS: citalopram 20 mg Tablet 10 MG PO (09:44)
[2019-11-08] MEDS: pantoprazole DR 40 mg Tablet PO (09:44)
[2019-11-08] MEDS: bumetanide 1 mg Tablet PO (09:44)
[2019-11-08] MEDS: carvedilol 3.125 mg Tablet PO (09:44)
[2019-11-08] MEDS: budesonide 0.5 mg/2 mL Neb INHALATION (09:54)
--- NOTE | 2019-11-08 12:17 | PM.DCS ---
Discharge Providers Date of Admission: 11/02/19 13:54 Date of Discharge: November 08, 2019 Attending Provider at Admission: Omid Gonsalez MD Attending Provider at Discharge: Omi Silva MD Primary Care Provider: Bob Tobar MD Diagnoses at Discharge Discharge Diagnosis (1) Septic shock: Status: Acute Problem details: Resolved (2) Adult failure to thrive: Status: Acute (3) Acute UTI: Status: Acute Problem details: Citrobacter, sensitive to fluoroquinolone (4) Community acquired pneumonia: Status: Acute Problem details: Sputum with Pseudomonas, sensitive to fluoroquinolone Qualifiers: Laterality: unspecified laterality Qualified Code(s): J18.9 - Pneumonia, unspecified organism (5) NSTEMI (non-ST elevated myocardial infarction): Status: Acute Problem details: Medical management (6) Chronic kidney disease, stage III (moderate): Status: Acute Problem details: Stable (7) Paroxysmal atrial fibrillation: Status: Acute Problem details: Controlled (8) Diastolic CHF: Status: Acute Problem details: Reinitiate Bumex (9) GI bleed: Status: Acute Problem details: Follow-up with general surgery regarding endoscopy (10) DNR (do not resuscitate): Status: Acute (11) Anemia: Status: Acute Reason for Visit Reason for Visit: Unresponsive, hypotension Hospital Course Hospital Course: Teddy is an 84-year-old white male [facility], sepsis. There was concern for pneumonia as well as UTI. Hemoglobin was decreased and concern for GI bleed existed. Troponin was elevated and there was concern for non-ST elevation myocardial infarction, likely demand ischemia. He also had a sacral decubitus noted. While in the hospital he received broad-spectrum antibiotics. Culture of his decubitus eventually grew MRSA, as well as Proteus. Sputum grew Pseudomonas. Urine grew Citrobacter. With antibiotic treatment he improved. During the last part of his hospital stay he remained afebrile. His white blood cell count was normal. He required anywhere from 3 to 6 L of oxygen, but most recently 4 L of oxygen per nasal cannula. I reviewed with him as well as subspecialist his decubitus, as well as his hip fracture on the left. After treatment of his pneumonia he will visit with the specialist regarding possible debridement and/or hip fracture repair if he becomes strong enough. I discussed with the patient whether he would want to be comfort care and at this point he does not want comfort care alone, trying to attempt to get stronger. Elevated troponin will be treated medically and statin was added. No aspirin was given secondary concern for GI bleed. Proton pump inhibitor will be continued. Physical Exam Narrative: EXAM NARRATIVE: General exam no apparent distress Cardiovascular regular in rhythm Lungs diminished breath sounds bilaterally. No significant crackles Abdomen is soft with positive bowel sounds Extremities no cyanosis clubbing or edema. Urinary Catheter Management^: Shoemaker Latex: Cath Placed During This Visit: yes Reason for Continuing Indwelling Catheter: Accurate Measurement of Urinary Output in Critically Ill Patients Urinary Catheter Date of Insertion: 11/02/19 Urinary Catheter Time of Insertion: 16:40 Discharge Data Data Completed and Pending: Completed Studies During Hospitalization Category Date Time Status CT abdomen pelvis wo con [id number] Rout ine Cat Scan 11/03/19 11:[address] chest wo con 7 [id number] Urgent Cat Scan 11/02/19 16:44 Completed XR chest 1V pato ble [id number] Routine Exams 11/03/19 11:33 Completed XR chest 1V pato ble [id number] Routine Exams 11/08/19 09:20 Completed XR chest 1V pato ble [id number] Stat Exams 11/05/19 17:00 Completed XR chest 1V pato ble [id number] Urgent Exams 11/02/19 11:35 Completed CV echo complete* [id number] Routine Ultrasound 11/05/19 08:49 Completed Labs from last 24 hours 11/08/19 03:35 Sodium 135 L Potassium 3.1 L Chloride 100 Carbon Dioxide 26 Anion Gap 12.1 BUN 16 Creatinine 1.2 Glucose 101 Calculated Osmolal ity 276 L Calcium 10.3 Vitals: Last Vital Signs Temp 98.2 F 11/08/19 11:23 Pulse 72 11/08/19 11:23 Resp 18 11/08/19 11:23 BP 117/70 11/08/19 11:23 Pulse Ox 90 11/08/19 11:23 Discharge Plan Discharge Patient Disposition: Xfer SNF Condition: Stable Prescriptions: New potassium chloride 20 mEq/15 mL liquid 20 meq PO DAILY Qty: 1200 RF: 0 atorvastatin 40 mg Tablet 20 mg PO BEDTIME Qty: 30 RF: 0 bumetanide 1 mg Tablet 1 mg PO DAILY Qty: 30 RF: 0 levofloxacin [Levaquin] 750 mg tablet 750 mg PO Q24H Qty: 10 RF: 0 doxycycline hyclate 100 mg capsule 100 mg PO BID 20 Days Qty: 40 RF: 0 Continued ondansetron HCl [Zofran] 4 mg Tablet 4 mg PO TID PRN (Reason: Nausea) RF: 0 budesonide-formoterol 160-4.5 mcg/actuation Hfa Aerosol Inhaler 2 puff INHALATION BID RF: 0 pantoprazole 40 mg Tablet,Delayed Release (Dr/Ec) 40 mg PO DAILY RF: 0 sennosides [senna] 8.6 mg Tablet 8.6 mg PO DAILY RF: 0 hydrocodone-acetaminophen [Lometa] 5-325 mg Tablet 1 tab PO Q6H PRN (Reason: Pain) RF: 0 carvedilol 3.125 mg Tablet 3.125 mg PO BID RF: 0 acetaminophen [Tylenol 8 Hour] 650 mg Tablet Extended Release 650 mg PO Q6H PRN (Reason: Pain) RF: 0 magnesium hydroxide [Milk of Magnesia] 400 mg/5 mL Suspension 30 ml PO DAILY PRN (Reason: Constipation) RF: 0 bisacodyl 10 mg Suppository 10 mg IA DAILY PRN (Reason: Constipation) RF: 0 ferrous sulfate 325 mg (65 mg iron) Tablet 325 mg PO DAILY RF: 0 Enema Disposable 19-7 gram/118 mL Enema 118 ml IA DAILY PRN (Reason: Constipation) RF: 0 docusate sodium [Colace] 100 mg Capsule 100 mg PO DAILY RF: 0 gabapentin 300 mg Capsule 300 mg PO BID RF: 0 folic acid 1 mg Tablet 1 mg PO DAILY RF: 0 Lactobacillus acidophilus [Acidophilus] Capsule 1 cap PO DAILY RF: 0 Spiriva with HandiHaler 18 mcg Capsule, W/Inhalation Device 1 cap INHALATION DAILY RF: 0 Atrovent HFA 17 mcg/actuation Hfa Aerosol Inhaler 2 puff INHALATION DAILY PRN (Reason: Shortness Of Breath) RF: 0 citalopram 10 mg Tablet 10 mg PO DAILY RF: 0 Betadine Swabsticks 10 % Swab 1 applic TOPICAL DAILY RF: 0 Dulcolax (bisacodyl) 5 mg Tablet,Delayed Release (Dr/Ec) 5 mg PO DAILY PRN (Reason: Constipation) RF: 0 albuterol sulfate 90 mcg/actuation Hfa Aerosol Inhaler 1 inh INHALATION QID PRN (Reason: Shortness Of Breath) RF: 0 MediHoney (honey) 80 % Gel 1 applic TOPICAL DAILY RF: 0 Discontinued metolazone 2.5 mg Tablet 2.5 mg PO DAILY RF: 0 alendronate 70 mg Tablet 70 mg PO Q7D RF: 0 potassium chloride 20 mEq/15 mL Liquid 20 meq PO TID RF: 0 tizanidine 2 mg Capsule 2 mg PO BID PRN (Reason: MUSCLE SPASMS) RF: 0 bumetanide 1 mg tablet 1 mg PO BID RF: 0 Discharge Orders: Discharge Order (Routine); Ordered 11/08/19 Ordered By: Omi Silva Referrals: Marvin Steve MD [Physician] - 2 weeks Bob Tobar MD [Primary Care Provider] - 4-7 days (CBC and BMP in 3 to 5 days) Vega Mathews MD [Physician] - 2 weeks Discharge Diet: As Directed and Cardiac Discharge Activity: Increase activity as tolerated Activity Restrictions/Additional Instructions: Oxygen 4 L per nasal cannula titrate to keep sat greater than or equal to 88% Follow-up with primary care provider 3 to 5 days. CBC and BMP on follow-up. Follow-up with orthopedic surgery regarding hip fracture in 2 weeks Follow-up with general surgery in 2 weeks for sacral decubitus Wound care evaluation at nursing facility for sacral decubitus Dysphagia level 2 diet with nectar thick liquids Discharge Attestations Time Spent in Discharge Care*: greater than 30 min Quality Metrics Clinical Quality Measures During this hospital stay, did patient experience: None Coding Level of Care Code Acute Front Desk Person for Chg Fwd Diagnoses Septic shock A41.9; R65.21 Adult failure to thrive R62.7 Acute UTI N39.0 Community acquired pneumonia J18.9 Laterality: unspecified laterality NSTEMI (non-ST elevated myocardial infarction) I21.4 Chronic kidney disease, stage III (moderate) N18.3 Paroxysmal atrial fibrillation I48.0 Diastolic CHF I50.30 GI bleed K92.2 DNR (do not resuscitate) Z66 Anemia D64.9
== END 2019-11-08 15:00 | disposition skilled nursing facility (03) | DRG 871 ==
LOC: ER 13:28 → CSU 14:20 → ICU 18:23 → MEDSURG 11-05 10:55
PROVIDERS: Internal Medicine; Admitting Provider Student in an Organized Health Care Education/Training Program; Emergency Provider Family Medicine; Family Provider Family Medicine; PCP Family Medicine; Visit Provider Internal Medicine
DX: A41.9 Sepsis, unspecified organism (principal); R65.21 Severe sepsis with septic shock; I21.4 Non-ST elevation (NSTEMI) myocardial infarction; J15.1 Pneumonia due to Pseudomonas; I50.33 Acute on chronic diastolic (congestive) heart failure; E43 Unspecified severe protein-calorie malnutrition; N39.0 Urinary tract infection, site not specified; I13.0 Hypertensive heart and chronic kidney disease with heart failure and stage 1 through stage 4 chronic kidney disease, or unspecified chronic kidney disease; K92.2 Gastrointestinal hemorrhage, unspecified; J44.0 Chronic obstructive pulmonary disease with (acute) lower respiratory infection; Z68.1 Body mass index [BMI] 19.9 or less, adult; I48.0 Paroxysmal atrial fibrillation; Z66 Do not resuscitate; R62.7 Adult failure to thrive; N18.3 Chronic kidney disease, stage 3 (moderate); Z99.81 Dependence on supplemental oxygen; G47.33 Obstructive sleep apnea (adult) (pediatric); E66.9 Obesity, unspecified; N40.0 Benign prostatic hyperplasia without lower urinary tract symptoms; G89.29 Other chronic pain; M54.9 Dorsalgia, unspecified; D63.1 Anemia in chronic kidney disease; E78.5 Hyperlipidemia, unspecified; Z86.73 Personal history of transient ischemic attack (TIA), and cerebral infarction without residual deficits; D47.2 Monoclonal gammopathy; Z87.891 Personal history of nicotine dependence
CPT/HCPCS: 12345; 36415; 36430; 36600; 51702; 71045; 71250; 74176; 80048; 80051; 80053; 80202; 81001; 81003; 82436; 82810; 83036; 83540; 83550; 83605; 83690; 83735; 83880; 83986; 84100; 84133; 84145; 84300; 84439; 84443; 84484; 85014; 85018; 85025; 85651; 86140; 86403; 86850; 86900; 86920; 87040; 87070; 87077; 87086; 87186; 87205; 87449; 87641; 87804; 92526; 92610; 93005; 93306; 94640; 94660; 94664; 94669; 96372; 96375; 99284; C9113; J0456; J1644; J1956; J2270; J2543; J3370; J3480; J3490; J7030; J7050; J7611; J7626; P9016

== ENCOUNTER 2019-12-02 16:11 | Inpatient (IN) | payer OTHER, MEDICARE, SELFPAY ==
[2019-12-02 16:15] VITALS: BP 101/54; PULSE 93; RESP 23; O2SAT 16; BMI 23.7
--- NOTE | 2019-12-02 16:23 | XRR_ITS ---
PROCEDURE INFORMATION: Exam: XR Chest, 1 View Exam date and time: 12/02/2019 4:25 PM Age: 84 years old Clinical indication: Shortness of breath; Additional info: SOB TECHNIQUE: Imaging protocol: XR of the chest Views: 1 view. COMPARISON: CR XR chest 1V portable [id number] 11/08/2019 9:29 AM FINDINGS: Lungs: The lungs are hyperinflated with diffuse interstitial prominence compatible with probable fibrosis. New airspace and ground-glass opacities noted in the mid to lower left lung concerning for pneumonic infiltrates or asymmetric airspace edema. The pulmonary vascularity is within normal limits without veronica CHF. Pleural space: Unremarkable. No pleural effusion. No pneumothorax. Heart/Mediastinum: Unremarkable. No cardiomegaly. Bones/joints: No acute abnormality. XR/XR chest 1V portable [id number] IMPRESSION: New airspace and ground-glass opacities noted in the mid to lower left lung concerning for pneumonic infiltrates or asymmetric airspace edema. Underlying hyperinflation of pulmonary fibrosis is noted.
--- NOTE | 2019-12-02 16:24 | ECG_ITS ---
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 Measurements Intervals [place] Rate: 91 P: 6 RI: 222 QRS: -53 QRSD: 130 T: 130 QT: 388 QTc: 479 Interpretive Statements SINUS RHYTHM WITH FIRST DEGREE AV BLOCK LEFT ANTERIOR FASCICULAR BLOCK [QRS AXIS <= -45, QR IN I, RS IN II] ST DEVIATION AND MODERATE T-WAVE ABNORMALITY, CONSIDER LATERAL ISCHEMIA [-0.1+ mV T WAVE IN I/aVL/V5/V6] Compared to ECG 11/02/2019 17:34:28 First degree AV block now present Left anterior fascicular block now present T-wave abnormality now present Possible ischemia now present Intraventricular conduction delay no longer present Electronically Signed On 12-03-2019 18:10:47 CDT by Cal Cardoso M.D. [id number]
[2019-12-02 17:09] LABS: Basophils # 0.1 10^3/uL (0.0-0.1); Basophils % 0.2 %; Hematocrit 35.7 % (42.0-52.0); Hemoglobin 10.3 g/dL (11.7-16.6); Lymphocytes # 1.6 10^3/uL (0.8-4.8); Lymphocytes % 5.6 %; Mean Corpuscular HGB Conc 28.9 g/dL (30.0-36.0); Mean Corpuscular Hemoglobin 30.4 pg (28.0-34.0); Mean Corpuscular Volume 105.3 fL (80-94); Mean Platelet Volume 11.5 fL (7.4-10.4); Monocytes # 1.4 10^3/uL (0.2-0.9); Neutrophils # 25.44 10^3/uL (1.8-7.7); Neutrophils % 88.5 %; Nucleated Red Blood Cells % 0 %; Platelet Count 162 10^3/cmm (130-400); Red Blood Count 3.39 10^6/uL (4.1-5.3); Red Cell Distribution Width 13.8 % (12.1-15.1); White Blood Count 28.8 10^3/uL (4.0-10.0)
[2019-12-02] MEDS: cefepime 2,000 MG in sodium chloride 0.9% (plus) 50 ML 100 MG IV (17:51)
[2019-12-02 17:52] LABS: Lactate (Lactic Acid level) 1.4 mmol/L (0.5-2.2)
[2019-12-02 17:58] LABS: Troponin(5th) Baseline 262 ng/L (0-15)
[2019-12-02 18:02] LABS: Alanine Aminotransferase 10 U/L (0-41); Albumin Level 2.9 g/dL (3.5-5.2); Alkaline Phosphatase 106 IU/L (40-130); Anion Gap 10.9 (5-19); Aspartate Amino Transferase 22 U/L (0-40); Blood Urea Nitrogen 42 mg/dL (8-23); Calcium 12.8 mg/dL (8.5-10.5); Carbon Dioxide 32 mmol/L (22-29); Chloride 102 mmol/L (98-107); Glucose 103 mg/dL (65-115); NT Pro B Type Natriuretic Pept 10450 pg/mL (0-450); Osmolality Calculated 288 mOsm/kg (285-295); Potassium 4.9 mmol/L (3.5-5.1); Sodium 140 mmol/L (136-145); Total Bilirubin 0.2 mg/dL (0.15-1.2); Total Protein 7.9 g/dL (6.6-8.7)
--- NOTE | 2019-12-02 18:24 | ECG_ITS ---
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 Measurements Intervals [place] Rate: 82 P: 49 AK: 236 QRS: -53 QRSD: 135 T: 112 QT: 377 QTc: 442 Interpretive Statements SINUS RHYTHM WITH FIRST DEGREE AV BLOCK WITH OCCASIONAL VENTRICULAR PREMATURE COMPLEXES INTRAVENTRICULAR CONDUCTION DELAY [130+ ms QRS DURATION] Compared to ECG 12/02/2019 16:20:47 Ventricular premature complex(es) now present Intraventricular conduction delay now present Left anterior fascicular block no longer present T-wave abnormality no longer present Possible ischemia no longer present Electronically Signed On 12-03-2019 18:14:37 CDT by Cal Cardoso M.D. [id number]
[2019-12-02] MEDS: FUROsemide 10 mg/mL SDV 4mL 40 MG IVP (18:47)
[2019-12-02 19:08] LABS: ABG PH Result 6.97 (7.35-7.45); Arterial Blood Gas Hematocrit 34.6 % (42-52); Base Excess ABG -0.5 mmol/L (-2.0-2.0); Blood Gas Allen Test Pos; Blood Gas Operator Identificat glc; Blood Gas Sample Site Radial, right; Blood Gas Sample Type Arterial; HCO3 ABG 34.4 mmol/L (22-26); Oxygen Device NRB
[2019-12-02 19:19] VITALS: PULSE 98; RESP 20; O2SAT 93
[2019-12-02 19:21] LABS: Reflex Lactate Order REFLEX LACTIC ORDERD
[2019-12-02 19:46] LABS: Troponin 5 2HR 250.3 ng/L (0-15); Troponin 5 2HR Delta -11.7 ABS# (0-10)
[2019-12-02 20:31] VITALS: BP 85/62; PULSE 75; RESP 27; O2SAT 97
--- NOTE | 2019-12-02 21:12 | PM.HP ---
Providers/Chief Complaint Admitting Physician: Shakira Alcazar MD Primary Care Provider: Bob Tobar MD Chief Complaint: AMS; RESP DISTRESS History of Present Illness Teddy Cortes is a 84 year old male who presented from skilled nursing due to altered mental status and respiratory distress. History is obtained from his son and family in the room and available records. I am unable to get any history directly from him. According to the family, he has not been able to answer the phone and carry on a conversation for couple of days. He had been hospitalized here in October and was discharged on 07 November. During the course of that hospital stay, he had urinary tract infection and pneumonia associated with septic shock. He also had what I suspect was a type II TN according to discharge summary. He had several decubiti noted. Cultures grew out MRSA and Proteus from his wounds, Pseudomonas from sputum and Citrobacter from urine. He gradually improved. He has had a hip fracture this year and multiple other episodes of pneumonia. He started having a gradual decline after he had back surgery last year. He has continued to fight and wanted to have medical management for some time. EMS was called today because patient was not arousable around 3 PM. From skilled nursing report he had been okay around lunchtime. When EMS arrived patient's oxygen saturation was in the 50s and they put him on a nonrebreather. He was unresponsive here. Family had not seen him due to lack of visitation at the facility but again had not been able to talk to him due to his inability to carry on a conversation. They had attributed it to pain medication which he takes from time to time. On arrival here, patient was completely unresponsive. Oxygen saturations were low when he was put on high flow. ABG showed pH of 6.97, PCO2 of 148 and a PO2 of 78 with a bicarb of 34. Patient did not want to be intubated nor even to have noninvasive ventilation. The extremely poor prognosis for told by that ABG was discussed with the family. They still wanted to try antibiotics and fluids and oxygen therapy but but not to do any other aggressive measures. They did not want to go back to the skilled nursing for comfort care. Patient had no response to stimuli at the time of my examination. He is being admitted primarily for end-of-life care. I made it very clear that without invasive respiratory assistance I did not expect the patient to survive the night. Patient was checked for COVID antigen in the emergency room and rapid screening was negative Review of Systems General: Reports: ROS unobtainable due to medical condition and ROS unobtainable due to mental status Medications/Allergies Home Medications Medication Instructions Recorded Confirmed Last Taken Type Atrovent HFA 2 puff INHALATION DAILY PRN 06/14/19 12/02/19 Unknown History Enema Disposable 118 ml MD DAILY PRN 06/14/19 12/02/19 Unknown History Lactobacillus acidophilus 1 cap PO DAILY 06/14/19 12/02/19 12/01/19 History [Acidophilus] Spiriva with HandiHaler 1 cap INHALATION DAILY 06/14/19 12/02/19 12/02/19 History acetaminophen [Tylenol 8 Hour] 650 mg PO Q6H PRN 06/14/19 12/02/19 Unknown History carvedilol 3.125 mg PO BID 06/14/19 12/02/19 12/02/19 History docusate sodium [Colace] 100 mg PO DAILY 06/14/19 12/02/19 12/02/19 History ferrous sulfate 325 mg PO DAILY 06/14/19 12/02/19 12/02/19 History folic acid 1 mg PO DAILY 06/14/19 12/02/19 12/02/19 History gabapentin 300 mg PO BID 06/14/19 12/02/19 12/02/19 History hydrocodone-acetaminophen [[place]] 1 tab PO Q6H PRN 06/14/19 12/02/19 12/02/19 History magnesium hydroxide [Milk of 30 ml PO DAILY PRN 06/14/19 12/02/19 11/19/19 History Magnesia] sennosides [senna] 8.6 mg PO DAILY 06/14/19 12/02/19 12/01/19 History budesonide-formoterol 2 puff INHALATION BID 07/02/19 12/02/19 12/02/19 History ondansetron HCl [Zofran] 4 mg PO TID PRN 07/02/19 12/02/19 Unknown History pantoprazole 40 mg PO DAILY 07/19/19 12/02/19 12/02/19 History MediHoney (honey) 1 applic TOPICAL DAILY 11/02/19 12/02/19 12/01/19 History albuterol sulfate 1 inh INHALATION QID PRN 11/02/19 12/02/19 Unknown History bisacodyl [Dulcolax (bisacodyl)] 5 mg PO DAILY PRN 11/02/19 12/02/19 Unknown History citalopram 10 mg PO DAILY 11/02/19 12/02/19 12/02/19 History atorvastatin 20 mg PO BEDTIME #30 tab 11/08/19 12/02/19 12/01/19 Rx bumetanide 1 mg PO DAILY #30 tab 11/08/19 12/02/19 12/02/19 Rx potassium chloride 20 meq PO DAILY #1200 ml 11/08/19 12/02/19 12/02/19 Rx albuterol sulfate 2.5 mg INHALATION QID PRN 12/02/19 12/02/19 Unknown History bisacodyl 10 mg MD DAILY PRN 12/02/19 12/02/19 Unknown History Allergies Allergy/AdvReac Type Severity Reaction Status Date / Time No Known Allergies Allergy Verified 07/10/19 14:07 PFSH Acute PFSH: Medical History (Updated 12/03/19 @ 02:43 by Shakira Alcazar MD) Anemia Benign prostatic hyperplasia Chronic kidney disease, stage III (moderate) Congestive heart failure COPD (chronic obstructive pulmonary disease) Decubitus ulcer of sacral region, unstageable History of colon polyps Hyperlipidemia Hypertension Monoclonal gammopathy Paroxysmal atrial fibrillation Rosacea TIA (transient ischemic attack) Surgical History H/O knee surgery History of back surgery History of colonoscopy with polypectomy History of neck surgery Family History Other CAD (coronary artery disease) Social History Smoking and tobacco status: former smoker Alcohol intake: unknown Housing: Detention Vitals/I&O/Wt Last Vital Signs Pulse 75 12/02/19 20:31 Resp 27 H 12/02/19 20:31 BP 85/62 12/02/19 20:31 Pulse Ox 97 12/02/19 20:31 Weight last 48 hrs Weight 79.379 kg Physical Exam Const: OTHER: Unresponsive even to painful stimuli, mouth breathing HENMT: OTHER: Bitemporal wasting, dry mucous membranes Eye: OTHER: Pupils are equal but minimally reactive Neck/C-Spine: OTHER: Supple although keeps his head tilted backward presently Resp: OTHER: Upper airway noise noted throughout, scattered wheezes, supraclavicular retractions apparent Cardio: OTHER: Regular rhythm, distant heart sounds, peripheral extremities are cool to touch with prolonged capillary refill GI: OTHER: Abdomen soft, nontender, nondistended, no bowel sounds : OTHER: Normal external genitalia Extremity: NARRATIVE EXTREMITY EXAM: No pitting edema Neuro: OTHER: Corneal reflexes intact Skin: NARRATIVE SKIN EXAM: Skin is dry, dressings over decubiti on the back of the thighs noted, did not turn over to look at the sacral area Data : 12/02/19 16:50 12/02/19 17:32 Other Labs: Short CBC 12/02/19 Range/Units 16:50 WBC 28.8 H (4.0-10.0) 10^3/uL Hgb 10.3 L (11.7-16.6) g/dL Hct 35.7 L (42.0-52.0) % Plt Count 162 (130-400) 10^3/cmm BMP 12/02/19 12/02/19 16:50 17:32 Sodium Cancelled 140 Potassium Cancelled 4.9 Chloride Cancelled 102 Carbon Dioxide Cancelled 32 H BUN Cancelled 42 H Creatinine Cancelled 2.1 H Glucose Cancelled 103 Calcium Cancelled 12.8 H Liver Function 12/02/19 12/02/19 Range/Units 16:50 17:32 Total Bilirubin Cancelled 0.2 AST Cancelled 22 ALT Cancelled 10 Alkaline Phosphatase Cancelled 106 Albumin Cancelled 2.9 L Laboratory Tests 12/02/19 18:34 ABG pH 6.97 L* ABG pCO2 148.0 H* ABG pO2 78.0 L ABG HCO3 34.4 H Laboratory Tests 12/02/19 12/02/19 12/02/19 17:32 17:32 19:06 Troponin T Baseline 262 H* Troponin T 120 Minute 250.3 H NT-Pro-B Natriuret Pep [id number] H Laboratory Tests 12/02/19 17:32 Lactate 1.4 A&P Assessment and plan (1) Acute on chronic respiratory failure with hypoxia and hypercapnia: Requiring high flow oxygen in the emergency room Status: Acute (2) Acute metabolic encephalopathy: From hypercapnia and acute renal failure Status: Acute (3) Acute respiratory acidosis: Profound and unlikely to correct in the setting of somebody who does not want any invasive or noninvasive ventilation Status: Acute (4) Acute kidney injury: Most likely related to decreased oral intake from hypercapnic encephalopathy associated mental status changes Status: Acute (5) Elevated troponin: Most likely demand ischemia. Has had elevated troponin for some time Status: Acute (6) Hypercalcemia: Suspect due to dehydration at the moment Status: Acute (7) Pneumonia: Status: Acute Qualifiers: Laterality: unspecified laterality Lung location: unspecified part of lung Pneumonia type: due to unspecified organism Qualified Code(s): J18.9 - Pneumonia, unspecified organism (8) Sepsis: With multiorgan failure and leukocytosis, lactic acid is actually normal Status: Acute Qualifiers: Acute respiratory failure type: with hypercapnia Sepsis acute organ dysfunction status: with acute organ dysfunction Sepsis type: sepsis due to unspecified organism Severe sepsis acute organ dysfunction type: acute respiratory failure Severe sepsis shock status: without septic shock Qualified Code(s): A41.9 - Sepsis, unspecified organism; R65.20 - Severe sepsis without septic shock; J96.02 - Acute respiratory failure with hypercapnia (9) Diastolic CHF: Probable acute on chronic component but I suspect it secondary rather than primary currently Status: Chronic (10) Decubitus ulcer of sacral region, unstageable: Present on admission along with some other decubiti on the posterior portion of his legs Status: Chronic Additional A&P Information Inpatient admission Antibiotic coverage with vancomycin, Levaquin and Zosyn IV fluids for acute renal failure Oxygen therapy Hold all home medications otherwise Provide comfort care medicines as a expect that they will be needed soon Urinalysis was ordered but has thus far not been able to provide any urine despite fluids administered Did receive a dose of Lasix in the emergency room as well Breathing treatment as needed If still here in the morning will order repeat laboratory studies to see where he is at I have not ordered any DVT prophylaxis as futile in the setting of such profound acidosis in a patient who will not be intubated Care to various wounds as needed for comfort Supportive care otherwise for patient as well as his family I have given permission for family to stay in the room given end-of-life situation Allow natural Attestations Medical Necessity Statement*: Patient very close to end-of-life. He has multiple medical issues as noted above that would merit inpatient admission with the state crossing greater than 2 midnights should he managed to survive that long. Coding Level of Care Code Acute Banquet Set Up Person for Chg Fwd Diagnoses Acute on chronic respiratory failure with hypoxia and hypercapnia J96.21; J96.22 Acute metabolic encephalopathy G93.41 Acute respiratory acidosis E87.2 Acute kidney injury N17.9 Elevated troponin R79.89 Hypercalcemia E83.52 Pneumonia J18.9 Laterality: unspecified laterality Lung location: unspecified part of lung Pneumonia type: due to unspecified organism Sepsis A41.9; R65.20; J96.02 Acute respiratory failure type: with hypercapnia Sepsis acute organ dysfunction status: with acute organ dysfunction Sepsis type: sepsis due to unspecified organism Severe sepsis acute organ dysfunction type: acute respiratory failure Severe sepsis shock status: without septic shock Diastolic CHF I50.30 Decubitus ulcer of sacral region, unstageable L89.150
--- NOTE | 2019-12-02 21:59 | ED_ITS ---
HPI - Altered Mental Status General: Chief Complaint: Altered Mental Status Stated Complaint: AMS; RESP DISTRESS Time Seen by Provider: 12/02/19 16:17 Source: EMS Mode of arrival: EMS Limitations: altered mental status History of Present Illness: HPI narrative: Patient is an 84-year-old senior living resident who was brought into the emergency department via EMS with complaints of respiratory distress and altered mental status. The patient was altered and unable to give a history, he is unresponsive. Most of the history is obtained from EMS and later from the patient's female friend. Per EMS when they arrived at the patient's bedside his oxygen saturations were in the 50s and they placed him on a nonrebreather and brought him into the emergency department. He was unresponsive for them and remained stable throughout. Per senior living staff the patient was fine until about noon, talking until he went to sleep. He tried to arouse him at around 3:00 after he thought he was sleeping but he was unresponsive and that is when he called for an ambulance. The patient's female friend however states that when she spoke to him yesterday he was having trouble talking and she felt he was pretty sick at the time. MD complaint: altered mental status and decreased responsiveness Review of Systems General: Reports: ROS unobtainable due to mental status (Unresponsive) [facility] ED PFSH: Medical History (Reviewed 12/02/19 @ 22:04 by [place] Guti[place]rez [place] [facility] [place] Acute respiratory failure Anemia Benign prostatic hyperplasia Chronic kidney disease, stage III (moderate) Stable Congestive heart failure COPD (chronic obstructive pulmonary disease) Decubitus ulcer of sacral region, unstageable Diastolic CHF Reinitiate Bumex DNR (do not resuscitate) GI bleed Follow-up with general surgery regarding endoscopy History of colon polyps Hyperlipidemia Hypertension Monoclonal gammopathy Paroxysmal atrial fibrillation Controlled Pneumonia Rosacea TIA (transient ischemic attack) Surgical History (Reviewed 12/02/19 @ 22:04 by Shannon Guti[place]rez [place], [facility] [place] H/O knee surgery History of back surgery History of colonoscopy with polypectomy History of neck surgery Family History (Reviewed 12/02/19 @ 22:04 by Shannon Guti[place]rez [place], [facility] [place] Other CAD (coronary artery disease) Social History Smoking and tobacco status: former smoker Alcohol intake: unknown Housing: [facility] Physical Exam Const: COMMON NORMALS: average body habitus, no limitations and well nourished EXAM LIMITATIONS: altered mental status GENERAL APPEARANCE: in distress, ill appearing and frail appearing NUTRITIONAL APPEARANCE: thin ORIENTATION/CONSCIOUSNESS: Yes patient obtunded OTHER: Patient unresponsive HENMT: COMMON NORMALS: normocephalic, atraumatic and moist oral mucous membranes HEAD & SCALP: normocephalic and atraumatic Neck/C-Spine: COMMON NORMALS: no JVD Resp: COMMON NORMALS: No retractions, No use of accessory muscles and percussion normal EFFORT & INSPECTION: Yes abnormal respiratory pattern other (Shallow breaths), Yes respiratory distress and Yes labored AUSCULTATION: rales diffuse PERCUSSION: percussion normal Cardio: COMMON NORMALS: no JVD, regular rate, regular rhythm, S1 normal heart sound present, S2 normal heart sound present, No gallops present (Cardio), No clicks present (Cardio), No murmurs present (Cardio), No rub (Cardio) and Peripheral pulses 2+ throughout RATE: regular rate RHYTHM: regular rhythm HEART SOUNDS: S1 normal heart sound present and S2 normal heart sound present PERIPHERAL PULSES: Peripheral pulses 2+ throughout GI: COMMON NORMALS: Normal to inspection, nondistended, normoactive bowel sounds present, Soft to palpation, non-tender, No hepatosplenomegaly present, no masses and no bruits PALPATION: Yes Soft to palpation and Yes No hepatosplenomegaly present Extremity: COMMON NORMALS: normal to inspection, full ROM, capillary refill normal, no calf tenderness and no pedal edema Neuro: TANIKA COMA SCALE: document GCS findings [place] coma scale eye opening: None Tanika coma scale verbal response: None Tanika coma scale motor response: Abnormal flexion Tanika coma scale total score: 5 Course ED course: 84-year-old gentleman who is critically ill with respiratory failure pneumonia, sepsis. Had an extensive conversation with his female friend as well as his brother and explained that due to his age, comorbid status, his prognosis is grave and is unlikely to survive this illness. I explained that with his blood gas showing severe hypercapnia, he needs intubation but since he is a DNR and they do not want intubation at this time it is unlikely he is going to improve. They understood this, and I talked to him about possible comfort care or hospice but they want maximal medical therapy and if that fails then they would consider hospice or comfort measures. He was therefore given IV cefepime, Lasix, placed on OptiFlow for oxygenation and admitted for further management. Consultations: Consultation #1: Dr. Alcazar, hospitalist. She kindly accepted the patient to her service. Vital Signs: Vital signs: Vital Signs Pulse Rate 72 12/02/19 22:01 Respiratory Rate 10 L 12/02/19 22:01 Blood Pressure 90/43 12/02/19 22:01 Pulse Oximetry 93 12/02/19 22:01 MDM - Altered Mental Status MDM Narrative: Medical decision making narrative: 84-year-old gentleman who is a senior living resident presents to the emergency department in acute respiratory failure, sepsis, pneumonia. He also has chronically elevated troponins. He is gravely ill and is likely going to from this illness, family does not want hospice at this time but want maximal medical therapy. If this fails then we will consider hospice. He is therefore admitted to the hospital for further evaluation and management. Medical Records: Attestation: I reviewed the patient's medical records. Lab Data: Attestation: I reviewed the patient's lab results. Labs: Lab Results 12/02/19 12/02/19 12/02/19 Range/Units 16:50 16:50 16:50 WBC 28.8 H (4.0-10.0) 10^3/ uL RBC 3.39 L (4.1-5.3) 10^6/u L Hgb 10.3 L (11.7-16.6) g/dL Hct 35.7 L (42.0-52.0) % MCV 105.3 H (80-94) fL MCH 30.4 (28.0-34.0) pg MCHC 28.9 L (30.0-36.0) g/dL RDW 13.8 (12.1-15.1) % Plt Count 162 (130-400) 10^3/c mm MPV 11.5 H (7.4-10.4) fL Neut % (Auto) 88.5 % Lymph % (Auto) 5.6 % [place] % (Auto) 5.0 % Eos % (Auto) 0.0 % Baso % (Auto) 0.2 % Neut # (Auto) 25.44 H (1.8-7.7) 10^3/u L Lymph # (Auto) 1.6 (0.8-4.8) 10^3/u L [place] # (Auto) 1.4 H (0.2-0.9) 10^3/u L Eos # (Auto) 0.0 (0.0-0.8) 10^3/u L Baso # (Auto) 0.1 (0.0-0.1) 10^3/u L Nucleated RBC % (a uto) 0 % Nucleated RBCs # 0.0 /100WBC Specimen Type Sample Site ABG pH (7.35-7.45) ABG pCO2 (35-45) mmHg ABG pO2 (80.0-100.0) mmH g ABG HCO3 (22-26) mmol/L ABG Base Excess (-2.0-2.0) mmol/ L Williams Test Hematocrit (42-52) % O2 Delivery Device O2 Liters/Min % FiO2 % Lvn Home Health ID Sodium Cancelled Potassium Cancelled Chloride Cancelled Carbon Dioxide Cancelled Anion Gap Cancelled BUN Cancelled Creatinine Cancelled GFR Calculation Cancelled Glucose Cancelled Calculated Osmolal ity Cancelled Lactic Acid Cancelled Lactate (0.5-2.2) mmol/L Calcium Cancelled Total Bilirubin Cancelled AST Cancelled ALT Cancelled Alkaline Phosphata se Cancelled Troponin T Baselin e Troponin T 120 Min [place] (0-15) ng/L Delta Troponin T (0-10) ABS# NT-Pro-B Natriuret Pep Cancelled Total Protein Cancelled Albumin Cancelled Globulin Cancelled 12/02/19 12/02/19 12/02/19 Range/Units 16:50 17:32 17:32 WBC (4.0-10.0) 10^3/ uL RBC (4.1-5.3) 10^6/u L Hgb (11.7-16.6) g/dL Hct (42.0-52.0) % MCV (80-94) fL MCH (28.0-34.0) pg MCHC (30.0-36.0) g/dL RDW (12.1-15.1) % Plt Count (130-400) 10^3/c mm MPV (7.4-10.4) fL Neut % (Auto) % Lymph % (Auto) % [place] % (Auto) % Eos % (Auto) % Baso % (Auto) % Neut # (Auto) (1.8-7.7) 10^3/u L Lymph # (Auto) (0.8-4.8) 10^3/u L [place] # (Auto) (0.2-0.9) 10^3/u L Eos # (Auto) (0.0-0.8) 10^3/u L Baso # (Auto) (0.0-0.1) 10^3/u L Nucleated RBC % (a uto) % Nucleated RBCs # /100WBC Specimen Type Sample Site ABG pH (7.35-7.45) ABG pCO2 (35-45) mmHg ABG pO2 (80.0-100.0) mmH g ABG HCO3 (22-26) mmol/L ABG Base Excess (-2.0-2.0) mmol/ L Williams Test Hematocrit (42-52) % O2 Delivery Device O2 Liters/Min % FiO2 % Lvn Home Health ID Sodium 140 Potassium 4.9 Chloride 102 Carbon Dioxide 32 H Anion Gap 10.9 BUN 42 H Creatinine 2.1 H GFR Calculation Not Reportable Glucose 103 Calculated Osmolal ity 288 Lactic Acid Lactate (0.5-2.2) mmol/L Calcium 12.8 H Total Bilirubin 0.2 AST 22 ALT 10 Alkaline Phosphata se 106 Troponin T Baselin e Cancelled 262 H* Troponin T 120 Min [place] (0-15) ng/L Delta Troponin T (0-10) ABS# NT-Pro-B Natriuret Pep 90160 H Total Protein 7.9 Albumin 2.9 L Globulin 5.0 H 12/02/19 12/02/19 12/02/19 Range/Units 17:32 18:34 19:06 WBC (4.0-10.0) 10^3/ uL RBC (4.1-5.3) 10^6/u L Hgb (11.7-16.6) g/dL Hct (42.0-52.0) % MCV (80-94) fL MCH (28.0-34.0) pg MCHC (30.0-36.0) g/dL RDW (12.1-15.1) % Plt Count (130-400) 10^3/c mm MPV (7.4-10.4) fL Neut % (Auto) % Lymph % (Auto) % [place] % (Auto) % Eos % (Auto) % Baso % (Auto) % Neut # (Auto) (1.8-7.7) 10^3/u L Lymph # (Auto) (0.8-4.8) 10^3/u L [place] # (Auto) (0.2-0.9) 10^3/u L Eos # (Auto) (0.0-0.8) 10^3/u L Baso # (Auto) (0.0-0.1) 10^3/u L Nucleated RBC % (a uto) % Nucleated RBCs # /100WBC Specimen Type Arterial Sample Site Radial, right ABG pH 6.97 L* (7.35-7.45) ABG pCO2 148.0 H* (35-45) mmHg ABG pO2 78.0 L (80.0-100.0) mmH g ABG HCO3 34.4 H (22-26) mmol/L ABG Base Excess -0.5 (-2.0-2.0) mmol/ L Williams Test Pos Hematocrit 34.6 L (42-52) % O2 Delivery Device Nrb O2 Liters/Min 15.0 % FiO2 100.0 % Lvn Home Health ID glc Sodium Potassium Chloride Carbon Dioxide Anion Gap BUN Creatinine GFR Calculation Glucose Calculated Osmolal ity Lactic Acid Lactate 1.4 (0.5-2.2) mmol/L Calcium Total Bilirubin AST ALT Alkaline Phosphata se Troponin T Baselin e Troponin T 120 Min [place] 250.3 H (0-15) ng/L Delta Troponin T -11.7 L (0-10) ABS# NT-Pro-B Natriuret Pep Total Protein Albumin Globulin Imaging Data^: CXR: Radiologist's impression: [address] [address] XRay Report Signed Patient: Teddy Cortes #: [id number] : 1936Acct#:[id number] Age/Sex: 84 / MADM Date: 12/02/19 Loc: ERRoom/Bed: Attending Dr: Ordering Provider/Ordering MD: Shannon Guti[place]rez [place], [facility] [place] of Service: 12/02/19 Procedure(s): XR chest 1V portable [id number] Accession Number(s): [id number] Report Number: [id number] PROCEDURE INFORMATION: Exam: XR Chest, 1 View Exam date and time: 12/02/2019 4:25 PM Age: 84 years old Clinical indication: Shortness of breath; Additional info: SOB TECHNIQUE: Imaging protocol: XR of the chest Views: 1 view. COMPARISON: CR XR chest 1V portable [id number] 11/08/2019 9:29 AM FINDINGS: Lungs: The lungs are hyperinflated with diffuse interstitial prominence compatible with probable fibrosis. New airspace and ground-glass opacities noted in the mid to lower left lung concerning for pneumonic infiltrates or asymmetric airspace edema. The pulmonary vascularity is within normal limits without veronica CHF. Pleural space: Unremarkable. No pleural effusion. No pneumothorax. Heart/Mediastinum: Unremarkable. No cardiomegaly. Bones/joints: No acute abnormality. XR/XR chest 1V portable [id number] IMPRESSION: New airspace and ground-glass opacities noted in the mid to lower left lung concerning for pneumonic infiltrates or asymmetric airspace edema. Underlying hyperinflation of pulmonary fibrosis is noted. Dictated By:Lian Mao Signed By:Mary Mao Date/Time:12/02/191814 DD/ 13 EKG Data^: EKG 1: Attestation: I personally reviewed and interpreted this EKG as follows: EKG interpretation date: 12/02/19 EKG interpretation time: 16:20 Prior EKG tracings: not available for review Interpretation: Sinus rhythm with first-degree AV block. Heart rate 91 bpm. Left anterior fascicular block. No STEMI. EKG 2: Attestation: I personally reviewed and interpreted this EKG as follows: EKG interpretation date: 12/02/19 EKG interpretation time: 18:44 Prior EKG tracings: available for review Interpretation: Sinus rhythm with first-degree AV block. Heart rate 82 beats per minutes. No STEMI. Critical Care Time Critical Care Time: Critical Care Time: Yes Total Critical Care Time: 60 Attestation: This case had a high probability of a clinically significant, sudden, or life threatening deterioration of this patient's condition which required my full and direct attention, intervention and personal management. Discharge Plan Discharge Patient Disposition: Admitted As Inpatient Admit Provider: Shakira Alcazar Clinical Impression: Acute hypercapnic respiratory failure, Sepsis, Acute metabolic encephalopathy, Pneumonia, Elevated troponin Condition: Critical Interventions: ED Discharge Assessment Last Done: 12/02/19 22:01 ED Charges Last Done: 12/02/19 22:01 Coding Level of Care Code ED Head Of Partner Development for Chg Fwd Exam Comprehensive
[2019-12-02 22:01] VITALS: BP 90/43; PULSE 72; RESP 10; O2SAT 93
[2019-12-02 22:08] LABS: SARS Covid-2 Antigen Negative (Negative)
[2019-12-02 22:51] VITALS: PULSE 93; RESP 16; O2SAT 94
[2019-12-03] MEDS: sodium chloride 0.9% 1,000 ML 100 ML IV (00:22)
[2019-12-03] MEDS: levofloxacin-dextrose 5 % 750 MG/150 ML PREMIX 100 MG IV (00:22)
[2019-12-03 00:36] VITALS: BP 82/58; PULSE 79; RESP 20; TEMP 36.2; O2SAT 100
[2019-12-03 01:46] VITALS: RESP 16
[2019-12-03] MEDS: morphine 4 mg/mL SDV 1 mL 2 MG IVP ×3 (01:46→17:51)
[2019-12-03] MEDS: piperacillin-tazobactam 3.375 GM in sodium chloride 0.9% (plus) 50 ML IV (02:31)
[2019-12-03] MEDS: vancomycin 1,000 MG in sodium chloride 0.9% 250 ML 250 MG IV (04:27)
[2019-12-03 04:58] LABS: Blood Urea Nitrogen 50 mg/dL (8-23); Calcium 11.8 mg/dL (8.5-10.5); Carbon Dioxide 28 mmol/L (22-29); Chloride 104 mmol/L (98-107); Glucose 72 mg/dL (65-115); Osmolality Calculated 289 mOsm/kg (285-295); Sodium 141 mmol/L (136-145)
[2019-12-03 05:00] VITALS: BP 80/35; PULSE 69; TEMP 36; O2SAT 100
[2019-12-03 05:02] LABS: Add Urine Microscopic? YES; Bilirubin Urine 1+ (NEGATIVE); Blood Urine 3+ (Negative); Glucose Urine UA Norm (Normal); Ketones Urine 1+ (Negative); Leukocyte Esterase Urine 2+ (Negative); Nitrate Urine Negative (Negative); Protein Urine 2+ (Negative); Specific Gravity, Urine 1.025 (1.005-1.030); Urine Color Yellow (Yellow); Urobilinogen Urine Norm (Negative); pH Urine 5 (5-7)
[2019-12-03 05:07] LABS: Amorphous Sediment Urine 1+; Bacteria Urine 2+; Mucus Urine 1+; RBC Urine 40-50 /hpf (0-2); Squamous Epithelial Cell Urine 0-4 (0-5); WBC Urine >100 /hpf (0-5)
[2019-12-03 05:08] LABS: Add Urine Culture? Yes; Other Sediment, Urine BUD YEAST W/HYPHAE
[2019-12-03 07:43] LABS: Basophils % 0.1 %; Hematocrit 30.9 % (42.0-52.0); Hemoglobin 8.8 g/dL (11.7-16.6); Lymphocytes # 1.2 10^3/uL (0.8-4.8); Lymphocytes % 8.6 %; Mean Corpuscular HGB Conc 28.5 g/dL (30.0-36.0); Mean Corpuscular Hemoglobin 29.6 pg (28.0-34.0); Mean Platelet Volume 11.4 fL (7.4-10.4); Monocytes # 0.5 10^3/uL (0.2-0.9); Monocytes % 3.7 %; Neutrophils # 12.58 10^3/uL (1.8-7.7); Neutrophils % 87.2 %; Nucleated Red Blood Cells % 0 %; Platelet Count 118 10^3/cmm (130-400); Red Blood Count 2.97 10^6/uL (4.1-5.3); Red Cell Distribution Width 13.9 % (12.1-15.1); White Blood Count 14.4 10^3/uL (4.0-10.0)
[2019-12-03 07:53] VITALS: BP 88/47; PULSE 77; RESP 14; TEMP 36.8; O2SAT 67
[2019-12-03 15:13] VITALS: PULSE 94; O2SAT 64
[2019-12-03 16:00] VITALS: PULSE 94; O2SAT 64
[2019-12-03] MEDS: LORazepam 2 mg/mL INJ 1 mL 0.5 MG IVP (17:55)
--- NOTE | 2019-12-03 21:09 | P.PN_ITS ---
Subjective Subjective: Interval history: He is not responding. Appears comfortable. His friend is with him at bedside. Vitals/I&O/Wt Last Vital Signs Temp 98.3 F 12/03/19 07:53 Pulse 94 12/03/19 16:00 Resp 14 12/03/19 07:53 BP 88/47 12/03/19 07:53 Pulse Ox 64 L 12/03/19 16:00 12/03/19 12/03/19 12/03/19 06:59 14:59 22:59 Intake Total 200 / 200 Output Total 600 / 600 Balance -400 / -400 Weight last 48 hrs Weight 79.379 kg Physical Exam Const: COMMON NORMALS: no acute distress; negative for alert ORIENTATION/CONSCIOUSNESS: Yes patient obtunded; not awake HENMT: COMMON NORMALS: oropharynx normal Neck/C-Spine: COMMON NORMALS: no JVD Resp: COMMON NORMALS: normal respiratory effort AUSCULTATION: diminished lung sounds Cardio: COMMON NORMALS: no JVD, regular rhythm, S1 normal heart sound present, S2 normal heart sound present and No murmurs present (Cardio) RHYTHM: regular rhythm HEART SOUNDS: S1 normal heart sound present and S2 normal heart sound present GI: COMMON NORMALS: Normal to inspection, nondistended, normoactive bowel sounds present, Soft to palpation and non-tender PALPATION: Yes Soft to palpation Extremity: COMMON NORMALS: no joint enlargement and no pedal edema Neuro: COMMON NORMALS: moves all extremities SENSORIUM/ORIENTATION: No alert Skin: COMMON NORMALS: no rashes or lesions noted GENERAL SKIN EXAM: no rashes or lesions noted Data : 12/03/19 07:15 12/03/19 03:59 A&P Assessment and plan (1) Need for comfort care: Family prefer him to be kept comfortable. Unfortunately he has had progressive decline in his health over the past 6 months at least. They prefer no further blood draws or invasive interventions. Continue comfort care medications. Did not have any additional needs at this time. Status: Acute (2) Acute on chronic respiratory failure with hypoxia and hypercapnia: Requiring high flow oxygen in the emergency room Status: Acute (3) Acute metabolic encephalopathy: From hypercapnia and acute renal failure Status: Acute (4) Acute respiratory acidosis: Profound and unlikely to correct in the setting of somebody who does not want any invasive or noninvasive ventilation Status: Acute (5) Acute kidney injury: Most likely related to decreased oral intake from hypercapnic encephalopat hy associated mental status changes Status: Acute (6) Elevated troponin: Most likely demand ischemia. Has had elevated troponin for some time Status: Acute (7) Hypercalcemia: Suspect due to dehydration at the moment Status: Acute (8) Pneumonia: Status: Acute Qualifiers: Laterality: unspecified laterality Lung location: unspecified part of lung Pneumonia type: due to unspecified organism Qualified Code(s): J18.9 - Pneumonia, unspecified organism (9) Sepsis: With multiorgan failure and leukocytosis, lactic acid is actually normal Status: Acute Qualifiers: Acute respiratory failure type: with hypercapnia Sepsis acute organ dysfunction status: with acute organ dysfunction Sepsis type: sepsis due to unspecified organism Severe sepsis acute organ dysfunction type: acute respiratory failure Severe sepsis shock status: without septic shock Qualified Code(s): A41.9 - Sepsis, unspecified organism; R65.20 - Severe sepsis without septic shock; J96.02 - Acute respiratory failure with hypercapnia (10) Diastolic CHF: Probable acute on chronic component but I suspect it secondary rather than primary currently Status: Chronic (11) Decubitus ulcer of sacral region, unstageable: Present on admission along with some other decubiti on the posterior p ortion of his legs Status: Chronic Attestations Medical Necessity Statement*: Continue admission for end-of-life comfort support. 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[facility] Need for comfort care Acute on chronic respiratory failure with hypoxia and hypercapnia J96.21; J96.22 Acute metabolic encephalopathy G93.41 Acute respiratory acidosis E87.2 Acute kidney injury N17.9 Elevated troponin R79.89 Hypercalcemia E83.52 Pneumonia J18.9 Laterality: unspecified laterality Lung location: unspecified part of lung Pneumonia type: due to unspecified organism Sepsis A41.9; R65.20; J96.02 Acute respiratory failure type: with hypercapnia Sepsis acute organ dysfunction status: with acute organ dysfunction Sepsis type: sepsis due to unspecified organism Severe sepsis acute organ dysfunction type: acute respiratory failure Severe sepsis shock status: without septic shock Diastolic CHF I50.30 Decubitus ulcer of sacral region, unstageable L89.150
[2019-12-04] MEDS: morphine 4 mg/mL SDV 1 mL 2 MG IVP ×2 (08:24→20:06)
[2019-12-04] MEDS: LORazepam 2 mg/mL INJ 1 mL 0.5 MG IVP ×2 (08:25→20:06)
[2019-12-04 19:55] VITALS: BP 103/58; PULSE 82; RESP 18; TEMP 37.5; O2SAT 84
[2019-12-04 20:06] VITALS: RESP 18
--- NOTE | 2019-12-04 20:08 | PM.PN ---
Subjective Subjective: Interval history: Obtunded. Does not appear in distress. Vitals/I&O/Wt Last Vital Signs Temp 99.5 F 12/04/19 19:55 Pulse 82 12/04/19 19:55 Resp 18 12/04/19 19:55 BP 103/58 12/04/19 19:55 Pulse Ox 84 L 12/04/19 19:55 Physical Exam Const: COMMON NORMALS: no acute distress; negative for alert ORIENTATION/CONSCIOUSNESS: Yes patient obtunded; not awake OTHER: Friend and brother are at the bedside. HENMT: COMMON NORMALS: oropharynx normal Neck/C-Spine: COMMON NORMALS: no JVD Resp: COMMON NORMALS: normal respiratory effort AUSCULTATION: diminished lung sounds Cardio: COMMON NORMALS: no JVD, regular rhythm, S1 normal heart sound present, S2 normal heart sound present and No murmurs present (Cardio) RHYTHM: regular rhythm HEART SOUNDS: S1 normal heart sound present and S2 normal heart sound present GI: COMMON NORMALS: Normal to inspection, nondistended, normoactive bowel sounds present, Soft to palpation and non-tender PALPATION: Yes Soft to palpation Extremity: COMMON NORMALS: no joint enlargement and no pedal edema Neuro: COMMON NORMALS: moves all extremities SENSORIUM/ORIENTATION: No alert Skin: COMMON NORMALS: no rashes or lesions noted GENERAL SKIN EXAM: no rashes or lesions noted Data : 12/03/19 07:15 12/03/19 03:59 Micro: Microbiology 12/03/19 04:00 Urine Culture - Preliminary Urine Catheterized Yeast species A&P Assessment and plan (1) Need for comfort care: Both his friend as well as his brother inquired about possibility of taking him home to continue to care for him there, and allow him to pass away in his own surroundings. Discussed with discharge planning. Referral is made to hospice care to help family provide end-of-life care. Discussed with them using moistened swabs for comfort. They inquired about pleasure feeds. These could be considered as well, although we discussed that as he is unresponsive, he is not likely to swallow effectively. No blood draws or invasive interventions per discussion with family. Continue comfort care medications. If hospice and supplies can be set up, potentially could be brought back home for comfort measures with family tomorrow. Status: Acute (2) Acute on chronic respiratory failure with hypoxia and hypercapnia: Requiring high flow oxygen in the emergency room Status: Acute (3) Acute metabolic encephalopathy: From hypercapnia and acute renal failure Status: Acute (4) Acute respiratory acidosis: Status: Acute (5) Acute kidney injury: Status: Acute (6) Elevated troponin: Status: Acute (7) Hypercalcemia: Status: Acute (8) Pneumonia: Status: Acute Qualifiers: Laterality: unspecified laterality Lung location: unspecified part of lung Pneumonia type: due to unspecified organism Qualified Code(s): J18.9 - Pneumonia, unspecified organism (9) Sepsis: Status: Acute Qualifiers: Acute respiratory failure type: with hypercapnia Sepsis acute organ dysfunction status: with acute organ dysfunction Sepsis type: sepsis due to unspecified organism Severe sepsis acute organ dysfunction type: acute respiratory failure Severe sepsis shock status: without septic shock Qualified Code(s): A41.9 - Sepsis, unspecified organism; R65.20 - Severe sepsis without septic shock; J96.02 - Acute respiratory failure with hypercapnia (10) Diastolic CHF: Status: Chronic (11) Decubitus ulcer of sacral region, unstageable: Status: Chronic Attestations Medical Necessity Statement*: Continue comfort care, hospice arrangements. 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 Need for comfort care Acute on chronic respiratory failure with hypoxia and hypercapnia J96.21; J96.22 Acute metabolic encephalopathy G93.41 Acute respiratory acidosis E87.2 Acute kidney injury N17.9 Elevated troponin R79.89 Hypercalcemia E83.52 Pneumonia J18.9 Laterality: unspecified laterality Lung location: unspecified part of lung Pneumonia type: due to unspecified organism Sepsis A41.9; R65.20; J96.02 Acute respiratory failure type: with hypercapnia Sepsis acute organ dysfunction status: with acute organ dysfunction Sepsis type: sepsis due to unspecified organism Severe sepsis acute organ dysfunction type: acute respiratory failure Severe sepsis shock status: without septic shock Diastolic CHF I50.30 Decubitus ulcer of sacral region, unstageable L89.150
[2019-12-05 03:48] VITALS: BP 109/62; PULSE 97; RESP 20; TEMP 37.8; O2SAT 78
[2019-12-05 07:41] VITALS: RESP 20
--- NOTE | 2019-12-05 08:30 | PC.SOCIAL ---
IMM Page 2 of [facility] explained to patient's spouse at bedside. She verbalizes understanding. Initialed, dated, and timed and placed in chart.
--- NOTE | 2019-12-05 08:38 | PC.SOCIAL ---
Patients is on comfort care no IMM needed yesterday.
[2019-12-05 11:07] VITALS: RESP 20
--- NOTE | 2019-12-05 11:22 | PM.DCS ---
Discharge Providers Date of Admission: 12/02/19 20:27 Date of Discharge: December 05, 2019 Attending Provider at Admission: Shakira Alcazar MD Attending Provider at Discharge: Remy Alaniz MD Primary Care Provider: Bob Tobar MD Diagnoses at Discharge Discharge Diagnosis (1) Need for comfort care: Status: Acute (2) Acute on chronic respiratory failure with hypoxia and hypercapnia: Status: Acute (3) Acute metabolic encephalopathy: Status: Acute (4) Acute respiratory acidosis: Status: Acute (5) Acute kidney injury: Status: Acute (6) Elevated troponin: Status: Acute (7) Hypercalcemia: Status: Acute (8) Pneumonia: Status: Acute Qualifiers: Laterality: unspecified laterality Lung location: unspecified part of lung Pneumonia type: due to unspecified organism Qualified Code(s): J18.9 - Pneumonia, unspecified organism (9) Sepsis: Status: Acute Qualifiers: Acute respiratory failure type: with hypercapnia Sepsis acute organ dysfunction status: with acute organ dysfunction Sepsis type: sepsis due to unspecified organism Severe sepsis acute organ dysfunction type: acute respiratory failure Severe sepsis shock status: without septic shock Qualified Code(s): A41.9 - Sepsis, unspecified organism; R65.20 - Severe sepsis without septic shock; J96.02 - Acute respiratory failure with hypercapnia (10) Diastolic CHF: Status: Chronic (11) Decubitus ulcer of sacral region, unstageable: Status: Chronic Reason for Visit Reason for Visit: AMS; RESP DISTRESS Hospital Course Discharge Summary: Elderly male presented with sepsis secondary to pneumonia with evidence of acute kidney injury and encephalopathy. Patient did not improve with treatment and family decided to proceed with hospice. Patient's brother and son were in agreement as I was told. Brother will be staying at patient's house while under care or hospice. This morning patient does not appear in any distress. He appears to be actively dying. Physical Exam Narrative: EXAM NARRATIVE: Patient is not in any distress. He does have some gurgling sounds secondary to secretions and atropine was prescribed. Discharge Data Data Completed and Pending: Completed Studies During Hospitalization Category Date Time Status XR chest 1V pato ble [id number] Urgent Exams 12/02/19 16:23 Completed Pending at discharge Category Date Time Status Arterial Blood Ga s W/O [place] AM LABS Lab 12/03/19 04:00 Ordered Urine Culture Sta t Lab 12/03/19 04:00 Results Vitals: Last Vital Signs Temp 100.0 F H 12/05/19 03:48 Pulse 97 12/05/19 03:48 Resp 20 H 12/05/19 11:07 BP 109/62 12/05/19 03:48 Pulse Ox 78 L 12/05/19 03:48 Discharge Plan Discharge Patient Disposition: Hospice - Home Condition: Critical Prescriptions: New Isopto Atropine 1 % Drops 4 drp sublingual Q2H PRN (Reason: Secretions) Qty: 10 RF: 0 morphine 20 mg/5 mL (4 mg/mL) solution 5 mg PO Q1H PRN (Reason: Discomfort) Qty: 100 RF: 0 Ativan 2 mg/mL solution 1 mg SUBLINGUAL Q6H PRN (Reason: agitation) Qty: 25 RF: 0 Discontinued ondansetron HCl [Zofran] 4 mg Tablet 4 mg PO TID PRN (Reason: Nausea) RF: 0 budesonide-formoterol 160-4.5 mcg/actuation Hfa Aerosol Inhaler 2 puff INHALATION BID RF: 0 pantoprazole 40 mg Tablet,Delayed Release (Dr/Ec) 40 mg PO DAILY RF: 0 albuterol sulfate 2.5 mg /3 mL (0.083 %) Solution For Nebulization 2.5 mg INHALATION QID PRN (Reason: Shortness Of Breath) RF: 0 bisacodyl 10 mg Suppository 10 mg NM DAILY PRN (Reason: Constipation) RF: 0 sennosides [senna] 8.6 mg Tablet 8.6 mg PO DAILY RF: 0 hydrocodone-acetaminophen [[place]] 5-325 mg Tablet 1 tab PO Q6H PRN (Reason: Pain) RF: 0 carvedilol 3.125 mg Tablet 3.125 mg PO BID RF: 0 acetaminophen [Tylenol 8 Hour] 650 mg Tablet Extended Release 650 mg PO Q6H PRN (Reason: Pain) RF: 0 magnesium hydroxide [Milk of Magnesia] 400 mg/5 mL Suspension 30 ml PO DAILY PRN (Reason: Constipation) RF: 0 ferrous sulfate 325 mg (65 mg iron) Tablet 325 mg PO DAILY RF: 0 Enema Disposable 19-7 gram/118 mL Enema 118 ml NM DAILY PRN (Reason: Constipation) RF: 0 docusate sodium [Colace] 100 mg Capsule 100 mg PO DAILY RF: 0 gabapentin 300 mg Capsule 300 mg PO BID RF: 0 folic acid 1 mg Tablet 1 mg PO DAILY RF: 0 Lactobacillus acidophilus [Acidophilus] Capsule 1 cap PO DAILY RF: 0 Spiriva with HandiHaler 18 mcg Capsule, W/Inhalation Device 1 cap INHALATION DAILY RF: 0 Atrovent HFA 17 mcg/actuation Hfa Aerosol Inhaler 2 puff INHALATION DAILY PRN (Reason: Shortness Of Breath) RF: 0 citalopram 10 mg Tablet 10 mg PO DAILY RF: 0 bisacodyl [Dulcolax (bisacodyl)] 5 mg Tablet,Delayed Release (Dr/Ec) 5 mg PO DAILY PRN (Reason: Constipation) RF: 0 albuterol sulfate 90 mcg/actuation Hfa Aerosol Inhaler 1 inh INHALATION QID PRN (Reason: Shortness Of Breath) RF: 0 MediHoney (honey) 80 % Gel 1 applic TOPICAL DAILY RF: 0 atorvastatin 40 mg Tablet 20 mg PO BEDTIME Qty: 30 RF: 0 bumetanide 1 mg Tablet 1 mg PO DAILY Qty: 30 RF: 0 potassium chloride 20 mEq/15 mL liquid 20 meq PO DAILY Qty: 1200 RF: 0 Discharge Orders: Discharge Order (Routine); Ordered 12/05/19 Ordered By: Remy Alaniz Referrals: [facility] ([facility]) [Outside] Discharge Diet: Advance as tolerated Discharge Activity: Increase activity as tolerated Patient Instructions: Lorazepam (By mouth), Morphine, Rapid Release (By mouth), Atropine (By mouth), Hospice Care (GEN) Activity Restrictions/Additional Instructions: Please contact hospice nurse and physician for any questions Discharge Attestations Time Spent in Discharge Care*: less than 30 min Quality Metrics Clinical Quality Measures During this hospital stay, did patient experience: None Coding Level of Care Code Acute Cable Tender for Chg Fwd Diagnoses Need for comfort care Acute on chronic respiratory failure with hypoxia and hypercapnia J96.21; J96.22 Acute metabolic encephalopathy G93.41 Acute respiratory acidosis E87.2 Acute kidney injury N17.9 Elevated troponin R79.89 Hypercalcemia E83.52 Pneumonia J18.9 Laterality: unspecified laterality Lung location: unspecified part of lung Pneumonia type: due to unspecified organism Sepsis A41.9; R65.20; J96.02 Acute respiratory failure type: with hypercapnia Sepsis acute organ dysfunction status: with acute organ dysfunction Sepsis type: sepsis due to unspecified organism Severe sepsis acute organ dysfunction type: acute respiratory failure Severe sepsis shock status: without septic shock Diastolic CHF I50.30 Decubitus ulcer of sacral region, unstageable L89.150
== END 2019-12-05 11:20 | disposition hospice, home (50) | DRG 951 ==
LOC: ER 17:11 → MEDSURG 20:46
PROVIDERS: Admitting Provider Hospitalist; Emergency Provider Family Medicine; PCP Family Medicine; Visit Provider Internal Medicine
DX: Z51.5 Encounter for palliative care (principal); A41.9 Sepsis, unspecified organism; R65.20 Severe sepsis without septic shock; J96.21 Acute and chronic respiratory failure with hypoxia; J96.22 Acute and chronic respiratory failure with hypercapnia; G93.41 Metabolic encephalopathy; I50.33 Acute on chronic diastolic (congestive) heart failure; J18.9 Pneumonia, unspecified organism; I13.0 Hypertensive heart and chronic kidney disease with heart failure and stage 1 through stage 4 chronic kidney disease, or unspecified chronic kidney disease; J44.0 Chronic obstructive pulmonary disease with (acute) lower respiratory infection; N17.9 Acute kidney failure, unspecified; I24.8 Other forms of acute ischemic heart disease; Z87.440 Personal history of urinary (tract) infections; Z87.01 Personal history of pneumonia (recurrent); I25.2 Old myocardial infarction; Z86.14 Personal history of Methicillin resistant Staphylococcus aureus infection; D63.1 Anemia in chronic kidney disease; N18.3 Chronic kidney disease, stage 3 (moderate); N40.0 Benign prostatic hyperplasia without lower urinary tract symptoms; L89.150 Pressure ulcer of sacral region, unstageable; E78.5 Hyperlipidemia, unspecified; I48.0 Paroxysmal atrial fibrillation; Z86.73 Personal history of transient ischemic attack (TIA), and cerebral infarction without residual deficits; Z87.891 Personal history of nicotine dependence; E83.52 Hypercalcemia; Z66 Do not resuscitate; E86.0 Dehydration
CPT/HCPCS: 12345; 36415; 36600; 71045; 80048; 80053; 81001; 82803; 83605; 83880; 84484; 85025; 87086; 87106; 87426; 93005; 96375; 99283; J0692; J1940; J1956; J2060; J2270; J2543; J3370; J7030; J7050